=== PATIENT | male | born 1970 | race African-American/Black ===

== ENCOUNTER 2019-11-16 14:28 | Inpatient (IN) | payer OTHER ==
--- NOTE | 2019-11-16 14:45 | PDOC ---
Rapid Medical Evaluation Time Seen by Provider: 11/16/19 14:42 Medical Evaluation: 11/16/19 14:42 I have performed a brief in-person examination on this patient. CC: swelling to both legs PE: b/l brawny edema. +weeping ulcers to b/l legs Orders: labs, urine, sono Patient will proceed to ED for further evaluation. Discharge Disposition - Diagnosis Edema - Referrals - Patient Instructions - Post Discharge Activity
--- NOTE | 2019-11-16 15:46 | PDOC ---
History of Present Illness - General Chief Complaint: Edema Stated Complaint: LEG SWOLLEN Time Seen by Provider: 11/16/19 14:42 History Source: Patient Exam Limitations: No Limitations - History of Present Illness Initial Comments: 11/16/19 16:06 49 y.o. M PMHx HTN, DM Presenting with 1 week of SOB, weakness, and leg swelling with ulcerations from ankle to knee. Patient states He has not been taking his home dose of lasix due to the side effects. Patient reports he has been having increased SOB, headaches, blurry vision, leg swelling N/V/D one episode of emesis today productive of green mucus. He normally receives his treatment at the [facility]. PCP: Dr. Dimas Nephro: Dr. Gaines PMHx: HTN, DM Meds: In Chart Allergies: NKA Past History - Medical History Allergies/Adverse Reactions: Allergies Allergy/AdvReac Type Severity Reaction Status Date / Time No Known Allergies Allergy Verified 11/16/19 14:43 Home Medications: Ambulatory Orders Furosemide [Lasix] 40 mg PO DAILY 11/16/19 Glipizide 10 mg PO DAILY 11/16/19 Lisinopril [Prinivil] 10 mg PO DAILY 11/16/19 COPD: No CHF: Yes Diabetes: Yes HTN: Yes - Psycho-Social/Smoking History Smoking History: Never smoked Have you smoked in the past 12 months: No - Substance Abuse Hx (Audit-C & DAST Scrn) How often the patient has a drink containing alcohol: Never Score: In Men: 4 or > Positive; In Women: 3 or > Positive: 0 Screen Result (Pos requires Nsg. Audit-10AR): Negative In the last yr the pt used illegal drug/Rx for NonMed reason: No Score: Yes response is considered Positive: 0 Screen Result (Positive result requires Nsg. DAST-10): Negative Review of Systems - Review of Systems Constitutional: Yes: Fever, Malaise, Weakness. No: Chills, Diaphoresis HEENTM: Yes: Blurred Vision. No: Double Vision Respiratory: Yes: Shortness of Breath. No: Cough Cardiac (ROS): No: Chest Pain, Palpitations, Syncope ABD/GI: Yes: Constipated, Diarrhea, Nausea, Vomiting : Yes: Burning, Dysuria Musculoskeletal: Yes: Muscle Weakness. No: Back Pain Integumentary: No: Bruising Neurological: Yes: Headache. No: Numbness, Seizure, Tingling Hematologic/Lymphatic: No: Easy Bleeding, Bleeding Diathesis *Physical Exam - Vital Signs Last Vital Signs Temp Pulse Resp BP Pulse Ox 98.7 F 102 H 18 175/111 H 97 11/16/19 14:44 11/16/19 14:44 11/16/19 14:44 11/16/19 14:44 11/16/19 14:44 - Physical Exam General Appearance: Yes: Nourished, Appropriately Dressed. No: Apparent Distress Respiratory/Chest: positive: Lungs Clear, Normal Breath Sounds. negative: Chest Tender, Crackles, Rales, Stridor Cardiovascular: positive: Regular Rhythm, Regular Rate, Edema. negative: JVD, Murmur Gastrointestinal/Abdominal: positive: Normal Bowel Sounds, Flat, Soft. negative: Tender, Protuberent, Distended, Tenderness Musculoskeletal: positive: Normal Inspection. negative: CVA Tenderness Integumentary: positive: Normal Color, Dry, Warm, Erythema, Rash, Swelling, Other (ulcers b/l) Neurologic: positive: Fully Oriented, Alert, Normal Mood/Affect, Normal Response ED Treatment Course - LABORATORY CBC & Chemistry Diagram: 11/16/19 17:03 11/16/19 17:03 Medical Decision Making - Medical Decision Making 11/16/19 16:17 49 y.o. M PMHx HTN, DM Presenting with 1 week of SOB, weakness, and leg swelling with ulcerations from ankle to knee. DDx: CHF, CKD, PE, Labs: WBC 11.3, Hgb 11.2, Hct 33.2, K 3.2, CO2 33, Cr 4.6, BNP 20961 CXR: Enlarged heart, no pulmonary edema, no acute pathology EKG: NSR, L atrial enlargement, QTc 487ms, rate 97 UA: 4+ Protein, Glucose 1+, Blood 1+ Dr. Rivero reccomended 40 PO K and 20meq IVPB, ABG Dispo: Admission to med-surg signed out to Dr. Lewis 11/16/19 18:02 Discharge - Discharge Information Problems reviewed: Yes Clinical Impression/Diagnosis: Chronic kidney insufficiency Qualifiers: Chronic kidney disease stage: unspecified stage Qualified Code(s): N18.9 - Chronic kidney disease, unspecified Clinical Impression/Diagnosis: (Ruled Out): CHF (congestive heart failure) Condition: Stable - Admission Yes - Follow up/Referral - Patient Discharge Instructions - Post Discharge Activity
[2019-11-16 17:10] LABS: BASO % 0.6 % (0-2.0); EPI CELLS 7 /uL (0-25.1); HEMATOCRIT 33.2 % (35.4-49); HEMOGLOBIN 11.2 GM/dL (11.7-16.9); HYALINE CASTS 3 /uL (0-3.1); LYMPH % 22.3 % (8-40); MCHC 33.7 g/dl (32.0-35.9); MEAN PLT VOLUME 8.7 fl (7.5-11.1); MONO % 11.8 % (3.8-10.2); NEUT % 61.3 % (42.8-82.8); PH,URINE 7.5 (5.0-8.0); PLATELET COUNT 282 K/MM3 (134-434); RBC 3.49 M/mm3 (4.00-5.60); RDW 13.2 % (11.9-15.9); URINE APPEARANCE CLEAR; URINE BACTERIA 12 /uL (0-1359); URINE BILIRUBIN NEGATIVE (NEGATIVE); URINE COLOR YELLOW; URINE GLUCOSE (UA) 1+ (NEGATIVE); URINE KETONE NEGATIVE (NEGATIVE); URINE LEUK ESTERASE NEGATIVE (NEGATIVE); URINE NITRITE NEGATIVE (NEGATIVE); URINE PROTEIN 4+ (NEGATIVE); URINE RBC 4 /uL (0-23.9); URINE UROBILINOGEN 0.2 mg/dL (0.2-1.0); URINE WBC 5 /uL (0-25.8); WHITE BLOOD COUNT 11.3 K/mm3 (4.0-10.0)
[2019-11-16 17:16] LABS: INR 1.03 (0.83-1.09); PROTHROMBIN TIME (PATIENT) 12.2 SEC (9.7-13.0)
[2019-11-16 17:51] LABS: ALBUMIN 2.2 g/dl (3.4-5.0); BILIRUBIN,TOTAL 0.2 mg/dL (0.2-1); BLOOD UREA NITROGEN 23.4 mg/dL (7-18); CALCIUM 8.5 mg/dL (8.5-10.1); CREATININE 4.6 mg/dL (0.55-1.3); POTASSIUM 3.2 mmol/L (3.5-5.1); TOT PROT 6.9 g/dl (6.4-8.2)
[2019-11-16] MEDS ORDERED: FUROSEMIDE 40 MG/4 ML INJECTABLE VIAL IVPUSH ONE (17:57)
--- NOTE | 2019-11-16 18:13 | PDOC ---
Documentation entered by Shahab Ogden SCRIBE, acting as scribe for Erica Holcomb MD. Erica Holcomb MD: This documentation has been prepared by the braxtonibe, Shahab Ogden SCRIBE, under my direction and personally reviewed by me in its entirety. I confirm that the documentation accurately reflects all work, treatment, procedures, and medical decision making performed by me. Attending Attestation - Resident Resident Name: Farzad Thacker - ED Attending Attestation I have performed the following: I have examined & evaluated the patient, The case was reviewed & discussed with the resident, I agree w/resident's findings & plan, Exceptions are as noted - HPI HPI: 11/16/19 16:27 The patient is a 49 year old male with a significant past medical history of DM, CHF, and HTN who presents to the emergency department for evaluation of shortness of breath that began one week ago. The patient reports worsened symptoms today which include weakness, headaches, blurry vision, nausea, one episode of vomiting which produced green mucus, diarrhea,and leg swelling with ulcerations from ankle to knee. He reports he stopped taking Lasix due to its side effects. He reports being treated at the [facility]. The patient denies chest/abdominal/back pain, cough, and shortness of breath. Denies fever, chills, nausea, vomiting, and/or any GI symptoms. Denies any symptoms. Denies any other symptoms. Allergies: NKA PCP: Dr. Dimas Nephro: Dr. Gaines - Physicial Exam PE: GENERAL: Awake, alert, and fully oriented, in no acute distress HEAD: No signs of trauma EYES: PERRLA, EOMI, sclera anicteric, conjunctiva clear ENT: Auricles normal inspection, hearing grossly normal, nares patent, oropharynx clear without exudates. Moist mucosa NECK: Normal ROM, supple, no lymphadenopathy, JVD, or masses LUNGS: Breath sounds equal, clear to auscultation bilaterally. No wheezes, and no crackles HEART: Regular rate and rhythm, normal S1 and S2, no murmurs, rubs or gallops ABDOMEN: Soft, nontender, normoactive bowel sounds. No guarding, no rebound. No masses EXTREMITIES: Normal range of motion. 4+ pitting edema with chronic stasis changes to BLE, extending to the level of the lower abdomen. No clubbing or cyanosis. +Open lesions to the lower legs. NEUROLOGICAL: Cranial nerves II through XII grossly intact. Normal speech. Motor and sensation intact. SKIN: Warm, Dry, normal turgor. - Medical Decision Making 11/16/19 18:12 Case d/w Dr. Rivero via phone. He will evaluate patient. Recommended ABG to evaluate the patient's acid/base status based on the high CO2 on the CMP. Also recommended potassium before giving lasix. Will plan for admission. Discharge - Discharge Information Problems reviewed: Yes Clinical Impression/Diagnosis: Chronic kidney insufficiency Qualifiers: Chronic kidney disease stage: unspecified stage Qualified Code(s): N18.9 - Chronic kidney disease, unspecified Condition: Stable - Follow up/Referral - Patient Discharge Instructions - Post Discharge Activity
[2019-11-16] MEDS ORDERED: KCL 10 MEQ IVPB 10 MEQ/100 ML INFUS.BAG IVPB ONE ×2 (18:17→19:57)
[2019-11-16] MEDS ORDERED: FUROSEMIDE 40 MG/4 ML INJECTABLE VIAL ONE (18:17)
[2019-11-16] MEDS: KCL 10 MEQ IVPB 10 MEQ/100 ML INFUS.BAG IVPB SCH ×2 (18:21→20:18)
[2019-11-16 18:51] LABS: ARTERIAL BLD GAS O2 SATURATION 96.7 mmHg (95-98); ARTERIAL BLOOD GAS BASE EXCESS 4.4 mmol/L (-2-2); ARTERIAL BLOOD GAS PO2 85.2 mmHg (80-100); ARTERIAL BLOOD GAS pH 7.435 (7.350-7.450)
[2019-11-16 18:59] LABS: ALLENS TEST POSITIVE
--- NOTE | 2019-11-16 19:03 | PDOC ---
*Physical Exam - Vital Signs Last Vital Signs Temp Pulse Resp BP Pulse Ox 98.3 F 97 H 19 165/102 H 99 11/16/19 17:45 11/16/19 17:45 11/16/19 17:45 11/16/19 17:45 11/16/19 17:45 - Physical Exam 11/16/19 19:02 Signout ADMITTED - just need attending's name - [email or web address] Grayson ED Treatment Course - LABORATORY CBC & Chemistry Diagram: 11/16/19 17:03 11/16/19 17:03 - ADDITIONAL ORDERS Additional order review: Laboratory Results 11/16/19 11/16/19 11/16/19 17:03 17:03 17:03 PT with INR INR Sodium 142 Potassium 3.2 L Chloride 103 Carbon Dioxide 33 H Anion Gap 6 L BUN 23.4 H Creatinine 4.6 H Est GFR (CKD-EPI)AfAm 16.00 Est GFR (CKD-EPI)NonAf 13.81 Random Glucose 246 H Calcium 8.5 Total Bilirubin 0.2 AST 11 L ALT 19 Alkaline Phosphatase 99 B-Natriuretic Peptide 6560.0 H Total Protein 6.9 Albumin 2.2 L Urine Color Yellow Urine Appearance Clear Urine pH 7.5 Ur Specific [place] 1.010 Urine Protein 4+ H Urine Glucose (UA) 1+ H Urine Ketones Negative Urine Blood 1+ H Urine Nitrite Negative Urine Bilirubin Negative Urine Urobilinogen 0.2 Ur Leukocyte Esterase Negative Urine WBC (Auto) 5 Urine RBC (Auto) 4 Urine Casts (Auto) 3 U Epithel Cells (Auto) 7 Urine Bacteria (Auto) 12 11/16/19 17:03 PT with INR 12.20 INR 1.03 Sodium Potassium Chloride Carbon Dioxide Anion Gap BUN Creatinine Est GFR (CKD-EPI)AfAm Est GFR (CKD-EPI)NonAf Random Glucose Calcium Total Bilirubin AST ALT Alkaline Phosphatase B-Natriuretic Peptide Total Protein Albumin Urine Color Urine Appearance Urine pH Ur Specific [place] Urine Protein Urine Glucose (UA) Urine Ketones Urine Blood Urine Nitrite Urine Bilirubin Urine Urobilinogen Ur Leukocyte Esterase Urine WBC (Auto) Urine RBC (Auto) Urine Casts (Auto) U Epithel Cells (Auto) Urine Bacteria (Auto) 11/16/19 17:03 RBC 3.49 L MCV 95.0 MCHC 33.7 RDW 13.2 MPV 8.7 Neutrophils % 61.3 Lymphocytes % 22.3 Monocytes % 11.8 H Eosinophils % 4.0 Basophils % 0.6 - Medications Given in the ED: ED Medications Discontinued Medications Generic Name Dose Route Start Last Admin Trade Name Freq PRN Reason Stop Dose Admin Furosemide 40 mg 11/16/19 17:57 11/16/19 18:27 Lasix Injection - IVPUSH 11/16/19 17:58 40 mg ONCE ONE Administration Discharge - Discharge Information Clinical Impression/Diagnosis: CHF (congestive heart failure) Chronic kidney insufficiency Qualifiers: Chronic kidney disease stage: unspecified stage Qualified Code(s): N18.9 - Chronic kidney disease, unspecified Condition: Stable - Follow up/Referral - Patient Discharge Instructions - Post Discharge Activity
[2019-11-16] MEDS ORDERED: ACETAMINOPHEN 325 MG TABLET (FP) PO ONE (19:28)
--- NOTE | 2019-11-16 19:30 | PN ---
Teaching Attending Note Name of Resident: Jeramie Camarena ATTENDING PHYSICIAN STATEMENT I saw and evaluated the patient. I reviewed the resident's note and discussed the case with the resident. I agree with the resident's findings and plan as documented. SUBJECTIVE: 49yoM with history of HTN, T2DM, CKD, COVID 04/2019, fibromyalgia, PTSD, and obesity presenting with acute on chronic bilateral leg swelling and pain. Notes since the beginning of the year he has had progressive leg swelling but in the past 3 months has been much worse. Developed multiple blisters on both lower legs that drained clear fluid and was following with wound care. 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 States his baseline creatinine is around 3.6-4.2, has been told it is secondary to diabetes and hypertension but has not had renal biopsy. He was prescribed Lasix but states the medication actually makes him urinate less so he stopped taking it. He has been told that the edema is secondary to venous insufficiency but is not satisfied with current treatment from his providers and the pain is intolerable so he presented here. Endorses shortness of breath for one day last week which he attributes to the heaviness of his legs. Believes he has gained about 30lb over the past year. No chest pain, palpitations, lightheadedness, dysuria, dark urine, or orthopnea. He did not take his blood pressure medication prior to presenting today. Hypertensive on arrival to the ED 175/111. Labs notable for potassium 3.2, creatinine 4.6, BNP 6560. Doppler US of the legs were negative for DVT. CXR showed cardiomegaly but no other acute findings. ED discussed case with cardiology, recommended repleting potassium and starting diuresis with 40mg IV Lasix. ROS (+) BLE edema/pain; cold intolerance; weight gain (-) Chest pain, palpitations, decreased UOP, polyuria/polydipsia OBJECTIVE: Vital Signs - 24 hr 11/16/19 11/16/19 14:44 17:45 Temperature 98.7 F 98.3 F Pulse Rate 102 H Pulse Rate [ 97 H Apical] Respiratory 18 19 Rate Blood Pressure 175/111 H Blood Pressure 165/102 H [Right Arm] O2 Sat by Pulse 97 99 Oximetry (%) EXAM Gen: awake, alert, NAD HEENT: NC/AT. No JVD CV: RRR, no MRG Resp: CTAB, unlabored Abd: Soft, NT, ND Ext: 2+ tense edema BLE to knees, skin indurated and hyperpigmented to lower calf. Multiple bilateral shallow ulcerations, no vesicles, no areas of fluctuance. Laboratory Results - last 24 hr 11/16/19 11/16/19 11/16/19 17:03 17:03 17:03 WBC 11.3 H RBC 3.49 L Hgb 11.2 L Hct 33.2 L MCV 95.0 MCH 32.0 MCHC 33.7 RDW 13.2 Plt Count 282 MPV 8.7 Absolute Neuts (auto) 6.9 Neutrophils % 61.3 Lymphocytes % 22.3 Monocytes % 11.8 H Eosinophils % 4.0 Basophils % 0.6 Nucleated RBC % 0 PT with INR 12.20 INR 1.03 Anticoagulation Therapy Puncture Site Patient Temperature ABG pH ABG pCO2 ABG pO2 ABG HCO3 ABG O2 Sat (Measured) ABG O2 Content ABG Base Excess João Test Patient On Oxygen O2 Delivery Device Oxygen Flow Rate Vent Mode Vent Rate Mechanical Rate PEEP Pressure Support Vent Sodium 142 Potassium 3.2 L Chloride 103 Carbon Dioxide 33 H Anion Gap 6 L BUN 23.4 H Creatinine 4.6 H Est GFR (CKD-EPI)AfAm 16.00 Est GFR (CKD-EPI)NonAf 13.81 Random Glucose 246 H Calcium 8.5 Total Bilirubin 0.2 AST 11 L ALT 19 Alkaline Phosphatase 99 B-Natriuretic Peptide Total Protein 6.9 Albumin 2.2 L Urine Color Urine Appearance Urine pH Ur Specific [place] Urine Protein Urine Glucose (UA) Urine Ketones Urine Blood Urine Nitrite Urine Bilirubin Urine Urobilinogen Ur Leukocyte Esterase Urine WBC (Auto) Urine RBC (Auto) Urine Casts (Auto) U Epithel Cells (Auto) Urine Bacteria (Auto) 11/16/19 11/16/19 11/16/19 17:03 17:03 18:13 WBC RBC Hgb Hct MCV MCH MCHC RDW Plt Count MPV Absolute Neuts (auto) Neutrophils % Lymphocytes % Monocytes % Eosinophils % Basophils % Nucleated RBC % PT with INR INR Anticoagulation Therapy No Result Required. Puncture Site Left radial Patient Temperature No Result Required. ABG pH 7.435 ABG pCO2 44.50 ABG pO2 85.2 ABG HCO3 29.2 H ABG O2 Sat (Measured) 96.7 ABG O2 Content No Result Required. ABG Base Excess 4.4 H João Test Positive Patient On Oxygen No O2 Delivery Device Room air Oxygen Flow Rate Room air Vent Mode No Result Required. Vent Rate No Result Required. Mechanical Rate No Result Required. PEEP No Result Required. Pressure Support Vent No Result Required. Sodium Potassium Chloride Carbon Dioxide Anion Gap BUN Creatinine Est GFR (CKD-EPI)AfAm Est GFR (CKD-EPI)NonAf Random Glucose Calcium Total Bilirubin AST ALT Alkaline Phosphatase B-Natriuretic Peptide 6560.0 H Total Protein Albumin Urine Color Yellow Urine Appearance Clear Urine pH 7.5 Ur Specific [place] 1.010 Urine Protein 4+ H Urine Glucose (UA) 1+ H Urine Ketones Negative Urine Blood 1+ H Urine Nitrite Negative Urine Bilirubin Negative Urine Urobilinogen 0.2 Ur Leukocyte Esterase Negative Urine WBC (Auto) 5 Urine RBC (Auto) 4 Urine Casts (Auto) 3 U Epithel Cells (Auto) 7 Urine Bacteria (Auto) 12 Imaging, EKG reviewed in chart ASSESSMENT AND PLAN: 49yoM with history of HTN, T2DM, CKD, COVID 04/2019, fibromyalgia, PTSD, and obesity presenting with acute on chronic bilateral leg swelling and pain. Lower extremity edema/pain Otherwise appears euvolemic on exam No known history of CHF and creatinine is near baseline per patient Low suspicion of acute CHF; likely venous insufficiency. Wounds do not appear acutely infected s/p Lasix 40mg IV in ED - I/O, daily weights - echo given cardiomegaly on CXR and uncontrolled HTN - cardiology consult - elevate legs, compression stockings as tolerated - Tylenol, Tramadol PRN for pain Hypertensive urgency Did not take BP medication today, on nifedipine but not sure what dose Asymptomatic but BP 198/130, received amlodipine - goal MAP overnight around 110 - monitor BP, resume nifedipine and consider adding additional medications as needed CKD Creatinine 4.6, baseline reportedly 3.6-4.2 - obtain outpatient records from [facility] if possible - requesting renal consult for 2nd opinion Hypokalemia - monitor, replete as needed Cold intolerance - check TSH T2DM: Reports he has been diet controlled for several months. Check A1c. ISS DVT ppx: heparin subq
--- NOTE | 2019-11-16 19:55 | HP ---
CHIEF COMPLAINT: Shortness of breath and leg swelling PCP:Dr. Dimas HISTORY OF PRESENT ILLNESS: Mr. Trevino is a 49M w a h/o CHF, DM, and HTN presenting with lower extremity swelling, pain, and weakness that has persisted for 1 week in duration. The patient notes he is normally seen at the [facility]. He noticed that his symptoms have worsened today and had experienced generalized weakness, headaches, and one episode of NBNB vomitus. He endorses bilateral leg swelling from the ankles to knees and also endorses stopping his lasix due to "being able to urinate on his own". He notes that the swelling has developed since July. He says that he lives on the 4th floor of his appartment and it has become increas ingly more difficult for him to climb up the stairs. He also noted a recent 30lb weight gain from 260lbs to 290lbs recently that he attributes to water weight since July. When asked about his breathing he notes that he does not have any dyspnea, shortness of breath or a cough. The patient denies chest pain, fever, chills, d/constipation. Recent Travel: denies PAST MEDICAL HISTORY: as above PAST SURGICAL HISTORY: as above Social History: Smoking: denies Alcohol: denies Drugs: denies Allergies No Known Allergies Allergy (Verified 11/16/19 14:43) HOME MEDICATIONS: Home Medications Medication Instructions Recorded Furosemide [Lasix] 40 mg PO DAILY 11/16/19 Glipizide 10 mg PO DAILY 11/16/19 Lisinopril [Prinivil] 10 mg PO DAILY 11/16/19 REVIEW OF SYSTEMS see above PHYSICAL EXAMINATION Vital Signs - 24 hr 11/16/19 11/16/19 14:44 17:45 Temperature 98.7 F 98.3 F Pulse Rate 102 H Pulse Rate [ 97 H Apical] Respiratory 18 19 Rate Blood Pressure 175/111 H Blood Pressure 165/102 H [Right Arm] O2 Sat by Pulse 97 99 Oximetry (%) GENERAL: Awake, alert, and fully oriented, in no acute distress. HEAD: Normal with no signs of trauma. LUNGS: Breath sounds equal, clear to auscultation bilaterally. No wheezes, and no crackles. No accessory muscle use. HEART: Regular rate and rhythm, normal S1 and S2 without murmur, rub or gallop. ABDOMEN: Soft, nontender, not distended, normoactive bowel sounds, no guarding, no rebound, no masses. No hepatomegaly or splenomegaly. LOWER EXTREMITIES: 3+ edema to knees, venous stasis ulcers medial leg bilaterally Laboratory Results - last 24 hr 11/16/19 11/16/19 11/16/19 17:03 17:03 17:03 WBC 11.3 H RBC 3.49 L Hgb 11.2 L Hct 33.2 L MCV 95.0 MCH 32.0 MCHC 33.7 RDW 13.2 Plt Count 282 MPV 8.7 Absolute Neuts (auto) 6.9 Neutrophils % 61.3 Lymphocytes % 22.3 Monocytes % 11.8 H Eosinophils % 4.0 Basophils % 0.6 Nucleated RBC % 0 PT with INR 12.20 INR 1.03 Anticoagulation Therapy Puncture Site Patient Temperature ABG pH ABG pCO2 ABG pO2 ABG HCO3 ABG O2 Sat (Measured) ABG O2 Content ABG Base Excess João Test Patient On Oxygen O2 Delivery Device Oxygen Flow Rate Vent Mode Vent Rate Mechanical Rate PEEP Pressure Support Vent Sodium 142 Potassium 3.2 L Chloride 103 Carbon Dioxide 33 H Anion Gap 6 L BUN 23.4 H Creatinine 4.6 H Est GFR (CKD-EPI)AfAm 16.00 Est GFR (CKD-EPI)NonAf 13.81 Random Glucose 246 H Calcium 8.5 Total Bilirubin 0.2 AST 11 L ALT 19 Alkaline Phosphatase 99 B-Natriuretic Peptide Total Protein 6.9 Albumin 2.2 L Urine Color Urine Appearance Urine pH Ur Specific [place] Urine Protein Urine Glucose (UA) Urine Ketones Urine Blood Urine Nitrite Urine Bilirubin Urine Urobilinogen Ur Leukocyte Esterase Urine WBC (Auto) Urine RBC (Auto) Urine Casts (Auto) U Epithel Cells (Auto) Urine Bacteria (Auto) 11/16/19 11/16/19 11/16/19 17:03 17:03 18:13 WBC RBC Hgb Hct MCV MCH MCHC RDW Plt Count MPV Absolute Neuts (auto) Neutrophils % Lymphocytes % Monocytes % Eosinophils % Basophils % Nucleated RBC % PT with INR INR Anticoagulation Therapy No Result Required. Puncture Site Left radial Patient Temperature No Result Required. ABG pH 7.435 ABG pCO2 44.50 ABG pO2 85.2 ABG HCO3 29.2 H ABG O2 Sat (Measured) 96.7 ABG O2 Content No Result Required. ABG Base Excess 4.4 H João Test Positive Patient On Oxygen No O2 Delivery Device Room air Oxygen Flow Rate Room air Vent Mode No Result Required. Vent Rate No Result Required. Mechanical Rate No Result Required. PEEP No Result Required. Pressure Support Vent No Result Required. Sodium Potassium Chloride Carbon Dioxide Anion Gap BUN Creatinine Est GFR (CKD-EPI)AfAm Est GFR (CKD-EPI)NonAf Random Glucose Calcium Total Bilirubin AST ALT Alkaline Phosphatase B-Natriuretic Peptide 6560.0 H Total Protein Albumin Urine Color Yellow Urine Appearance Clear Urine pH 7.5 Ur Specific [place] 1.010 Urine Protein 4+ H Urine Glucose (UA) 1+ H Urine Ketones Negative Urine Blood 1+ H Urine Nitrite Negative Urine Bilirubin Negative Urine Urobilinogen 0.2 Ur Leukocyte Esterase Negative Urine WBC (Auto) 5 Urine RBC (Auto) 4 Urine Casts (Auto) 3 U Epithel Cells (Auto) 7 Urine Bacteria (Auto) 12 ASSESSMENT/PLAN: Mr. Trevino is a 49M w a h/o CHF, DM, and HTN presenting with shortness of breath that has persisted for 1 week in duration and is being admitted with lower extremity swelling, elevated BNP, SOLANGE. #Bilateral lower extremity swelling - quesitonable chf vs solange on ckd vs chronic venous stasis - BNP - 6.5K - Admit to telemetry - Consult Dr. Renuka Martinez - cardiology - appreciate the recommendations - Lasix 40mg IV BID - I/O, daily weights - echo - CXR shows a large heart without pulmonary congestion - Leg swelling - vascular study - does NOT show any signs of DVT on radiology r eport - Creatinine 4.6, baseline unknown - monitor electrolytes - Order placed for urine cr and sodium for FeNa calculation - Consult for wound care # Hypokalemia - 3.4 - replete with 40 mg po potassium - Patient was previously on lasix and has stopped since july - will monitor electrolytes as needed #NIDM - Holding oral medications. ISS - A1C - BGM #Leg Pain - Diabetic neuropathy vs BL leg swelling secondary to leg swelling - ofirmev 1000 - gabapentin 100mg until med rec #htn - 5mg amlodipine - monitor - Pressures noted to be 190/100s - initially given amlodipine 5 without improvement - 100mg labetalol given with improvement to 130/110 - Holding lisinopril in the setting of SOLANGE - Consider continuing amlodipine and labetalol PRN #FEN - gentle fluid hydration - monitor K+ in the setting of renal insufficiency - will replete electrolytes as needed - diabetic sodium diet #DVT ppx - Heparin 5000 # Advanced directive - Full code #DISPO - telemetry Family Medical History Family History: As Documented Visit type - Emergency Visit Emergency Visit: Yes ED Registration Date: 11/16/19 Care time: The patient presented to the Emergency Department on the above date and was hospitalized for further evaluation of their emergent condition. - New Patient This patient is new to me today: Yes Date on this admission: 11/17/19 - Critical Care Critical Care patient: No ATTENDING PHYSICIAN STATEMENT I saw and evaluated the patient. I reviewed the resident's note and discussed the case with the resident. I agree with the resident's findings and plan as documented. SUBJECTIVE: OBJECTIVE: ASSESSMENT AND PLAN:
[2019-11-16] MEDS ORDERED: ACETAMINOPHEN 325 MG TABLET (FP) ONE (19:57)
[2019-11-16] MEDS ORDERED: GABAPENTIN 100 MG CAPSULE PO ONE (22:26)
[2019-11-16] MEDS ORDERED: ACETAMINOPHEN 1000 MG/100 ML VIAL (NON FORMULARY) IVPB ONE (22:26)
[2019-11-16] MEDS ORDERED: POTASSIUM CHLORIDE TABS 20 MEQ TABLET.ER (FP) PO ONE (22:29)
[2019-11-16] MEDS ORDERED: amLODIPine BESYLATE 5 MG TABLET (FP) PO ONE (22:29)
[2019-11-16 23:52] VITALS: BMI 37.6
[2019-11-17] MEDS ORDERED: LABETALOL HCL 100 MG TABLET (FP) PO ONE (01:13)
[2019-11-17] MEDS: traMADol HCL 50 MG TABLET PO PRN (04:17)
[2019-11-17] MEDS: FUROSEMIDE 40 MG/4 ML INJECTABLE VIAL IVPUSH SCH ×2 (05:41→14:00)
[2019-11-17] MEDS: HEPARIN NA (PORCINE) 5,000 UNITS/ML 1ML VIAL SQ SCH ×3 (05:43→21:52)
[2019-11-17 08:43] LABS: HEMATOCRIT 32.5 % (35.4-49); HEMOGLOBIN 10.8 GM/dL (11.7-16.9); MCHC 33.2 g/dl (32.0-35.9); MEAN CELL VOLUME 93.4 fl (80-96); MEAN PLT VOLUME 8.5 fl (7.5-11.1); PLATELET COUNT 273 K/MM3 (134-434); RBC 3.48 M/mm3 (4.00-5.60); RDW 13.3 % (11.9-15.9); WHITE BLOOD COUNT 11.4 K/mm3 (4.0-10.0)
[2019-11-17 08:49] LABS: ALBUMIN 2.1 g/dl (3.4-5.0); BILIRUBIN,TOTAL 0.3 mg/dL (0.2-1); BLOOD UREA NITROGEN 23.8 mg/dL (7-18); CALCIUM 8.4 mg/dL (8.5-10.1); CREATININE 4.7 mg/dL (0.55-1.3); MAGNESIUM 1.9 mg/dL (1.8-2.4); PHOSPHOROUS 3.6 mg/dL (2.5-4.9); TOT PROT 6.5 g/dl (6.4-8.2)
--- NOTE | 2019-11-17 09:54 | EKG ---
Test Reason : Blood Pressure : / mmHG Vent. Rate : 097 BPM Atrial Rate : 097 BPM P-R Int : 160 ms QRS Dur : 086 ms QT Int : 384 ms P-R-T Axes : 058 -55 069 degrees QTc Int : 487 ms NORMAL SINUS RHYTHM POSSIBLE LEFT ATRIAL ENLARGEMENT PULMONARY DISEASE PATTERN LEFT ANTERIOR FASCICULAR BLOCK NONSPECIFIC T WAVE ABNORMALITY ABNORMAL ECG NO PREVIOUS ECGS AVAILABLE Confirmed by Andrade Tobar MD ([id number]) on 11/17/2019 9:53:52 AM Referred By: Confirmed By:Andrade Tobar MD
--- NOTE | 2019-11-17 10:00 | PN ---
Teaching Attending Note Name of Resident: Farzad Mi ATTENDING PHYSICIAN STATEMENT I saw and evaluated the patient. I reviewed the resident's note and discussed the case with the resident. I agree with the resident's findings and plan as documented. SUBJECTIVE: Patient is c/o having a lower extremity swelling and oozing. OBJECTIVE: Vital Signs Temperature 98.2 F 11/17/19 14:10 Pulse Rate 77 11/17/19 15:45 Respiratory Rate 20 11/17/19 14:10 Blood Pressure 140/90 11/17/19 15:45 O2 Sat by Pulse Oximetry (%) 97 11/17/19 05:52 PE:per resident's note CBCD WBC 11.4 K/mm3 (4.0-10.0) H 11/17/19 07:20 RBC 3.48 M/mm3 (4.00-5.60) L 11/17/19 07:20 Hgb 10.8 GM/dL (11.7-16.9) L 11/17/19 07:20 Hct 32.5 % (35.4-49) L 11/17/19 07:20 MCV 93.4 fl (80-96) 11/17/19 07:20 MCHC 33.2 g/dl (32.0-35.9) 11/17/19 07:20 RDW 13.3 % (11.9-15.9) 11/17/19 07:20 Plt Count 273 K/MM3 (134-434) 11/17/19 07:20 MPV 8.5 fl (7.5-11.1) 11/17/19 07:20 CMP Sodium 142 mmol/L (136-145) 11/17/19 06:00 Potassium 3.0 mmol/L (3.5-5.1) L 11/17/19 06:00 Chloride 105 mmol/L (98-107) 11/17/19 06:00 Carbon Dioxide 29 mmol/L (21-32) 11/17/19 06:00 Anion Gap 8 MMOL/L (8-16) 11/17/19 06:00 BUN 23.8 mg/dL (7-18) H 11/17/19 06:00 Creatinine 4.7 mg/dL (0.55-1.3) H 11/17/19 06:00 Random Glucose 192 mg/dL (74-106) H 11/17/19 06:00 Calcium 8.4 mg/dL (8.5-10.1) L 11/17/19 06:00 Total Bilirubin 0.3 mg/dL (0.2-1) 11/17/19 06:00 AST 12 U/L (15-37) L 11/17/19 06:00 ALT 17 U/L (13-61) 11/17/19 06:00 Alkaline Phosphatase 91 U/L (45-117) 11/17/19 06:00 Total Protein 6.5 g/dl (6.4-8.2) 11/17/19 06:00 Albumin 2.1 g/dl (3.4-5.0) L 11/17/19 06:00 Current Medications Generic Name Dose Route Start Last Admin Trade Name Freq PRN Reason Stop Dose Admin Acetaminophen 1,000 mg 11/17/19 16:14 Ofirmev Injection - IVPB 11/18/19 16:14 Q6H PRN PAIN LEVEL 1-5 Emollient Ointment 1 applic 11/18/19 10:00 11/17/19 12:20 Aquaphor - TP 1 applic DAILY SKY Administration Furosemide 40 mg 11/17/19 06:00 11/17/19 14:00 Lasix Injection - IVPUSH 40 mg BIDLASIX SKY Administration Heparin Sodium (Porcine) 5,000 unit 11/17/19 06:00 11/17/19 14:01 Heparin - SQ Not Given TID SKY Hydralazine HCl 25 mg 11/17/19 13:15 11/17/19 13:59 Apresoline - PO 25 mg BID SKY Administration Nifedipine 60 mg 11/17/19 12:30 11/17/19 14:00 Procardia Xl - PO 60 mg DAILY SKY Administration Potassium Chloride 40 meq 11/17/19 10:45 11/17/19 10:50 K-Dur - PO 11/19/19 10:44 40 meq BID SKY Administration Tramadol HCl 50 mg 11/17/19 03:22 11/17/19 04:17 Ultram - PO 50 mg BID PRN Administration PAIN LEVEL 6-10 Home Medications Medication Instructions Recorded Furosemide [Lasix] 20 mg PO DAILY 11/16/19 Glipizide 5 mg PO DAILY 11/16/19 Lisinopril [Prinivil] 10 mg PO DAILY 11/16/19 Atorvastatin Ca [Lipitor] 40 mg PO DAILY 11/17/19 Diclofenac Sodium [Voltaren] 100 gm TP PRN PRN 11/17/19 Etanercept [Enbrel] 50 mg SQ WEEKLY 11/17/19 Nifedipine [Nifedipine ER] 30 mg PO DAILY 11/17/19 Potassium Chloride 20 meq PO DAILY 11/17/19 Pregabalin 50 mg PO BID 11/17/19 Sevelamer Carbonate 800 mg PO TID 11/17/19 Tramadol HCl 50 mg PO Q12H PRN 11/17/19 ASSESSMENT AND PLAN: This patient is a 49yom with Pmhx of HTN, T2DM, CKD, COVID 04/2019, fibromyalgia, PTSD, and obesity presenting with acute on chronic bilateral leg swelling and pain. # Lower extremity edema/pain with sonme open wounds: will place the patient on lasix with nephro consult, matthew wrap with silvadene cream #Hypertensive urgency #Acute on chronic CKD: creatinine 4.6, baseline reportedly 3.6-4.2 #Hypokalemia: replete # T2DM: Reports he has been diet controlled for several months. Check A1c. ISS DVT ppx: heparin subq
--- NOTE | 2019-11-17 10:15 | CONSULT ---
- Consultation REQUESTING PROVIDER: CONSULT REQUEST: We have been asked to surgically evaluate this patient for bilateral venous stasis. Hospitalist:Randa Ray HISTORY OF PRESENT ILLNESS: The patient is a 49 yo male with a history of chronic renal disease. He states that his baseline cret last (may) was 2.6. He was hospitalized for 10 days during May for COVID. At this time his renal function worsened to a cret of 11 and currently has been around 4. The patient states that he has been receiving diuretics since early summer, overall he states that the swelling hasn't improved with diuretics. He denies SOB. He has been seen and cared for in a wound clinic. He has compression stocking but hasn't used them since early fall. Most recently he describes using telfa and kerlix on his lower extremtities. His ambulation is limited because of pain. His weight was 293 and now he is 275. PMHx: fibromyalgia, h/o diabetes, HTN, CRI(base cret 2.6), h/o COVID, peripheral neuropathy PSHx: Eye surgery(trauma)? umbilical hernia repair Home Medications Medication Instructions Recorded Furosemide [Lasix] 40 mg PO DAILY 11/16/19 Glipizide 10 mg PO DAILY 11/16/19 Lisinopril [Prinivil] 10 mg PO DAILY 11/16/19 Allergies Allergy/AdvReac Type Severity Reaction Status Date / Time No Known Allergies Allergy Verified 11/16/19 14:43 REVIEW OF SYSTEMS: CONSTITUTIONAL: Present: fever CARDIOVASCULAR: Absent: chest pain, palpitation RESPIRATORY: Absent: cough, shortness of breath GASTROINTESTINAL: Present: [id number] last week GENITOURINARY: ABsent: dysuria, hematuria SKIN: present: lower extremity wounds HEMATOLOGIC/IMMUNOLOGIC: Absent: easy bleeding, easy bruising NEUROLOGIC: Present: tingling b/l PHYSICAL EXAM: GENERAL: Awake, alert, and fully oriented, in no acute distress. LOWER EXTREMITIES: 2+ DP pulses, warm, well-perfused. calf tenderness and peripheral edema. Dry scaly skin with multiple LE healed ulcers(pink base) and thickened skin to lower extremtities(circumfrentially) 5/5 dorsi/plantar flexion b/l. NEUROLOGICAL: Normal speech, gait not observed. PSYCH: Cooperative. Good eye contact. Appropriate mood and affect. Vital Signs Temperature 98.4 F 11/17/19 05:52 Pulse Rate 94 H 11/17/19 05:52 Respiratory Rate 20 11/17/19 05:52 Blood Pressure 121/96 11/17/19 05:52 O2 Sat by Pulse Oximetry (%) 97 11/17/19 05:52 Lab Results WBC 11.4 K/mm3 (4.0-10.0) H 11/17/19 07:20 RBC 3.48 M/mm3 (4.00-5.60) L 11/17/19 07:20 Hgb 10.8 GM/dL (11.7-16.9) L 11/17/19 07:20 Hct 32.5 % (35.4-49) L 11/17/19 07:20 MCV 93.4 fl (80-96) 11/17/19 07:20 MCHC 33.2 g/dl (32.0-35.9) 11/17/19 07:20 RDW 13.3 % (11.9-15.9) 11/17/19 07:20 Plt Count 273 K/MM3 (134-434) 11/17/19 07:20 INR 1.03 (0.83-1.09) 11/16/19 17:03 Sodium 142 mmol/L (136-145) 11/17/19 06:00 Potassium 3.0 mmol/L (3.5-5.1) L 11/17/19 06:00 Chloride 105 mmol/L (98-107) 11/17/19 06:00 Carbon Dioxide 29 mmol/L (21-32) 11/17/19 06:00 Anion Gap 8 MMOL/L (8-16) 11/17/19 06:00 BUN 23.8 mg/dL (7-18) H 11/17/19 06:00 Creatinine 4.7 mg/dL (0.55-1.3) H 11/17/19 06:00 Random Glucose 192 mg/dL (74-106) H 11/17/19 06:00 Calcium 8.4 mg/dL (8.5-10.1) L 11/17/19 06:00 Problem List - Problems (1) Chronic kidney insufficiency Assessment/Plan: pt with chronic kidney disease, please consult as needed for any further vascular access needs as per renal. h/o renal biopsy in the past with work up-his care has been at the [facility] Problems reviewed: Yes Code(s): N18.9 - CHRONIC KIDNEY DISEASE, UNSPECIFIED Qualifiers: Chronic kidney disease stage: unspecified stage Qualified Code(s): N18.9 - Chronic kidney disease, unspecified (2) Chronic venous stasis dermatitis Assessment/Plan: pt with palpable pulses and evidence of chronic edema. Continue diuretics as per the medical team Local wound care with leg elevation. Aquaphor/telfa/kerlix and matthew wraps b/l. D/w Dr. Lopez Problems reviewed: Yes Code(s): I87.2 - VENOUS INSUFFICIENCY (CHRONIC) (PERIPHERAL)
[2019-11-17] MEDS ORDERED: amLODIPine BESYLATE 5 MG TABLET (FP) PO ONE (10:45)
[2019-11-17] MEDS: POTASSIUM CHLORIDE TABS 20 MEQ TABLET.ER (FP) PO SCH ×2 (10:50→21:52)
[2019-11-17] MEDS ORDERED: NIFEdipine 10 MG CAPSULE (FP) PO SCH ×2 (11:45→11:46)
[2019-11-17] MEDS ORDERED: LISINOPRIL 10 MG TABLET PO SCH (12:00)
[2019-11-17] MEDS ORDERED: traMADol HCL 50 MG TABLET PO ONE (12:00)
[2019-11-17] MEDS: MINERAL OIL/PET HY-PHL TOPICAL OINTMENT 454 GM JAR TP SCH (12:20)
--- NOTE | 2019-11-17 12:59 | CON.CARD ---
Consult Consult Specialty:: Cardiology Referred by:: Hospitalist Service Reason for Consultation:: Cardiac evaluation - History of Present Illness Chief Complaint: Pedal edema History of Present Illness: Patient is a 49 year old male with underlying history of HTN, DM and CKD who presented with lower extremity swelling and weakness. He states has been suffering from fibromyalgia. He is followed at [facility] in [place]. He comp lains of bilateral leg swelling with venous insufficiency and skin wounds. He denies chest pain, shortness of breath or palpitations at this time. He denies PND or orthopnea. He denies fever or chills. He denies nausea, vomiting, diarrhea or abdominal pain. He denies headache or lightheadedness. He notes 30 lbs weight gain recently. He has difficulty climbing up stairs. - History Source History Provided By: Patient, Medical Record Limitations to Obtaining History: No Limitations - Past Medical History Cardio/Vascular: Yes: CHF, HTN Renal/: Yes: Renal Inusuff Endocrine: Yes: Diabetes Mellitus - Alcohol/Substance Use Hx Alcohol Use: No History of Substance Use: reports: None - Smoking History Smoking history: Never smoked Have you smoked in the past 12 months: No Home Medications - Allergies Allergies/Adverse Reactions: Allergies Allergy/AdvReac Type Severity Reaction Status Date / Time No Known Allergies Allergy Verified 11/16/19 14:43 - Home Medications Home Medications: Ambulatory Orders Furosemide [Lasix] 40 mg PO DAILY 11/16/19 Glipizide 10 mg PO DAILY 11/16/19 Lisinopril [Prinivil] 10 mg PO DAILY 11/16/19 Family Medical History Other Family History: HTN, CAD, DM, malignancy Review of Systems - Review of Systems Constitutional: denies: Chills, Fever Cardiovascular: denies: Chest Pain, Palpitations, Shortness of Breath Respiratory: denies: Cough, Hemoptysis, Orthopnea, PND Gastrointestinal: denies: Abdominal Pain, Constipation, Diarrhea, Melena, Nausea, Rectal Bleeding, Vomiting Musculoskeletal: reports: Extremity Pain, Muscle Pain Neurological: denies: Dizziness, Headache, Seizure, Syncope Vital Signs: Vital Signs Temperature 98.4 F 11/17/19 05:52 Pulse Rate 60 11/17/19 09:00 Respiratory Rate 20 11/17/19 09:00 Blood Pressure 180/120 H 11/17/19 09:00 O2 Sat by Pulse Oximetry (%) 97 11/17/19 05:52 Neck: Yes: Supple Respiratory: Yes: Diminished Gastrointestinal: Yes: Normal Bowel Sounds, Soft, Abdomen, Obese. No: Tenderness Cardiovascular: Yes: Regular Rate and Rhythm JVD: No PMI: Non-Displaced Heart Sounds: Yes: S1, S2. No: Gallop Extremities: Yes: Other (Skin ulceration LE) Edema: Yes - Other Data Labs, Other Data: CBC, BMP 11/17/19 07:20 11/17/19 06:00 INR, PTT INR 1.03 (0.83-1.09) 11/16/19 17:03 Troponin, BNP 11/16/19 17:03 B-Natriuretic Peptide 6560.0 H Troponin, BNP 11/16/19 17:03 B-Natriuretic Peptide 6560.0 H Imaging - Results Chest X-ray: Report Reviewed (Large heart) Ultrasound: Report Reviewed (No LE DVT) EKG: Report Reviewed Problem List - Problems (1) HTN (hypertension) Code(s): I10 - ESSENTIAL (PRIMARY) HYPERTENSION (2) Type 2 diabetes mellitus Code(s): E11.9 - TYPE 2 DIABETES MELLITUS WITHOUT COMPLICATIONS (3) Pedal edema Code(s): R60.0 - LOCALIZED EDEMA (4) Fibromyalgia Code(s): M79.7 - FIBROMYALGIA (5) Chronic kidney insufficiency Code(s): N18.9 - CHRONIC KIDNEY DISEASE, UNSPECIFIED Qualifiers: Chronic kidney disease stage: unspecified stage Qualified Code(s): N18.9 - Chronic kidney disease, unspecified (6) Chronic venous stasis dermatitis Code(s): I87.2 - VENOUS INSUFFICIENCY (CHRONIC) (PERIPHERAL) Assessment/Plan 1. Pedal edema with venous insufficiency ? PAD 2. Clinical presentation suggests clinical class 0-1 NYHA classification diastolic heart failure 3. Fibromyalgia 4. HTN 5. NIDDM 6. CKD PLAN: 1. Hold Prinivil. Consider Hydralazine 25 mg BID and uptitrate instead. Continue Procardia XL 60 mg QD uptitrate. If need further BP control, Labetalol may be used 2. Monitor renal function and electrolytes. Renal input to follow 3. Diuretic with caution 4. Echocardiography to assess LV/RV and valvular function 5. Vascular surgery input to follow Further plans are to follow Juan Grayson MD
[2019-11-17] MEDS: hydrALAZINE HCL 25 MG TABLET (FP) PO SCH (13:59)
[2019-11-17] MEDS: NIFEdipine E.R 60 MG TABLET PO SCH (14:00)
--- NOTE | 2019-11-17 14:25 | CONSULT ---
Consult Consult Specialty:: Nephrology Reason for Consultation:: CKD - History of Present Illness Chief Complaint: lower ext edema and pain History of Present Illness: Pt is a 49 year old male with pmhx of chf, dm, ckd, and htn who presents to the ER with lower ext swelling and pain. He has history of CKD and follows at the [facility]. His last creatinine was about 4.2 in September. He denies shortness of breath. He denies dysuria or hematuria. He says that he does make urine every hour. He says that he had a superintendent menagerie in the 2 range but then caught COVID and developed worsening renal function. He complains of a 30 pound weight gain. He does not want to take any lasix as he feels it makes him retain fluids. He says that he is unable to get up and down the stairs in his home. - History Source History Provided By: Patient - Past Medical History Cardio/Vascular: Yes: CHF, HTN Renal/: Yes: Renal Inusuff Endocrine: Yes: Diabetes Mellitus - Alcohol/Substance Use Hx Alcohol Use: No History of Substance Use: reports: None - Smoking History Smoking history: Never smoked Have you smoked in the past 12 months: No Home Medications - Allergies Allergies/Adverse Reactions: Allergies Allergy/AdvReac Type Severity Reaction Status Date / Time No Known Allergies Allergy Verified 11/16/19 14:43 - Home Medications Home Medications: Ambulatory Orders Furosemide [Lasix] 40 mg PO DAILY 11/16/19 Glipizide 10 mg PO DAILY 11/16/19 Lisinopril [Prinivil] 10 mg PO DAILY 11/16/19 Family Medical History Family History: Denies Other Family History: HTN, CAD, DM, malignancy Review of Systems - Review of Systems Constitutional: reports: Malaise, Weakness Eyes: reports: No Symptoms HENT: reports: No Symptoms Neck: reports: No Symptoms Cardiovascular: reports: Edema Respiratory: reports: SOB, SOB on Exertion Genitourinary: reports: No Symptoms Musculoskeletal: reports: No Symptoms Integumentary: reports: No Symptoms Neurological: reports: No Symptoms Endocrine: reports: No Symptoms Psychiatric: reports: No Symptoms Physical Exam Vital Signs: Vital Signs Temperature 98.4 F 11/17/19 05:52 Pulse Rate 60 11/17/19 09:00 Respiratory Rate 20 11/17/19 09:00 Blood Pressure 180/120 H 11/17/19 09:00 O2 Sat by Pulse Oximetry (%) 97 11/17/19 05:52 Constitutional: Yes: Calm Eyes: Yes: Conjunctiva Clear HENT: Yes: Atraumatic Cardiovascular: Yes: S1, S2 Respiratory: Yes: CTA Bilaterally Gastrointestinal: Yes: Soft, Abdomen, Obese Musculoskeletal: Yes: WNL Edema: Yes Edema: LLE: 2+, RLE: 2+ Neurological: Yes: Oriented Psychiatric: Yes: Oriented Labs: CBC, BMP 11/17/19 07:20 11/17/19 06:00 Laboratory Tests 11/16/19 11/16/19 11/16/19 17:03 17:03 17:03 WBC 11.3 H Hgb Sodium Potassium Creatinine 4.6 H Random Glucose Calcium B-Natriuretic Peptide 6560.0 H Urine Protein Urine Blood COVID-19 (G[facility]ZAL) 11/16/19 11/16/19 11/17/19 17:03 18:57 06:00 WBC Hgb Sodium 142 Potassium 3.0 L Creatinine 4.7 H Random Glucose 192 H Calcium 8.4 L B-Natriuretic Peptide Urine Protein 4+ H Urine Blood 1+ H COVID-19 (G[facility]ZAL) Pending 11/17/19 07:20 WBC 11.4 H Hgb 10.8 L Sodium Potassium Creatinine Random Glucose Calcium B-Natriuretic Peptide Urine Protein Urine Blood COVID-19 ([facility]ZAL) Imaging - Results Chest X-ray: Report Reviewed Ultrasound: Report Reviewed Problem List - Problems (1) Chronic kidney insufficiency Code(s): N18.9 - CHRONIC KIDNEY DISEASE, UNSPECIFIED Qualifiers: Chronic kidney disease stage: unspecified stage Qualified Code(s): N18.9 - Chronic kidney disease, unspecified (2) HTN (hypertension) Code(s): I10 - ESSENTIAL (PRIMARY) HYPERTENSION (3) Type 2 diabetes mellitus Code(s): E11.9 - TYPE 2 DIABETES MELLITUS WITHOUT COMPLICATIONS Assessment/Plan Current Medications Generic Name Dose Route Start Last Admin Trade Name Freq PRN Reason Stop Dose Admin Emollient Ointment 1 applic 11/18/19 10:00 11/17/19 12:20 Aquaphor - TP 1 applic DAILY SKY Administration Furosemide 40 mg 11/17/19 06:00 11/17/19 14:00 Lasix Injection - IVPUSH 40 mg BIDLASIX SKY Administration Heparin Sodium (Porcine) 5,000 unit 10/06/20 06:00 11/17/19 14:01 Heparin - SQ Not Given TID SKY Hydralazine HCl 25 mg 11/17/19 13:15 11/17/19 13:59 Apresoline - PO 25 mg BID SKY Administration Nifedipine 60 mg 11/17/19 12:30 11/17/19 14:00 Procardia Xl - PO 60 mg DAILY SKY Administration Potassium Chloride 40 meq 11/17/19 10:45 11/17/19 10:50 K-Dur - PO 11/19/19 10:44 40 meq BID SKY Administration Tramadol HCl 50 mg 11/17/19 03:22 11/17/19 04:17 Ultram - PO 50 mg BID PRN Administration PAIN LEVEL 6-10 Laboratory Tests 11/16/19 11/17/19 17:03 06:00 Est GFR (CKD-EPI)AfAm 16.00 15.59 Impression 1. CHF 2. CKD 3. fluid overload 4. dm 5. htn 6. proteinuria 7. hypokalemia Plan - matthew held due to worsening renal function - check prt to superintendent menagerie ratio - check renal ultrasound - follow up echo - cardio input appreciated - repeat bp after meds - titrate hydralazine as tolerated - replace potassium
--- NOTE | 2019-11-17 15:14 | PN ---
Physical Exam: SUBJECTIVE: Patient seen and examined this morning. Endorses lower extremity pain and swelling as well as fibromyalgia related pain. Denies any NICHOLS, changes in vision, CP, SoB, N/V/D. OBJECTIVE: Vital Signs Period Temp Pulse Resp BP Sys/Baeza Pulse Ox Last 24 Hr 98.2 F-99.2 F 60-98 19-21 121-198/96-130 97-100 GENERAL: The patient is awake, alert, and fully oriented, in no acute distress. HEAD: Normal with no signs of trauma. EYES: PERRL, extraocular movements intact, sclera anicteric, conjunctiva clear. No ptosis. ENT: Ears normal, nares patent, oropharynx clear without exudates, moist mucous membranes. NECK: Trachea midline, full range of motion, supple. LUNGS: Breath sounds equal, clear to auscultation bilaterally, no wheezes, no crackles, no accessory muscle use. HEART: Regular rate and rhythm, S1, S2 without murmur, rub or gallop. ABDOMEN: Soft, nontender, distended possibly 2/2 fluid overload, normoactive bowel sounds UPPER EXTREMITIES: 2+ pulses, warm, well-perfused, no edema. LOWER EXTREMITIES: Non-pitting edema, and multiple lesions noted on the LE b/l. Evidence of vascular insufficiency. Pulses difficult to palpate NEUROLOGICAL:Normal speech, gait not observed. PSYCH: Normal mood, normal affect. SKIN: Warm, dry, normal turgor, except as noted on lower extremities Laboratory Results - last 24 hr CBC, BMP 11/17/19 07:20 11/17/19 06:00 Troponin, BNP 11/16/19 17:03 B-Natriuretic Peptide 6560.0 H Active Medications Generic Name Dose Route Start Last Admin Trade Name Rojasq PRN Reason Stop Dose Admin Emollient Ointment 1 applic 11/18/19 10:00 11/17/19 12:20 Aquaphor - TP 1 applic DAILY SKY Administration Furosemide 40 mg 11/17/19 06:00 11/17/19 14:00 Lasix Injection - IVPUSH 40 mg BIDLASIX SKY Administration Heparin Sodium (Porcine) 5,000 unit 11/17/19 06:00 11/17/19 14:01 Heparin - SQ Not Given TID SKY Hydralazine HCl 25 mg 11/17/19 13:15 11/17/19 13:59 Apresoline - PO 25 mg BID SKY Administration Nifedipine 60 mg 11/17/19 12:30 11/17/19 14:00 Procardia Xl - PO 60 mg DAILY SKY Administration Potassium Chloride 40 meq 11/17/19 10:45 11/17/19 10:50 K-Dur - PO 11/19/19 10:44 40 meq BID SKY Administration Tramadol HCl 50 mg 11/17/19 03:22 11/17/19 04:17 Ultram - PO 50 mg BID PRN Administration PAIN LEVEL 6-10 ASSESSMENT/PLAN: 49 yo M w PMHx of HFwREF, NIDDM, HTN, CKD, and Fibromyalgia, presents with shortness of breath for 1 week in duration and lower extremity swelling. BILATERAL LOWER EXTREMITY SWELLING LIKELY 2/2 CHRONIC VENOUS STASIS: r/o CHF vs SOLANGE on CKD - LE Duplex: Negative for DVT bilaterally - Creatinine 4.6, baseline unknown - Excoriations noted on LE b/l - Per Surgery: Aquafor wound dressings on LE b/l HEART FAILURE WITH REDUCED EJECTION FRACTION - BNP on Admission - 6560 - CXR: Large heart without pulmonary congestion - ECHO: EF 35%. Severe concentric LV hypertrophy. Severe global hypokinesis of LV. Mild MR, Trace TR, Mild pulmonic valve regurg. - Lasix 40mg IVPUSH BID - Monitor for fluid overload in setting of reduced ejection fraction - Cardiology Consulted c/w recs CHRONIC KIDNEY DISEASE -FU [facility] for Baseline Cr -UA: 4+ Protein -CrCl: 33 -FU Urine Protein/Cr Ratio -FU Renal Ultrasound -Nephro Consulted c/w recs: Holding ACEi FIBROMYALGIA vs DIABETIC NEUROPATHY - Generalized pain in LE as well as in Upper Extremities - Ofirmev 1000mg q6 PRN for pain 1-5 - Ultram 50mg BID PRN for pain 6-10 - Will consider restarting Lyrica tomorrow HYPERTENSION - Hydralazine 25mg BID w/ titration as needed - Nifedipine 60 Qdaily w/ titration as needed - Per Cards: Consider labetalol if necessary for 3rd agent HYPOKALEMIA - Potassium 3.4 on admission - c/w Potassium 40meq BID - Trend Potassium; Replete <3.5 RULE OUT SUBCLINICAL HYPOTHYROIDISM -Questionable Med-Rec w/ different pharmacists regarding use of Synthroid -TSH: 3.7 (upper limit of normal) -Consider Free T4 -FU w/ [facility] Records NON-INSULIN DEPENDENT DIABETES MELLITUS - A1c: 7.4 - ACHS - ISS HISTORY OF COVID INFECTION -s/p hospitalization in May. 10 day stay FEN - No standing fluids - Monitor K+ - Diabetic sodium diet PPx -DVT: Heparin 5000 TID DISPO: Continue to monitor on med surg floors Visit type - Emergency Visit Emergency Visit: No - New Patient This patient is new to me today: Yes Date on this admission: 11/17/19 - Critical Care Critical Care patient: No - Discharge Referral Referred to [facility] No ATTENDING PHYSICIAN STATEMENT I saw and evaluated the patient. I reviewed the resident's note and discussed the case with the resident. I agree with the resident's findings and plan as documented. SUBJECTIVE: OBJECTIVE: ASSESSMENT AND PLAN:
--- NOTE | 2019-11-17 15:14 | ECHO ---
Name: HOMERO SALOMON R Exam:Adult Echocardiogram Study Date: 11/17/2019 02:28 PM Age: 49 yrs Height: 72 in Weight: 290 lb BSA: 2.5 m2 MMode/2D Measurements & Calculations RVDd: 3.6 cm Ao root diam: 3.9 cm IVSd: 1.6 cm LA dimension: 3.6 cm LVIDd: 4.5 cm ACS: 2.3 cm LVIDs: 3.3 cm LVPWd: 1.5 cm IVSs: 1.6 cm LVPWs: 1.9 cm EDV(Beverley): 93.8 ml ESV(Beverley): 45.7 ml EPSS: 1.3 cm LVOT diam: 2.4 cm LAV (MOD-bp): 75.0 ml RV S Thai: 16.5 cm/sec Doppler Measurements & Calculations MV E max thai: 90.8 cm/sec Ao V2 max: 118.1 cm/sec MV A max thai: 84.4 cm/sec Ao max P.6 mmHg MV E/A: 1.1 Ao V2 mean: 80.4 cm/sec MV dec time: 0.13 sec Ao mean P.0 mmHg Ao V2 VTI: 19.8 cm ORQUIDEA(I,D): 4.1 cm2 ORQUIDEA(V,D): 3.9 cm2 LV V1 max P.8 mmHg SV(LVOT): 81.0 ml LV V1 mean P.9 mmHg LV V1 max: 97.7 cm/sec LV V1 mean: 63.7 cm/sec LV V1 VTI: 17.3 cm PA V2 max: 101.8 cm/sec Med Peak E' Thai: 7.2 cm/sec PA max P.1 mmHg Med E/e': 12.6 PA acc slope: 565.4 cm/sec2 Lat Peak E' Thai: 7.2 cm/sec PA acc time: 0.11 sec Lat E/e': 12.6 PA pr(Accel): 31.5 mmHg Tech Comments TDS due to body habitus. Right side not well-visualized. Procedure A complete two-dimensional transthoracic echocardiogram was performed (2D, M-mode, Doppler and color flow Doppler). Left Ventricle The left ventricle is normal in size. There is severe concentric left ventricular hypertrophy. Left ventricular systolic function is severely reduced. Ejection Fraction = 35%. The transmitral spectral Doppler flow pattern is suggestive of impaired LV relaxation. There is severe global hypokinesis of the left ventricle. Right Ventricle The right ventricle is normal in size and function. Atria Normal left and right atrial size and function. Mitral Valve The mitral valve is normal in structure and function. There is trace to mild mitral regurgitation. Tricuspid Valve The tricuspid valve is normal in structure and function. There is trace tricuspid regurgitation. Ther e was insufficient TR detected to calculate RV systolic pressure. Aortic Valve The aortic valve is normal in structure and function. Pulmonic Valve The pulmonic valve is normal in structure and function. Trace to mild pulmonic valvular regurgitation . Great Vessels The aortic root is normal size. Pericardium/Pleura There is no pericardial effusion. There is no pleural effusion. Interpretation Summary The left ventricle is normal in size. There is severe concentric left ventricular hypertrophy. There is severe global hypokinesis of the left ventricle. Left ventricular systolic function is severely reduced. Ejection Fraction = 35%. There is trace to mild mitral regurgitation. There is trace tricuspid regurgitation. Trace to mild pulmonic valvular regurgitation. MD Andrade Tobar 11/17/2019 03:14 PM
[2019-11-17] MEDS ORDERED: ACETAMINOPHEN 1000 MG/100 ML VIAL (NON FORMULARY) IVPB PRN (16:14)
[2019-11-17] MEDS ORDERED: INSULIN (NOVOLOG) ASPART 100 UNITS/ML 10ML VIAL ONE (21:27)
[2019-11-18] MEDS: hydrALAZINE HCL 25 MG TABLET (FP) PO SCH ×3 (01:29→22:35)
[2019-11-18] MEDS: traMADol HCL 50 MG TABLET PO PRN ×3 (01:42→23:02)
[2019-11-18] MEDS: HEPARIN NA (PORCINE) 5,000 UNITS/ML 1ML VIAL SQ SCH ×3 (05:29→22:38)
[2019-11-18] MEDS: FUROSEMIDE 40 MG/4 ML INJECTABLE VIAL IVPUSH SCH ×2 (05:29→13:43)
[2019-11-18 08:28] LABS: BASO % 0.7 % (0-2.0); EOS % 6.9 % (0-4.5); HEMATOCRIT 33.9 % (35.4-49); HEMOGLOBIN 11.5 GM/dL (11.7-16.9); LYMPH % 25.3 % (8-40); MCH 31.7 pg (25.7-33.7); MCHC 33.8 g/dl (32.0-35.9); MEAN PLT VOLUME 8.3 fl (7.5-11.1); MONO % 11.6 % (3.8-10.2); NEUT % 55.5 % (42.8-82.8); PLATELET COUNT 286 K/MM3 (134-434); RBC 3.61 M/mm3 (4.00-5.60); RDW 13.3 % (11.9-15.9); WHITE BLOOD COUNT 9.9 K/mm3 (4.0-10.0)
[2019-11-18 08:29] LABS: ALBUMIN 2.3 g/dl (3.4-5.0); BILIRUBIN,TOTAL 0.4 mg/dL (0.2-1); BLOOD UREA NITROGEN 23.4 mg/dL (7-18); CALCIUM 8.5 mg/dL (8.5-10.1); CREATININE 4.6 mg/dL (0.55-1.3); MAGNESIUM 2.2 mg/dL (1.8-2.4); PHOSPHOROUS 4.3 mg/dL (2.5-4.9); POTASSIUM 3.2 mmol/L (3.5-5.1); TOT PROT 6.9 g/dl (6.4-8.2)
[2019-11-18] MEDS: POTASSIUM CHLORIDE TABS 20 MEQ TABLET.ER (FP) PO SCH ×2 (10:08→22:34)
[2019-11-18] MEDS: NIFEdipine E.R 60 MG TABLET PO SCH ×2 (10:08→11:57)
[2019-11-18] MEDS: MINERAL OIL/PET HY-PHL TOPICAL OINTMENT 454 GM JAR TP SCH (10:10)
--- NOTE | 2019-11-18 10:17 | PN ---
Progress Note, Physician History of Present Illness: Pt is a 49 year old male with pmhx of chf, dm, ckd, and htn who presents to the ER with lower ext swelling and pain. He has history of CKD and follows at the [facility]. His baseline creatinine was about 3.8-4.2 in September. He denies shortness of breath. He denies dysuria or hematuria. He says that he does make urine every hour. 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 He complains of a 30 pound weight gain. He does not want to take any lasix as he feels it makes him retain fluids. He says that he is unable to get up and down the stairs in his home. Receiving IV diuresis with improvement of LE edema, echo shows severe HTN cardiomyopathy. - Current Medication List Current Medications: Active Medications Acetaminophen (Ofirmev Injection -) 1,000 mg IVPB Q6H PRN PRN Reason: PAIN LEVEL 1-5 Stop: 11/18/19 16:14 Emollient Ointment (Aquaphor -) 1 applic TP DAILY [facility] Last Admin: 11/18/19 10:10 Dose: 1 applic Documented by: Furosemide (Lasix Injection -) 40 mg IVPUSH BIDLASIX [facility] Last Admin: 11/18/19 05:29 Dose: 40 mg Documented by: Heparin Sodium (Porcine) (Heparin -) 5,000 unit SQ TID [facility] Last Admin: 11/18/19 05:29 Dose: Not Given Documented by: Hydralazine HCl (Apresoline -) 25 mg PO BID [facility] Last Admin: 11/18/19 10:08 Dose: 25 mg Documented by: Nifedipine (Procardia Xl -) 60 mg PO DAILY [facility] Last Admin: 11/18/19 10:08 Dose: 60 mg Documented by: Potassium Chloride (K-Dur -) 40 meq PO BID [facility] Stop: 11/19/19 10:44 Last Admin: 11/18/19 10:08 Dose: 40 meq Documented by: Tramadol HCl (Ultram -) 50 mg PO BID PRN PRN Reason: PAIN LEVEL 6-10 Last Admin: 11/18/19 01:42 Dose: 50 mg Documented by: - Objective Vital Signs: Vital Signs Temperature 98.6 F 11/18/19 07:01 Pulse Rate 95 H 11/18/19 07:01 Respiratory Rate 20 11/18/19 07:01 Blood Pressure 123/98 11/18/19 07:01 O2 Sat by Pulse Oximetry (%) 93 L 11/18/19 07:01 Constitutional: Yes: No Distress, Calm Neck: Yes: Supple Cardiovascular: Yes: Regular Rate and Rhythm Respiratory: Yes: Regular, CTA Bilaterally Gastrointestinal: Yes: Normal Bowel Sounds, Soft, Abdomen, Obese Edema: Yes Edema: LLE: 1+, RLE: 1+ Labs: CBC, BMP 11/18/19 07:10 11/18/19 07:10 INR, PTT INR 1.03 (0.83-1.09) 11/16/19 17:03 Problem List - Problems (1) Systolic and diastolic CHF, acute on chronic Code(s): I50.43 - ACUTE ON CHRONIC COMBINED SYSTOLIC AND DIASTOLIC HRT FAIL (2) Hypertensive cardiomyopathy Code(s): I11.9 - HYPERTENSIVE HEART DISEASE WITHOUT HEART FAILURE; I43 - CARDIOMYOPATHY IN DISEASES CLASSIFIED ELSEWHERE Qualifiers: Heart failure presence: with heart failure Qualified Code(s): I11.0 - Hypertensive heart disease with heart failure; I43 - Cardiomyopathy in diseases classified elsewhere (3) Chronic kidney insufficiency Code(s): N18.9 - CHRONIC KIDNEY DISEASE, UNSPECIFIED Qualifiers: Chronic kidney disease stage: stage 4 (severe) Qualified Code(s): N18.4 - Chronic kidney disease, stage 4 (severe) (4) Chronic venous stasis dermatitis Code(s): I87.2 - VENOUS INSUFFICIENCY (CHRONIC) (PERIPHERAL) (5) Pedal edema Code(s): R60.0 - LOCALIZED EDEMA (6) Type 2 diabetes mellitus Code(s): E11.9 - TYPE 2 DIABETES MELLITUS WITHOUT COMPLICATIONS Qualifiers: Diabetes mellitus intermediate designer insulin use: without intermediate designer use Diabetes mellitus complication detail: with nephropathy Assessment/Plan 11/17/2019 Echo Normal LV size with severe cLVH and severe decreased global HK LVEF 35%, tr-mild MR, mild OR, tr TR 1. Acute on chronic diastolic/systolic heart failure 2. Chronic venous insufficiency/lymphedema 3. Fibromyalgia 4. HTN cardiomyopathy with failure 5. NIDDM 6. Acute on CKD with nephrotic proteinuria PLAN: 1. Hold Prinivil pending stabilization of renal fxn. Continue Hydralazine 25 mg BID, add Imdur 30 qd (BiDil) and uptitrate as tolerated. Change Procardia XL 60 mg QD to carvedilol 6.25 bid with uptitration as hemodynamics as tolerated 2. IV diuresis with monitor diuretic response, renal function and electrolytes, replete K. Renal input appreciated, consider Demadex oral. 3. Echocardiography results reviewed with patient 4. Compression therapy and moisturizers for LE edema
--- NOTE | 2019-11-18 12:04 | PN ---
Progress Note, Physician History of Present Illness: Pt seen and examined at bedside. He is awake and alert. he feels that his edema is improving. He feels he did not tolerate po lasix as outpt. He is responding to IV however. - Current Medication List Current Medications: Active Medications Acetaminophen (Ofirmev Injection -) 1,000 mg IVPB Q6H PRN PRN Reason: PAIN LEVEL 1-5 Stop: 11/18/19 16:14 Carvedilol (Coreg -) 6.25 mg PO BID [facility] Emollient Ointment (Aquaphor -) 1 applic TP DAILY [facility] Last Admin: 11/18/19 10:10 Dose: 1 applic Documented by: Furosemide (Lasix Injection -) 40 mg IVPUSH BIDLASIX [facility] Last Admin: 11/18/19 05:29 Dose: 40 mg Documented by: Heparin Sodium (Porcine) (Heparin -) 5,000 unit SQ TID [facility] Last Admin: 11/18/19 05:29 Dose: Not Given Documented by: Hydralazine HCl (Apresoline -) 25 mg PO BID [facility] Last Admin: 11/18/19 10:08 Dose: 25 mg Documented by: Potassium Chloride (K-Dur -) 40 meq PO BID [facility] Stop: 11/19/19 10:44 Last Admin: 11/18/19 10:08 Dose: 40 meq Documented by: Pregabalin (Lyrica -) 50 mg PO BID [facility] Tramadol HCl (Ultram -) 50 mg PO BID PRN PRN Reason: PAIN LEVEL 6-10 Last Admin: 11/18/19 10:34 Dose: 50 mg Documented by: - Objective Vital Signs: Vital Signs Temperature 98.6 F 11/18/19 07:01 Pulse Rate 95 H 11/18/19 07:01 Respiratory Rate 20 11/18/19 07:01 Blood Pressure 123/98 11/18/19 07:01 O2 Sat by Pulse Oximetry (%) 93 L 11/18/19 07:01 Constitutional: Yes: Calm Eyes: Yes: Conjunctiva Clear Cardiovascular: Yes: S1, S2 Respiratory: Yes: CTA Bilaterally Gastrointestinal: Yes: Soft Genitourinary: Yes: WNL Musculoskeletal: Yes: WNL Edema: Yes Edema: LLE: 1+, RLE: 1+ Neurological: Yes: Oriented Psychiatric: Yes: Oriented Labs: CBC, BMP 11/18/19 07:10 11/18/19 07:10 INR, PTT INR 1.03 (0.83-1.09) 11/16/19 17:03 Problem List - Problems (1) Chronic kidney insufficiency Code(s): N18.9 - CHRONIC KIDNEY DISEASE, UNSPECIFIED Qualifiers: Chronic kidney disease stage: unspecified stage Qualified Code(s): N18.9 - Chronic kidney disease, unspecified (2) HTN (hypertension) Code(s): I10 - ESSENTIAL (PRIMARY) HYPERTENSION (3) Type 2 diabetes mellitus Code(s): E11.9 - TYPE 2 DIABETES MELLITUS WITHOUT COMPLICATIONS Assessment/Plan Current Medications Generic Name Dose Route Start Last Admin Trade Name Freq PRN Reason Stop Dose Admin Acetaminophen 1,000 mg 11/17/19 16:14 Ofirmev Injection - IVPB 11/18/19 16:14 Q6H PRN PAIN LEVEL 1-5 Carvedilol 6.25 mg 11/18/19 11:00 Coreg - PO BID [facility] Emollient Ointment 1 applic 11/18/19 10:00 11/18/19 10:10 Aquaphor - TP 1 applic DAILY [facility] Administration Furosemide 40 mg 11/17/19 06:00 11/18/19 05:29 Lasix Injection - IVPUSH 40 mg BIDLASIX [facility] Administration Heparin Sodium (Porcine) 5,000 unit 11/17/19 06:00 11/18/19 05:29 Heparin - SQ Not Given TID [facility] Hydralazine HCl 25 mg 11/17/19 13:15 11/18/19 10:08 Apresoline - PO 25 mg BID [facility] Administration Potassium Chloride 40 meq 11/17/19 10:45 11/18/19 10:08 K-Dur - PO 11/19/19 10:44 40 meq BID [facility] Administration Pregabalin 50 mg 11/18/19 11:45 Lyrica - PO BID [facility] Tramadol HCl 50 mg 11/17/19 03:22 11/18/19 10:34 Ultram - PO 50 mg BID PRN Administration PAIN LEVEL 6-10 Impression 1. CHF 2. CKD 3. fluid overload 4. dm 5. htn 6. proteinuria 7. hypokalemia 8. 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
[2019-11-18] MEDS: PREGABALIN 50 MG CAPSULE PO SCH ×2 (12:44→22:35)
[2019-11-18] MEDS: CARVEDILOL 6.25 MG TABLET (FP) PO SCH ×2 (13:43→22:35)
--- NOTE | 2019-11-18 14:35 | PN ---
Physical Exam: SUBJECTIVE: Patient seen and examined this morning, in no acute distress. Endorsed continual generalized pain in his LE, however endorsed no other complaints. Denied CP, SoB, N/V/D. OBJECTIVE: Vital Signs Period Temp Pulse Resp BP Sys/Baeza Pulse Ox Last 24 Hr 98.3 F-98.9 F 77-101 18-20 102-148/60-98 93-97 GENERAL:The patient is awake, alert, and fully oriented, in no acute distress. HEAD: Normal with no signs of trauma. EYES: PERRL, extraocular movements intact, sclera anicteric, conjunctiva clear. No ptosis. ENT: Ears normal, nares patent, oropharynx clear without exudates, moist mucous membranes. NECK: Trachea midline, full range of motion, supple. LUNGS: Breath sounds equal, clear to auscultation bilaterally, no wheezes, no crackles, no accessory muscle use. HEART: Regular rate and rhythm, S1, S2 without murmur, rub or gallop. ABDOMEN: Soft, nontender, distended possibly 2/2 fluid overload, normoactive bowel sounds UPPER EXTREMITIES: 2+ pulses, warm, well-perfused, no edema. LOWER EXTREMITIES: Non-pitting edema, LE wrapped in JEREMIE bandage and Aquafor, inspected, wounds are less erythematous. Non-purulent. NEUROLOGICAL:Normal speech, gait not observed. PSYCH: Normal mood, normal affect. SKIN: Warm, dry, normal turgor, except as noted on lower extremities Laboratory Results - last 24 hr CBC, BMP 11/18/19 07:10 11/18/19 07:10 Active Medications Generic Name Dose Route Start Last Admin Trade Name Yamilet PRN Reason Stop Dose Admin Acetaminophen 1,000 mg 11/17/19 16:14 Ofirmev Injection - IVPB 11/18/19 16:14 Q6H PRN PAIN LEVEL 1-5 Carvedilol 6.25 mg 11/18/19 11:00 11/18/19 13:43 Coreg - PO 6.25 mg BID [facility] Administration Emollient Ointment 1 applic 11/18/19 10:00 11/18/19 10:10 Aquaphor - TP 1 applic DAILY [facility] Administration Furosemide 40 mg 11/17/19 06:00 11/18/19 13:43 Lasix Injection - IVPUSH 40 mg BIDLASIX [facility] Administration Heparin Sodium (Porcine) 5,000 unit 11/17/19 06:00 11/18/19 13:52 Heparin - SQ Not Given TID [facility] Hydralazine HCl 25 mg 11/17/19 13:15 11/18/19 10:08 Apresoline - PO 25 mg BID [facility] Administration Potassium Chloride 40 meq 11/17/19 10:45 11/18/19 10:08 K-Dur - PO 11/19/19 10:44 40 meq BID [facility] Administration Pregabalin 50 mg 11/18/19 11:45 11/18/19 12:44 Lyrica - PO 50 mg BID [facility] Administration Tramadol HCl 50 mg 11/17/19 03:22 11/18/19 10:34 Ultram - PO 50 mg BID PRN Administration PAIN LEVEL 6-10 ASSESSMENT/PLAN: 49 yo M w PMHx of HFwREF, NIDDM, HTN, CKD, and Fibromyalgia, presents with shortness of breath for 1 week in duration and lower extremity swelling. BILATERAL LOWER EXTREMITY SWELLING LIKELY 2/2 CHRONIC VENOUS STASIS: r/o CHF vs SOLANGE on CKD - LE Duplex: Negative for DVT bilaterally - Creatinine 4.6, baseline unknown, HIPPA form sent to [facility] - Excoriations noted on LE b/l improving w/ aquafor ACUTE ON CHRONIC DIASTOLIC/SYSTOLIC HEART FAILURE - BNP on Admission - 6560 - ECHO: EF 35%. Severe concentric LV hypertrophy. Severe global hypokinesis of LV. Mild MR, Trace TR, Mild pulmonic valve regurg. - Lasix 40mg IVPUSH BID - Per Cards: -Continue Hydralazine 25 mg BID, add Imdur 30 qd (BiDil) (Confirm with Cardiology if they want started now) -Change Procardia XL 60 mg QD to carvedilol 6.25 BID CHRONIC KIDNEY DISEASE -CrCl: 33 -Urine Protein/Cr Ratio: 10.7; 537:50 -Renal US: Slightly echogenic kidneys that may be compatible with chronic medical renal disease. Simple cyst in the left kidney measuring 2.9 cm. -Per Nephro: -Switch to Torsemide after appropriate diuresis w/ Lasix. FIBROMYALGIA vs DIABETIC NEUROPATHY - Generalized pain in LE as well as in Upper Extremities - Ofirmev 1000mg q6 PRN for pain 1-5 - Ultram 50mg BID PRN for pain 6-10 - Start Lyrica 50mg BID, Titrate as needed and dose per CrCl HYPERTENSION - Hydralazine 25mg BID w/ titration as needed - Coreg 6.25 BID - Per Cards: Consider labetalol if necessary for 3rd agent HYPOKALEMIA - Potassium 3.2 Today - c/w Potassium 40meq PO BID - Trend Potassium; Replete <3.5 NON-INSULIN DEPENDENT DIABETES MELLITUS - A1c: 7.4 - ACHS - ISS - Outpatient Endocrine FU HISTORY OF COVID INFECTION -s/p hospitalization in May. 10 day stay FEN - No standing fluids - Monitor K+ - Diabetic sodium diet PPx -DVT: Heparin 5000 TID DISPO: Continue to monitor on med surg floors Visit type - Emergency Visit Emergency Visit: No - New Patient This patient is new to me today: No - Critical Care Critical Care patient: No - Discharge Referral Referred to [facility] Med P.C.: No ATTENDING PHYSICIAN STATEMENT I saw and evaluated the patient. I reviewed the resident's note and discussed the case with the resident. I agree with the resident's findings and plan as documented. SUBJECTIVE: OBJECTIVE: ASSESSMENT AND PLAN:
--- NOTE | 2019-11-18 18:52 | PN ---
Teaching Attending Note Name of Resident: Farzad Mi ATTENDING PHYSICIAN STATEMENT I saw and evaluated the patient. I reviewed the resident's note and discussed the case with the resident. I agree with the resident's findings and plan as documented. SUBJECTIVE: OBJECTIVE: Vital Signs Temperature 98.3 F 11/18/19 13:55 Pulse Rate 100 H 11/18/19 13:55 Respiratory Rate 18 11/18/19 13:55 Blood Pressure 147/96 11/18/19 13:55 O2 Sat by Pulse Oximetry (%) 96 11/18/19 14:00 PE:per resident's note CBCD WBC 9.9 K/mm3 (4.0-10.0) 11/18/19 07:10 RBC 3.61 M/mm3 (4.00-5.60) L 11/18/19 07:10 Hgb 11.5 GM/dL (11.7-16.9) L 11/18/19 07:10 Hct 33.9 % (35.4-49) L 11/18/19 07:10 MCV 94.0 fl (80-96) 11/18/19 07:10 MCHC 33.8 g/dl (32.0-35.9) 11/18/19 07:10 RDW 13.3 % (11.9-15.9) 11/18/19 07:10 Plt Count 286 K/MM3 (134-434) 11/18/19 07:10 MPV 8.3 fl (7.5-11.1) 11/18/19 07:10 CMP Sodium 141 mmol/L (136-145) 11/18/19 07:10 Potassium 3.2 mmol/L (3.5-5.1) L 11/18/19 07:10 Chloride 104 mmol/L (98-107) 11/18/19 07:10 Carbon Dioxide 32 mmol/L (21-32) 11/18/19 07:10 Anion Gap 5 MMOL/L (8-16) L 11/18/19 07:10 BUN 23.4 mg/dL (7-18) H 11/18/19 07:10 Creatinine 4.6 mg/dL (0.55-1.3) H 11/18/19 07:10 Random Glucose 161 mg/dL (74-106) H 11/18/19 07:10 Calcium 8.5 mg/dL (8.5-10.1) 11/18/19 07:10 Total Bilirubin 0.4 mg/dL (0.2-1) 11/18/19 07:10 AST 11 U/L (15-37) L 11/18/19 07:10 ALT 16 U/L (13-61) 11/18/19 07:10 Alkaline Phosphatase 92 U/L (45-117) 11/18/19 07:10 Total Protein 6.9 g/dl (6.4-8.2) 11/18/19 07:10 Albumin 2.3 g/dl (3.4-5.0) L 11/18/19 07:10 Current Medications Generic Name Dose Route Start Last Admin Trade Name Rojasq PRN Reason Stop Dose Admin Carvedilol 6.25 mg 11/18/19 11:00 11/18/19 13:43 Coreg - PO 6.25 mg BID [facility] Administration Emollient Ointment 1 applic 11/18/19 10:00 11/18/19 10:10 Aquaphor - TP 1 applic DAILY [facility] Administration Furosemide 40 mg 11/17/19 06:00 11/18/19 13:43 Lasix Injection - IVPUSH 40 mg BIDLASIX [facility] Administration Heparin Sodium (Porcine) 5,000 unit 11/17/19 06:00 11/18/19 13:52 Heparin - SQ Not Given TID [facility] Hydralazine HCl 25 mg 11/17/19 13:15 11/18/19 10:08 Apresoline - PO 25 mg BID [facility] Administration Insulin Aspart 1 vial 11/18/19 22:00 Novolog Vial Sliding Scale - SQ ACHS [facility] Protocol Potassium Chloride 40 meq 11/17/19 10:45 11/18/19 10:08 K-Dur - PO 11/19/19 10:44 40 meq BID [facility] Administration Pregabalin 50 mg 11/18/19 11:45 11/18/19 12:44 Lyrica - PO 50 mg BID [facility] Administration Tramadol HCl 50 mg 11/17/19 03:22 11/18/19 10:34 Ultram - PO 50 mg BID PRN Administration PAIN LEVEL 6-10 Home Medications Medication Instructions Recorded Furosemide [Lasix] 20 mg PO DAILY 11/16/19 Glipizide 5 mg PO DAILY 11/16/19 Lisinopril [Prinivil] 10 mg PO DAILY 11/16/19 Atorvastatin Ca [Lipitor] 40 mg PO DAILY 11/17/19 Diclofenac Sodium [Voltaren] 100 gm TP PRN PRN 11/17/19 Etanercept [Enbrel] 50 mg SQ WEEKLY 11/17/19 Nifedipine [Nifedipine ER] 30 mg PO DAILY 11/17/19 Potassium Chloride 20 meq PO DAILY 11/17/19 Pregabalin 50 mg PO BID 11/17/19 Sevelamer Carbonate 800 mg PO TID 11/17/19 Tramadol HCl 50 mg PO Q12H PRN 11/17/19 Microbiology 11/16/19 17:03 Urine - Urine Clean Catch Urine Culture - Final NO GROWTH OBTAINED ASSESSMENT AND PLAN: This patient is a 49yom with Pmhx of HTN, T2DM, CKD, COVID 04/2019, fibromyalgia, PTSD, and obesity presenting with acute on chronic bilateral leg swelling and pain. # Lower extremity edema/pain with sonme open wounds: will place the patient on lasix iv bid , with nephro consult, matthew wrap with silvadene cream #Hypertensive urgency: improved on hydralazine/coreg/lasix continue #Acute on chronic CKD: creatinine 4.6, baseline reportedly 3.6-4.2 #Hypokalemia: replete # T2DM: Reports he has been diet controlled for several months. Check A1c. ISS DVT ppx: heparin sq
[2019-11-18] MEDS ORDERED: CARVEDILOL 6.25 MG TABLET (FP) PO SCH (22:00)
[2019-11-18] MEDS: INSULIN SLIDING SCALE (NOVOLOG) 1 VIAL SQ SCH (22:37)
[2019-11-19] MEDS ORDERED: ACETAMINOPHEN 1000 MG/100 ML VIAL (NON FORMULARY) IVPB ONE (00:50)
[2019-11-19] MEDS: HEPARIN NA (PORCINE) 5,000 UNITS/ML 1ML VIAL SQ SCH ×4 (06:44→22:20)
[2019-11-19] MEDS: traMADol HCL 50 MG TABLET PO PRN ×2 (06:46→18:35)
[2019-11-19] MEDS: FUROSEMIDE 40 MG/4 ML INJECTABLE VIAL IVPUSH SCH ×2 (06:51→13:56)
[2019-11-19] MEDS: INSULIN SLIDING SCALE (NOVOLOG) 1 VIAL SQ SCH ×5 (07:17→22:17)
[2019-11-19 07:49] LABS: BASO % 0.8 % (0-2.0); EOS % 6.1 % (0-4.5); HEMATOCRIT 31.6 % (35.4-49); HEMOGLOBIN 10.7 GM/dL (11.7-16.9); LYMPH % 28.6 % (8-40); MCH 31.7 pg (25.7-33.7); MEAN CELL VOLUME 93.2 fl (80-96); MEAN PLT VOLUME 8.5 fl (7.5-11.1); MONO % 12.2 % (3.8-10.2); NEUT % 52.3 % (42.8-82.8); PLATELET COUNT 257 K/MM3 (134-434); RBC 3.39 M/mm3 (4.00-5.60); RDW 12.9 % (11.9-15.9); WHITE BLOOD COUNT 8.8 K/mm3 (4.0-10.0)
[2019-11-19 08:29] LABS: ALBUMIN 2.1 g/dl (3.4-5.0); BILIRUBIN,TOTAL 0.5 mg/dL (0.2-1); BLOOD UREA NITROGEN 27.6 mg/dL (7-18); CALCIUM 8.1 mg/dL (8.5-10.1); CREATININE 4.9 mg/dL (0.55-1.3); PHOSPHOROUS 4.2 mg/dL (2.5-4.9); POTASSIUM 3.2 mmol/L (3.5-5.1); TOT PROT 6.5 g/dl (6.4-8.2)
--- NOTE | 2019-11-19 10:25 | PN ---
Progress Note, Physician History of Present Illness: Pt is a 49 year old male with pmhx of chf, dm, ckd, and htn who presents to the ER with lower ext swelling and pain. He has history of CKD and follows at the [facility]. His baseline creatinine was about 3.8-4.2 in September. He denies shortness of breath. He denies dysuria or hematuria. He says that he does make urine every hour. 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 He complains of a 30 pound weight gain. He does not want to take any lasix as he feels it makes him retain fluids. He says that he is unable to get up and down the stairs in his home. Receiving IV diuresis with improvement of LE edema, echo shows severe HTN cardiomyopathy. - Current Medication List Current Medications: Active Medications Carvedilol (Coreg -) 6.25 mg PO BID [facility] Last Admin: 11/18/19 22:35 Dose: 6.25 mg Documented by: Emollient Ointment (Aquaphor -) 1 applic TP DAILY [facility] Last Admin: 11/18/19 10:10 Dose: 1 applic Documented by: Furosemide (Lasix Injection -) 40 mg IVPUSH BIDLASIX [facility] Last Admin: 11/19/19 06:51 Dose: 40 mg Documented by: Heparin Sodium (Porcine) (Heparin -) 5,000 unit SQ TID [facility] Last Admin: 11/19/19 06:44 Dose: Not Given Documented by: Hydralazine HCl (Apresoline -) 25 mg PO BID [facility] Last Admin: 11/18/19 22:35 Dose: 25 mg Documented by: Insulin Aspart (Novolog Vial Sliding Scale -) 1 vial SQ ACHS [facility]; Protocol Last Admin: 11/19/19 07:17 Dose: Not Given Documented by: Potassium Chloride (K-Dur -) 40 meq PO BID [facility] Stop: 11/19/19 10:44 Last Admin: 11/18/19 22:34 Dose: 40 meq Documented by: Pregabalin (Lyrica -) 50 mg PO BID [facility] Last Admin: 11/18/19 22:35 Dose: 50 mg Documented by: Tramadol HCl (Ultram -) 50 mg PO BID PRN PRN Reason: PAIN LEVEL 6-10 Last Admin: 11/19/19 06:46 Dose: 50 mg Documented by: - Objective Vital Signs: Vital Signs Temperature 98.2 F 11/19/19 06:00 Pulse Rate 91 H 11/18/19 23:40 Respiratory Rate 18 11/18/19 23:40 Blood Pressure 142/96 11/18/19 23:40 O2 Sat by Pulse Oximetry (%) 93 L 11/19/19 06:00 Constitutional: Yes: No Distress, Calm Neck: Yes: Supple Cardiovascular: Yes: Regular Rate and Rhythm Respiratory: Yes: Regular, CTA Bilaterally Gastrointestinal: Yes: Normal Bowel Sounds, Soft Edema: Yes Edema: LLE: 1+, RLE: 1+ Integumentary: Yes: Venous Stasis Changes Labs: CBC, BMP 11/19/19 06:59 11/19/19 06:59 INR, PTT INR 1.03 (0.83-1.09) 11/16/19 17:03 Problem List - Problems (1) Systolic and diastolic CHF, acute on chronic Code(s): I50.43 - ACUTE ON CHRONIC COMBINED SYSTOLIC AND DIASTOLIC HRT FAIL (2) Hypertensive cardiomyopathy Code(s): I11.9 - HYPERTENSIVE HEART DISEASE WITHOUT HEART FAILURE; I43 - CARDIOMYOPATHY IN DISEASES CLASSIFIED ELSEWHERE Qualifiers: Heart failure presence: with heart failure Qualified Code(s): I11.0 - Hypertensive heart disease with heart failure; I43 - Cardiomyopathy in diseases classified elsewhere (3) Chronic kidney insufficiency Code(s): N18.9 - CHRONIC KIDNEY DISEASE, UNSPECIFIED Qualifiers: Chronic kidney disease stage: stage 4 (severe) Qualified Code(s): N18.4 - Chronic kidney disease, stage 4 (severe) (4) Chronic venous stasis dermatitis Code(s): I87.2 - VENOUS INSUFFICIENCY (CHRONIC) (PERIPHERAL) (5) Pedal edema Code(s): R60.0 - LOCALIZED EDEMA (6) Type 2 diabetes mellitus Code(s): E11.9 - TYPE 2 DIABETES MELLITUS WITHOUT COMPLICATIONS Qualifiers: Diabetes mellitus halfway insulin use: without termite exterminator helper use Diabetes mellitus complication detail: with nephropathy Assessment/Plan 11/17/2019 Echo Normal LV size with severe cLVH and severe decreased global HK LVEF 35%, tr-mild MR, mild MA, tr TR 1. Acute on chronic diastolic/systolic heart failure 2. Chronic venous insufficiency/lymphedema 3. Fibromyalgia 4. HTN cardiomyopathy with failure 5. NIDDM 6. Acute on CKD with nephrotic proteinuria PLAN: 1. Hold Prinivil pending stabilization of renal fxn. Continue Hydralazine 25 mg BID, add Imdur 30 qd (BiDil) and uptitrate as tolerated. Increased carvedilol 12.5 bid with uptitration as hemodynamics as tolerated 2. IV diuresis with monitor diuretic response, renal function and electrolytes, replete K. Renal input appreciated, consider Demadex oral. 3. Echocardiography results reviewed with patient 4. Compression therapy and moisturizers for LE edema
[2019-11-19] MEDS ORDERED: PT OWN MED DRAWER 7, Y5N ONE ×2 (10:27→15:12)
[2019-11-19] MEDS: hydrALAZINE HCL 25 MG TABLET (FP) PO SCH ×2 (10:30→22:16)
[2019-11-19] MEDS: CARVEDILOL 6.25 MG TABLET (FP) PO SCH (10:30)
[2019-11-19] MEDS: PREGABALIN 50 MG CAPSULE PO SCH ×2 (10:30→22:16)
[2019-11-19] MEDS: POTASSIUM CHLORIDE TABS 20 MEQ TABLET.ER (FP) PO SCH (10:30)
[2019-11-19] MEDS: ISOSORBIDE MONONITRATE 30 MG TAB.SR.24H (FP) PO SCH (11:36)
--- NOTE | 2019-11-19 13:33 | PN ---
Physical Exam: SUBJECTIVE: Patient seen and examined this morning, endorses pain in his legs b/l, no effect from lyrica yet as per ptn. States he feels his legs have gone down in size. States he does not want insulin injections or metformin, and would like to be on his home medication of glipizide. Denies F/C, NICHOLS, changes in vision, SoB, CP, N/V/D. OBJECTIVE: Vital Signs Period Temp Pulse Resp BP Sys/Baeza Pulse Ox Last 24 Hr 98.2 F-99.2 F 90-100 18-18 142-153/96-104 93-96 GENERAL:The patient is awake, alert, and fully oriented, in no acute distress. HEAD: Normal with no signs of trauma. EYES: PERRL, extraocular movements intact, sclera anicteric, conjunctiva clear. No ptosis. ENT: Ears normal, nares patent, oropharynx clear without exudates, moist mucous membranes. NECK: Trachea midline, full range of motion, supple. LUNGS: Breath sounds equal, clear to auscultation bilaterally, no wheezes, no crackles, no accessory muscle use. HEART: Regular rate and rhythm, S1, S2 without murmur, rub or gallop. ABDOMEN: Soft, nontender, normoactive bowel sounds UPPER EXTREMITIES: 2+ pulses, warm, well-perfused, no edema. LOWER EXTREMITIES: Edema improved, LE wrapped in Kerlex w/ tape and Aquafor, inspected, wounds are not weeping. Non-purulent. NEUROLOGICAL:Normal speech, gait not observed. PSYCH: Normal mood, normal affect. SKIN: Warm, dry, normal turgor, except as noted on lower extremities Laboratory Results - last 24 hr CBC, BMP 11/19/19 06:59 11/19/19 06:59 Active Medications Generic Name Dose Route Start Last Admin Trade Name Freq PRN Reason Stop Dose Admin Carvedilol 6.25 mg 11/18/19 11:00 11/19/19 10:30 Coreg - PO 6.25 mg BID [facility] Administration Emollient Ointment 1 applic 11/18/19 10:00 11/18/19 10:10 Aquaphor - TP 1 applic DAILY [facility] Administration Furosemide 40 mg 11/17/19 06:00 11/19/19 06:51 Lasix Injection - IVPUSH 40 mg BIDLASIX [facility] Administration Glipizide 5 mg 11/20/19 10:00 Glucotrol - PO DAILY [facility] Heparin Sodium (Porcine) 5,000 unit 11/17/19 06:00 11/19/19 06:44 Heparin - SQ Not Given TID [facility] Hydralazine HCl 25 mg 11/17/19 13:15 11/19/19 10:30 Apresoline - PO 25 mg BID [facility] Administration Insulin Aspart 1 vial 11/18/19 22:00 11/19/19 11:45 Novolog Vial Sliding Scale - SQ Not Given ACHS [facility] Protocol Isosorbide Mononitrate 30 mg 11/19/19 11:00 11/19/19 11:36 Imdur - PO 30 mg DAILY [facility] Administration Pregabalin 50 mg 11/18/19 11:45 11/19/19 10:30 Lyrica - PO 50 mg BID [facility] Administration Silver Sulfadiazine 1 applic 11/19/19 12:30 Silvadene - TP DAILY [facility] Tramadol HCl 50 mg 11/17/19 03:22 11/19/19 06:46 Ultram - PO 50 mg BID PRN Administration PAIN LEVEL 6-10 ASSESSMENT/PLAN: 49 yo M w PMHx of HFwREF, NIDDM, HTN, CKD, and Fibromyalgia, presents with shortness of breath for 1 week in duration and lower extremity swelling. BILATERAL LOWER EXTREMITY SWELLING LIKELY 2/2 CHRONIC VENOUS STASIS: r/o CHF vs SOLANGE on CKD - LE Duplex: Negative for DVT bilaterally - c/w Aquaphor - c/w compression dressings - Start Silvadene to ppx against infx - Start Curad dressings ACUTE ON CHRONIC DIASTOLIC/SYSTOLIC HEART FAILURE - BNP on Admission - 6560 - ECHO: EF 35%. Severe concentric LV hypertrophy. Severe global hypokinesis of LV. Mild MR, Trace TR, Mild pulmonic valve regurg. - c/w Lasix 40mg IVPUSH BID - Per Cards: -c/w Hydralazine 25mg BID -c/w Carvedilol 6.25mg BID -Start Imdur 30mg Qd CHRONIC KIDNEY DISEASE -Creatinine 4.6 --> 4.9 baseline unknown, awaiting records from [facility] -CrCl: 33 -Urine Protein/Cr Ratio: 10.7; 537:50 -Renal US: Slightly echogenic kidneys that may be compatible with chronic medical renal disease. Simple cyst in the left kidney measuring 2.9 cm. -Per Nephro: -Switch to Torsemide after appropriate diuresis w/ Lasix. -Outpatient PD on DC FIBROMYALGIA vs DIABETIC NEUROPATHY - Generalized pain in LE as well as in Upper Extremities - Ofirmev 1000mg q6 PRN for pain 1-5 - Ultram 50mg BID PRN for pain 6-10 - c/w Lyrica 50mg BID HYPERTENSION - Hydralazine 25mg BID - Coreg 6.25 BID - Imdur 30mg QD HYPOKALEMIA - Potassium stable at 3.2 - c/w Potassium 40meq PO BID - Trend Potassium; Replete <3.5 - Careful monitoring in light of rising Cr NON-INSULIN DEPENDENT DIABETES MELLITUS - A1c: 7.4 - ACHS - Start Glipizide 5mg QD. - ISS: Ptn refuses insulin, ISS order kept in case of emergency, ptn aware and accepted. - Outpatient Endocrine FU HISTORY OF COVID INFECTION -s/p hospitalization in May. 10 day stay FEN - No standing fluids - Monitor K+ and Cr closely - Diabetic sodium diet PPx -DVT: Heparin 5000 TID DISPO: Continue to monitor on med surg floors Visit type - Emergency Visit Emergency Visit: No - New Patient This patient is new to me today: No - Critical Care Critical Care patient: No - Discharge Referral Referred to [facility] Med P.C[facility] No ATTENDING PHYSICIAN STATEMENT I saw and evaluated the patient. I reviewed the resident's note and discussed the case with the resident. I agree with the resident's findings and plan as documented. SUBJECTIVE: OBJECTIVE: ASSESSMENT AND PLAN:
[2019-11-19] MEDS ORDERED: POTASSIUM CHLORIDE ORAL LIQUID 20 MEQ/15 ML PO ONE (15:10)
--- NOTE | 2019-11-19 15:13 | PN ---
Progress Note, Physician History of Present Illness: Pt seen and examined at bedside. He feels that his lower ext edema is improving. - Current Medication List Current Medications: Active Medications Carvedilol (Coreg -) 12.5 mg PO BID [facility] Emollient Ointment (Aquaphor -) 1 applic TP DAILY [facility] Last Admin: 11/18/19 10:10 Dose: 1 applic Documented by: Furosemide (Lasix Injection -) 40 mg IVPUSH BIDLASIX [facility] Last Admin: 11/19/19 13:56 Dose: 40 mg Documented by: Glipizide (Glucotrol -) 5 mg PO DAILY [facility] Heparin Sodium (Porcine) (Heparin -) 5,000 unit SQ TID [facility] Last Admin: 11/19/19 13:56 Dose: Not Given Documented by: Hydralazine HCl (Apresoline -) 25 mg PO BID [facility] Last Admin: 11/19/19 10:30 Dose: 25 mg Documented by: Insulin Aspart (Novolog Vial Sliding Scale -) 1 vial SQ ACHS [facility]; Protocol Last Admin: 11/19/19 11:45 Dose: Not Given Documented by: Isosorbide Mononitrate (Imdur -) 30 mg PO DAILY [facility] Last Admin: 11/19/19 11:36 Dose: 30 mg Documented by: Potassium Chloride (Potassium Chloride Oral Liquid) 40 meq PO ONCE ONE Stop: 11/19/19 15:11 Pregabalin (Lyrica -) 50 mg PO BID [facility] Last Admin: 11/19/19 10:30 Dose: 50 mg Documented by: Silver Sulfadiazine (Silvadene -) 1 applic TP DAILY [facility] Tramadol HCl (Ultram -) 50 mg PO BID PRN PRN Reason: PAIN LEVEL 6-10 Last Admin: 11/19/19 06:46 Dose: 50 mg Documented by: - Objective Vital Signs: Vital Signs Temperature 98.3 F 11/19/19 14:46 Pulse Rate 79 11/19/19 14:46 Respiratory Rate 20 11/19/19 14:46 Blood Pressure 128/53 L 11/19/19 14:46 O2 Sat by Pulse Oximetry (%) 97 11/19/19 14:46 Constitutional: Yes: Calm Eyes: Yes: Conjunctiva Clear HENT: Yes: Atraumatic Neck: Yes: Supple Cardiovascular: Yes: S1, S2 Respiratory: Yes: CTA Bilaterally Gastrointestinal: Yes: Normal Bowel Sounds, Soft Genitourinary: Yes: WNL Musculoskeletal: Yes: WNL Edema: Yes Edema: LLE: 2+, RLE: 2+ Integumentary: Yes: Venous Stasis Changes Neurological: Yes: Oriented Psychiatric: Yes: Oriented Labs: CBC, BMP 11/19/19 06:59 11/19/19 06:59 INR, PTT INR 1.03 (0.83-1.09) 11/16/19 17:03 Problem List - Problems (1) Chronic kidney insufficiency Code(s): N18.9 - CHRONIC KIDNEY DISEASE, UNSPECIFIED Qualifiers: Chronic kidney disease stage: stage 4 (severe) Qualified Code(s): N18.4 - Chronic kidney disease, stage 4 (severe) (2) HTN (hypertension) Code(s): I10 - ESSENTIAL (PRIMARY) HYPERTENSION (3) Type 2 diabetes mellitus Code(s): E11.9 - TYPE 2 DIABETES MELLITUS WITHOUT COMPLICATIONS Qualifiers: 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 mellitus 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 exterminator insulin use: without care home use Diabetes mellitus complication detail: with nephropathy Assessment/Plan Current Medications Generic Name Dose Route Start Last Admin Trade Name Freq PRN Reason Stop Dose Admin Carvedilol 12.5 mg 11/19/19 13:56 Coreg - PO BID [facility] Emollient Ointment 1 applic 11/18/19 10:00 11/18/19 10:10 Aquaphor - TP 1 applic DAILY [facility] Administration Furosemide 40 mg 11/17/19 06:00 11/19/19 13:56 Lasix Injection - IVPUSH 40 mg BIDLASIX [facility] Administration Glipizide 5 mg 11/20/19 10:00 Glucotrol - PO DAILY [facility] Heparin Sodium (Porcine) 5,000 unit 11/17/19 06:00 11/19/19 13:56 Heparin - SQ Not Given TID [facility] Hydralazine HCl 25 mg 11/17/19 13:15 11/19/19 10:30 Apresoline - PO 25 mg BID [facility] Administration Insulin Aspart 1 vial 11/18/19 22:00 11/19/19 11:45 Novolog Vial Sliding Scale - SQ Not Given ACHS [facility] Protocol Isosorbide Mononitrate 30 mg 11/19/19 11:00 11/19/19 11:36 Imdur - PO 30 mg DAILY [facility] Administration Pregabalin 50 mg 11/18/19 11:45 11/19/19 10:30 Lyrica - PO 50 mg BID [facility] Administration Silver Sulfadiazine 1 applic 11/19/19 12:30 Silvadene - TP DAILY [facility] Tramadol HCl 50 mg 11/17/19 03:22 11/19/19 06:46 Ultram - PO 50 mg BID PRN Administration PAIN LEVEL 6-10 Impression 1. CHF 2. CKD 3. fluid overload 4. dm 5. htn 6. proteinuria 7. hypokalemia 8. nephrotic proteinuria Plan - cont lasix - replace lytes - once volume status improves will switch to torsemide - pt is interested in PD, will set him up with pd clinic for training after discharge - echo reviewed - avoid nsaids - kidneys are echogenic on ultrasound
[2019-11-19] MEDS: SILVER SULFADIAZINE 1% TOP CREAM 50 GM JAR TP SCH (16:01)
[2019-11-19] MEDS: MINERAL OIL/PET HY-PHL TOPICAL OINTMENT 454 GM JAR TP SCH (16:01)
--- NOTE | 2019-11-19 19:03 | PN ---
Teaching Attending Note Name of Resident: Farzad Mi ATTENDING PHYSICIAN STATEMENT I saw and evaluated the patient. I reviewed the resident's note and discussed the case with the resident. I agree with the resident's findings and plan as documented. SUBJECTIVE: OBJECTIVE: Vital Signs Temperature 98.3 F 11/19/19 14:46 Pulse Rate 79 11/19/19 14:46 Respiratory Rate 20 11/19/19 14:46 Blood Pressure 128/53 L 11/19/19 14:46 O2 Sat by Pulse Oximetry (%) 97 11/19/19 14:46 PE; per resident's note CBCD WBC 8.8 K/mm3 (4.0-10.0) 11/19/19 06:59 RBC 3.39 M/mm3 (4.00-5.60) L 11/19/19 06:59 Hgb 10.7 GM/dL (11.7-16.9) L 11/19/19 06:59 Hct 31.6 % (35.4-49) L 11/19/19 06:59 MCV 93.2 fl (80-96) 11/19/19 06:59 MCHC 34.0 g/dl (32.0-35.9) 11/19/19 06:59 RDW 12.9 % (11.9-15.9) 11/19/19 06:59 Plt Count 257 K/MM3 (134-434) 11/19/19 06:59 MPV 8.5 fl (7.5-11.1) 11/19/19 06:59 CMP Sodium 144 mmol/L (136-145) 11/19/19 06:59 Potassium 3.2 mmol/L (3.5-5.1) L 11/19/19 06:59 Chloride 109 mmol/L (98-107) H 11/19/19 06:59 Carbon Dioxide 28 mmol/L (21-32) 11/19/19 06:59 Anion Gap 7 MMOL/L (8-16) L 11/19/19 06:59 BUN 27.6 mg/dL (7-18) H 11/19/19 06:59 Creatinine 4.9 mg/dL (0.55-1.3) H 11/19/19 06:59 Random Glucose 147 mg/dL (74-106) H 10/08/20 06:59 Calcium 8.1 mg/dL (8.5-10.1) L 11/19/19 06:59 Total Bilirubin 0.5 mg/dL (0.2-1) 11/19/19 06:59 AST 13 U/L (15-37) L 11/19/19 06:59 ALT 16 U/L (13-61) 11/19/19 06:59 Alkaline Phosphatase 86 U/L (45-117) 11/19/19 06:59 Total Protein 6.5 g/dl (6.4-8.2) 11/19/19 06:59 Albumin 2.1 g/dl (3.4-5.0) L 11/19/19 06:59 Current Medications Generic Name Dose Route Start Last Admin Trade Name Rojasq PRN Reason Stop Dose Admin Carvedilol 12.5 mg 11/19/19 13:56 Coreg - PO BID [facility] Emollient Ointment 1 applic 11/18/19 10:00 11/19/19 16:01 Aquaphor - TP 1 applic DAILY [facility] Administration Furosemide 40 mg 11/17/19 06:00 11/19/19 13:56 Lasix Injection - IVPUSH 40 mg BIDLASIX [facility] Administration Glipizide 5 mg 11/20/19 10:00 Glucotrol - PO DAILY [facility] Heparin Sodium (Porcine) 5,000 unit 11/17/19 06:00 11/19/19 13:56 Heparin - SQ Not Given TID [facility] Hydralazine HCl 25 mg 11/17/19 13:15 11/19/19 10:30 Apresoline - PO 25 mg BID [facility] Administration Insulin Aspart 1 vial 11/18/19 22:00 11/19/19 17:28 Novolog Vial Sliding Scale - SQ Not Given ACHS [facility] Protocol Isosorbide Mononitrate 30 mg 11/19/19 11:00 11/19/19 11:36 Imdur - PO 30 mg DAILY [facility] Administration Pregabalin 50 mg 11/18/19 11:45 11/19/19 10:30 Lyrica - PO 50 mg BID [facility] Administration Silver Sulfadiazine 1 applic 11/19/19 12:30 11/19/19 16:01 Silvadene - TP 1 applic DAILY [facility] Administration Tramadol HCl 50 mg 11/17/19 03:22 10/08/20 18:35 Ultram - PO 50 mg BID PRN Administration PAIN LEVEL 6-10 Home Medications Medication Instructions Recorded Furosemide [Lasix] 20 mg PO DAILY 11/16/19 Glipizide 5 mg PO DAILY 11/16/19 Lisinopril [Prinivil] 10 mg PO DAILY 11/16/19 Atorvastatin Ca [Lipitor] 40 mg PO DAILY 11/17/19 Diclofenac Sodium [Voltaren] 100 gm TP PRN PRN 11/17/19 Etanercept [Enbrel] 50 mg SQ WEEKLY 11/17/19 Nifedipine [Nifedipine ER] 30 mg PO DAILY 11/17/19 Potassium Chloride 20 meq PO DAILY 11/17/19 Pregabalin 50 mg PO BID 11/17/19 Sevelamer Carbonate 800 mg PO TID 11/17/19 Tramadol HCl 50 mg PO Q12H PRN 11/17/19 Microbiology 11/16/19 17:03 Urine - Urine Clean Catch Urine Culture - Final NO GROWTH OBTAINED ASSESSMENT AND PLAN: This patient is a 49yom with Pmhx of HTN, T2DM, CKD, COVID 04/2019, fibromyalgia, PTSD, and obesity presenting with acute on chronic bilateral leg swelling and pain. # Lower extremity edema/pain with sonme open wounds: continue lasix iv bid , with nephro consult, matthew wrap with silvadene cream #Hypertensive urgency: improved on hydralazine/coreg/lasix continue #Acute on chronic CKD: creatinine 4.6--.4.9 baseline 3.6-4.2 #Hypokalemia: replete # T2DM: Reports he has been diet controlled for several months. Check A1c. ISS, no metformin, diet and glyberide when dcing home DVT ppx: heparin sq
[2019-11-19] MEDS: CARVEDILOL 12.5 MG TABLET (FP) PO SCH (22:16)
[2019-11-20] MEDS: HEPARIN NA (PORCINE) 5,000 UNITS/ML 1ML VIAL SQ SCH ×3 (06:50→21:43)
[2019-11-20] MEDS: INSULIN SLIDING SCALE (NOVOLOG) 1 VIAL SQ SCH ×4 (06:50→21:45)
[2019-11-20] MEDS: FUROSEMIDE 40 MG/4 ML INJECTABLE VIAL IVPUSH SCH (06:50)
--- NOTE | 2019-11-20 08:51 | PN ---
Progress Note, Physician History of Present Illness: Pt is a 49 year old male with pmhx of chf, dm, ckd, and htn who presents to the ER with lower ext swelling and pain. He has history of CKD and follows at the [facility]. His baseline creatinine was about 3.8-4.2 in September. He denies shortness of breath. He denies dysuria or hematuria. He says that he does make urine every hour. 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 He complains of a 30 pound weight gain. He does not want to take any lasix as he feels it makes him retain fluids. He says that he is unable to get up and down the stairs in his home. Receiving IV diuresis with resolution of LE edema, echo shows severe HTN cardiomyopathy. - Current Medication List Current Medications: Active Medications Carvedilol (Coreg -) 12.5 mg PO BID [facility] Last Admin: 11/19/19 22:16 Dose: 12.5 mg Documented by: Emollient Ointment (Aquaphor -) 1 applic TP DAILY [facility] Last Admin: 11/19/19 16:01 Dose: 1 applic Documented by: Furosemide (Lasix Injection -) 40 mg IVPUSH BIDLASIX [facility] Last Admin: 11/20/19 06:50 Dose: 40 mg Documented by: Glipizide (Glucotrol -) 5 mg PO DAILY [facility] Heparin Sodium (Porcine) (Heparin -) 5,000 unit SQ TID [facility] Last Admin: 11/20/19 06:50 Dose: Not Given Documented by: Hydralazine HCl (Apresoline -) 25 mg PO BID [facility] Last Admin: 11/19/19 22:16 Dose: 25 mg Documented by: Insulin Aspart (Novolog Vial Sliding Scale -) 1 vial SQ ACHS [facility]; Protocol Last Admin: 11/20/19 06:50 Dose: Not Given Documented by: Isosorbide Mononitrate (Imdur -) 30 mg PO DAILY [facility] Last Admin: 11/19/19 11:36 Dose: 30 mg Documented by: Pregabalin (Lyrica -) 50 mg PO BID [facility] Last Admin: 11/19/19 22:16 Dose: 50 mg Documented by: Silver Sulfadiazine (Silvadene -) 1 applic TP DAILY [facility] Last Admin: 11/19/19 16:01 Dose: 1 applic Documented by: - Objective Vital Signs: Vital Signs Temperature 98.4 F 11/20/19 06:00 Pulse Rate 81 11/20/19 06:00 Respiratory Rate 20 11/20/19 06:00 Blood Pressure 144/93 11/20/19 06:00 O2 Sat by Pulse Oximetry (%) 95 11/20/19 06:00 Constitutional: Yes: No Distress, Calm Neck: Yes: Supple Cardiovascular: Yes: Regular Rate and Rhythm Respiratory: Yes: Regular, CTA Bilaterally Gastrointestinal: Yes: Normal Bowel Sounds, Soft Edema: No Labs: INR, PTT INR 1.03 (0.83-1.09) 11/16/19 17:03 Problem List - Problems (1) Systolic and diastolic CHF, acute on chronic Code(s): I50.43 - ACUTE ON CHRONIC COMBINED SYSTOLIC AND DIASTOLIC HRT FAIL (2) Hypertensive cardiomyopathy Code(s): I11.9 - HYPERTENSIVE HEART DISEASE WITHOUT HEART FAILURE; I43 - CARDIOMYOPATHY IN DISEASES CLASSIFIED ELSEWHERE Qualifiers: Heart failure presence: with heart failure Qualified Code(s): I11.0 - Hypertensive heart disease with heart failure; I43 - Cardiomyopathy in diseases classified elsewhere (3) Chronic kidney insufficiency Code(s): N18.9 - CHRONIC KIDNEY DISEASE, UNSPECIFIED Qualifiers: Chronic kidney disease stage: stage 4 (severe) Qualified Code(s): N18.4 - Chronic kidney disease, stage 4 (severe) (4) Chronic venous stasis dermatitis Code(s): I87.2 - VENOUS INSUFFICIENCY (CHRONIC) (PERIPHERAL) (5) Pedal edema Code(s): R60.0 - LOCALIZED EDEMA (6) Type 2 diabetes mellitus Code(s): E11.9 - TYPE 2 DIABETES MELLITUS WITHOUT COMPLICATIONS Qualifiers: Diabetes mellitus intermodal customer service insulin use: without fci use Diabetes mellitus complication detail: with nephropathy Assessment/Plan 11/17/2019 Echo Normal LV size with severe cLVH and severe decreased global HK LVEF 35%, tr-mild MR, mild WA, tr TR 1. Acute on chronic diastolic/systolic heart failure 2. Chronic venous insufficiency/lymphedema 3. Fibromyalgia 4. HTN cardiomyopathy with failure 5. NIDDM 6. Acute on CKD with nephrotic proteinuria PLAN: 1. Hold Prinivil pending stabilization of renal fxn. Continue Hydralazine 25 mg BID and Imdur 30 qd (BiDil) and uptitrate as tolerated. Increased carvedilol 12.5 bid with uptitration as hemodynamics as tolerated 2. Decrease to oral diuresis with monitor diuretic response, renal function and electrolytes, replete K. Renal input appreciated, consider Demadex oral. 3. Echocardiography results reviewed with patient 4. Compression therapy and moisturizers for LE edema 5. Plan for PD clinic as outpatient, cannot use Farxiga for cardiomyopathy once on dialysis
[2019-11-20 09:12] LABS: BASO % 0.8 % (0-2.0); EOS % 5.6 % (0-4.5); HEMATOCRIT 30.5 % (35.4-49); HEMOGLOBIN 10.3 GM/dL (11.7-16.9); LYMPH % 27.8 % (8-40); MCH 31.7 pg (25.7-33.7); MCHC 33.7 g/dl (32.0-35.9); MEAN CELL VOLUME 94.2 fl (80-96); MEAN PLT VOLUME 8.5 fl (7.5-11.1); MONO % 12.8 % (3.8-10.2); PLATELET COUNT 273 K/MM3 (134-434); RBC 3.23 M/mm3 (4.00-5.60); RDW 13.1 % (11.9-15.9); WHITE BLOOD COUNT 9.5 K/mm3 (4.0-10.0)
[2019-11-20 09:18] LABS: ALBUMIN 2.1 g/dl (3.4-5.0); BILIRUBIN,TOTAL 0.4 mg/dL (0.2-1); BLOOD UREA NITROGEN 29.2 mg/dL (7-18); CALCIUM 8.3 mg/dL (8.5-10.1); CREATININE 5.1 mg/dL (0.55-1.3); MAGNESIUM 1.8 mg/dL (1.8-2.4); PHOSPHOROUS 4.8 mg/dL (2.5-4.9); POTASSIUM 3.6 mmol/L (3.5-5.1); TOT PROT 6.4 g/dl (6.4-8.2)
[2019-11-20] MEDS: glipiZIDE 10 MG TABLET (FP) PO SCH (10:37)
[2019-11-20] MEDS: PREGABALIN 50 MG CAPSULE PO SCH ×2 (10:38→21:44)
[2019-11-20] MEDS: hydrALAZINE HCL 25 MG TABLET (FP) PO SCH ×2 (10:38→21:43)
[2019-11-20] MEDS: ISOSORBIDE MONONITRATE 30 MG TAB.SR.24H (FP) PO SCH (10:38)
[2019-11-20] MEDS: CARVEDILOL 12.5 MG TABLET (FP) PO SCH ×2 (10:38→21:43)
--- NOTE | 2019-11-20 15:15 | PN ---
Physical Exam: SUBJECTIVE: Patient seen and examined in no acute distress. States he is feeling better, has decreased feeling of swelling. Denies F/C, NICHOLS, changes in vision, CP, SoB, N/V/D or changes in bowel/bladder habits. OBJECTIVE: Vital Signs Period Temp Pulse Resp BP Sys/Baeza Pulse Ox Last 24 Hr 98.4 F-98.6 F 81-85 20-20 120-144/70-103 95-96 GENERAL:The patient is awake, alert, and fully oriented, in no acute distress. HEAD: Normal with no signs of trauma. EYES: PERRL, extraocular movements intact, sclera anicteric, conjunctiva clear. No ptosis. ENT: Ears normal, nares patent, oropharynx clear without exudates, moist mucous membranes. NECK: Trachea midline, full range of motion, supple. LUNGS: Breath sounds equal, clear to auscultation bilaterally, no wheezes, no crackles, no accessory muscle use. HEART: Regular rate and rhythm, S1, S2 without murmur, rub or gallop. ABDOMEN: Soft, nontender, normoactive bowel sounds UPPER EXTREMITIES: 2+ pulses, warm, well-perfused, no edema. LOWER EXTREMITIES: Edema improved, LE wrapped in John bandage w/ Silvadene, Curad and Aquafor, inspected, wounds are not weeping. Non-purulent. NEUROLOGICAL:Normal speech, gait not observed. PSYCH: Normal mood, normal affect. SKIN: Warm, dry, normal turgor, except as noted on lower extremities Laboratory Results - last 24 hr CBC, BMP 11/20/19 08:00 11/20/19 08:00 Active Medications Generic Name Dose Route Start Last Admin Trade Name Yamilet PRN Reason Stop Dose Admin Carvedilol 12.5 mg 11/19/19 13:56 11/20/19 10:38 Coreg - PO 12.5 mg BID SKY Administration Emollient Ointment 1 applic 11/18/19 10:00 11/19/19 16:01 Aquaphor - TP 1 applic DAILY SKY Administration Glipizide 5 mg 11/20/19 10:00 11/20/19 10:37 Glucotrol - PO 5 mg DAILY SKY Administration Heparin Sodium (Porcine) 5,000 unit 11/17/19 06:00 11/20/19 14:30 Heparin - SQ Not Given TID SKY Hydralazine HCl 25 mg 11/17/19 13:15 11/20/19 10:38 Apresoline - PO 25 mg BID SKY Administration Insulin Aspart 1 vial 11/18/19 22:00 11/20/19 11:40 Novolog Vial Sliding Scale - SQ Not Given ACHS [facility] Protocol Isosorbide Mononitrate 30 mg 11/19/19 11:00 11/20/19 10:38 Imdur - PO 30 mg DAILY SKY Administration Pregabalin 50 mg 11/18/19 11:45 11/20/19 10:38 Lyrica - PO 50 mg BID SKY Administration Silver Sulfadiazine 1 applic 11/19/19 12:30 11/19/19 16:01 Silvadene - TP 1 applic DAILY SKY Administration ASSESSMENT/PLAN: 49 yo M w PMHx of HFwREF, NIDDM, HTN, CKD, and Fibromyalgia, presents with shortness of breath for 1 week in duration and lower extremity swelling. BILATERAL LOWER EXTREMITY SWELLING LIKELY 2/2 CHRONIC VENOUS STASIS: r/o CHF vs SOLANGE on CKD - Swelling and wounds improving. - c/w Aquaphor - c/w compression dressings - c/w Silvadene to ppx against infx - c/w Curad dressings ACUTE ON CHRONIC DIASTOLIC/SYSTOLIC HEART FAILURE - ECHO: EF 35%. Severe concentric LV hypertrophy. Severe global hypokinesis of LV. Mild MR, Trace TR, Mild pulmonic valve regurg. - DC Lasix, start Torsemide tomorrow per nephro - Per Cards: -c/w Hydralazine 25mg BID -c/w Carvedilol 12.50mg BID -Start Imdur 30mg Qd CHRONIC KIDNEY DISEASE -Creatinine 4.6 --> 4.9 -->5.1 baseline unknown, awaiting records from [facility] -Per Nephro: -Switch to Torsemide tomorrow -Outpatient PD on DC -Avoid NSAIDs FIBROMYALGIA vs DIABETIC NEUROPATHY - Generalized pain in LE as well as in Upper Extremities - Ofirmev 1000mg q6 PRN for pain 1-5 - Ultram 25mg BID PRN for pain 6-10 - c/w Lyrica 50mg BID HYPERTENSION - c/w Hydralazine 25mg BID - c/w Coreg 12.5 BID - c/w Imdur 30mg QD HYPOKALEMIA - Potassium increased to 5.2 Monitor closely - Careful monitoring in light of rising Cr - Plan for outpatient PD NON-INSULIN DEPENDENT DIABETES MELLITUS - A1c: 7.4 - ACHS - c/w Glipizide 5mg QD. - ISS: Ptn refuses insulin, ISS order kept in case of emergency, ptn aware and accepted. - Outpatient Endocrine FU HISTORY OF COVID INFECTION -s/p hospitalization in May. 10 day stay FEN - No standing fluids - Monitor K+ and Cr closely - Diabetic sodium diet PPx -DVT: Heparin 5000 TID DISPO: Continue to monitor on med surg floors Visit type - Emergency Visit Emergency Visit: No - New Patient This patient is new to me today: No - Critical Care Critical Care patient: No - Discharge Referral Referred to [facility] Med [facility] No ATTENDING PHYSICIAN STATEMENT I saw and evaluated the patient. I reviewed the resident's note and discussed the case with the resident. I agree with the resident's findings and plan as documented. SUBJECTIVE: OBJECTIVE: ASSESSMENT AND PLAN:
--- NOTE | 2019-11-20 15:27 | PN ---
Teaching Attending Note Name of Resident: Farzad Mi ATTENDING PHYSICIAN STATEMENT I saw and evaluated the patient. I reviewed the resident's note and discussed the case with the resident. I agree with the resident's findings and plan as documented. SUBJECTIVE: OBJECTIVE: Vital Signs Temperature 98.4 F 11/20/19 13:39 Pulse Rate 83 11/20/19 13:39 Respiratory Rate 20 11/20/19 13:39 Blood Pressure 120/70 11/20/19 13:39 O2 Sat by Pulse Oximetry (%) 96 11/20/19 13:39 CBCD WBC 9.5 K/mm3 (4.0-10.0) 11/20/19 08:00 RBC 3.23 M/mm3 (4.00-5.60) L 11/20/19 08:00 Hgb 10.3 GM/dL (11.7-16.9) L 11/20/19 08:00 Hct 30.5 % (35.4-49) L 11/20/19 08:00 MCV 94.2 fl (80-96) 11/20/19 08:00 MCHC 33.7 g/dl (32.0-35.9) 11/20/19 08:00 RDW 13.1 % (11.9-15.9) 11/20/19 08:00 Plt Count 273 K/MM3 (134-434) 11/20/19 08:00 MPV 8.5 fl (7.5-11.1) 11/20/19 08:00 CMP Sodium 142 mmol/L (136-145) 11/20/19 08:00 Potassium 3.6 mmol/L (3.5-5.1) 11/20/19 08:00 Chloride 106 mmol/L (98-107) 11/20/19 08:00 Carbon Dioxide 30 mmol/L (21-32) 11/20/19 08:00 Anion Gap 6 MMOL/L (8-16) L 11/20/19 08:00 BUN 29.2 mg/dL (7-18) H 11/20/19 08:00 Creatinine 5.1 mg/dL (0.55-1.3) H 11/20/19 08:00 Random Glucose 123 mg/dL (74-106) H 11/20/19 08:00 Calcium 8.3 mg/dL (8.5-10.1) L 11/20/19 08:00 Total Bilirubin 0.4 mg/dL (0.2-1) 11/20/19 08:00 AST 14 U/L (15-37) L 11/20/19 08:00 ALT 15 U/L (13-61) 11/20/19 08:00 Alkaline Phosphatase 84 U/L (45-117) 11/20/19 08:00 Total Protein 6.4 g/dl (6.4-8.2) 11/20/19 08:00 Albumin 2.1 g/dl (3.4-5.0) L 11/20/19 08:00 Current Medications Generic Name Dose Route Start Last Admin Trade Name Freq PRN Reason Stop Dose Admin Carvedilol 12.5 mg 11/19/19 13:56 11/20/19 10:38 Coreg - PO 12.5 mg BID SKY Administration Emollient Ointment 1 applic 11/18/19 10:00 11/19/19 16:01 Aquaphor - TP 1 applic DAILY SKY Administration Glipizide 5 mg 11/20/19 10:00 11/20/19 10:37 Glucotrol - PO 5 mg DAILY SKY Administration Heparin Sodium (Porcine) 5,000 unit 11/17/19 06:00 11/20/19 14:30 Heparin - SQ Not Given TID [facility] Hydralazine HCl 25 mg 11/17/19 13:15 11/20/19 10:38 Apresoline - PO 25 mg BID SKY Administration Insulin Aspart 1 vial 11/18/19 22:00 11/20/19 11:40 Novolog Vial Sliding Scale - SQ Not Given ACHS [facility] Protocol Isosorbide Mononitrate 30 mg 11/19/19 11:00 11/20/19 10:38 Imdur - PO 30 mg DAILY SKY Administration Pregabalin 50 mg 11/18/19 11:45 11/20/19 10:38 Lyrica - PO 50 mg BID SKY Administration Silver Sulfadiazine 1 applic 11/19/19 12:30 11/19/19 16:01 Silvadene - TP 1 applic DAILY SKY Administration Home Medications Medication Instructions Recorded Glipizide 5 mg PO DAILY 11/16/19 Atorvastatin Ca [Lipitor] 40 mg PO DAILY 11/17/19 Pregabalin 50 mg PO BID 11/17/19 Carvedilol [Coreg -] 12.5 mg PO BID 30 Days #60 tablet 11/20/19 Isosorbide Mononitrate [Imdur -] 30 mg PO DAILY 30 Days #30 11/20/19 tab.sr.24h Mineral Oil/Pet Hy-Phl [Aquaphor -] 1 applic TP DAILY #1 jar 11/20/19 Silver Sulfadiazine 1% Top Cr 1 applic TP BID 30 Days #1 jar 11/20/19 [Silvadene -] hydrALAZINE HCL [Apresoline -] 25 mg PO BID 30 Days #60 tablet 11/20/19 Microbiology 11/16/19 17:03 Urine - Urine Clean Catch Urine Culture - Final NO GROWTH OBTAINED ASSESSMENT AND PLAN: This patient is a 49yom with Pmhx of HTN, T2DM, CKD, COVID 04/2019, fibromyalgia, PTSD, and obesity presenting with acute on chronic bilateral leg swelling and pain. # Lower extremity edema/pain with sonme open wounds: s/p IV lasix iv bid , swelling improving, since elevated creatinine switched to torsemide per nephro , matthew wrap with silvadene cream #Hypertensive urgency: improved on hydralazine/coreg/lasix continue #Acute on chronic CKD: creatinine 4.6--.4.9--5.1 today, baseline 3.6-4.2, dc'd iv lasix and placed on torsemide as per nephro #Hypokalemia: replete # T2DM: Reports he has been diet controlled for several months. Check A1c. ISS, no metformin, diet and glyberide when dcing home DVT ppx: heparin sq
--- NOTE | 2019-11-20 16:10 | PN ---
Progress Note, Physician History of Present Illness: Pt seen and examined at bedside. He is awake and alert. he feels that his edema is improving. - Current Medication List Current Medications: Active Medications Carvedilol (Coreg -) 12.5 mg PO BID [facility] Last Admin: 11/20/19 10:38 Dose: 12.5 mg Documented by: Emollient Ointment (Aquaphor -) 1 applic TP DAILY [facility] Last Admin: 11/19/19 16:01 Dose: 1 applic Documented by: Glipizide (Glucotrol -) 5 mg PO DAILY [facility] Last Admin: 11/20/19 10:37 Dose: 5 mg Documented by: Heparin Sodium (Porcine) (Heparin -) 5,000 unit SQ TID [facility] Last Admin: 11/20/19 14:30 Dose: Not Given Documented by: Hydralazine HCl (Apresoline -) 25 mg PO BID [facility] Last Admin: 11/20/19 10:38 Dose: 25 mg Documented by: Insulin Aspart (Novolog Vial Sliding Scale -) 1 vial SQ [facility]; Protocol Last Admin: 11/20/19 11:40 Dose: Not Given Documented by: Isosorbide Mononitrate (Imdur -) 30 mg PO DAILY [facility] Last Admin: 11/20/19 10:38 Dose: 30 mg Documented by: Pregabalin (Lyrica -) 50 mg PO BID [facility] Last Admin: 11/20/19 10:38 Dose: 50 mg Documented by: Silver Sulfadiazine (Silvadene -) 1 applic TP DAILY [facility] Last Admin: 11/19/19 16:01 Dose: 1 applic Documented by: Tramadol HCl (Ultram -) 25 mg PO BID [facility] - Objective Vital Signs: Vital Signs Temperature 98.4 F 11/20/19 13:39 Pulse Rate 83 11/20/19 13:39 Respiratory Rate 20 11/20/19 13:39 Blood Pressure 120/70 11/20/19 13:39 O2 Sat by Pulse Oximetry (%) 96 11/20/19 14:00 Constitutional: Yes: Calm Eyes: Yes: Conjunctiva Clear HENT: Yes: Atraumatic Neck: Yes: Supple Cardiovascular: Yes: S1, S2 Respiratory: Yes: CTA Bilaterally Gastrointestinal: Yes: Normal Bowel Sounds, Soft Genitourinary: Yes: WNL Musculoskeletal: Yes: WNL Edema: Yes Edema: LLE: 1+, RLE: 1+ Neurological: Yes: Oriented Psychiatric: Yes: Oriented Labs: CBC, BMP 11/20/19 08:00 11/20/19 08:00 INR, PTT INR 1.03 (0.83-1.09) 11/16/19 17:03 Problem List - Problems (1) Chronic kidney insufficiency Code(s): N18.9 - CHRONIC KIDNEY DISEASE, UNSPECIFIED Qualifiers: Chronic kidney disease stage: stage 4 (severe) Qualified Code(s): N18.4 - Chronic kidney disease, stage 4 (severe) (2) HTN (hypertension) Code(s): I10 - ESSENTIAL (PRIMARY) HYPERTENSION (3) Type 2 diabetes mellitus Code(s): E11.9 - TYPE 2 DIABETES MELLITUS WITHOUT COMPLICATIONS Qualifiers: Diabetes mellitus alf insulin use: without alf use Diabetes mellitus complication detail: with nephropathy Assessment/Plan Current Medications Generic Name Dose Route Start Last Admin Trade Name Freq PRN Reason Stop Dose Admin Carvedilol 12.5 mg 11/19/19 13:56 11/20/19 10:38 Coreg - PO 12.5 mg BID SKY Administration Emollient Ointment 1 applic 11/18/19 10:00 11/19/19 16:01 Aquaphor - TP 1 applic DAILY SKY Administration Glipizide 5 mg 11/20/19 10:00 11/20/19 10:37 Glucotrol - PO 5 mg DAILY [facility] Administration Heparin Sodium (Porcine) 5,000 unit 11/17/19 06:00 11/20/19 14:30 Heparin - SQ Not Given TID SKY Hydralazine HCl 25 mg 11/17/19 13:15 11/20/19 10:38 Apresoline - PO 25 mg BID [facility] Administration Insulin Aspart 1 vial 11/18/19 22:00 11/20/19 11:40 Novolog Vial Sliding Scale - SQ Not Given ACHS [facility] Protocol Isosorbide Mononitrate 30 mg 11/19/19 11:00 11/20/19 10:38 Imdur - PO 30 mg DAILY SKY Administration Pregabalin 50 mg 11/18/19 11:45 11/20/19 10:38 Lyrica - PO 50 mg BID SKY Administration Silver Sulfadiazine 1 applic 11/19/19 12:30 11/19/19 16:01 Silvadene - TP 1 applic DAILY SKY Administration Tramadol HCl 25 mg 11/20/19 15:40 Ultram - PO BID SKY Impression 1. CHF 2. CKD 3. fluid overload 4. dm 5. htn 6. proteinuria 7. hypokalemia 8. 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
[2019-11-20] MEDS: traMADol HCL 50 MG TABLET PO SCH ×2 (16:21→21:44)
[2019-11-20] MEDS: SILVER SULFADIAZINE 1% TOP CREAM 50 GM JAR TP SCH (18:43)
[2019-11-20] MEDS: MINERAL OIL/PET HY-PHL TOPICAL OINTMENT 454 GM JAR TP SCH (18:44)
[2019-11-21] MEDS: HEPARIN NA (PORCINE) 5,000 UNITS/ML 1ML VIAL SQ SCH ×2 (05:45→13:47)
[2019-11-21] MEDS: INSULIN SLIDING SCALE (NOVOLOG) 1 VIAL SQ SCH ×2 (07:34→11:36)
--- NOTE | 2019-11-21 07:39 | PN ---
Progress Note (short form) - Note Progress Note: Chief Complaint: Events noted, notes reviewed, resting in bed comfortably, denies any chest discomfort, denies any dyspnea History of Present Illness: Seen and examined. Events noted, notes reviewed, resting in bed comfortably, denies any chest discomfort, denies any dyspnea Echocardiography dated 11/17/2019 revealed severe concentric LVH, severe diffuse global hypokinesia with LVEF of 35%, trace-mild MR, trace TR - Current Medication List Current Medications Generic Name Dose Route Start Last Admin Trade Name Yamilet PRN Reason Stop Dose Admin Carvedilol 12.5 mg 11/19/19 13:56 11/20/19 21:43 Coreg - PO 12.5 mg BID SKY Administration Emollient Ointment 1 applic 11/18/19 10:00 11/20/19 18:44 Aquaphor - TP 1 applic DAILY SKY Administration Glipizide 5 mg 11/20/19 10:00 11/20/19 10:37 Glucotrol - PO 5 mg DAILY SKY Administration Heparin Sodium (Porcine) 5,000 unit 11/17/19 06:00 11/21/19 05:45 Heparin - SQ Not Given TID SKY Hydralazine HCl 25 mg 11/17/19 13:15 11/20/19 21:43 Apresoline - PO 25 mg BID SKY Administration Insulin Aspart 1 vial 11/18/19 22:00 11/21/19 07:34 Novolog Vial Sliding Scale - SQ Not Given ACHS [facility] Protocol Isosorbide Mononitrate 30 mg 11/19/19 11:00 11/20/19 10:38 Imdur - PO 30 mg DAILY SKY Administration Pregabalin 50 mg 11/18/19 11:45 11/20/19 21:44 Lyrica - PO 50 mg BID SKY Administration Silver Sulfadiazine 1 applic 11/19/19 12:30 11/20/19 18:43 Silvadene - TP 1 applic DAILY SKY Administration Torsemide 80 mg 11/21/19 10:00 Demadex - PO DAILY SKY Tramadol HCl 25 mg 11/20/19 15:40 11/20/19 21:44 Ultram - PO 25 mg BID SKY Administration - Objective Vital Signs: Last Vital Signs Temp Pulse Resp BP Pulse Ox 98.3 F 87 20 147/87 94 L 11/21/19 06:00 11/21/19 06:00 11/21/19 06:00 11/21/19 06:00 11/21/19 06:00 Intake & Output 11/18/19 11/19/19 11/20/19 11/21/19 23:59 23:59 23:59 23:59 Intake Total 1060 260 870 Output Total 400 1050 1350 Balance 660 -790 -480 Weight 271 lb 1.6 oz 270 lb 4.8 oz 273 lb Neck: Supple Negative JVD Cardiovascular: S1 S2 Regular Rate and Rhythm No Murmurs Respiratory: Diminished breath sounds at the bases Bilaterally Gastrointestinal: Soft Benign Normal Bowel Sounds Ext: Edema Labs: CBC, BMP 11/21/19 07:15 11/21/19 07:15 CBC, BMP 11/20/19 08:00 11/20/19 08:00 Hepatic Panel Total Bilirubin 0.4 mg/dL (0.2-1) 11/20/19 08:00 AST 14 U/L (15-37) L 11/20/19 08:00 ALT 15 U/L (13-61) 11/20/19 08:00 Alkaline Phosphatase 84 U/L (45-117) 11/20/19 08:00 Albumin 2.1 g/dl (3.4-5.0) L 11/20/19 08:00 INR, PTT INR 1.03 (0.83-1.09) 11/16/19 17:03 Assessment/Plan ASSESSMENT: 1. Clinical presentation is consistent with acute on chronic class II NYHA classification LV systolic/diastolic failure, resolving 2. Hypertensive cardiomyopathy 3. NIDDM 4. Chronic venous insufficiency/lymphedema 5. Acute on CKD with nephrotic proteinuria 6. Anemia 7. History of fibromyalgia PLAN: 1. Continue Coreg therapy and dose titration as needed and as tolerated, hemodynamics permitting 2. Continue Hydralazine and Imdur therapies (BiDil as outpatient) and dose titration as needed and as tolerated, hemodynamics permitting 2. Ideally patient should be on ACEI or ARB's therapy but to be deferred pending renal function improvement at least to baseline or initiation of dialysis 3. Continue Demadex therapy 4. Patient will require additional outpatient cardiovascular evaluation/testing if not performed already to determine etiology of the above noted cardiomyopathy- exclude ischemic coronary artery disease Moises Hopper MD
[2019-11-21 08:20] LABS: BASO % 0.8 % (0-2.0); EOS % 5.1 % (0-4.5); HEMATOCRIT 30.2 % (35.4-49); HEMOGLOBIN 10.5 GM/dL (11.7-16.9); LYMPH % 26.2 % (8-40); MCH 32.7 pg (25.7-33.7); MCHC 34.7 g/dl (32.0-35.9); MEAN CELL VOLUME 94.3 fl (80-96); MEAN PLT VOLUME 8.8 fl (7.5-11.1); MONO % 11.9 % (3.8-10.2); PLATELET COUNT 260 K/MM3 (134-434); WHITE BLOOD COUNT 10.5 K/mm3 (4.0-10.0)
[2019-11-21 08:35] LABS: CALCIUM 8.1 mg/dL (8.5-10.1); CREATININE 4.9 mg/dL (0.55-1.3); PHOSPHOROUS 4.6 mg/dL (2.5-4.9); POTASSIUM 3.3 mmol/L (3.5-5.1)
[2019-11-21] MEDS ORDERED: PT OWN MED DRAWER 7, Y5N ONE (09:46)
[2019-11-21] MEDS: hydrALAZINE HCL 25 MG TABLET (FP) PO SCH (10:00)
[2019-11-21] MEDS ORDERED: TORSEMIDE 20 MG TABLET (FP) PO SCH (10:00)
[2019-11-21] MEDS: CARVEDILOL 12.5 MG TABLET (FP) PO SCH (10:01)
[2019-11-21] MEDS: glipiZIDE 10 MG TABLET (FP) PO SCH (10:02)
[2019-11-21] MEDS: ISOSORBIDE MONONITRATE 30 MG TAB.SR.24H (FP) PO SCH (10:02)
[2019-11-21] MEDS: PREGABALIN 50 MG CAPSULE PO SCH (10:03)
[2019-11-21] MEDS: traMADol HCL 50 MG TABLET PO SCH (10:03)
[2019-11-21] MEDS: MINERAL OIL/PET HY-PHL TOPICAL OINTMENT 454 GM JAR TP SCH (11:49)
[2019-11-21] MEDS: SILVER SULFADIAZINE 1% TOP CREAM 50 GM JAR TP SCH (11:49)
--- NOTE | 2019-11-21 14:37 | DS ---
Physical Exam: SUBJECTIVE: Patient seen and examined OBJECTIVE: Vital Signs Temperature 97.9 F 11/21/19 08:45 Pulse Rate 85 11/21/19 08:45 Respiratory Rate 20 11/21/19 08:45 Blood Pressure 137/86 11/21/19 08:45 O2 Sat by Pulse Oximetry (%) 96 11/21/19 08:45 PHYSICAL EXAM GENERAL: The patient is awake, alert, and fully oriented, in no acute distress. HEAD: Normal with no signs of trauma. EYES: PERRL, extraocular movements intact, sclera anicteric, conjunctiva clear. ENT: Ears normal, nares patent, oropharynx clear without exudates, moist mucous membranes. NECK: Trachea midline, full range of motion, supple. LUNGS: Breath sounds equal, clear to auscultation bilaterally, no wheezes, no crackles, no accessory muscle use. HEART: Regular rate and rhythm, S1, S2 without murmur, rub or gallop. ABDOMEN: Soft, nontender, nondistended, normoactive bowel sounds, no guarding, no rebound, no hepatosplenomegaly, no masses. EXTREMITIES: 2+ pulses, warm, well-perfused, trace edema. NEUROLOGICAL: Cranial nerves II through XII grossly intact. Normal speech, gait not observed. PSYCH: Normal mood, normal affect. SKIN: Warm, dry, normal turgor, no rashes or lesions noted. LABS CBCD WBC 10.5 K/mm3 (4.0-10.0) H 11/21/19 07:15 RBC 3.20 M/mm3 (4.00-5.60) L 11/21/19 07:15 Hgb 10.5 GM/dL (11.7-16.9) L 11/21/19 07:15 Hct 30.2 % (35.4-49) L 11/21/19 07:15 MCV 94.3 fl (80-96) 11/21/19 07:15 MCHC 34.7 g/dl (32.0-35.9) 11/21/19 07:15 RDW 13.0 % (11.9-15.9) 11/21/19 07:15 Plt Count 260 K/MM3 (134-434) 11/21/19 07:15 MPV 8.8 fl (7.5-11.1) 11/21/19 07:15 CMP Sodium 138 mmol/L (136-145) 11/21/19 07:15 Potassium 3.3 mmol/L (3.5-5.1) L 11/21/19 07:15 Chloride 103 mmol/L (98-107) 11/21/19 07:15 Carbon Dioxide 28 mmol/L (21-32) 11/21/19 07:15 Anion Gap 7 MMOL/L (8-16) L 11/21/19 07:15 BUN 32.0 mg/dL (7-18) H 11/21/19 07:15 Creatinine 4.9 mg/dL (0.55-1.3) H 11/21/19 07:15 Random Glucose 111 mg/dL (74-106) H 11/21/19 07:15 Calcium 8.1 mg/dL (8.5-10.1) L 11/21/19 07:15 Total Bilirubin 0.4 mg/dL (0.2-1) 11/20/19 08:00 AST 14 U/L (15-37) L 11/20/19 08:00 ALT 15 U/L (13-61) 11/20/19 08:00 Alkaline Phosphatase 84 U/L (45-117) 11/20/19 08:00 Total Protein 6.4 g/dl (6.4-8.2) 11/20/19 08:00 Albumin 2.1 g/dl (3.4-5.0) L 11/20/19 08:00 Current Medications Generic Name Dose Route Start Last Admin Trade Name Freq PRN Reason Stop Dose Admin Carvedilol 12.5 mg 11/19/19 13:56 11/21/19 10:01 Coreg - PO 12.5 mg BID SKY Administration Emollient Ointment 1 applic 11/18/19 10:00 11/21/19 11:49 Aquaphor - TP 1 applic DAILY SKY Administration Glipizide 5 mg 11/20/19 10:00 11/21/19 10:02 Glucotrol - PO 5 mg DAILY SKY Administration Heparin Sodium (Porcine) 5,000 unit 11/17/19 06:00 11/21/19 13:47 Heparin - SQ Not Given TID SKY Hydralazine HCl 25 mg 11/17/19 13:15 10/10/20 10:00 Apresoline - PO 25 mg BID SKY Administration Insulin Aspart 1 vial 11/18/19 22:00 11/21/19 11:36 Novolog Vial Sliding Scale - SQ Not Given ACHS [facility] Protocol Isosorbide Mononitrate 30 mg 11/19/19 11:00 11/21/19 10:02 Imdur - PO 30 mg DAILY SKY Administration Pregabalin 50 mg 11/18/19 11:45 11/21/19 10:03 Lyrica - PO 50 mg BID SKY Administration Silver Sulfadiazine 1 applic 11/19/19 12:30 11/21/19 11:49 Silvadene - TP 1 applic DAILY SKY Administration Torsemide 80 mg 11/21/19 10:00 11/21/19 10:01 Demadex - PO 80 mg DAILY SKY Administration Tramadol HCl 25 mg 11/20/19 15:40 11/21/19 10:03 Ultram - PO 25 mg BID SKY Administration Home Medications Medication Instructions Recorded Glipizide 5 mg PO DAILY 11/16/19 Atorvastatin Ca [Lipitor] 40 mg PO DAILY 11/17/19 Pregabalin 50 mg PO BID 11/17/19 Carvedilol [Coreg -] 12.5 mg PO BID 30 Days #60 tablet 11/20/19 Diclofenac Sodium [Voltaren] 100 gm TP PRN PRN 11/20/19 Isosorbide Mononitrate [Imdur -] 30 mg PO DAILY 30 Days #30 11/20/19 tab.sr.24h Mineral Oil/Pet Hy-Phl [Aquaphor -] 1 applic TP DAILY #1 jar 11/20/19 Sevelamer Carbonate 800 mg PO TID 11/20/19 Silver Sulfadiazine 1% Top Cr 1 applic TP BID 30 Days #1 jar 11/20/19 [Silvadene -] hydrALAZINE HCL [Apresoline -] 25 mg PO BID 30 Days #60 tablet 11/20/19 Torsemide [Demadex -] 80 mg PO DAILY #30 tablet 11/21/19 Microbiology 11/16/19 17:03 Urine - Urine Clean Catch Urine Culture - Final NO GROWTH OBTAINED HOSPITAL COURSE: Date of Admission:11/16/19 Date of Discharge: 11/21/19 This patient is a 49yom with Pmhx of HTN, T2DM, CKD, COVID 04/2019, fibromyalgia, PTSD, and obesity presenting with acute on chronic bilateral leg swelling and pain. # Lower extremity edema improving /pain with some open wounds: s/p IV lasix iv bid , swelling improving, since elevated creatinine switched to torsemide per nephro , john wrap with silvadene cream #Hypertensive urgency: improved on hydralazine/coreg/lasix continue #Acute on chronic CKD: creatinine 4.6--.4.9--5.1-->4.9 today, baseline 3.6- 4.2, dc'd iv lasix and placed on torsemide as per nephro #Hypokalemia: replete # T2DM: Reports he has been diet controlled for several months. no metformin, diet and glyberide to go home with DVT ppx: heparin sq Patient will require additional outpatient cardiovascular evaluation/testing as an outpatient ,discussed with the patient will follow with dr rider and cardio and the clinic with dr mi for further cardiomyopathy-to exclude ischemic coronary artery disease follow up with cardio and nephro Minutes to complete discharge: 35 Discharge Summary Problems reviewed: Yes Reason For Visit: CHRONIC RENAL IMPAIRMENT Current Active Problems Chronic kidney insufficiency (Chronic) Chronic venous stasis dermatitis (Chronic) Fibromyalgia (Chronic) HTN (hypertension) (Chronic) Hypertensive cardiomyopathy (Chronic) Systolic and diastolic CHF, acute on chronic (Chronic) Type 2 diabetes mellitus (Chronic) Condition: Stable - Instructions Diet, Activity, Other Instructions: YOUR VISIT You came to the hospital because you were experiencing swelling of your legs with open wounds. You were admitted to the hospital for a condition called "venous stasis," and additionally were found to have "chronic kidney disease," and "Heart Failure" You were given medication for these conditions and improved. You are now stable and may return home. Of note, during your stay here we also found: 1.)Kidney Ultrasound: 2.9cm "simple cyst" in your left kidney MEDICATIONS Please START taking Hydralazine 25mg twice a day (morning and night) for your blood pressure Please START taking Isosorbide Mononitrate 30mg a day for your blood pressure Please START taking Carvedilol 12.5mg twice a day (morning and night) for your blood pressure and heart failure Please START taking Pregabalin 50mg twice a day (morning and night) for your fibromyalgia pain Please START taking Glipizide 5mg once a day to control your blood sugar Please START applying Silver Sulfadiazine to the wounds on your legs twice a day with ojhn-bandages to control infection Please START applying Aquaphor ointment to the wounds on your legs twice a day with john-bandages Please continue taking your Lipitor 40mg daily. Please continue taking your Sevelamer 800mg three times a day Please continue taking your Tramadol 25mg twice a day (morning and night) for pain Please continue using your Voltaren gel no more than 4 times daily for pain Please STOP all other home medications except as noted above. WOUND CARE: -Please make sure to keep both of your legs clean. Make sure to wash the area lightly with soap and water, and then make sure to keep the area dry. When you are not cleaning the area, make sure to keep it covered with a bandage to prevent any further infection. If you notice any further redness, swelling, or drainage, please come back to the emergency department -Apply silvadene cream to your lower extremity wounds and use John bandage to wrap, to prevent swelling and wheeping any excess fluid. ADDITIONAL CARE -Please make an appointment to see a primary care provider 1 week from today. Since you do not have one, you can call to schedule an appointment at the [facility] residents' clinic, located at [address] [place] [address]. If you would like to continue seeing Dr. Farzad Mi, please ask for a Saturday morning appointment. -Please make an appointment with Dr. Nathan Heredia (Cardiology) for evaluation of your heart failure; need further work up for your heart. Please follow up closely with the railway engineer. -Please make an appointment with Dr. Avni Rivero (Nephrology) for evaluation of your chronic kidney disease, follow up closely with the kidney doctor. -Please make an appointment with Dr. Mandeep Lopez (Vascular Surgery/Wound Care) for evaluation of your leg wounds -Please make an appointment with Dr. Brittni Terrell (Endocrinology) for evaluation of your Type II Diabetes. ADDITIONAL INFORMATION Please call [phone] or come directly to the emergency department if you experience recurrence of the symptoms that brought you to the hospital, unusual headache, vision change, shortness of breath, chest pain, numbness, tingling, loss of alertness/awareness, loss of function, unusual bleeding or any alarming symptoms. Referrals: Buster Bolton MD [Staff Physician] - 2 Weeks Mandeep Lopez DO [Staff Physician] - 1 Week Kuldeep Rivero MD [Staff Physician] - 1 Week Nathan Heredia MD [Staff Physician] - 1 Week Brittni Terrell MD [Staff Physician] - 1 Week Disposition: HOME - Home Medications Comprehensive Discharge Medication List: Ambulatory Orders Glipizide 5 mg PO DAILY 11/16/19 Atorvastatin Ca [Lipitor] 40 mg PO DAILY 11/17/19 Pregabalin 50 mg PO BID 11/17/19 Carvedilol [Coreg -] 12.5 mg PO BID 30 Days #60 tablet 11/20/19 Diclofenac Sodium [Voltaren] 100 gm TP PRN PRN 11/20/19 Isosorbide Mononitrate [Imdur -] 30 mg PO DAILY 30 Days #30 tab.sr.24h 11/20/19 Mineral Oil/Pet Hy-Phl [Aquaphor -] 1 applic TP DAILY #1 jar 11/20/19 Sevelamer Carbonate 800 mg PO TID 11/20/19 Silver Sulfadiazine 1% Top Cr [Silvadene -] 1 applic TP BID 30 Days #1 jar 11/20/19 hydrALAZINE HCL [Apresoline -] 25 mg PO BID 30 Days #60 tablet 11/20/19 Torsemide [Demadex -] 80 mg PO DAILY #30 tablet 11/21/19 This patient is new to me today: No Emergency Visit: Yes ED Registration Date: 11/16/19 Care time: The patient presented to the Emergency Department on the above date and was hospitalized for further evaluation of their emergent condition. Critical Care patient: No - Discharge Referral Referred to [facility] Med P.C.: No
[2019-11-21 15:15] VITALS: BP 120/72; PULSE 80; TEMP 98.4
== END 2019-11-21 15:59 | disposition home or self-care (01) | DRG 194 ==
LOC: JER 14:28 → JERBED 18:10 → J8W 21:46
PROVIDERS: ATTEND Internal Medicine
DX: I13.0 Hypertensive heart and chronic kidney disease with heart failure and stage 1 through stage 4 chronic kidney disease, or unspecified chronic kidney disease (principal); E11.51 Type 2 diabetes mellitus with diabetic peripheral angiopathy without gangrene; F43.10 Post-traumatic stress disorder, unspecified; E66.9 Obesity, unspecified; Z68.36 Body mass index [BMI] 36.0-36.9, adult; M79.7 Fibromyalgia; N18.4 Chronic kidney disease, stage 4 (severe); I16.0 Hypertensive urgency; E87.6 Hypokalemia; I87.2 Venous insufficiency (chronic) (peripheral); R60.0 Localized edema; I50.43 Acute on chronic combined systolic (congestive) and diastolic (congestive) heart failure; E11.40 Type 2 diabetes mellitus with diabetic neuropathy, unspecified; N17.9 Acute kidney failure, unspecified; I43 Cardiomyopathy in diseases classified elsewhere; E11.22 Type 2 diabetes mellitus with diabetic chronic kidney disease; E87.70 Fluid overload, unspecified
CPT/HCPCS: 36415; 36600; 71046-TC-FY; 76775-TC; 80048; 80053; 81003; 82565; 82803; 82962; 83036; 83735; 83880; 84100; 84156; 84443; 85025; 85027; 85610; 87086; 93005; 93010; 93306-TC; 93970-TC; 97116-GP; 97161-GP; 99285-25; C9803; J0131; J1644; U0003

== ENCOUNTER 2019-11-24 22:02 | Emergency (ER) | payer OTHER ==
[2019-11-24 22:09] VITALS: BP 175/110; PULSE 93; TEMP 99.1; BMI 36.7
--- OUTSIDE RECORDS SUMMARY | 2019-11-24 22:20 | XMS ---
:1970 Author Organization [facility] Support Name Relationship Address Phone [facility] Unavailable UNK ( [phone] [place] [address] AV MORENOANCEE [address] [place] [address] HOMERO DONGER Kar [facility] [place] [address] HOMERO Cade [address] [facility] [place] [place] [address] Re-disclosure Warning The records that you are about to access may contain information from federally- assisted alcohol or drug abuse programs. If such information is present, then the following federally mandated warning applies: This information has been disclosed to you from records protected by federal confidentiality rules (42 CFR part 2). The federal rules prohibit you from making any further disclosure of this information unless further disclosure is expressly permitted by the written consent of the person to whom it pertains or as otherwise permitted by 42 CFR part 2. A general authorization for the release of medical or other information is NOT sufficient for this purpose. The Federal rules restrict any use of the information to criminally investigate or prosecute any alcohol or drug abuse patient.The records that you are about to access may contain highly sensitive health information, the redisclosure of which is protected by Article 27-F of the [facility] Public Health law. If you continue you may haveaccess to information: Regarding HIV / AIDS; Provided by facilities licensed or operated by the [facility] Office of Mental Health; or Provided by the [facility] Office for People With Developmental Disabilities. If such information is present, then the following [facility] mandated warning applies: This information has been disclosed to you from confidential records which are protected by state law. State law prohibits you from making any further disclosure of this information without the specific written consent of the person to whom it pertains, or as otherwise permitted by law. Any unauthorized further disclosure in violation of state law may result in a fine or detention sentence or both. A general authorization for the release of medical or other information is NOT sufficient authorization for further disclosure. Insurance Providers Payer name Policy type Policy ID Covered Covered constitution party's Policy P roberto carlos / Coverage constitution party ID relationship to Tam Inf ormation type tam MEDICAID [id number] SP [id number] SELF PAY SP INSURANCE Results ID Date Data Source [id number] 11/16/2019 06:57:00 PM EDT [facility] Name Value Range Interpretation Description Data Sup porting Code Source(s) Document(s ) SARS [facility] coronavirus 2 RNA This lab was ordered by [facility] and reported by [facility]. Procedure
--- NOTE | 2019-11-24 23:40 | PDOC ---
History of Present Illness - General Chief Complaint: Chest Pain Stated Complaint: PAIN Time Seen by Provider: 11/24/19 23:26 - History of Present Illness Initial Comments: Edgar Trevino is a 49yo man with a PMH of HTN, NIDDM, CKD, fibromyalgia, PTSD, obesity, recovered from COVID (04/2019), recently admitted to [facility] with BLE edema with open wounds, hypertensive urgency, and hypokalemia. He was discharged from the hospital on Saturday and was told to come back for any new symptoms. For the past day, he has had diffuse body pain and muscle cramping. He additionally has had a migraine with photophobia, similar to frequent migraines that he has had in the past, though he attributes this migraine to his new home medications. He tried taking 2 acetaminophen tablets yesterday without improvement, but he says that he was not prescribed his normal home dose of gabapentin (states it is 600mg) and [facility] so was unable to take them. He denies any exertional chest pain, difficulty breathing, sweating, nausea, lightheadedness or any recent fever/chills. He is concerned that his potassium is low because of the diffuse muscle cramping or that the worsening body pain and migraine are due to the cardiac medications that were started during his recent admission. He states that since his adm ission, his leg swelling and wounds have improved significantly. Past History - Medical History Allergies/Adverse Reactions: Allergies Allergy/AdvReac Type Severity Reaction Status Date / Time No Known Allergies Allergy Verified 11/20/19 16:09 Home Medications: Ambulatory Orders Glipizide 5 mg PO DAILY 11/16/19 Atorvastatin Ca [Lipitor] 40 mg PO DAILY 11/17/19 Pregabalin 50 mg PO BID 11/17/19 Carvedilol [Coreg -] 12.5 mg PO BID 30 Days #60 tablet 11/20/19 Diclofenac Sodium [Voltaren] 100 gm TP PRN PRN 11/20/19 Isosorbide Mononitrate [Imdur -] 30 mg PO DAILY 30 Days #30 tab.sr.24h 11/20/19 Mineral Oil/Pet Hy-Phl [Aquaphor -] 1 applic TP DAILY #1 jar 11/20/19 Sevelamer Carbonate 800 mg PO TID 11/20/19 Silver Sulfadiazine 1% Top Cr [Silvadene -] 1 applic TP BID 30 Days #1 jar 1 hydrALAZINE HCL [Apresoline -] 25 mg PO BID 30 Days #60 tablet 11/20/19 Torsemide [Demadex -] 80 mg PO DAILY #30 tablet 11/21/19 COPD: No CHF: Yes Diabetes: Yes Disorders: Yes (renal failure) HTN: Yes - Psycho-Social/Smoking History Smoking History: Never smoked Have you smoked in the past 12 months: No - Substance Abuse Hx (Audit-C & DAST Scrn) How often the patient has a drink containing alcohol: Never Score: In Men: 4 or > Positive; In Women: 3 or > Positive: 0 Screen Result (Pos requires Nsg. Audit-10AR): Negative Review of Systems - Review of Systems Comments:: General: No fevers, no chills, no weight or appetite change, no malaise HEENT: No changes in vision, no changes in hearing, no congestion, no sore throat, +NICHOLS CV: +right chest pain, no palpitations, no LE edema Pulm: No SOB, no cough, no wheezing GI: No nausea or vomiting, no change in bowel habits, no melena : No frequency, no urgency, no dysuria Musc: +Diffuse pain, no joint swelling, no recent injury Skin: No rash, no lesions, no erythema Endo: No excessive thirst, no heat/cold intolerance Heme: No unusual bruising or bleeding, no swollen glands Neuro: No syncope, no numbness/tingling, no focal weakness Vasc: No claudication Psych: No recent change in mood, no SI or HI *Physical Exam - Vital Signs Last Vital Signs Temp Pulse Resp BP Pulse Ox 99.1 F 93 H 20 175/110 H 96 11/24/19 22:06 11/24/19 22:06 11/24/19 22:06 11/24/19 22:06 11/24/19 22:06 - Physical Exam General: Uncomfortable, face covered with jama, in no acute distress HEENT: Atraumatic, PERRL, EOMI, MMM, voice normal, normal neck ROM Cards: RRR, no murmur appreciated. Diffuse chest wall TTP. Pulm: Comfortable on room air, clear to auscultation bilaterally Abd: Soft, nontender, nondistended Ext: Atraumatic. BLE wrapped w/ clean kerlix. Minimal pitting edema. WWP. Diffusely TTP Skin: Normal color, no rashes or lesions Neuro: A&Ox3, CN grossly intact, normal speech, motor/sensory grossly intact and symmetric Psych: Mood appropriate to situation ED Treatment Course - LABORATORY CBC & Chemistry Diagram: 11/25/19 00:10 11/25/19 00:10 Medical Decision Making - Medical Decision Making 11/24/19 23:40 Edgar Trevino is a 49yo man with a PMH of HTN, NIDDM, CKD, fibromyalgia, PTSD, obesity, recovered from COVID (04/2019), recently admitted to [facility] with BLE edema with open wounds, hypertensive urgency, and hypokalemia (d/c on Saturday) who presents with worsening diffuse body pain and migraine with photophobia since yesterday. - Pt reporting diffuse body pain and migraine. No localized or exertional chest pain, SOB, or associated symptoms concerning for ACS. May be due to fibromyalgia but will evaluate for electrolyte abnormalities or other cause of increased pain. - No fever - CBC, CMP, mag, trop, EKG, CXR, BNP - Acetaminophen, reglan, home pregabalin 11/25/19 00:15 - EKG w/ NSR, HR 84, left axis, normal intervals. Incomplete RBBB, left anterior fascicular block. No ST elevation or t-wave changes. No significant change from prior - Labs sent, pending 11/25/19 00:47 - Labs reviewed. Notable for hypokalemia to 3.0, 20meq ordered for repletion. Otherwise no concerning changes compared to recent admission. Cr 5.4 from baseline around 5. - Pt states his headache and body aches are improved but not resolved. Recommend ing that he take his home medications for continued fibromyalgia pain. Pt was given referral to follow up with Dr Bolton on an outpatient basis, encouraging him to call to schedule his follow up appointment. - Plan to d/c home 11/25/19 01:06 - Pt refusing CXR, requesting to be discharged home. - Will d/c Discussed with Dr Srivastava. Brandy Leonardo PGY3 Discharge - Discharge Information Problems reviewed: Yes Clinical Impression/Diagnosis: Body aches Headache Qualifiers: Headache type: unspecified Headache chronicity pattern: acute headache Intractability: not intractable Qualified Code(s): R51.9 - Headache, unspecified Condition: Stable Disposition: HOME - Admission No - Follow up/Referral Referrals: Buster Bolton MD [Staff Physician] - - Patient Discharge Instructions Patient Printed Discharge Instructions: DI for Chronic Pain -- Adult Additional Instructions: Discharge Instructions: You were seen in the emergency department for body pain and headache. Your blood tests did not show any concerning findings. You felt improved after receiving pain medication in the ED. Home Care and Follow Up: - Continue to take all of your regular home medications as prescribed. - You may take 650-1000mg acetaminophen (Tylenol) every 6-8 hours as needed for continued pain - Consider using heating pads or ice packs for additional pain control - Call tomorrow to schedule an appointment with a primary care doctor to establish care. You were previously referred to Dr Bolton. - Seek immediate care for any worsening symptoms, chest pain with exercise or with associated lightheadedness, difficulty breathing, sweating, or nausea, or for any other medical emergency. - Post Discharge Activity
[2019-11-24] MEDS ORDERED: traMADol HCL 50 MG TABLET PO ONE (23:41)
[2019-11-24] MEDS ORDERED: PREGABALIN 50 MG CAPSULE PO ONE (23:41)
[2019-11-24] MEDS ORDERED: METOCLOPRAMIDE HCL INJECTION 10 MG/2 ML VIAL IVPUSH ONE (23:44)
[2019-11-24] MEDS ORDERED: ACETAMINOPHEN 1000 MG/100 ML VIAL (NON FORMULARY) IVPB ONE (23:44)
[2019-11-24] MEDS ORDERED: ACETAMINOPHEN INJECTION 100 ML IVPB ONE (23:51)
[2019-11-24] MEDS ORDERED: PREGABALIN 50 MG CAPSULE ONE (23:51)
[2019-11-24] MEDS ORDERED: METOCLOPRAMIDE HCL INJECTION 10 MG/2 ML VIAL ONE (23:51)
[2019-11-25 00:18] LABS: BASO % 0.9 % (0-2.0); EOS % 5.8 % (0-4.5); HEMATOCRIT 31.9 % (35.4-49); HEMOGLOBIN 11.1 GM/dL (11.7-16.9); LYMPH % 31.4 % (8-40); MCH 32.7 pg (25.7-33.7); MCHC 34.7 g/dl (32.0-35.9); MEAN CELL VOLUME 94.4 fl (80-96); MEAN PLT VOLUME 8.6 fl (7.5-11.1); MONO % 16.8 % (3.8-10.2); NEUT % 45.1 % (42.8-82.8); PLATELET COUNT 303 K/MM3 (134-434); RBC 3.38 M/mm3 (4.00-5.60); RDW 13.1 % (11.9-15.9); WHITE BLOOD COUNT 9.4 K/mm3 (4.0-10.0)
[2019-11-25 00:43] LABS: ALBUMIN 2.2 g/dl (3.4-5.0); ALK PHOS 92 U/L (45-117); ANION GAP 7 MMOL/L (8-16); BILIRUBIN,TOTAL 0.4 mg/dL (0.2-1); BLOOD UREA NITROGEN 41.6 mg/dL (7-18); CALCIUM 8.4 mg/dL (8.5-10.1); CHLORIDE 104 mmol/L (98-107); CO2 28 mmol/L (21-32); CREATININE 5.4 mg/dL (0.55-1.3); GLUCOSE,RANDOM 137 mg/dL (74-106); N-TERMINAL BNP 1463.7 pg/ml (5-125); SGOT/AST 12 U/L (15-37); SGPT/ALT 15 U/L (13-61); SODIUM 139 mmol/L (136-145); TOT PROT 6.8 g/dl (6.4-8.2)
[2019-11-25] MEDS ORDERED: POTASSIUM CHLORIDE TABS 20 MEQ TABLET.ER (FP) PO ONE ×2 (00:47→01:19)
--- NOTE | 2019-11-25 01:03 | PDOC ---
Documentation entered by Rich Alexandra SCRIBE, acting as scribe for Maria Guadalupe Srivastava MD. Maria Guadalupe Srivastava MD: This documentation has been prepared by the Nasrin engel Xhesika, SCRIBE, under my direction and personally reviewed by me in its entirety. I confirm that the documentation accurately reflects all work, treatment, procedures, and medical decision making performed by me. Attending Attestation - Resident Resident Name: Brandy Leonardo - ED Attending Attestation I have performed the following: I have examined & evaluated the patient, The case was reviewed & discussed with the resident, I agree w/resident's findings & plan, Exceptions are as noted - HPI HPI: 11/24/19 23:41 The patient is a 49 year old male with a significant past medical history of DM, CHF, and HTN who presents to the emergency department for evaluation of chronic body pain and migraine. The migraine is similar to headaches he has had in the past, was gradual in onset and a/w photophobia. Also reports diffuse body pain from his fibromyalgia and states he did not have any gabapentin at home. The patient denies cough,chest pain and shortness of breath. Denies fever, chills, nausea, vomiting, and/or any GI symptoms. Denies any symptoms. Denies any other symptoms. Allergies: NKA PCP: Dr. Dimas Nephro: Dr. Gaines - Physicial Exam PE: 11/25/19 01:00 General: well appearing Chest: CTAB, good air entry, no wheezes rales or rhonchi CVS: + s1 s2, RRR Neuro: Aox3, speech fluent, face symmetric, ambulatory with steady gait, strength and sensation preserved, no focal deficits - Medical Decision Making 11/25/19 01:01 49 yo M with body pain and migraine, no signs/symptoms concerning for ICH, likely his usual migraine and body pain likely 2/2 fibromyalgia as patient reports this is his typical pain and did not have pain medication at home. Plan: -labs -cxr -EKG -reglan -gabapentin -reassess This clinical encounter is taking place during a federal and state health care emergency attributable to the novel Griffiths Virus pandemic. The [place] of the Department of Health and Human Services has declared, pursuant to the Public Health Service Act 319F-3 (42 U.S[place]C. 247d-6d), that a covered persons activities related to medical countermeasures against COVID-19 will be immune from liability under Federal and State law. 11/25/19 01:03 Labs reviewed and roughly at baseline compared to most recent admission. Cr 5.4, slightly elevated from day of discharge however no change in urination and patient reports compliance with his diuretic and Cr has been trending upwards over the course of his previous hospitalization so possible increased Cr 2/2 diuretic use vs. progression of his kidney disease. Patient ordered for cxr however he does not wish to have one because he states he is not having any respiratory or cardiac complaints and he does not believe it will look any different from a few days ago when he was inpatient. R/b/a explained to patient however patient still declines at this time. Also reports reduction in pain from 09/20 to 05/21. Will d/c with return precautions, recommend PMD f/u. Heart Score/ECG Review - ECG Impressions Comment:: 11/25/19 01:07 sinus, rate 84, normal intervals, no ST elevations Discharge - Discharge Information Problems reviewed: Yes Clinical Impression/Diagnosis: Body aches Headache Qualifiers: Headache type: unspecified Headache chronicity pattern: acute headache Intractability: not intractable Qualified Code(s): R51.9 - Headache, unspecified Condition: Stable Disposition: HOME - Follow up/Referral Referrals: Buster oBlton MD [Staff Physician] - - Patient Discharge Instructions Patient Printed Discharge Instructions: DI for Chronic Pain -- Adult Additional Instructions: Discharge Instructions: You were seen in the emergency department for body pain and headache. Your blood tests did not show any concerning findings. You felt improved after receiving pain medication in the ED. Home Care and Follow Up: - Continue to take all of your regular home medications as prescribed. - You may take 650-1000mg acetaminophen (Tylenol) every 6-8 hours as needed for continued pain - Consider using heating pads or ice packs for additional pain control - Call tomorrow to schedule an appointment with a primary care doctor to establish care. You were previously referred to Dr Bolton. - Seek immediate care for any worsening symptoms, chest pain with exercise or with associated lightheadedness, difficulty breathing, sweating, or nausea, or for any other medical emergency. - Post Discharge Activity
--- NOTE | 2019-11-26 13:35 | EKG ---
Test Reason : Blood Pressure : / mmHG Vent. Rate : 084 BPM Atrial Rate : 084 BPM P-R Int : 166 ms QRS Dur : 092 ms QT Int : 374 ms P-R-T Axes : 059 -59 093 degrees QTc Int : 441 ms NORMAL SINUS RHYTHM POSSIBLE LEFT ATRIAL ENLARGEMENT INCOMPLETE RIGHT BUNDLE BRANCH BLOCK LEFT ANTERIOR FASCICULAR BLOCK NONSPECIFIC T WAVE ABNORMALITY ABNORMAL ECG WHEN COMPARED WITH ECG OF 16-NOV-2019 16:33, QT HAS SHORTENED Confirmed by NAVNEET CHAPMAN MD ([id number]) on 11/26/2019 1:35:43 PM Referred By: Confirmed By:NAVNEET CHAPMAN MD
== END 2019-11-25 01:25 | disposition home or self-care (01) ==
LOC: JER 22:02
PROC: 3E0333Z Introduction of Anti-inflammatory into Peripheral Vein, Percutaneous Approach (ICD-10-PCS; principal; 2019-11-24)
PROC: 3E033GC Introduction of Other Therapeutic Substance into Peripheral Vein, Percutaneous Approach (ICD-10-PCS; 2019-11-24)
DX: R51.9 Headache, unspecified (principal); M79.10 Myalgia, unspecified site
CPT/HCPCS: 36415; 80053; 82550; 82553; 83735; 83880; 84484; 85025; 93005; 93010; 99283-25; J0131

== ENCOUNTER 2020-11-03 20:06 | Emergency (ER) | payer OTHER ==
[2020-11-03 20:54] VITALS: BMI 38.0
[2020-11-03] MEDS ORDERED: morphine CARPU-JECT 4 MG/1 ML DISP.SYRIN IVPUSH ONE (21:29)
[2020-11-03] MEDS ORDERED: ONDANSETRON 4 MG/2 ML VIAL IVPUSH ONE (21:47)
[2020-11-03] MEDS ORDERED: ONDANSETRON 4 MG/2 ML VIAL ONE (21:52)
[2020-11-03] MEDS ORDERED: morphine SULFATE 4 MG/ML VIAL ONE (21:52)
[2020-11-03 22:32] LABS: BASO % 0.5 % (0-2.0); EOS % 2.2 % (0-4.5); HEMATOCRIT 32.1 % (35.4-49); LYMPH % 14.5 % (8-40); MCH 32.5 pg (25.7-33.7); MCHC 34.2 g/dl (32.0-35.9); MEAN CELL VOLUME 94.9 fl (80-96); MEAN PLT VOLUME 7.9 fl (7.5-11.1); MONO % 9.2 % (3.8-10.2); NEUT % 73.6 % (42.8-82.8); PLATELET COUNT 316 10^3/uL (134-434); RBC 3.38 M/mm3 (4.00-5.60)
[2020-11-03 22:47] LABS: CHLORIDE 98 mmol/L (98-107); SODIUM 137 mmol/L (136-145)
[2020-11-03 22:50] LABS: ANION GAP 13 MMOL/L (8-16); CO2 26 mmol/L (21-32); GLUCOSE,RANDOM 148 mg/dL (74-106)
[2020-11-03 22:53] LABS: SGOT/AST 3 U/L (15-37); SGPT/ALT 15 U/L (13-61)
[2020-11-03 22:56] LABS: ALK PHOS 115 U/L (45-117)
[2020-11-03 23:00] LABS: BILIRUBIN,TOTAL 0.6 mg/dL (0.2-1)
[2020-11-03 23:03] LABS: CREATININE 13.6 mg/dL (0.55-1.3)
[2020-11-04 01:07] VITALS: TEMP 98.1
[2020-11-04] MEDS ORDERED: ACETAMINOPHEN 1000 MG/100 ML VIAL (NON FORMULARY) IVPB ONE (01:17)
[2020-11-04] MEDS ORDERED: ACETAMINOPHEN INJECTION 100 ML IVPB ONE (01:17)
[2020-11-04] MEDS ORDERED: CIPROFLOXACIN 500 MG TABLET (RESTRICTED TO ID) PO ONE (02:05)
[2020-11-04 02:27] VITALS: BP 138/66; PULSE 80
== END 2020-11-04 02:27 | disposition home or self-care (01) ==
LOC: JER 20:06
PROC: 3E033NZ Introduction of Analgesics, Hypnotics, Sedatives into Peripheral Vein, Percutaneous Approach (ICD-10-PCS; principal; 2020-11-03)
PROC: 3E033GC Introduction of Other Therapeutic Substance into Peripheral Vein, Percutaneous Approach (ICD-10-PCS; 2020-11-03)
PROC: 3E033GC Introduction of Other Therapeutic Substance into Peripheral Vein, Percutaneous Approach (ICD-10-PCS; 2020-11-03)
DX: N12 Tubulo-interstitial nephritis, not specified as acute or chronic (principal)
CPT/HCPCS: 36415; 74176-TC; 80053; 83690; 84484; 85025; 93005; 93010; 99284-25; J0131

== ENCOUNTER 2020-12-22 09:39 | Inpatient (IN) | payer OTHER ==
[2020-12-22] MEDS ORDERED: ASPIRIN 81 MG CHEWABLE TABLETS PO ONE (10:31)
[2020-12-22] MEDS ORDERED: MAG HYDROX/AL HYDROX/SIMETH 30 ML UNIT-DOSE CUP PO ONE (10:54)
[2020-12-22] MEDS ORDERED: LIDOCAINE VISCOUS 2% ORAL/TOP 15 ML UNIT-DOSE CUP MM ONE (10:54)
[2020-12-22] MEDS ORDERED: ACETAMINOPHEN 1000 MG/100 ML VIAL IVPB ONE (10:54)
[2020-12-22] MEDS ORDERED: FAMOTIDINE 20 MG/50 ML IVPB 20 MG/50 ML MG IVPB ONE ×2 (10:54→11:04)
[2020-12-22] MEDS ORDERED: LIDOCAINE VISCOUS 2% ORAL/TOP 15 ML UNIT-DOSE CUP ONE (11:04)
[2020-12-22] MEDS ORDERED: MAG HYDROX/AL HYDROX/SIMETH 30 ML UNIT-DOSE CUP ONE (11:04)
[2020-12-22] MEDS ORDERED: ACETAMINOPHEN INJECTION 100 ML IVPB ONE (11:04)
[2020-12-22] MEDS ORDERED: ASPIRIN 81 MG CHEWABLE TABLETS ONE (11:04)
[2020-12-22 12:10] LABS: BASO % 0.8 % (0-2.0); EOS % 9.1 % (0-4.5); HEMATOCRIT 31.6 % (35.4-49); LYMPH % 24.6 % (8-40); MCH 33.5 pg (25.7-33.7); MCHC 34.9 g/dl (32.0-35.9); MEAN CELL VOLUME 95.9 fl (80-96); MEAN PLT VOLUME 7.8 fl (7.5-11.1); MONO % 14.2 % (3.8-10.2); NEUT % 51.3 % (42.8-82.8); PLATELET COUNT 264 10^3/uL (134-434); RDW 13.6 % (11.9-15.9); WHITE BLOOD COUNT 8.6 K/mm3 (4.0-10.0)
[2020-12-22 12:29] LABS: CHLORIDE 98 mmol/L (98-107); SODIUM 134 mmol/L (136-145)
[2020-12-22 12:31] LABS: CALCIUM 8.6 mg/dL (8.5-10.1)
[2020-12-22 12:32] LABS: ALBUMIN 2.9 g/dl (3.4-5.0); ANION GAP 11 MMOL/L (8-16); BLOOD UREA NITROGEN 35.2 mg/dL (7-18); CO2 25 mmol/L (21-32); GLUCOSE,RANDOM 183 mg/dL (74-106); LIPASE 326 U/L (73-393); MAGNESIUM 1.7 mg/dL (1.8-2.4)
[2020-12-22 12:35] LABS: INR 1.05 (0.83-1.09); PROTHROMBIN TIME (PATIENT) 11.8 SEC (9.7-13.0); SGOT/AST 11 U/L (15-37); SGPT/ALT 26 U/L (13-61)
[2020-12-22 12:36] LABS: BILIRUBIN,TOTAL 0.3 mg/dL (0.2-1); TOT PROT 7.4 g/dl (6.4-8.2)
[2020-12-22 12:37] LABS: ACTIVATED PTT 29.7 SECONDS (25.2-36.5)
[2020-12-22 12:38] LABS: ALK PHOS 131 U/L (45-117)
[2020-12-22 12:40] LABS: N-TERMINAL BNP 1150.6 pg/ml (5-125)
[2020-12-22 12:41] LABS: CREATININE 12.7 mg/dL (0.55-1.3)
[2020-12-22] MEDS ORDERED: morphine CARPU-JECT 2 MG/1 ML DISP.SYRIN IVPUSH ONE (14:39)
[2020-12-22] MEDS ORDERED: morphine SULFATE 4 MG/ML VIAL ONE (14:54)
[2020-12-22] MEDS: INSULIN SLIDING SCALE (NOVOLOG) 1 VIAL SQ SCH (19:10)
[2020-12-23] MEDS: INSULIN SLIDING SCALE (NOVOLOG) 1 VIAL SQ SCH ×5 (01:22→21:54)
[2020-12-23] MEDS ORDERED: ACETAMINOPHEN 1000 MG/100 ML VIAL IVPB ONE (01:27)
[2020-12-23] MEDS: HEPARIN NA (PORCINE) 5,000 UNITS/ML 1ML VIAL SQ SCH ×4 (02:21→21:57)
[2020-12-23] MEDS: PERITONEAL DIALYSIS 2.5% SOLN 2,500 ML IP SCH ×6 (02:26→21:15)
[2020-12-23 04:26] VITALS: BMI 36.5
[2020-12-23 08:17] LABS: CHLORIDE 94 mmol/L (98-107); SODIUM 134 mmol/L (136-145)
[2020-12-23 08:22] LABS: CALCIUM 8.6 mg/dL (8.5-10.1)
[2020-12-23 08:24] LABS: ALBUMIN 2.7 g/dl (3.4-5.0)
[2020-12-23 08:25] LABS: ANION GAP 11 MMOL/L (8-16); BLOOD UREA NITROGEN 35.6 mg/dL (7-18); CO2 28 mmol/L (21-32); EOS % 9.5 % (0-4.5); GLUCOSE,RANDOM 149 mg/dL (74-106); HEMATOCRIT 29.5 % (35.4-49); HEMOGLOBIN 10.4 GM/dL (11.7-16.9); MAGNESIUM 1.8 mg/dL (1.8-2.4); MCH 33.3 pg (25.7-33.7); MCHC 35.2 g/dl (32.0-35.9); MEAN CELL VOLUME 94.7 fl (80-96); MEAN PLT VOLUME 7.9 fl (7.5-11.1); MONO % 9.8 % (3.8-10.2); NEUT % 54.7 % (42.8-82.8); PLATELET COUNT 257 10^3/uL (134-434); RBC 3.11 M/mm3 (4.00-5.60); RDW 13.7 % (11.9-15.9); WHITE BLOOD COUNT 7.3 K/mm3 (4.0-10.0)
[2020-12-23 08:27] LABS: SGPT/ALT 24 U/L (13-61)
[2020-12-23 08:28] LABS: PHOSPHOROUS 4.3 mg/dL (2.5-4.9); SGOT/AST 10 U/L (15-37)
[2020-12-23 08:29] LABS: BILIRUBIN,TOTAL 0.4 mg/dL (0.2-1); TOT PROT 6.9 g/dl (6.4-8.2)
[2020-12-23 08:30] LABS: ALK PHOS 116 U/L (45-117)
[2020-12-23 08:33] LABS: CREATININE 12.8 mg/dL (0.55-1.3)
[2020-12-23] MEDS: ASPIRIN COATED 81 MG TABLET.EC PO SCH (09:22)
[2020-12-23 11:01] LABS: BF WBC & OTHER NUCLEATED CELLS 54 /mm3; BODY FLUID MONOCYTE 16 %; BODYL FLD EOSINOPHIL 0 %
[2020-12-23 11:02] LABS: BODY FLUID BASOPHIL 0 %; BODY FLUID MACROPHAGES 4 %; BODY FLUID MESOTHELIAL 3 %
[2020-12-23] MEDS ORDERED: PT OWN MED DRAWER 7, Y5N ONE ×4 (14:37→22:00)
[2020-12-23] MEDS: CYCLOBENZAPRINE HCL 5 MG TABLET PO PRN ×2 (14:39→21:57)
[2020-12-23] MEDS: CARVEDILOL 3.125 MG TABLET (FP) PO SCH (21:57)
[2020-12-24] MEDS: PERITONEAL DIALYSIS 2.5% SOLN 2,500 ML IP SCH ×4 (03:15→21:50)
[2020-12-24] MEDS: HEPARIN NA (PORCINE) 5,000 UNITS/ML 1ML VIAL SQ SCH ×3 (05:57→22:03)
[2020-12-24] MEDS: INSULIN SLIDING SCALE (NOVOLOG) 1 VIAL SQ SCH ×4 (07:03→22:03)
[2020-12-24] MEDS ORDERED: PATIENT'S OWN MEDICATION (NON-FORMULARY) (Diclofenac Sodium [Voltaren] 100 GM Gel..Gram.) TP PRN (07:30)
[2020-12-24 07:33] LABS: CHLORIDE 98 mmol/L (98-107); SODIUM 136 mmol/L (136-145)
[2020-12-24 07:38] LABS: ALBUMIN 2.6 g/dl (3.4-5.0); ANION GAP 6 MMOL/L (8-16); BLOOD UREA NITROGEN 33.6 mg/dL (7-18); CALCIUM 8.4 mg/dL (8.5-10.1); CO2 32 mmol/L (21-32)
[2020-12-24 07:39] LABS: GLUCOSE,RANDOM 148 mg/dL (74-106)
[2020-12-24 07:42] LABS: SGOT/AST 9 U/L (15-37); SGPT/ALT 20 U/L (13-61)
[2020-12-24 07:43] LABS: BILIRUBIN,TOTAL 0.4 mg/dL (0.2-1); TOT PROT 6.6 g/dl (6.4-8.2)
[2020-12-24 07:44] LABS: ALK PHOS 114 U/L (45-117); BASO % 0.5 % (0-2.0); EOS % 9.7 % (0-4.5); HEMATOCRIT 29.8 % (35.4-49); HEMOGLOBIN 10.3 GM/dL (11.7-16.9); LYMPH % 27.4 % (8-40); MCH 33.7 pg (25.7-33.7); MCHC 34.6 g/dl (32.0-35.9); MEAN CELL VOLUME 97.3 fl (80-96); MONO % 13.7 % (3.8-10.2); NEUT % 48.7 % (42.8-82.8); PLATELET COUNT 264 10^3/uL (134-434); RBC 3.06 M/mm3 (4.00-5.60); RDW 13.5 % (11.9-15.9); WHITE BLOOD COUNT 7.1 K/mm3 (4.0-10.0)
[2020-12-24 08:16] LABS: CREATININE 12.4 mg/dL (0.55-1.3)
[2020-12-24] MEDS: CARVEDILOL 3.125 MG TABLET (FP) PO SCH ×2 (09:21→22:02)
[2020-12-24] MEDS: ATORVASTATIN CA 40 MG TABLET (FP) PO SCH (09:22)
[2020-12-24] MEDS: ASPIRIN COATED 81 MG TABLET.EC PO SCH (09:22)
[2020-12-24] MEDS ORDERED: PT OWN MED DRAWER 7, Y5N ONE (09:23)
[2020-12-24] MEDS: CYCLOBENZAPRINE HCL 5 MG TABLET PO PRN (09:25)
[2020-12-24] MEDS ORDERED: ISOSORBIDE MONONITRATE 30 MG TAB.SR.24H (FP) PO SCH (10:00)
[2020-12-24] MEDS ORDERED: hydrALAZINE HCL 25 MG TABLET (FP) PO SCH (10:00)
[2020-12-24] MEDS: MINERAL OIL/PET HY-PHL TOPICAL OINTMENT 454 GM JAR TP SCH (13:47)
[2020-12-24] MEDS: SILVER SULFADIAZINE 1% TOP CREAM 50 GM JAR TP SCH ×2 (13:47→22:05)
[2020-12-24] MEDS ORDERED: SEVELAMER CARBONATE 800 MG TAB (FP) PO SCH ×2 (14:00→20:57)
[2020-12-25] MEDS: PERITONEAL DIALYSIS 2.5% SOLN 2,500 ML IP SCH ×2 (03:40→09:59)
[2020-12-25] MEDS: HEPARIN NA (PORCINE) 5,000 UNITS/ML 1ML VIAL SQ SCH (06:17)
[2020-12-25] MEDS: INSULIN SLIDING SCALE (NOVOLOG) 1 VIAL SQ SCH ×2 (06:17→11:05)
[2020-12-25] MEDS ORDERED: CARVEDILOL 6.25 MG TABLET (FP) PO SCH (08:29)
[2020-12-25 09:03] VITALS: BP 143/95; PULSE 87; TEMP 97.9
[2020-12-25] MEDS: ATORVASTATIN CA 40 MG TABLET (FP) PO SCH (09:41)
[2020-12-25] MEDS: ASPIRIN COATED 81 MG TABLET.EC PO SCH (09:42)
[2020-12-25] MEDS: SILVER SULFADIAZINE 1% TOP CREAM 50 GM JAR TP SCH (09:45)
[2020-12-25] MEDS: MINERAL OIL/PET HY-PHL TOPICAL OINTMENT 454 GM JAR TP SCH (09:45)
== END 2020-12-25 12:00 | disposition home or self-care (01) | DRG 201 ==
LOC: JER 09:39 → JERBED 14:57 → J4S 12-23 00:43
PROVIDERS: ADMIT Internal Medicine; ATTEND Internal Medicine
DX: I47.2 Ventricular tachycardia (principal); I13.2 Hypertensive heart and chronic kidney disease with heart failure and with stage 5 chronic kidney disease, or end stage renal disease; I50.32 Chronic diastolic (congestive) heart failure; N18.6 End stage renal disease; F43.10 Post-traumatic stress disorder, unspecified; Z99.2 Dependence on renal dialysis; N62 Hypertrophy of breast; D63.1 Anemia in chronic kidney disease; Z79.84 Long term (current) use of oral hypoglycemic drugs; E11.22 Type 2 diabetes mellitus with diabetic chronic kidney disease; E87.6 Hypokalemia; Z86.16 Personal history of COVID-19; R07.89 Other chest pain; E66.9 Obesity, unspecified; E78.5 Hyperlipidemia, unspecified; E78.00 Pure hypercholesterolemia, unspecified; Z68.37 Body mass index [BMI] 37.0-37.9, adult; I42.0 Dilated cardiomyopathy; E11.40 Type 2 diabetes mellitus with diabetic neuropathy, unspecified; M79.7 Fibromyalgia
CPT/HCPCS: 36415; 71045-TC-FY; 71275-TC; 80053; 82550; 82728; 82962; 83540; 83550; 83690; 83735; 83880; 84100; 84484; 85025; 85610; 85730; 87070; 87075; 87205; 93005; 93010; 93306-TC; 99285-25; C9803; J0131; U0003; U0005

== ENCOUNTER 2021-01-28 02:46 | Emergency (ER) | payer OTHER ==
[2021-01-28 03:00] VITALS: BP 111/58; PULSE 98; TEMP 98.1; BMI 32.9
[2021-01-28] MEDS ORDERED: ACETAMINOPHEN 1000 MG/100 ML VIAL IVPB ONE (03:27)
[2021-01-28] MEDS ORDERED: LACTATED RINGERS SOLUTION 1000 ML INFUS.BAG IV ONE (03:27)
[2021-01-28] MEDS ORDERED: ACETAMINOPHEN INJECTION 100 ML IVPB ONE (04:01)
[2021-01-28 04:43] LABS: BASO % 0.7 % (0-2.0); HEMATOCRIT 34.2 % (35.4-49); HEMOGLOBIN 11.8 GM/dL (11.7-16.9); LYMPH % 21.3 % (8-40); MCH 32.9 pg (25.7-33.7); MCHC 34.5 g/dl (32.0-35.9); MEAN CELL VOLUME 95.4 fl (80-96); MEAN PLT VOLUME 7.5 fl (7.5-11.1); PLATELET COUNT 209 10^3/uL (134-434); RBC 3.59 M/mm3 (4.00-5.60); RDW 13.1 % (11.9-15.9); WHITE BLOOD COUNT 9.1 K/mm3 (4.0-10.0)
[2021-01-28 04:51] LABS: INR 1.09 (0.83-1.09); PROTHROMBIN TIME (PATIENT) 12.2 SEC (9.7-13.0)
[2021-01-28 05:02] LABS: CHLORIDE 104 mmol/L (98-107); SODIUM 139 mmol/L (136-145)
[2021-01-28 05:04] LABS: CALCIUM 9.3 mg/dL (8.5-10.1)
[2021-01-28 05:05] LABS: ANION GAP 12 MMOL/L (8-16); BLOOD UREA NITROGEN 38.2 mg/dL (7-18); CO2 24 mmol/L (21-32)
[2021-01-28 05:08] LABS: SGOT/AST 23 U/L (15-37); SGPT/ALT 58 U/L (13-61)
[2021-01-28 05:09] LABS: BILIRUBIN,TOTAL 0.4 mg/dL (0.2-1); TOT PROT 7.7 g/dl (6.4-8.2)
[2021-01-28 05:11] LABS: ALK PHOS 89 U/L (45-117)
[2021-01-28 05:23] LABS: CREATININE 14.9 mg/dL (0.55-1.3); GLUCOSE,RANDOM 126 mg/dL (74-106)
== END 2021-01-28 06:12 | disposition home or self-care (01) ==
LOC: JER 02:46
PROC: 3E033GC Introduction of Other Therapeutic Substance into Peripheral Vein, Percutaneous Approach (ICD-10-PCS; principal; 2021-01-28)
DX: R07.9 Chest pain, unspecified (principal); R53.81 Other malaise
CPT/HCPCS: 36415; 80053; 82550; 84484; 85025; 85610; 85730; 93005; 93010; 99284-25; J0131

== ENCOUNTER 2021-02-24 00:36 | Inpatient (IN) | payer OTHER ==
[2021-02-24 01:08] VITALS: BMI 29.5
[2021-02-24] MEDS ORDERED: LACTATED RINGERS SOLUTION 1,000 ML/1,000 ML INFUS.BAG IV STA (01:21)
[2021-02-24 01:46] LABS: VENOUS BASE EXCESS -1.8 mmol/L (-2-2); VENOUS O2 SATURATION 39.6 % (70-80); VENOUS PCO2 49.4 mmHg (38-52); VENOUS PH 7.319 (7.310-7.410)
[2021-02-24 02:05] LABS: BASO % 0.1 % (0-2.0); HEMATOCRIT 40.3 % (35.4-49); HEMOGLOBIN 13.2 GM/dL (11.7-16.9); LYMPH % 4.4 % (8-40); MCHC 32.8 g/dl (32.0-35.9); MEAN CELL VOLUME 97.5 fl (80-96); MEAN PLT VOLUME 8.6 fl (7.5-11.1); MONO % 10.3 % (3.8-10.2); NEUT % 85.2 % (42.8-82.8); PLATELET COUNT 229 10^3/uL (134-434); RBC 4.13 M/mm3 (4.00-5.60); RDW 14.3 % (11.9-15.9); WHITE BLOOD COUNT 14.9 K/mm3 (4.0-10.0)
[2021-02-24 02:13] LABS: CHLORIDE 101 mmol/L (98-107); SODIUM 140 mmol/L (136-145)
[2021-02-24 02:15] LABS: ALBUMIN 3.4 g/dl (3.4-5.0); ANION GAP 15 MMOL/L (8-16); BLOOD UREA NITROGEN 29.4 mg/dL (7-18); CALCIUM 9.5 mg/dL (8.5-10.1); CO2 24 mmol/L (21-32); GLUCOSE,RANDOM 192 mg/dL (74-106); INR 1.08 (0.83-1.09); PROTHROMBIN TIME (PATIENT) 12.4 SEC (9.7-13.0)
[2021-02-24 02:18] LABS: ACTIVATED PTT 28.6 SECONDS (25.2-36.5); SGPT/ALT 97 U/L (13-61)
[2021-02-24 02:19] LABS: SGOT/AST 46 U/L (15-37)
[2021-02-24 02:20] LABS: BILIRUBIN,TOTAL 0.4 mg/dL (0.2-1); TOT PROT 7.4 g/dl (6.4-8.2)
[2021-02-24 02:21] LABS: ALK PHOS 109 U/L (45-117)
[2021-02-24 02:30] LABS: LACTIC ACID 3.6 mmol/L (0.4-2.0)
[2021-02-24 02:31] LABS: CREATININE 9.2 mg/dL (0.55-1.3)
[2021-02-24] MEDS ORDERED: morphine CARPU-JECT 4 MG/1 ML DISP.SYRIN IVPUSH ONE ×2 (03:26→06:57)
[2021-02-24] MEDS ORDERED: morphine SULFATE 4 MG/ML VIAL ONE (03:28)
[2021-02-24] MEDS ORDERED: ACETAMINOPHEN 1000 MG/100 ML BAG IVPB ONE ×3 (03:33→23:03)
[2021-02-24] MEDS ORDERED: LIDOCAINE 5% TOPICAL PATCH TP ONE (03:33)
[2021-02-24] MEDS ORDERED: ACETAMINOPHEN INJECTION 100 ML IVPB ONE ×2 (03:35→08:18)
[2021-02-24] MEDS ORDERED: LIDOCAINE 5% TOPICAL PATCH ONE (03:35)
[2021-02-24 05:05] LABS: LACTIC ACID 4.1 mmol/L (0.4-2.0)
[2021-02-24] MEDS ORDERED: LIDOCAINE HCL 2% JELLY (30 ML/TUBE) TP ONE (05:50)
[2021-02-24] MEDS ORDERED: LACTATED RINGERS SOLUTION 1000 ML INFUS.BAG IV ONE (05:52)
[2021-02-24] MEDS ORDERED: LIDOCAINE HCL 2% JELLY (5 ML/TUBE) ONE (05:53)
[2021-02-24] MEDS ORDERED: ONDANSETRON 4 MG/2 ML VIAL ONE ×2 (06:45→07:55)
[2021-02-24] MEDS ORDERED: ONDANSETRON 4 MG/2 ML VIAL IVPUSH ONE (06:57)
[2021-02-24] MEDS ORDERED: LIDOCAINE HCL 2% JELLY (5 ML/TUBE) TP ONE (07:45)
[2021-02-24] MEDS ORDERED: LIDOCAINE HCL 2% JELLY 10 ML CARTRIDGE ONE (07:46)
[2021-02-24] MEDS ORDERED: SODIUM CHLORIDE 1,000 ML IV SCH (08:15)
[2021-02-24] MEDS ORDERED: SODIUM CHLORIDE 500 ML IV STA ×2 (08:22→10:12)
[2021-02-24] MEDS ORDERED: LORazepam 2 MG/ML SDV VIAL IVPUSH ONE (09:53)
[2021-02-24] MEDS ORDERED: CEFEPIME HCL/D5W 1 GM/50 ML BAG IVPB SCH ×2 (10:00)
[2021-02-24] MEDS ORDERED: ASPIRIN COATED 81 MG TABLET.EC PO SCH (10:00)
[2021-02-24] MEDS ORDERED: LORazepam 2 MG/ML SDV VIAL IVPUSH PRN (10:00)
[2021-02-24] MEDS ORDERED: CEFEPIME HCL/D5W 2 GM/50 ML BAG IVPB SCH (10:00)
[2021-02-24] MEDS ORDERED: PREGABALIN 50 MG CAPSULE PO SCH (10:00)
[2021-02-24 10:19] LABS: MAGNESIUM 0.7 mg/dL (1.8-2.4)
[2021-02-24] MEDS ORDERED: MAGNESIUM SULF 50% (8.12 MEQ/2 ML-1 GM VIAL) IVPB ONE (10:20)
[2021-02-24 10:23] LABS: PHOSPHOROUS 1.3 mg/dL (2.5-4.9)
[2021-02-24] MEDS ORDERED: CEFEPIME 1 GM in DEXTROSE 5%-WATER 1 GM/50 ML BAG IVPB ONE (11:00)
[2021-02-24] MEDS ORDERED: MAGNESIUM SULFATE IN WATER 2 GM/50 ML IVPB IVPB ONE (11:04)
[2021-02-24] MEDS ORDERED: CEFEPIME 1 GM/100 ML BAG IVPB ONE (11:16)
[2021-02-24 11:22] LABS: VENOUS BASE EXCESS -4.7 mmol/L (-2-2); VENOUS O2 SATURATION 52.8 % (70-80); VENOUS PH 7.355 (7.310-7.410)
[2021-02-24 12:24] LABS: LACTIC ACID 3.5 mmol/L (0.4-2.0)
[2021-02-24] MEDS ORDERED: SODIUM PHOSPHATE - 30 MM in SODIUM CHLORIDE 250 ML IVPB ONE (12:36)
[2021-02-24] MEDS ORDERED: SODIUM PHOSPHATE - 10 MM in SODIUM CHLORIDE 250 ML IVPB ONE (14:00)
[2021-02-24] MEDS: HYDROmorphone HCl 2 MG/ML VIAL IVPB PRN ×2 (14:26→19:51)
[2021-02-24] MEDS: HEPARIN NA (PORCINE) 5,000 UNITS/ML 1ML VIAL SQ SCH ×2 (14:34→23:31)
[2021-02-24] MEDS ORDERED: DEXTROSE 5%-WATER - 50 ML IVPB ONE (20:36)
[2021-02-24] MEDS ORDERED: PIPERACILLIN/TAZOBACTAM 2.25 GM VIAL IVPB ONE (20:36)
[2021-02-24] MEDS: ATORVASTATIN CA 40 MG TABLET (FP) PO SCH (21:35)
[2021-02-24] MEDS: PIPERACILLIN/TAZOB 2.25 GM 2.25 GM in DEXTROSE 5%-WATER - 50 ML IVPB SCH (22:24)
[2021-02-24] MEDS: LIDOCAINE PATCH REMOVAL MC SCH (22:41)
[2021-02-25] MEDS: HYDROmorphone HCl 2 MG/ML VIAL IVPB PRN ×4 (00:54→20:43)
[2021-02-25] MEDS ORDERED: PIPERACILLIN/TAZOBACTAM 2.25 GM VIAL IVPB ONE ×3 (01:02→16:23)
[2021-02-25] MEDS ORDERED: DEXTROSE 5%-WATER - 50 ML IVPB ONE ×3 (01:03→16:23)
[2021-02-25] MEDS: PIPERACILLIN/TAZOB 2.25 GM 2.25 GM in DEXTROSE 5%-WATER - 50 ML IVPB SCH ×3 (01:31→17:37)
[2021-02-25] MEDS: HEPARIN NA (PORCINE) 5,000 UNITS/ML 1ML VIAL SQ SCH ×3 (06:57→22:36)
[2021-02-25] MEDS ORDERED: morphine CARPU-JECT 2 MG/1 ML DISP.SYRIN IVPUSH PRN (07:49)
[2021-02-25] MEDS ORDERED: morphine SULFATE 4 MG/ML VIAL IVPUSH PRN (08:15)
[2021-02-25 09:43] LABS: CHLORIDE 103 mmol/L (98-107); SODIUM 143 mmol/L (136-145)
[2021-02-25 09:49] LABS: GLUCOSE,RANDOM 147 mg/dL (74-106)
[2021-02-25 09:51] LABS: ANION GAP 18 MMOL/L (8-16); CALCIUM 9.1 mg/dL (8.5-10.1); CO2 22 mmol/L (21-32)
[2021-02-25 09:52] LABS: BLOOD UREA NITROGEN 42.9 mg/dL (7-18); MAGNESIUM 2.6 mg/dL (1.8-2.4)
[2021-02-25 09:54] LABS: BILIRUBIN,TOTAL 0.6 mg/dL (0.2-1); PHOSPHOROUS 7.2 mg/dL (2.5-4.9)
[2021-02-25 09:55] LABS: SGOT/AST 14 U/L (15-37); SGPT/ALT 24 U/L (13-61); TOT PROT 6.3 g/dl (6.4-8.2)
[2021-02-25 09:56] LABS: ALK PHOS 99 U/L (45-117)
[2021-02-25 10:09] LABS: ALBUMIN 2.6 g/dl (3.4-5.0); CREATININE 10.6 mg/dL (0.55-1.3)
[2021-02-25] MEDS: ONDANSETRON 4 MG/2 ML VIAL IVPUSH PRN (16:30)
[2021-02-25] MEDS: ATORVASTATIN CA 40 MG TABLET (FP) PO SCH (21:29)
[2021-02-25] MEDS: LIDOCAINE PATCH REMOVAL MC SCH (22:00)
[2021-02-26] MEDS ORDERED: PIPERACILLIN/TAZOBACTAM 2.25 GM VIAL IVPB ONE ×3 (00:25→16:35)
[2021-02-26] MEDS ORDERED: DEXTROSE 5%-WATER - 50 ML IVPB ONE ×3 (00:25→16:36)
[2021-02-26] MEDS: PIPERACILLIN/TAZOB 2.25 GM 2.25 GM in DEXTROSE 5%-WATER - 50 ML IVPB SCH ×3 (01:44→17:01)
[2021-02-26] MEDS: HEPARIN NA (PORCINE) 5,000 UNITS/ML 1ML VIAL SQ SCH ×3 (06:46→21:30)
[2021-02-26] MEDS: HYDROmorphone HCl 2 MG/ML VIAL IVPB PRN ×3 (09:28→20:36)
[2021-02-26 11:59] LABS: HEMATOCRIT 35.2 % (35.4-49); HEMOGLOBIN 11.2 GM/dL (11.7-16.9); MCH 31.5 pg (25.7-33.7); MCHC 31.9 g/dl (32.0-35.9); MEAN CELL VOLUME 98.6 fl (80-96); PLATELET COUNT 217 10^3/uL (134-434); RBC 3.57 M/mm3 (4.00-5.60); RDW 14.8 % (11.9-15.9); WHITE BLOOD COUNT 17.2 K/mm3 (4.0-10.0)
[2021-02-26 12:16] LABS: CHLORIDE 102 mmol/L (98-107); SODIUM 145 mmol/L (136-145)
[2021-02-26 12:17] LABS: CALCIUM 9.2 mg/dL (8.5-10.1)
[2021-02-26 12:18] LABS: ALBUMIN 2.2 g/dl (3.4-5.0); ANION GAP 13 MMOL/L (8-16); BLOOD UREA NITROGEN 35.3 mg/dL (7-18); CO2 30 mmol/L (21-32); GLUCOSE,RANDOM 83 mg/dL (74-106)
[2021-02-26 12:21] LABS: SGOT/AST 17 U/L (15-37); SGPT/ALT 19 U/L (13-61)
[2021-02-26 12:23] LABS: BILIRUBIN,TOTAL 0.4 mg/dL (0.2-1); TOT PROT 5.9 g/dl (6.4-8.2)
[2021-02-26] MEDS: DEXTROSE 5%-0.45% SALINE 1,000 ML IV SCH (12:23)
[2021-02-26 12:24] LABS: ALK PHOS 100 U/L (45-117)
[2021-02-26 12:55] LABS: ANISOCYTOSIS 1+; MACROCYTOSIS 0; PLATELET ESTIMATE NORMAL
[2021-02-26] MEDS: ONDANSETRON 4 MG/2 ML VIAL IVPUSH PRN (14:55)
[2021-02-26] MEDS: ATORVASTATIN CA 40 MG TABLET (FP) PO SCH (21:30)
[2021-02-26] MEDS: LIDOCAINE PATCH REMOVAL MC SCH (22:00)
[2021-02-27] MEDS: ONDANSETRON 4 MG/2 ML VIAL IVPUSH PRN ×2 (00:59→06:31)
[2021-02-27] MEDS ORDERED: DEXTROSE 5%-WATER - 50 ML IVPB ONE ×3 (01:11→18:31)
[2021-02-27] MEDS ORDERED: PIPERACILLIN/TAZOBACTAM 2.25 GM VIAL IVPB ONE ×3 (01:11→18:31)
[2021-02-27] MEDS: PIPERACILLIN/TAZOB 2.25 GM 2.25 GM in DEXTROSE 5%-WATER - 50 ML IVPB SCH ×3 (01:39→18:57)
[2021-02-27] MEDS: HYDROmorphone HCl 2 MG/ML VIAL IVPB PRN (02:14)
[2021-02-27 03:07] LABS: EPI CELLS 8 /uL (0-25.1); HYALINE CASTS 1 /uL (0-3.1); URINE APPEARANCE CLOUDY; URINE BACTERIA 45 /uL (0-1359); URINE BILIRUBIN 1+ (NEGATIVE); URINE COLOR DK YELLOW; URINE GLUCOSE (UA) NEGATIVE (NEGATIVE); URINE KETONE 1+ (NEGATIVE); URINE LEUK ESTERASE 1+ (NEGATIVE); URINE NITRITE NEGATIVE (NEGATIVE); URINE PROTEIN 3+ (NEGATIVE); URINE RBC 3 /uL (0-23.9); URINE UROBILINOGEN 0.2 mg/dL (0.2-1.0); URINE WBC 82 /uL (0-25.8)
[2021-02-27] MEDS: HEPARIN NA (PORCINE) 5,000 UNITS/ML 1ML VIAL SQ SCH ×3 (05:13→21:25)
[2021-02-27 08:52] LABS: HEMATOCRIT 36.1 % (35.4-49); HEMOGLOBIN 11.4 GM/dL (11.7-16.9); MCH 31.3 pg (25.7-33.7); MCHC 31.6 g/dl (32.0-35.9); MEAN CELL VOLUME 99.1 fl (80-96); MEAN PLT VOLUME 8.9 fl (7.5-11.1); PLATELET COUNT 251 10^3/uL (134-434); RBC 3.65 M/mm3 (4.00-5.60); RDW 14.8 % (11.9-15.9); WHITE BLOOD COUNT 19.3 K/mm3 (4.0-10.0)
[2021-02-27 10:52] LABS: ANISOCYTOSIS 1+; MACROCYTOSIS 1+; PLATELET ESTIMATE NORMAL
[2021-02-27] MEDS ORDERED: ACETAMINOPHEN 1000 MG/100 ML BAG IVPB PRN ×2 (11:35→15:36)
[2021-02-27] MEDS ORDERED: PROPOFOL 20 ML ONE (12:47)
[2021-02-27] MEDS ORDERED: ROCURONIUM BROMIDE 50 MG/5 ML SYRINGE ONE (12:47)
[2021-02-27] MEDS ORDERED: SUCCINYLCHOLINE CHLORIDE 200 MG/10 ML SYRINGE ONE (12:47)
[2021-02-27] MEDS ORDERED: PHENYLEPHRINE HCL 10 MG/1 ML SINGLE DOSE VIAL ONE (13:25)
[2021-02-27] MEDS: DEXTROSE 5%-0.45% SALINE 1,000 ML IV SCH (13:47)
[2021-02-27] MEDS ORDERED: DESFLURANE GAS 240 ML BOTTLE IH ONE (14:14)
[2021-02-27] MEDS ORDERED: SEVOFLURANE 250 ML BTL ONE (14:14)
[2021-02-27] MEDS ORDERED: HYDROmorphone *PCA* 10MG/50ML DISP.SYRIN PCA SCH ×2 (14:15→15:36)
[2021-02-27] MEDS ORDERED: HYDROmorphone *PCA* 10MG/50ML DISP.SYRIN ONE (15:31)
[2021-02-27] MEDS ORDERED: DEXTROSE 5%-0.45% SALINE 1,000 ML IV SCH (15:36)
[2021-02-27] MEDS ORDERED: HYDROmorphone HCl 2 MG/ML VIAL IVPB PRN (15:36)
[2021-02-27] MEDS ORDERED: ONDANSETRON 4 MG/2 ML VIAL IVPUSH PRN (15:36)
[2021-02-27] MEDS ORDERED: SODIUM CHLORIDE 250 ML IV PRN ×3 (15:55→18:05)
[2021-02-27] MEDS ORDERED: NALOXONE HCL 0.4 MG/ML VIAL ONE (15:57)
[2021-02-27 16:17] LABS: ARTERIAL BLD GAS O2 SATURATION 98.1 % (95-98); ARTERIAL BLOOD GAS BASE EXCESS -1.3 mmol/L (-2-2); ARTERIAL BLOOD GAS PO2 176.2 mmHg (80-100)
[2021-02-27 16:20] LABS: ARTERIAL BLOOD GAS pH 6.995 (7.350-7.450)
[2021-02-27 18:15] LABS: ARTERIAL BLD GAS O2 SATURATION 98.5 % (95-98); ARTERIAL BLOOD GAS BASE EXCESS -6.8 mmol/L (-2-2); ARTERIAL BLOOD GAS PO2 133.3 mmHg (80-100); ARTERIAL BLOOD GAS pH 7.325 (7.350-7.450)
[2021-02-27] MEDS ORDERED: fentaNYL 1000 MCG/50 ML *PCA* DISP.SYRIN PCA SCH (18:15)
[2021-02-27 18:26] LABS: ALLENS TEST POSITIVE
[2021-02-27 18:27] LABS: VENT MODE S/T; VENT RATE 16
[2021-02-27] MEDS ORDERED: ACETAMINOPHEN INJECTION 100 ML IVPB ONE (18:41)
[2021-02-27] MEDS ORDERED: ACETAMINOPHEN 1000 MG/100 ML BAG IVPB ONE (18:46)
[2021-02-27] MEDS ORDERED: ATORVASTATIN CA 40 MG TABLET (FP) PO SCH (22:00)
[2021-02-27] MEDS ORDERED: LIDOCAINE PATCH REMOVAL MC SCH (22:00)
[2021-02-28] MEDS ORDERED: DEXTROSE 5%-WATER - 50 ML IVPB ONE ×3 (01:24→15:13)
[2021-02-28] MEDS ORDERED: PIPERACILLIN/TAZOBACTAM 2.25 GM VIAL IVPB ONE ×3 (01:24→15:13)
[2021-02-28] MEDS: PIPERACILLIN/TAZOB 2.25 GM 2.25 GM in DEXTROSE 5%-WATER - 50 ML IVPB SCH ×3 (02:33→17:44)
[2021-02-28] MEDS: HEPARIN NA (PORCINE) 5,000 UNITS/ML 1ML VIAL SQ SCH ×3 (05:55→21:25)
[2021-02-28 07:16] LABS: BASO % 0.1 % (0-2.0); HEMATOCRIT 37.1 % (35.4-49); HEMOGLOBIN 11.6 GM/dL (11.7-16.9); LYMPH % 5.8 % (8-40); MCHC 31.4 g/dl (32.0-35.9); MEAN CELL VOLUME 98.8 fl (80-96); MEAN PLT VOLUME 8.5 fl (7.5-11.1); NEUT % 81.1 % (42.8-82.8); PLATELET COUNT 235 10^3/uL (134-434); RBC 3.75 M/mm3 (4.00-5.60); RDW 14.8 % (11.9-15.9)
[2021-02-28 07:28] LABS: WHITE BLOOD COUNT 20.5 K/mm3 (4.0-10.0)
[2021-02-28 07:40] LABS: CHLORIDE 98 mmol/L (98-107); SODIUM 144 mmol/L (136-145)
[2021-02-28 07:44] LABS: CALCIUM 9.4 mg/dL (8.5-10.1)
[2021-02-28 07:45] LABS: ALBUMIN 2.1 g/dl (3.4-5.0); ANION GAP 18 MMOL/L (8-16); CO2 29 mmol/L (21-32); GLUCOSE,RANDOM 115 mg/dL (74-106)
[2021-02-28 07:47] LABS: PHOSPHOROUS 7.8 mg/dL (2.5-4.9); SGOT/AST 25 U/L (15-37); SGPT/ALT 13 U/L (13-61)
[2021-02-28 07:50] LABS: BILIRUBIN,TOTAL 0.6 mg/dL (0.2-1); TOT PROT 6.1 g/dl (6.4-8.2)
[2021-02-28 07:51] LABS: ALK PHOS 114 U/L (45-117)
[2021-02-28 07:52] LABS: BLOOD UREA NITROGEN 64.8 mg/dL (7-18); CREATININE 10.6 mg/dL (0.55-1.3)
[2021-02-28 09:51] LABS: ANISOCYTOSIS 1+; MACROCYTOSIS 0; PLATELET ESTIMATE NORMAL
[2021-02-28] MEDS ORDERED: ASPIRIN COATED 81 MG TABLET.EC PO SCH (10:00)
[2021-02-28] MEDS ORDERED: PANTOPRAZOLE SODIUM 40 MG VIAL IVPUSH SCH (10:00)
[2021-02-28 11:30] LABS: ARTERIAL BLD GAS O2 SATURATION 97.6 % (95-98); ARTERIAL BLOOD GAS BASE EXCESS 1.9 mmol/L (-2-2); ARTERIAL BLOOD GAS PO2 95.8 mmHg (80-100); ARTERIAL BLOOD GAS pH 7.451 (7.350-7.450)
[2021-02-28 11:31] LABS: ALLENS TEST POSITIVE
[2021-02-28] MEDS ORDERED: METOPROLOL TARTRATE 5 MG/5 ML VIAL IVPB PRN ×2 (12:17→20:20)
[2021-02-28] MEDS ORDERED: METOPROLOL TARTRATE 5 MG/5 ML VIAL IVPUSH ONE (13:15)
[2021-02-28] MEDS ORDERED: chlorproMAZINE HCL 25 MG/1 ML AMP IM ONE (13:15)
[2021-02-28] MEDS ORDERED: INSULIN SLIDING SCALE (NOVOLOG) 1 VIAL SQ SCH (16:30)
[2021-02-28] MEDS ORDERED: ONDANSETRON 4 MG/2 ML VIAL IVPUSH PRN (20:20)
[2021-02-28] MEDS ORDERED: ACETAMINOPHEN 1000 MG/100 ML BAG IVPB PRN (21:28)
[2021-02-28] MEDS: INSULIN SLIDING SCALE (NOVOLOG) 1 VIAL SQ SCH (21:35)
[2021-02-28] MEDS ORDERED: ATORVASTATIN CA 40 MG TABLET (FP) PO SCH (22:00)
[2021-02-28] MEDS ORDERED: LIDOCAINE PATCH REMOVAL MC SCH (22:00)
[2021-03-01] MEDS ORDERED: PROCHLORPERAZINE INJECTION 10 MG/2 ML VIAL IVPB ONE (00:12)
[2021-03-01] MEDS ORDERED: PIPERACILLIN/TAZOBACTAM 2.25 GM VIAL IVPB ONE ×3 (01:01→16:44)
[2021-03-01] MEDS ORDERED: DEXTROSE 5%-WATER - 50 ML IVPB ONE ×3 (01:02→16:44)
[2021-03-01] MEDS: PIPERACILLIN/TAZOB 2.25 GM 2.25 GM in DEXTROSE 5%-WATER - 50 ML IVPB SCH ×3 (02:17→17:02)
[2021-03-01] MEDS: HEPARIN NA (PORCINE) 5,000 UNITS/ML 1ML VIAL SQ SCH ×3 (05:58→21:34)
[2021-03-01] MEDS: INSULIN SLIDING SCALE (NOVOLOG) 1 VIAL SQ SCH ×4 (06:09→21:34)
[2021-03-01] MEDS: ASPIRIN COATED 81 MG TABLET.EC PO SCH (09:06)
[2021-03-01] MEDS: PANTOPRAZOLE SODIUM 40 MG VIAL IVPUSH SCH (09:25)
[2021-03-01 10:04] LABS: HEMOGLOBIN 11.3 GM/dL (11.7-16.9); MCH 31.3 pg (25.7-33.7); MCHC 31.4 g/dl (32.0-35.9); MEAN CELL VOLUME 99.4 fl (80-96); MEAN PLT VOLUME 8.8 fl (7.5-11.1); PLATELET COUNT 197 10^3/uL (134-434); RBC 3.62 M/mm3 (4.00-5.60); RDW 15.4 % (11.9-15.9); WHITE BLOOD COUNT 20.3 K/mm3 (4.0-10.0)
[2021-03-01 10:09] LABS: CHLORIDE 103 mmol/L (98-107); SODIUM 147 mmol/L (136-145)
[2021-03-01 10:12] LABS: CALCIUM 9.2 mg/dL (8.5-10.1)
[2021-03-01 10:13] LABS: ALBUMIN 2.1 g/dl (3.4-5.0); ANION GAP 20 MMOL/L (8-16); BLOOD UREA NITROGEN 45.9 mg/dL (7-18); CO2 24 mmol/L (21-32); GLUCOSE,RANDOM 78 mg/dL (74-106); MAGNESIUM 2.7 mg/dL (1.8-2.4)
[2021-03-01 10:15] LABS: PHOSPHOROUS 5.8 mg/dL (2.5-4.9); SGOT/AST 37 U/L (15-37); SGPT/ALT 13 U/L (13-61)
[2021-03-01 10:16] LABS: BILIRUBIN,TOTAL 0.5 mg/dL (0.2-1)
[2021-03-01 10:18] LABS: TOT PROT 6.1 g/dl (6.4-8.2)
[2021-03-01 10:19] LABS: ALK PHOS 132 U/L (45-117)
[2021-03-01 10:38] LABS: CREATININE 7.9 mg/dL (0.55-1.3)
[2021-03-01 11:09] LABS: ANISOCYTOSIS 0; HELMET CELLS 0; HOWELL-JOLLY BODIES 0; MACROCYTOSIS 0; OVALOCYTE 0; PLATELET ESTIMATE NORMAL; ROULEAU 0; SICKELED CELLS 0; TARGET CELLS 0; TEAR DROP CELLS 0; TOXIC GRANULATION 0
[2021-03-01] MEDS: chlorproMAZINE HCL 25 MG/1 ML AMP IM PRN ×2 (12:13→18:17)
[2021-03-01] MEDS: ACETAMINOPHEN 1000 MG/100 ML BAG IVPB SCH ×2 (14:13→21:27)
[2021-03-01] MEDS: DAPTOMYCIN 600 MG in SODIUM CHLORIDE 50 ML IVPB SCH (15:42)
[2021-03-01] MEDS: AMINO ACIDS 4.25%/D5W 1,000 ML IV SCH (15:50)
[2021-03-02] MEDS ORDERED: PIPERACILLIN/TAZOBACTAM 2.25 GM VIAL IVPB ONE ×3 (01:23→18:24)
[2021-03-02] MEDS ORDERED: DEXTROSE 5%-WATER - 50 ML IVPB ONE ×3 (01:23→18:24)
[2021-03-02] MEDS: chlorproMAZINE HCL 25 MG/1 ML AMP IM PRN ×2 (01:24→13:17)
[2021-03-02] MEDS: PIPERACILLIN/TAZOB 2.25 GM 2.25 GM in DEXTROSE 5%-WATER - 50 ML IVPB SCH ×3 (01:27→18:56)
[2021-03-02] MEDS: ACETAMINOPHEN 1000 MG/100 ML BAG IVPB SCH ×2 (01:32→06:38)
[2021-03-02] MEDS: HEPARIN NA (PORCINE) 5,000 UNITS/ML 1ML VIAL SQ SCH ×3 (06:38→21:54)
[2021-03-02] MEDS: INSULIN SLIDING SCALE (NOVOLOG) 1 VIAL SQ SCH ×4 (06:39→21:54)
[2021-03-02] MEDS: ASPIRIN COATED 81 MG TABLET.EC PO SCH (09:21)
[2021-03-02] MEDS: PANTOPRAZOLE SODIUM 40 MG VIAL IVPUSH SCH (10:57)
[2021-03-02] MEDS: ACETAMINOPHEN 1000 MG/100 ML BAG IVPB PRN ×2 (13:16→18:28)
[2021-03-02] MEDS ORDERED: SODIUM CHLORIDE 250 ML IV PRN (13:26)
[2021-03-02 13:56] LABS: HEMATOCRIT 32.7 % (35.4-49); HEMOGLOBIN 10.3 GM/dL (11.7-16.9); MCH 31.4 pg (25.7-33.7); MCHC 31.6 g/dl (32.0-35.9); MEAN CELL VOLUME 99.3 fl (80-96); MEAN PLT VOLUME 8.7 fl (7.5-11.1); PLATELET COUNT 167 10^3/uL (134-434); RBC 3.29 M/mm3 (4.00-5.60); RDW 15.6 % (11.9-15.9); WHITE BLOOD COUNT 17.8 K/mm3 (4.0-10.0)
[2021-03-02 13:59] LABS: CHLORIDE 100 mmol/L (98-107); SODIUM 143 mmol/L (136-145)
[2021-03-02 14:05] LABS: CALCIUM 9.5 mg/dL (8.5-10.1)
[2021-03-02 14:06] LABS: ALBUMIN 1.9 g/dl (3.4-5.0); ANION GAP 21 MMOL/L (8-16); CO2 21 mmol/L (21-32); GLUCOSE,RANDOM 139 mg/dL (74-106)
[2021-03-02 14:09] LABS: SGOT/AST 48 U/L (15-37); SGPT/ALT 19 U/L (13-61)
[2021-03-02 14:11] LABS: BILIRUBIN,TOTAL 0.6 mg/dL (0.2-1); TOT PROT 5.6 g/dl (6.4-8.2)
[2021-03-02 14:12] LABS: ALK PHOS 126 U/L (45-117); BLOOD UREA NITROGEN 82.7 mg/dL (7-18); CREATININE 9.6 mg/dL (0.55-1.3)
[2021-03-02 14:50] LABS: ANISOCYTOSIS 0; HELMET CELLS 0; HOWELL-JOLLY BODIES 0; MACROCYTOSIS 0; OVALOCYTE 0; PLATELET ESTIMATE NORMAL; ROULEAU 0; SICKELED CELLS 0; TARGET CELLS 0; TEAR DROP CELLS 0; TOXIC GRANULATION 0
[2021-03-02] MEDS: AMINO ACIDS 4.25%/D5W 1,000 ML IV SCH (18:56)
[2021-03-03] MEDS ORDERED: DEXTROSE 5%-WATER - 50 ML IVPB ONE ×3 (00:57→18:10)
[2021-03-03] MEDS ORDERED: PIPERACILLIN/TAZOBACTAM 2.25 GM VIAL IVPB ONE ×3 (00:57→18:10)
[2021-03-03] MEDS: PIPERACILLIN/TAZOB 2.25 GM 2.25 GM in DEXTROSE 5%-WATER - 50 ML IVPB SCH ×3 (01:03→18:12)
[2021-03-03] MEDS: ACETAMINOPHEN 1000 MG/100 ML BAG IVPB PRN ×2 (02:25→15:10)
[2021-03-03] MEDS: HEPARIN NA (PORCINE) 5,000 UNITS/ML 1ML VIAL SQ SCH ×3 (06:18→21:31)
[2021-03-03] MEDS: INSULIN SLIDING SCALE (NOVOLOG) 1 VIAL SQ SCH ×4 (06:18→21:35)
[2021-03-03] MEDS: chlorproMAZINE HCL 25 MG/1 ML AMP IM PRN (09:02)
[2021-03-03] MEDS: ASPIRIN COATED 81 MG TABLET.EC PO SCH (09:02)
[2021-03-03] MEDS: PANTOPRAZOLE SODIUM 40 MG VIAL IVPUSH SCH (10:02)
[2021-03-03] MEDS ORDERED: chlorproMAZINE HCL 25 MG TABLET PO SCH (14:00)
[2021-03-03] MEDS: DAPTOMYCIN 600 MG in SODIUM CHLORIDE 50 ML IVPB SCH (14:24)
[2021-03-03] MEDS ORDERED: SODIUM CHLORIDE 250 ML IV PRN (14:59)
[2021-03-03] MEDS: AMINO ACIDS 4.25%/D5W 1,000 ML IV SCH (20:39)
[2021-03-04] MEDS ORDERED: PIPERACILLIN/TAZOBACTAM 2.25 GM VIAL IVPB ONE ×2 (01:17→17:22)
[2021-03-04] MEDS ORDERED: DEXTROSE 5%-WATER - 50 ML IVPB ONE ×2 (01:17→17:22)
[2021-03-04] MEDS: PIPERACILLIN/TAZOB 2.25 GM 2.25 GM in DEXTROSE 5%-WATER - 50 ML IVPB SCH ×3 (01:20→17:51)
[2021-03-04] MEDS: ACETAMINOPHEN 1000 MG/100 ML BAG IVPB PRN ×2 (03:45→12:53)
[2021-03-04] MEDS: chlorproMAZINE HCL 25 MG/1 ML AMP IM PRN ×3 (03:57→20:02)
[2021-03-04] MEDS: INSULIN SLIDING SCALE (NOVOLOG) 1 VIAL SQ SCH ×4 (06:18→21:37)
[2021-03-04] MEDS: HEPARIN NA (PORCINE) 5,000 UNITS/ML 1ML VIAL SQ SCH ×3 (06:18→21:37)
[2021-03-04] MEDS: ASPIRIN COATED 81 MG TABLET.EC PO SCH (09:44)
[2021-03-04] MEDS: PANTOPRAZOLE SODIUM 40 MG VIAL IVPUSH SCH (09:44)
[2021-03-04 10:28] LABS: CHLORIDE 99 mmol/L (98-107); SODIUM 137 mmol/L (136-145)
[2021-03-04 10:30] LABS: ANION GAP 20 MMOL/L (8-16); BLOOD UREA NITROGEN 73.8 mg/dL (7-18); CALCIUM 8.9 mg/dL (8.5-10.1); CO2 19 mmol/L (21-32); GLUCOSE,RANDOM 92 mg/dL (74-106)
[2021-03-04 10:31] LABS: ALBUMIN 1.8 g/dl (3.4-5.0)
[2021-03-04 10:33] LABS: SGPT/ALT 29 U/L (13-61)
[2021-03-04 10:34] LABS: SGOT/AST 58 U/L (15-37)
[2021-03-04 10:35] LABS: BILIRUBIN,TOTAL 0.6 mg/dL (0.2-1); TOT PROT 5.2 g/dl (6.4-8.2)
[2021-03-04 10:37] LABS: HEMATOCRIT 28.7 % (35.4-49); MCH 31.1 pg (25.7-33.7); MCHC 31.5 g/dl (32.0-35.9); MEAN PLT VOLUME 9.4 fl (7.5-11.1); PLATELET COUNT 105 10^3/uL (134-434); RDW 15.7 % (11.9-15.9); WHITE BLOOD COUNT 23.8 K/mm3 (4.0-10.0)
[2021-03-04 11:11] LABS: MAGNESIUM 2.2 mg/dL (1.8-2.4)
[2021-03-04 11:13] LABS: ALK PHOS 174 U/L (45-117); CREATININE 8.7 mg/dL (0.55-1.3)
[2021-03-04 11:42] LABS: ANISOCYTOSIS 0; HELMET CELLS 0; HOWELL-JOLLY BODIES 0; MACROCYTOSIS 0; OVALOCYTE 0; PLATELET ESTIMATE DECREASED; ROULEAU 0; SICKELED CELLS 0; TARGET CELLS 0; TEAR DROP CELLS 0; TOXIC GRANULATION 0
[2021-03-04] MEDS: AMINO ACIDS 4.25%/D5W 1,000 ML IV SCH ×2 (14:30→21:38)
[2021-03-05] MEDS ORDERED: DEXTROSE 5%-WATER - 50 ML IVPB ONE ×3 (00:42→17:20)
[2021-03-05] MEDS ORDERED: PIPERACILLIN/TAZOBACTAM 2.25 GM VIAL IVPB ONE ×3 (00:42→17:20)
[2021-03-05] MEDS: PIPERACILLIN/TAZOB 2.25 GM 2.25 GM in DEXTROSE 5%-WATER - 50 ML IVPB SCH ×3 (01:05→17:44)
[2021-03-05] MEDS ORDERED: ACETAMINOPHEN 1000 MG/100 ML BAG IVPB ONE (02:23)
[2021-03-05] MEDS: HEPARIN NA (PORCINE) 5,000 UNITS/ML 1ML VIAL SQ SCH ×3 (05:56→22:09)
[2021-03-05] MEDS: INSULIN SLIDING SCALE (NOVOLOG) 1 VIAL SQ SCH ×4 (06:54→22:09)
[2021-03-05] MEDS: ASPIRIN COATED 81 MG TABLET.EC PO SCH (09:15)
[2021-03-05] MEDS: PANTOPRAZOLE SODIUM 40 MG VIAL IVPUSH SCH (09:15)
[2021-03-05 09:32] LABS: HEMATOCRIT 29.7 % (35.4-49); HEMOGLOBIN 9.3 GM/dL (11.7-16.9); MCH 30.9 pg (25.7-33.7); MCHC 31.2 g/dl (32.0-35.9); MEAN PLT VOLUME 9.1 fl (7.5-11.1); PLATELET COUNT 81 10^3/uL (134-434); RDW 15.9 % (11.9-15.9); WHITE BLOOD COUNT 23.1 K/mm3 (4.0-10.0)
[2021-03-05 10:09] LABS: ALBUMIN 1.9 g/dl (3.4-5.0); CALCIUM 8.6 mg/dL (8.5-10.1)
[2021-03-05 10:10] LABS: BLOOD UREA NITROGEN 49.7 mg/dL (7-18)
[2021-03-05 10:11] LABS: CREATININE 6.5 mg/dL (0.55-1.3)
[2021-03-05 10:13] LABS: BILIRUBIN,TOTAL 0.6 mg/dL (0.2-1); TOT PROT 5.4 g/dl (6.4-8.2)
[2021-03-05 11:27] LABS: ANISOCYTOSIS 0; HELMET CELLS 0; HOWELL-JOLLY BODIES 0; MACROCYTOSIS 0; OVALOCYTE 0; PLATELET ESTIMATE DECREASED; ROULEAU 0; SICKELED CELLS 0; TARGET CELLS 0; TEAR DROP CELLS 0; TOXIC GRANULATION 0
[2021-03-05] MEDS: DAPTOMYCIN 600 MG in SODIUM CHLORIDE 50 ML IVPB SCH (14:33)
[2021-03-05] MEDS: AMINO ACIDS 4.25%/D5W 1,000 ML IV SCH (14:33)
[2021-03-06] MEDS ORDERED: DEXTROSE 5%-WATER - 50 ML IVPB ONE ×3 (00:22→17:56)
[2021-03-06] MEDS ORDERED: PIPERACILLIN/TAZOBACTAM 2.25 GM VIAL IVPB ONE ×3 (00:22→17:56)
[2021-03-06] MEDS: AMINO ACIDS 4.25%/D5W 1,000 ML IV SCH ×2 (01:11→18:19)
[2021-03-06] MEDS: PIPERACILLIN/TAZOB 2.25 GM 2.25 GM in DEXTROSE 5%-WATER - 50 ML IVPB SCH ×3 (01:12→17:58)
[2021-03-06] MEDS: chlorproMAZINE HCL 25 MG/1 ML AMP IM PRN (03:02)
[2021-03-06] MEDS: HEPARIN NA (PORCINE) 5,000 UNITS/ML 1ML VIAL SQ SCH ×3 (05:30→21:16)
[2021-03-06] MEDS: INSULIN SLIDING SCALE (NOVOLOG) 1 VIAL SQ SCH ×4 (06:05→21:16)
[2021-03-06 09:09] LABS: HEMATOCRIT 25.4 % (35.4-49); HEMOGLOBIN 8.1 GM/dL (11.7-16.9); MCH 31.2 pg (25.7-33.7); MCHC 31.8 g/dl (32.0-35.9); MEAN CELL VOLUME 98.4 fl (80-96); MEAN PLT VOLUME 9.5 fl (7.5-11.1); PLATELET COUNT 54 10^3/uL (134-434); RBC 2.58 M/mm3 (4.00-5.60); RDW 15.6 % (11.9-15.9); WHITE BLOOD COUNT 24.9 K/mm3 (4.0-10.0)
[2021-03-06 09:35] LABS: CHLORIDE 96 mmol/L (98-107); SODIUM 135 mmol/L (136-145)
[2021-03-06 09:41] LABS: ALBUMIN 1.7 g/dl (3.4-5.0); ANION GAP 21 MMOL/L (8-16); BLOOD UREA NITROGEN 72.3 mg/dL (7-18); CO2 18 mmol/L (21-32); GLUCOSE,RANDOM 116 mg/dL (74-106)
[2021-03-06 09:44] LABS: SGOT/AST 37 U/L (15-37); SGPT/ALT 20 U/L (13-61)
[2021-03-06] MEDS: ASPIRIN COATED 81 MG TABLET.EC PO SCH (09:45)
[2021-03-06] MEDS: PANTOPRAZOLE SODIUM 40 MG VIAL IVPUSH SCH (09:45)
[2021-03-06 09:46] LABS: BILIRUBIN,TOTAL 0.6 mg/dL (0.2-1); TOT PROT 5.3 g/dl (6.4-8.2)
[2021-03-06 10:04] LABS: ANISOCYTOSIS 1+; MACROCYTOSIS 1+; PLATELET ESTIMATE DECREASED
[2021-03-06 10:16] LABS: ALK PHOS 380 U/L (45-117); CREATININE 8.1 mg/dL (0.55-1.3)
[2021-03-06] MEDS: ACETAMINOPHEN 1000 MG/100 ML BAG IVPB PRN ×2 (13:46→21:09)
[2021-03-06] MEDS ORDERED: INSULIN (NOVOLOG) ASPART 100 UNITS/ML 10ML VIAL ONE (21:06)
[2021-03-07] MEDS ORDERED: PIPERACILLIN/TAZOBACTAM 2.25 GM VIAL IVPB ONE (01:23)
[2021-03-07] MEDS ORDERED: DEXTROSE 5%-WATER - 50 ML IVPB ONE (01:23)
[2021-03-07] MEDS: PIPERACILLIN/TAZOB 2.25 GM 2.25 GM in DEXTROSE 5%-WATER - 50 ML IVPB SCH (01:38)
[2021-03-07] MEDS: HEPARIN NA (PORCINE) 5,000 UNITS/ML 1ML VIAL SQ SCH ×2 (06:08→13:32)
[2021-03-07] MEDS: AMINO ACIDS 4.25%/D5W 1,000 ML IV SCH ×2 (06:08→17:25)
[2021-03-07] MEDS: INSULIN SLIDING SCALE (NOVOLOG) 1 VIAL SQ SCH ×4 (06:19→21:23)
[2021-03-07 08:55] LABS: HEMATOCRIT 21.6 % (35.4-49); MCH 31.7 pg (25.7-33.7); MCHC 31.9 g/dl (32.0-35.9); MEAN CELL VOLUME 99.4 fl (80-96); PLATELET COUNT 44 10^3/uL (134-434); RBC 2.17 M/mm3 (4.00-5.60); RDW 15.6 % (11.9-15.9); WHITE BLOOD COUNT 26.9 K/mm3 (4.0-10.0)
[2021-03-07] MEDS ORDERED: SODIUM CHLORIDE 250 ML IV PRN (09:00)
[2021-03-07] MEDS ORDERED: EPOETIN ALFA-EPBX 2,000 UNIT, EPOETIN ALFA-EPBX 3,000 UNIT IVPUSH ONE (09:00)
[2021-03-07 09:08] LABS: HEMOGLOBIN 6.9 GM/dL (11.7-16.9)
[2021-03-07 09:39] LABS: CHLORIDE 94 mmol/L (98-107); SODIUM 132 mmol/L (136-145)
[2021-03-07 09:40] LABS: CALCIUM 8.8 mg/dL (8.5-10.1)
[2021-03-07 09:41] LABS: ANION GAP 22 MMOL/L (8-16); CO2 16 mmol/L (21-32); GLUCOSE,RANDOM 128 mg/dL (74-106)
[2021-03-07 09:53] LABS: CREATININE 9.2 mg/dL (0.55-1.3)
[2021-03-07] MEDS: ASPIRIN COATED 81 MG TABLET.EC PO SCH ×2 (12:07→12:10)
[2021-03-07] MEDS: PANTOPRAZOLE SODIUM 40 MG VIAL IVPUSH SCH ×2 (12:07→12:10)
[2021-03-07] MEDS ORDERED: AMINO ACIDS 4.25%/D5W 1,000 ML IV SCH (12:37)
[2021-03-07] MEDS ORDERED: EPOETIN ALFA-EPBX 4,000 UNIT/ML VIAL SQ ONE (14:01)
[2021-03-07 19:59] LABS: BASO % 0.4 % (0-2.0); EOS % 0.6 % (0-4.5); HEMATOCRIT 26.3 % (35.4-49); HEMOGLOBIN 8.9 GM/dL (11.7-16.9); LYMPH % 7.6 % (8-40); MCHC 33.7 g/dl (32.0-35.9); MEAN CELL VOLUME 92.2 fl (80-96); MONO % 4.7 % (3.8-10.2); NEUT % 86.7 % (42.8-82.8); RBC 2.86 M/mm3 (4.00-5.60); RDW 16.6 % (11.9-15.9)
[2021-03-07 21:01] LABS: PLATELET COUNT 28 10^3/uL (134-434)
[2021-03-07 22:53] LABS: PLATELET ESTIMATE DECREASED
[2021-03-08] MEDS: INSULIN SLIDING SCALE (NOVOLOG) 1 VIAL SQ SCH ×4 (06:27→21:43)
[2021-03-08] MEDS: ASPIRIN COATED 81 MG TABLET.EC PO SCH (10:31)
[2021-03-08] MEDS: PANTOPRAZOLE SODIUM 40 MG VIAL IVPUSH SCH (10:31)
[2021-03-08] MEDS: AMINO ACIDS 4.25%/D5W 1,000 ML IV SCH (10:59)
[2021-03-08 12:16] LABS: HEMATOCRIT 24.1 % (35.4-49); HEMOGLOBIN 7.9 GM/dL (11.7-16.9); MCH 30.7 pg (25.7-33.7); MCHC 32.9 g/dl (32.0-35.9); MEAN CELL VOLUME 93.5 fl (80-96); MEAN PLT VOLUME 9.8 fl (7.5-11.1); RBC 2.58 M/mm3 (4.00-5.60); RDW 17.6 % (11.9-15.9)
[2021-03-08 12:22] LABS: PLATELET COUNT 49 10^3/uL (134-434)
[2021-03-08 12:26] LABS: WHITE BLOOD COUNT 36.2 K/mm3 (4.0-10.0)
[2021-03-08 12:42] LABS: CALCIUM 8.7 mg/dL (8.5-10.1)
[2021-03-08 12:43] LABS: ALBUMIN 1.7 g/dl (3.4-5.0); INR 1.14 (0.83-1.09); PROTHROMBIN TIME (PATIENT) 13.1 SEC (9.7-13.0)
[2021-03-08 12:46] LABS: CREATININE 6.9 mg/dL (0.55-1.3)
[2021-03-08 12:47] LABS: BILIRUBIN,TOTAL 0.6 mg/dL (0.2-1); TOT PROT 5.6 g/dl (6.4-8.2)
[2021-03-08] MEDS ORDERED: SODIUM CHLORIDE 250 ML IV PRN (12:51)
[2021-03-08 12:55] LABS: BLOOD UREA NITROGEN 62.4 mg/dL (7-18)
[2021-03-08 13:14] LABS: ANISOCYTOSIS 0; HELMET CELLS 0; HOWELL-JOLLY BODIES 0; MACROCYTOSIS 0; OVALOCYTE 0; PLATELET ESTIMATE DECREASED; ROULEAU 0; SICKELED CELLS 0; TARGET CELLS 0; TEAR DROP CELLS 0; TOXIC GRANULATION 0
[2021-03-08] MEDS ORDERED: DAPTOMYCIN 600 MG in SODIUM CHLORIDE 50 ML IVPB SCH (15:00)
[2021-03-09 06:00] LABS: CHLORIDE 100 mmol/L (98-107); SODIUM 139 mmol/L (136-145)
[2021-03-09 06:02] LABS: CALCIUM 8.8 mg/dL (8.5-10.1)
[2021-03-09 06:03] LABS: ALBUMIN 1.8 g/dl (3.4-5.0); ANION GAP 22 MMOL/L (8-16); BLOOD UREA NITROGEN 80.5 mg/dL (7-18); CO2 17 mmol/L (21-32); GLUCOSE,RANDOM 103 mg/dL (74-106); MAGNESIUM 2.2 mg/dL (1.8-2.4)
[2021-03-09 06:06] LABS: SGOT/AST 49 U/L (15-37); SGPT/ALT 20 U/L (13-61)
[2021-03-09 06:07] LABS: BILIRUBIN,TOTAL 0.7 mg/dL (0.2-1); TOT PROT 5.7 g/dl (6.4-8.2)
[2021-03-09] MEDS: AMINO ACIDS 4.25%/D5W 1,000 ML IV SCH (06:24)
[2021-03-09] MEDS: INSULIN SLIDING SCALE (NOVOLOG) 1 VIAL SQ SCH ×4 (06:24→22:41)
[2021-03-09 06:32] LABS: ALK PHOS 624 U/L (45-117); CREATININE 8.6 mg/dL (0.55-1.3)
[2021-03-09] MEDS ORDERED: SODIUM CHLORIDE 1,000 ML IV STA (09:04)
[2021-03-09] MEDS ORDERED: DEXTROSE 50%-WATER 25 GM/50 ML DISP.SYRIN IVPUSH ONE (09:04)
[2021-03-09] MEDS ORDERED: ETOMIDATE 40 MG/20 ML VIAL IVPUSH ONE (09:30)
[2021-03-09] MEDS ORDERED: ROCURONIUM BROMIDE 50 MG/5 ML SYRINGE IVPUSH ONE (09:30)
[2021-03-09 09:31] LABS: HEMOGLOBIN 7.2 GM/dL (11.7-16.9); MCH 30.6 pg (25.7-33.7); MCHC 31.5 g/dl (32.0-35.9); MEAN CELL VOLUME 97.2 fl (80-96); MEAN PLT VOLUME 9.1 fl (7.5-11.1); RBC 2.37 M/mm3 (4.00-5.60); RDW 18.3 % (11.9-15.9)
[2021-03-09 09:41] LABS: WHITE BLOOD COUNT 16.4 K/mm3 (4.0-10.0)
[2021-03-09] MEDS: MIDAZOLAM 100 MG in SODIUM CHLORIDE 100 ML IVPB SCH ×2 (10:00→18:16)
[2021-03-09 10:03] LABS: PLATELET COUNT 35 10^3/uL (134-434)
[2021-03-09] MEDS ORDERED: DESMOPRESSIN ACETATE 4 MCG/ML AMP IVPB ONE (10:55)
[2021-03-09] MEDS ORDERED: FENTANYL D5W IVPB 1,000 MCG/200 ML BAG IVPB SCH (11:00)
[2021-03-09 11:08] LABS: ANISOCYTOSIS 1+; MACROCYTOSIS 2+; PLATELET ESTIMATE DECREASED
[2021-03-09] MEDS ORDERED: FENTANYL NS IVPB 500 MCG/100 ML BAG IVPB ONE (11:47)
[2021-03-09] MEDS: PANTOPRAZOLE SODIUM 40 MG VIAL IVPUSH SCH (11:48)
[2021-03-09] MEDS ORDERED: NOREPINEPHRINE BITARTRATE 4 MG/4 ML ML IV ONE ×2 (12:19→12:34)
[2021-03-09] MEDS: NOREPINEPHRINE D5W PREMIX 16,000 MCG/500 ML BAG IVPB SCH (12:37)
[2021-03-09] MEDS ORDERED: EPOETIN ALFA-EPBX 10,000 UNIT/ML VIAL IVPUSH ONE (12:51)
[2021-03-09 12:58] LABS: HEMATOCRIT 22.1 % (35.4-49); MCH 30.7 pg (25.7-33.7); MCHC 31.7 g/dl (32.0-35.9); MEAN CELL VOLUME 96.8 fl (80-96); MEAN PLT VOLUME 9.2 fl (7.5-11.1); RBC 2.28 M/mm3 (4.00-5.60); RDW 18.7 % (11.9-15.9); WHITE BLOOD COUNT 14.3 K/mm3 (4.0-10.0)
[2021-03-09 13:15] LABS: CHLORIDE 101 mmol/L (98-107); LACTIC ACID 4.6 mmol/L (0.4-2.0); SODIUM 139 mmol/L (136-145)
[2021-03-09 13:17] LABS: ALBUMIN 1.6 g/dl (3.4-5.0); ANION GAP 22 MMOL/L (8-16); CALCIUM 8.6 mg/dL (8.5-10.1); CO2 16 mmol/L (21-32); GLUCOSE,RANDOM 112 mg/dL (74-106)
[2021-03-09 13:18] LABS: BLOOD UREA NITROGEN 87.4 mg/dL (7-18)
[2021-03-09 13:20] LABS: SGOT/AST 98 U/L (15-37); SGPT/ALT 30 U/L (13-61)
[2021-03-09 13:22] LABS: BILIRUBIN,TOTAL 0.6 mg/dL (0.2-1); TOT PROT 5.2 g/dl (6.4-8.2)
[2021-03-09 13:23] LABS: ALK PHOS 623 U/L (45-117)
[2021-03-09 13:45] LABS: CREATININE 8.9 mg/dL (0.55-1.3)
[2021-03-09 14:02] LABS: ANISOCYTOSIS 0; MACROCYTOSIS 0; PLATELET ESTIMATE DECREASED
[2021-03-09 14:11] LABS: PLATELET COUNT 32 10^3/uL (134-434)
[2021-03-09] MEDS ORDERED: PIPERACILLIN/TAZOB 2.25 GM 2.25 GM in DEXTROSE 5%-WATER - 50 ML IVPB SCH (14:15)
[2021-03-09] MEDS ORDERED: CEFEPIME 1 GM in DEXTROSE 5%-WATER 1 GM/100 ML BAG IVPB ONE (14:17)
[2021-03-09] MEDS ORDERED: VASOPRESSIN 40 UNITS/100 ML BAG IV SCH (14:30)
[2021-03-09 14:43] LABS: ALLENS TEST POSITIVE; ARTERIAL BLD GAS O2 SATURATION 99.7 % (95-98); ARTERIAL BLOOD GAS BASE EXCESS -14.6 mmol/L (-2-2); ARTERIAL BLOOD GAS PO2 370.8 mmHg (80-100); ARTERIAL BLOOD GAS pH 7.214 (7.350-7.450)
[2021-03-09 14:44] LABS: VENT MODE MEC/VENT; VENT RATE 16
[2021-03-09] MEDS: ACETAMINOPHEN 1000 MG/100 ML BAG IVPB PRN ×2 (15:07→22:04)
[2021-03-09] MEDS: VASOPRESSIN 40 UNITS/100 ML BAG IV SCH ×2 (15:36→22:43)
[2021-03-09] MEDS: FENTANYL NS IVPB 500 MCG/100 ML BAG IVPB SCH ×3 (16:04→22:42)
[2021-03-09] MEDS ORDERED: MIDAZOLAM IN 0.9 % SOD.CHLORID 1 MG/1 ML PLAST..BAG ONE (18:06)
[2021-03-09] MEDS ORDERED: CEFEPIME HCL 1 GM VIAL (RESTRICTED TO ID) ONE (18:06)
[2021-03-09] MEDS ORDERED: DEXTROSE 5%-WATER 100 ML IVPB ONE (18:07)
[2021-03-09 20:42] LABS: HEMATOCRIT 22.8 % (35.4-49); HEMOGLOBIN 7.1 GM/dL (11.7-16.9); MCH 30.2 pg (25.7-33.7); MEAN CELL VOLUME 97.5 fl (80-96); MEAN PLT VOLUME 9.3 fl (7.5-11.1); RBC 2.34 M/mm3 (4.00-5.60); RDW 18.6 % (11.9-15.9); WHITE BLOOD COUNT 16.6 K/mm3 (4.0-10.0)
[2021-03-09 20:50] LABS: INR 1.35 (0.83-1.09); PROTHROMBIN TIME (PATIENT) 15.6 SEC (9.7-13.0)
[2021-03-09 20:53] LABS: ACTIVATED PTT 33.6 SECONDS (25.2-36.5)
[2021-03-09 20:58] LABS: PLATELET COUNT 33 10^3/uL (134-434)
[2021-03-09 21:25] LABS: LACTIC ACID 4.7 mmol/L (0.4-2.0)
[2021-03-09] MEDS ORDERED: CHLORHEXIDINE GLUCONATE 4% CLEANSER FOR DECOLONIZATION TP SCH (22:00)
[2021-03-09] MEDS ORDERED: MUPIROCIN 2% TOPICAL OINTMENT FOR DECOLONIZATION NS SCH (22:00)
[2021-03-09] MEDS ORDERED: SODIUM CHLORIDE 0.9% 500 ML INFUS.BAG IV ONE (23:06)
[2021-03-10] MEDS ORDERED: SODIUM CHLORIDE 250 ML IV PRN ×2 (02:06→16:12)
[2021-03-10] MEDS ORDERED: METOPROLOL TARTRATE 5 MG/5 ML VIAL IVPB PRN (02:06)
[2021-03-10 02:43] LABS: LACTIC ACID 4.2 mmol/L (0.4-2.0)
[2021-03-10] MEDS ORDERED: MIDAZOLAM IN 0.9 % SOD.CHLORID 1 MG/1 ML PLAST..BAG ONE (03:50)
[2021-03-10] MEDS: AMINO ACIDS 4.25%/D5W 1,000 ML IV SCH ×3 (03:58→21:03)
[2021-03-10] MEDS: MIDAZOLAM IN 0.9 % SOD.CHLORID 100 MG/100 ML PLAST..BAG IVPB SCH (04:00)
[2021-03-10] MEDS: FENTANYL NS IVPB 500 MCG/100 ML BAG IVPB SCH ×2 (04:02→14:30)
[2021-03-10] MEDS: VASOPRESSIN 40 UNITS/100 ML BAG IV SCH ×2 (05:47→14:30)
[2021-03-10] MEDS: INSULIN SLIDING SCALE (NOVOLOG) 1 VIAL SQ SCH ×3 (06:34→18:20)
[2021-03-10] MEDS ORDERED: EPOETIN ALFA-EPBX 10,000 UNIT/ML VIAL IVPUSH ONE (07:00)
[2021-03-10 07:57] LABS: HEMATOCRIT 21.6 % (35.4-49); MCHC 31.3 g/dl (32.0-35.9); PLATELET COUNT 68 10^3/uL (134-434); RBC 2.18 M/mm3 (4.00-5.60); RDW 18.7 % (11.9-15.9); WHITE BLOOD COUNT 19.2 K/mm3 (4.0-10.0)
[2021-03-10 08:02] LABS: INR 1.36 (0.83-1.09); PROTHROMBIN TIME (PATIENT) 15.7 SEC (9.7-13.0)
[2021-03-10 08:04] LABS: ACTIVATED PTT 34.5 SECONDS (25.2-36.5)
[2021-03-10 08:07] LABS: CHLORIDE 100 mmol/L (98-107); SODIUM 136 mmol/L (136-145)
[2021-03-10 08:09] LABS: ALBUMIN 1.8 g/dl (3.4-5.0); ANION GAP 24 MMOL/L (8-16); BLOOD UREA NITROGEN 100.3 mg/dL (7-18); CALCIUM 8.1 mg/dL (8.5-10.1); CO2 12 mmol/L (21-32); GLUCOSE,RANDOM 212 mg/dL (74-106); MAGNESIUM 2.5 mg/dL (1.8-2.4)
[2021-03-10 08:12] LABS: PHOSPHOROUS 7.5 mg/dL (2.5-4.9)
[2021-03-10 08:13] LABS: SGOT/AST 130 U/L (15-37)
[2021-03-10 08:14] LABS: BILIRUBIN,TOTAL 0.7 mg/dL (0.2-1); TOT PROT 5.5 g/dl (6.4-8.2)
[2021-03-10 08:25] LABS: ALK PHOS 527 U/L (45-117); CREATININE 9.2 mg/dL (0.55-1.3); SGPT/ALT 43 U/L (13-61)
[2021-03-10 08:40] LABS: HEMOGLOBIN 6.8 GM/dL (11.7-16.9)
[2021-03-10 09:14] LABS: ANISOCYTOSIS 1+; MACROCYTOSIS 1+; PLATELET ESTIMATE DECREASED
[2021-03-10] MEDS: MUPIROCIN 2% TOPICAL OINTMENT FOR DECOLONIZATION NS SCH ×2 (10:52→21:03)
[2021-03-10] MEDS: PANTOPRAZOLE SODIUM 40 MG VIAL IVPUSH SCH (10:53)
[2021-03-10] MEDS ORDERED: VASOPRESSIN 20 UNITS/ML VIAL IV ONE (14:26)
[2021-03-10] MEDS ORDERED: NOREPINEPHRINE BITARTRATE 4 MG/4 ML ML IV ONE (14:28)
[2021-03-10] MEDS: NOREPINEPHRINE D5W PREMIX 16,000 MCG/500 ML BAG IVPB SCH (16:40)
[2021-03-10] MEDS: DAPTOMYCIN 600 MG in SODIUM CHLORIDE 50 ML IVPB SCH (18:21)
[2021-03-10] MEDS ORDERED: CEFEPIME HCL 1 GM VIAL (RESTRICTED TO ID) ONE ×2 (20:34→23:25)
[2021-03-10] MEDS: SODIUM CHLORIDE IVPB SCH (20:48)
[2021-03-10] MEDS: CEFEPIME IVPB SCH (20:48)
[2021-03-10] MEDS ORDERED: ACETAMINOPHEN 1000 MG/100 ML BAG IVPB PRN (21:27)
[2021-03-10] MEDS ORDERED: SODIUM CHLORIDE 50 ML IVPB ONE (23:25)
[2021-03-11] MEDS: INSULIN SLIDING SCALE (NOVOLOG) 1 VIAL SQ SCH ×5 (01:12→21:03)
[2021-03-11] MEDS: MIDAZOLAM IN 0.9 % SOD.CHLORID 100 MG/100 ML PLAST..BAG IVPB SCH ×4 (01:15→22:25)
[2021-03-11] MEDS: FENTANYL NS IVPB 500 MCG/100 ML BAG IVPB SCH ×5 (01:17→23:29)
[2021-03-11] MEDS: AMINO ACIDS 4.25%/D5W 1,000 ML IV SCH (03:07)
[2021-03-11 03:50] LABS: HEMATOCRIT 22.3 % (35.4-49); HEMOGLOBIN 7.2 GM/dL (11.7-16.9); MCH 29.9 pg (25.7-33.7); MCHC 32.2 g/dl (32.0-35.9); MEAN CELL VOLUME 92.8 fl (80-96); MEAN PLT VOLUME 8.4 fl (7.5-11.1); PLATELET COUNT 47 10^3/uL (134-434); RDW 19.1 % (11.9-15.9)
[2021-03-11] MEDS ORDERED: EPOETIN ALFA-EPBX 10,000 UNIT/ML VIAL SQ ONE (07:00)
[2021-03-11 08:04] LABS: HEMATOCRIT 22.3 % (35.4-49); HEMOGLOBIN 7.2 GM/dL (11.7-16.9); MCH 29.9 pg (25.7-33.7); MCHC 32.3 g/dl (32.0-35.9); MEAN CELL VOLUME 92.6 fl (80-96); MEAN PLT VOLUME 8.6 fl (7.5-11.1); PLATELET COUNT 43 10^3/uL (134-434); RBC 2.41 M/mm3 (4.00-5.60); RDW 18.7 % (11.9-15.9)
[2021-03-11 08:14] LABS: WHITE BLOOD COUNT 14.6 K/mm3 (4.0-10.0)
[2021-03-11 09:38] LABS: ANISOCYTOSIS 1+; MACROCYTOSIS 0; PLATELET ESTIMATE DECREASED
[2021-03-11] MEDS: PANTOPRAZOLE SODIUM 40 MG VIAL IVPUSH SCH (09:47)
[2021-03-11] MEDS: MUPIROCIN 2% TOPICAL OINTMENT FOR DECOLONIZATION NS SCH ×2 (09:47→21:03)
[2021-03-11 09:57] LABS: ALBUMIN 1.8 g/dl (3.4-5.0); BLOOD UREA NITROGEN 66.5 mg/dL (7-18); CALCIUM 7.2 mg/dL (8.5-10.1); CREATININE 6.4 mg/dL (0.55-1.3); MAGNESIUM 2.1 mg/dL (1.8-2.4); TOT PROT 5.3 g/dl (6.4-8.2)
[2021-03-11] MEDS: ALBUMIN HUMAN 25% 12.5 GM/50 ML VIAL IV SCH ×3 (12:18→14:02)
[2021-03-11] MEDS: VASOPRESSIN 40 UNITS/100 ML BAG IV SCH (13:30)
[2021-03-11] MEDS: NOREPINEPHRINE BITARTRATE 16,000 MCG in DEXTROSE 5%-WATER - 16,000 MCG/500 ML INFUS.BAG IVPB SCH (19:00)
[2021-03-11] MEDS: CEFEPIME IVPB SCH (19:47)
[2021-03-11] MEDS: SODIUM CHLORIDE IVPB SCH (19:47)
[2021-03-11] MEDS ORDERED: MIDAZOLAM 100 MG/100 ML MG IVPB ONE ×2 (21:25→22:21)
[2021-03-11 23:42] LABS: HEMATOCRIT 20.9 % (35.4-49); MCHC 32.9 g/dl (32.0-35.9); MEAN CELL VOLUME 91.2 fl (80-96); MEAN PLT VOLUME 8.1 fl (7.5-11.1); PLATELET COUNT 52 10^3/uL (134-434); RBC 2.29 M/mm3 (4.00-5.60); RDW 18.7 % (11.9-15.9); WHITE BLOOD COUNT 12.3 K/mm3 (4.0-10.0)
[2021-03-11 23:51] LABS: HEMOGLOBIN 6.9 GM/dL (11.7-16.9)
[2021-03-12] MEDS: AMINO ACIDS 4.25%/D5W 1,000 ML IV SCH ×3 (02:06→22:25)
[2021-03-12] MEDS: NOREPINEPHRINE BITARTRATE 16,000 MCG in DEXTROSE 5%-WATER - 16,000 MCG/500 ML INFUS.BAG IVPB SCH ×2 (02:08→14:31)
[2021-03-12 02:41] LABS: HEMATOCRIT 24.6 % (35.4-49); HEMOGLOBIN 8.1 GM/dL (11.7-16.9); MCH 30.3 pg (25.7-33.7); MCHC 33.1 g/dl (32.0-35.9); MEAN CELL VOLUME 91.7 fl (80-96); MEAN PLT VOLUME 7.5 fl (7.5-11.1); PLATELET COUNT 46 10^3/uL (134-434); RBC 2.69 M/mm3 (4.00-5.60); RDW 17.2 % (11.9-15.9); WHITE BLOOD COUNT 11.9 K/mm3 (4.0-10.0)
[2021-03-12 06:40] LABS: HEMATOCRIT 23.8 % (35.4-49); HEMOGLOBIN 7.9 GM/dL (11.7-16.9); MCH 30.5 pg (25.7-33.7); MCHC 33.2 g/dl (32.0-35.9); MEAN PLT VOLUME 8.2 fl (7.5-11.1); PLATELET COUNT 44 10^3/uL (134-434); RBC 2.58 M/mm3 (4.00-5.60); RDW 17.3 % (11.9-15.9); WHITE BLOOD COUNT 11.9 K/mm3 (4.0-10.0)
[2021-03-12 06:47] LABS: INR 1.4 (0.83-1.09); PROTHROMBIN TIME (PATIENT) 16.1 SEC (9.7-13.0)
[2021-03-12 06:56] LABS: CALCIUM 7.7 mg/dL (8.5-10.1)
[2021-03-12 06:57] LABS: ALBUMIN 1.9 g/dl (3.4-5.0); BLOOD UREA NITROGEN 51.9 mg/dL (7-18); MAGNESIUM 1.9 mg/dL (1.8-2.4)
[2021-03-12 07:00] LABS: CREATININE 5.6 mg/dL (0.55-1.3); PHOSPHOROUS 2.7 mg/dL (2.5-4.9)
[2021-03-12 07:01] LABS: TOT PROT 5.2 g/dl (6.4-8.2)
[2021-03-12] MEDS: INSULIN SLIDING SCALE (NOVOLOG) 1 VIAL SQ SCH ×4 (07:16→21:21)
[2021-03-12 07:26] LABS: LACTIC ACID 4.8 mmol/L (0.4-2.0)
[2021-03-12 09:02] LABS: ANISOCYTOSIS 1+; MACROCYTOSIS 0; PLATELET ESTIMATE DECREASED
[2021-03-12] MEDS: PANTOPRAZOLE SODIUM 40 MG VIAL IVPUSH SCH (09:10)
[2021-03-12] MEDS: FENTANYL NS IVPB 500 MCG/100 ML BAG IVPB SCH ×4 (09:10→19:46)
[2021-03-12] MEDS: MIDAZOLAM IN 0.9 % SOD.CHLORID 100 MG/100 ML PLAST..BAG IVPB SCH ×3 (09:11→21:19)
[2021-03-12] MEDS ORDERED: MIDAZOLAM 100 MG/100 ML MG IVPB ONE ×2 (09:30→14:16)
[2021-03-12] MEDS: VASOPRESSIN 40 UNITS/100 ML BAG IV SCH (10:00)
[2021-03-12] MEDS ORDERED: ROCURONIUM BROMIDE 50 MG/5 ML VIAL IV STA (10:21)
[2021-03-12] MEDS: MUPIROCIN 2% TOPICAL OINTMENT FOR DECOLONIZATION NS SCH ×2 (10:30→21:12)
[2021-03-12] MEDS: DAPTOMYCIN 600 MG in SODIUM CHLORIDE 50 ML IVPB SCH (15:12)
[2021-03-12] MEDS ORDERED: SODIUM CHLORIDE 50 ML IVPB ONE (19:31)
[2021-03-12] MEDS ORDERED: CEFEPIME HCL 1 GM VIAL (RESTRICTED TO ID) ONE (19:31)
[2021-03-12] MEDS: SODIUM CHLORIDE IVPB SCH (19:45)
[2021-03-12] MEDS: CEFEPIME IVPB SCH (19:45)
[2021-03-12] MEDS ORDERED: POTASSIUM CHLORIDE ORAL LIQUID 20 MEQ/15 ML PO ONE (22:35)
[2021-03-13] MEDS: FENTANYL NS IVPB 500 MCG/100 ML BAG IVPB SCH ×5 (00:39→17:41)
[2021-03-13] MEDS ORDERED: KCL 10 MEQ IVPB 10 MEQ/100 ML INFUS.BAG IVPB SCH (01:00)
[2021-03-13] MEDS: VASOPRESSIN 40 UNITS/100 ML BAG IV SCH ×2 (03:30→10:45)
[2021-03-13] MEDS ORDERED: MIDAZOLAM 100 MG/100 ML MG IVPB ONE ×2 (06:51→16:29)
[2021-03-13] MEDS: MIDAZOLAM IN 0.9 % SOD.CHLORID 100 MG/100 ML PLAST..BAG IVPB SCH ×3 (06:53→16:00)
[2021-03-13 07:15] LABS: VENOUS BASE EXCESS -12.8 mmol/L (-2-2); VENOUS O2 SATURATION 66.8 % (70-80); VENOUS PCO2 45.3 mmHg (38-52)
[2021-03-13 07:24] LABS: HEMATOCRIT 24.2 % (35.4-49); HEMOGLOBIN 7.8 GM/dL (11.7-16.9); MCH 30.2 pg (25.7-33.7); MCHC 32.4 g/dl (32.0-35.9); MEAN CELL VOLUME 93.3 fl (80-96); MEAN PLT VOLUME 9.1 fl (7.5-11.1); PLATELET COUNT 55 10^3/uL (134-434); RDW 17.8 % (11.9-15.9); WHITE BLOOD COUNT 11.4 K/mm3 (4.0-10.0)
[2021-03-13] MEDS: INSULIN SLIDING SCALE (NOVOLOG) 1 VIAL SQ SCH ×4 (07:27→22:00)
[2021-03-13 07:28] LABS: VENOUS PH 7.152 (7.310-7.410)
[2021-03-13 07:50] LABS: BLOOD UREA NITROGEN 63.5 mg/dL (7-18)
[2021-03-13 07:51] LABS: CALCIUM 8.5 mg/dL (8.5-10.1)
[2021-03-13 07:52] LABS: ALBUMIN 1.8 g/dl (3.4-5.0); MAGNESIUM 2.1 mg/dL (1.8-2.4)
[2021-03-13 07:53] LABS: PHOSPHOROUS 3.8 mg/dL (2.5-4.9)
[2021-03-13 07:54] LABS: CREATININE 6.5 mg/dL (0.55-1.3)
[2021-03-13 07:54] LABS: LACTIC ACID 5.2 mmol/L (0.4-2.0)
[2021-03-13 07:56] LABS: BILIRUBIN,TOTAL 1.4 mg/dL (0.2-1); TOT PROT 5.4 g/dl (6.4-8.2)
[2021-03-13] MEDS: MUPIROCIN 2% TOPICAL OINTMENT FOR DECOLONIZATION NS SCH ×2 (10:46→22:57)
[2021-03-13] MEDS: PANTOPRAZOLE SODIUM 40 MG VIAL IVPUSH SCH (10:46)
[2021-03-13] MEDS: AMINO ACIDS 4.25%/D5W 1,000 ML IV SCH ×2 (10:46→17:40)
[2021-03-13 17:02] LABS: HEMATOCRIT 24.4 % (35.4-49); MCH 30.4 pg (25.7-33.7); MCHC 32.7 g/dl (32.0-35.9); MEAN CELL VOLUME 93.2 fl (80-96); PLATELET COUNT 51 10^3/uL (134-434); RBC 2.62 M/mm3 (4.00-5.60); RDW 17.9 % (11.9-15.9); WHITE BLOOD COUNT 10.5 K/mm3 (4.0-10.0)
[2021-03-13 17:34] LABS: INR 1.33 (0.83-1.09); PROTHROMBIN TIME (PATIENT) 15.3 SEC (9.7-13.0)
[2021-03-13] MEDS: NOREPINEPHRINE BITARTRATE 16,000 MCG in DEXTROSE 5%-WATER - 16,000 MCG/500 ML INFUS.BAG IVPB SCH ×2 (17:42→22:50)
[2021-03-13] MEDS: SODIUM CHLORIDE IVPB SCH (20:12)
[2021-03-13] MEDS: CEFEPIME IVPB SCH (20:12)
[2021-03-14] MEDS ORDERED: MIDAZOLAM 100 MG/100 ML MG IVPB ONE ×3 (00:01→23:33)
[2021-03-14] MEDS ORDERED: ACETAMINOPHEN INJECTION 100 ML IVPB ONE (03:57)
[2021-03-14] MEDS: ACETAMINOPHEN 1000 MG/100 ML BAG IVPB PRN ×3 (04:07→18:24)
[2021-03-14] MEDS: MIDAZOLAM IN 0.9 % SOD.CHLORID 100 MG/100 ML PLAST..BAG IVPB SCH ×2 (04:40→10:48)
[2021-03-14] MEDS: INSULIN SLIDING SCALE (NOVOLOG) 1 VIAL SQ SCH ×4 (06:25→22:16)
[2021-03-14 07:03] LABS: HEMATOCRIT 25.3 % (35.4-49); HEMOGLOBIN 8.2 GM/dL (11.7-16.9); MCH 30.6 pg (25.7-33.7); MCHC 32.4 g/dl (32.0-35.9); MEAN CELL VOLUME 94.5 fl (80-96); MEAN PLT VOLUME 8.7 fl (7.5-11.1); PLATELET COUNT 38 10^3/uL (134-434); RBC 2.67 M/mm3 (4.00-5.60); RDW 17.7 % (11.9-15.9)
[2021-03-14] MEDS ORDERED: SODIUM CHLORIDE 250 ML IV PRN (07:18)
[2021-03-14 07:24] LABS: ALBUMIN 1.8 g/dl (3.4-5.0); BLOOD UREA NITROGEN 79.5 mg/dL (7-18); CALCIUM 8.7 mg/dL (8.5-10.1)
[2021-03-14 07:27] LABS: PHOSPHOROUS 3.9 mg/dL (2.5-4.9)
[2021-03-14 07:28] LABS: TOT PROT 5.6 g/dl (6.4-8.2)
[2021-03-14 07:29] LABS: BILIRUBIN,TOTAL 1.8 mg/dL (0.2-1)
[2021-03-14] MEDS ORDERED: EPOETIN ALFA-EPBX 10,000 UNIT/ML VIAL SQ ONE (08:00)
[2021-03-14 08:12] LABS: INR 1.4 (0.83-1.09); PROTHROMBIN TIME (PATIENT) 16.1 SEC (9.7-13.0)
[2021-03-14] MEDS: NOREPINEPHRINE BITARTRATE 16,000 MCG in SODIUM CHLORIDE 16,000 MCG/500 ML INFUS.BAG IV SCH (09:00)
[2021-03-14 09:43] LABS: ANISOCYTOSIS 0; MACROCYTOSIS 0; PLATELET ESTIMATE DECREASED
[2021-03-14] MEDS: VASOPRESSIN 40 UNITS/100 ML BAG IV SCH (10:46)
[2021-03-14] MEDS: PANTOPRAZOLE SODIUM 40 MG VIAL IVPUSH SCH (10:47)
[2021-03-14] MEDS: FENTANYL NS IVPB 500 MCG/100 ML BAG IVPB SCH ×4 (10:48→22:08)
[2021-03-14] MEDS: MINERAL OIL/PETROLATUM,WHITE 3.5 GM TUBE OU PRN (10:49)
[2021-03-14] MEDS: MUPIROCIN 2% TOPICAL OINTMENT FOR DECOLONIZATION NS SCH (10:50)
[2021-03-14] MEDS: FLUDROCORTISONE ACETATE 0.1 MG TABLET (FP) PO SCH (11:09)
[2021-03-14] MEDS: HYDROCORTISONE SOD SUCCINATE 100 MG/2 ML VIAL IVPB SCH ×3 (11:09→21:00)
[2021-03-14] MEDS: ALBUMIN HUMAN 25% 12.5 GM/50 ML VIAL IV SCH ×4 (12:50→14:15)
[2021-03-14 13:43] LABS: HEMATOCRIT 24.4 % (35.4-49); HEMOGLOBIN 7.8 GM/dL (11.7-16.9); MCH 30.3 pg (25.7-33.7); MCHC 32.1 g/dl (32.0-35.9); MEAN CELL VOLUME 94.5 fl (80-96); MEAN PLT VOLUME 9.4 fl (7.5-11.1); PLATELET COUNT 66 10^3/uL (134-434); RBC 2.58 M/mm3 (4.00-5.60); RDW 17.6 % (11.9-15.9); WHITE BLOOD COUNT 8.5 K/mm3 (4.0-10.0)
[2021-03-14] MEDS: DAPTOMYCIN 600 MG in SODIUM CHLORIDE 50 ML IVPB SCH (15:02)
[2021-03-14] MEDS ORDERED: CEFEPIME HCL 1 GM VIAL (RESTRICTED TO ID) ONE (20:48)
[2021-03-14] MEDS ORDERED: SODIUM CHLORIDE 50 ML IVPB ONE (20:48)
[2021-03-14] MEDS: CEFEPIME IVPB SCH (21:00)
[2021-03-14] MEDS: SODIUM CHLORIDE IVPB SCH (21:00)
[2021-03-14] MEDS: AMINO ACIDS 4.25%/D5W 1,000 ML IV SCH (22:18)
[2021-03-15] MEDS: HYDROCORTISONE SOD SUCCINATE 100 MG/2 ML VIAL IVPB SCH ×3 (02:00→18:42)
[2021-03-15] MEDS: FENTANYL NS IVPB 500 MCG/100 ML BAG IVPB SCH ×3 (02:00→21:04)
[2021-03-15] MEDS: MIDAZOLAM IN 0.9 % SOD.CHLORID 100 MG/100 ML PLAST..BAG IVPB SCH ×3 (02:00→09:37)
[2021-03-15] MEDS: VASOPRESSIN 40 UNITS/100 ML BAG IV SCH ×2 (06:00)
[2021-03-15] MEDS: INSULIN SLIDING SCALE (NOVOLOG) 1 VIAL SQ SCH ×4 (06:36→21:17)
[2021-03-15 07:33] LABS: INR 1.55 (0.83-1.09); PROTHROMBIN TIME (PATIENT) 17.9 SEC (9.7-13.0)
[2021-03-15 07:35] LABS: ACTIVATED PTT 35.1 SECONDS (25.2-36.5)
[2021-03-15 07:43] LABS: BLOOD UREA NITROGEN 66.8 mg/dL (7-18); CALCIUM 7.9 mg/dL (8.5-10.1)
[2021-03-15 07:44] LABS: ALBUMIN 1.6 g/dl (3.4-5.0)
[2021-03-15 07:47] LABS: CREATININE 5.4 mg/dL (0.55-1.3); PHOSPHOROUS 3.8 mg/dL (2.5-4.9)
[2021-03-15 07:48] LABS: BILIRUBIN,TOTAL 2.4 mg/dL (0.2-1); HEMOGLOBIN 7.5 GM/dL (11.7-16.9); MCH 30.6 pg (25.7-33.7); MCHC 32.8 g/dl (32.0-35.9); MEAN CELL VOLUME 93.4 fl (80-96); MEAN PLT VOLUME 9.6 fl (7.5-11.1); PLATELET COUNT 48 10^3/uL (134-434); RBC 2.46 M/mm3 (4.00-5.60); RDW 17.3 % (11.9-15.9); TOT PROT 5.1 g/dl (6.4-8.2)
[2021-03-15 08:48] LABS: ANISOCYTOSIS 1+; MACROCYTOSIS 1+; PLATELET ESTIMATE DECREASED; ROULEAU 1+
[2021-03-15] MEDS: FLUDROCORTISONE ACETATE 0.1 MG TABLET (FP) PO SCH (09:26)
[2021-03-15] MEDS: PANTOPRAZOLE SODIUM 40 MG VIAL IVPUSH SCH (09:26)
[2021-03-15] MEDS ORDERED: MIDAZOLAM 100 MG/100 ML MG IVPB ONE (09:36)
[2021-03-15] MEDS: PHYTONADIONE 10 MG/1 ML AMP SQ SCH (16:42)
[2021-03-15 19:49] LABS: HEMATOCRIT 22.4 % (35.4-49); HEMOGLOBIN 7.5 GM/dL (11.7-16.9); MCH 30.5 pg (25.7-33.7); MCHC 33.6 g/dl (32.0-35.9); MEAN PLT VOLUME 9.7 fl (7.5-11.1); PLATELET COUNT 41 10^3/uL (134-434); RBC 2.46 M/mm3 (4.00-5.60); RDW 16.9 % (11.9-15.9); WHITE BLOOD COUNT 4.2 K/mm3 (4.0-10.0)
[2021-03-15] MEDS: NOREPINEPHRINE BITARTRATE 16,000 MCG in SODIUM CHLORIDE 16,000 MCG/500 ML INFUS.BAG IV SCH (21:04)
[2021-03-15] MEDS ORDERED: CEFEPIME HCL 1 GM VIAL (RESTRICTED TO ID) ONE (21:11)
[2021-03-15] MEDS ORDERED: SODIUM CHLORIDE 50 ML IVPB ONE (21:12)
[2021-03-15] MEDS: SODIUM CHLORIDE IVPB SCH (21:17)
[2021-03-15] MEDS: CEFEPIME IVPB SCH (21:17)
[2021-03-15] MEDS: FAMOTIDINE 20 MG/50 ML IVPB 20 MG/50 ML MG IVPB SCH (21:18)
[2021-03-16] MEDS: HYDROCORTISONE SOD SUCCINATE 100 MG/2 ML VIAL IVPB SCH ×3 (01:23→17:56)
[2021-03-16] MEDS: INSULIN SLIDING SCALE (NOVOLOG) 1 VIAL SQ SCH ×4 (06:09→21:51)
[2021-03-16 08:12] LABS: HEMATOCRIT 21.6 % (35.4-49); HEMOGLOBIN 7.5 GM/dL (11.7-16.9); MCH 31.3 pg (25.7-33.7); MCHC 34.7 g/dl (32.0-35.9); MEAN CELL VOLUME 90.3 fl (80-96); MEAN PLT VOLUME 9.1 fl (7.5-11.1); PLATELET COUNT 81 10^3/uL (134-434); RBC 2.39 M/mm3 (4.00-5.60); RDW 16.6 % (11.9-15.9)
[2021-03-16 08:42] LABS: ALBUMIN 1.8 g/dl (3.4-5.0); CALCIUM 8.3 mg/dL (8.5-10.1); MAGNESIUM 2.2 mg/dL (1.8-2.4)
[2021-03-16 08:43] LABS: BLOOD UREA NITROGEN 91.5 mg/dL (7-18)
[2021-03-16 08:45] LABS: CREATININE 5.5 mg/dL (0.55-1.3)
[2021-03-16 08:47] LABS: BILIRUBIN,TOTAL 2.2 mg/dL (0.2-1); TOT PROT 5.2 g/dl (6.4-8.2)
[2021-03-16] MEDS ORDERED: SODIUM CHLORIDE 250 ML IV PRN (08:59)
[2021-03-16] MEDS ORDERED: EPOETIN ALFA-EPBX 10,000 UNIT/ML VIAL SQ ONE (09:00)
[2021-03-16] MEDS: ALBUMIN HUMAN 25% 12.5 GM/50 ML VIAL IV SCH ×4 (09:45→11:36)
[2021-03-16] MEDS: NOREPINEPHRINE BITARTRATE 16,000 MCG in SODIUM CHLORIDE 16,000 MCG/500 ML INFUS.BAG IV SCH (11:30)
[2021-03-16 11:49] LABS: WHITE BLOOD COUNT 6.3 K/mm3 (4.0-10.0)
[2021-03-16 11:52] LABS: ANISOCYTOSIS 2+; CORRECTED WBC 4.53 K/mm3; MACROCYTOSIS 0; PLATELET ESTIMATE DECREASED; TEAR DROP CELLS 2+
[2021-03-16] MEDS: FAMOTIDINE 20 MG/50 ML IVPB 20 MG/50 ML MG IVPB SCH ×2 (13:23→21:51)
[2021-03-16] MEDS: SCOPOLAMINE HYDROBROMIDE 1 PATCH PATCH.TD72 TD SCH (13:25)
[2021-03-16] MEDS: PHYTONADIONE 10 MG/1 ML AMP SQ SCH (13:36)
[2021-03-16] MEDS: DAPTOMYCIN 600 MG in SODIUM CHLORIDE 50 ML IVPB SCH (14:19)
[2021-03-16] MEDS: FLUDROCORTISONE ACETATE 0.1 MG TABLET (FP) PO SCH (15:05)
[2021-03-16] MEDS: FENTANYL NS IVPB 500 MCG/100 ML BAG IVPB SCH (18:19)
[2021-03-16] MEDS: CEFEPIME IVPB SCH (21:50)
[2021-03-16] MEDS: SODIUM CHLORIDE IVPB SCH (21:50)
[2021-03-17] MEDS: HYDROCORTISONE SOD SUCCINATE 100 MG/2 ML VIAL IVPB SCH ×2 (02:00→09:27)
[2021-03-17] MEDS: INSULIN SLIDING SCALE (NOVOLOG) 1 VIAL SQ SCH ×4 (06:41→21:38)
[2021-03-17 07:01] LABS: HEMATOCRIT 23.1 % (35.4-49); HEMOGLOBIN 7.9 GM/dL (11.7-16.9); MEAN CELL VOLUME 91.4 fl (80-96); MEAN PLT VOLUME 9.2 fl (7.5-11.1); PLATELET COUNT 64 10^3/uL (134-434); RBC 2.53 M/mm3 (4.00-5.60); RDW 16.3 % (11.9-15.9)
[2021-03-17 07:22] LABS: CALCIUM 8.2 mg/dL (8.5-10.1)
[2021-03-17 07:25] LABS: CREATININE 3.8 mg/dL (0.55-1.3)
[2021-03-17 07:26] LABS: PHOSPHOROUS 1.4 mg/dL (2.5-4.9)
[2021-03-17 07:27] LABS: BILIRUBIN,TOTAL 2.3 mg/dL (0.2-1); TOT PROT 5.2 g/dl (6.4-8.2)
[2021-03-17 07:36] LABS: BLOOD UREA NITROGEN 59.1 mg/dL (7-18)
[2021-03-17 08:01] LABS: INR 1.16 (0.83-1.09); PROTHROMBIN TIME (PATIENT) 13.4 SEC (9.7-13.0)
[2021-03-17] MEDS ORDERED: POTASSIUM PHOSPHATE 30 MM in SODIUM CHLORIDE 250 ML IVPB ONE (08:46)
[2021-03-17] MEDS ORDERED: NAPH,MB-DB/K PH,MBDB POWDER PACKET PO ONE (08:46)
[2021-03-17 08:56] LABS: ANISOCYTOSIS 2+; MACROCYTOSIS 0; PLATELET ESTIMATE DECREASED; TARGET CELLS 1+; TEAR DROP CELLS 2+; TOXIC GRANULATION 2+
[2021-03-17 09:06] LABS: WHITE BLOOD COUNT 11.3 K/mm3 (4.0-10.0)
[2021-03-17 09:07] LABS: CORRECTED WBC 9.04 K/mm3
[2021-03-17] MEDS: FLUDROCORTISONE ACETATE 0.1 MG TABLET (FP) PO SCH (09:26)
[2021-03-17] MEDS: FAMOTIDINE 20 MG/50 ML IVPB 20 MG/50 ML MG IVPB SCH ×2 (09:26→21:28)
[2021-03-17] MEDS: PHYTONADIONE 10 MG/1 ML AMP SQ SCH (09:27)
[2021-03-17] MEDS: HYDROCORTISONE SOD SUCCINATE 100 MG/2 ML VIAL IVPUSH SCH (17:30)
[2021-03-17] MEDS ORDERED: SODIUM CHLORIDE 250 ML IV PRN (17:43)
[2021-03-17] MEDS: BANATROL PLUS POWDER PACKET PO SCH (21:28)
[2021-03-17] MEDS: FENTANYL NS IVPB 500 MCG/100 ML BAG IVPB SCH (21:28)
[2021-03-17] MEDS: NOREPINEPHRINE BITARTRATE 16,000 MCG in SODIUM CHLORIDE 16,000 MCG/500 ML INFUS.BAG IV SCH (21:29)
[2021-03-18] MEDS: NOREPINEPHRINE BITARTRATE IV SCH (02:22)
[2021-03-18] MEDS: HYDROCORTISONE SOD SUCCINATE 100 MG/2 ML VIAL IVPUSH SCH ×3 (02:22→21:44)
[2021-03-18] MEDS: SODIUM CHLORIDE IV SCH (02:22)
[2021-03-18] MEDS: INSULIN SLIDING SCALE (NOVOLOG) 1 VIAL SQ SCH ×5 (06:42→21:45)
[2021-03-18 07:33] LABS: HEMATOCRIT 25.2 % (35.4-49); HEMOGLOBIN 8.6 GM/dL (11.7-16.9); MCH 31.8 pg (25.7-33.7); MCHC 34.1 g/dl (32.0-35.9); MEAN CELL VOLUME 93.2 fl (80-96); MEAN PLT VOLUME 9.4 fl (7.5-11.1); PLATELET COUNT 63 10^3/uL (134-434); RDW 16.3 % (11.9-15.9); WHITE BLOOD COUNT 15.1 K/mm3 (4.0-10.0)
[2021-03-18 07:35] LABS: CHLORIDE 98 mmol/L (98-107); SODIUM 135 mmol/L (136-145)
[2021-03-18 07:37] LABS: CALCIUM 8.7 mg/dL (8.5-10.1)
[2021-03-18 07:38] LABS: ALBUMIN 1.8 g/dl (3.4-5.0); BLOOD UREA NITROGEN 72.8 mg/dL (7-18); CO2 27 mmol/L (21-32); MAGNESIUM 2.2 mg/dL (1.8-2.4)
[2021-03-18 07:41] LABS: CREATININE 4.6 mg/dL (0.55-1.3); PHOSPHOROUS 1.3 mg/dL (2.5-4.9); SGOT/AST 39 U/L (15-37)
[2021-03-18 07:42] LABS: INR 1.09 (0.83-1.09); PROTHROMBIN TIME (PATIENT) 12.5 SEC (9.7-13.0); TOT PROT 4.9 g/dl (6.4-8.2)
[2021-03-18 07:48] LABS: LDH 309 U/L (87-246)
[2021-03-18 07:49] LABS: ALK PHOS 852 U/L (45-117); ANION GAP 9 MMOL/L (8-16); GLUCOSE,RANDOM 491 mg/dL (74-106); SGPT/ALT 30 U/L (13-61)
[2021-03-18] MEDS ORDERED: EPOETIN ALFA-EPBX 10,000 UNIT/ML VIAL IVPUSH ONE (08:30)
[2021-03-18] MEDS: AMINO ACIDS/PROTEIN HYDROLYS 30 ML LIQUID.PKT PO SCH (09:00)
[2021-03-18] MEDS: FAMOTIDINE 20 MG/50 ML IVPB 20 MG/50 ML MG IVPB SCH ×2 (09:43→21:44)
[2021-03-18] MEDS: BANATROL PLUS POWDER PACKET PO SCH ×2 (09:47→21:44)
[2021-03-18] MEDS: FLUDROCORTISONE ACETATE 0.1 MG TABLET (FP) PO SCH (09:52)
[2021-03-18 10:49] LABS: ANISOCYTOSIS 0; CORRECTED WBC 12.48 K/mm3; HELMET CELLS 0; HOWELL-JOLLY BODIES 0; MACROCYTOSIS 0; OVALOCYTE 0; PLATELET ESTIMATE DECREASED; ROULEAU 0; SICKELED CELLS 0; TARGET CELLS 0; TEAR DROP CELLS 0; TOXIC GRANULATION 0
[2021-03-18] MEDS: KCL 10 MEQ IVPB 10 MEQ/100 ML INFUS.BAG IVPB SCH ×3 (11:00→14:29)
[2021-03-18] MEDS ORDERED: INSULIN (NOVOLOG) ASPART 100 UNITS/ML 10ML VIAL SQ ONE (12:47)
[2021-03-18] MEDS: MIDODRINE HCL 5 MG TABLET PO SCH ×2 (14:28→18:25)
[2021-03-18] MEDS: OCULAR LUBRICANT OPHTHALMIC OINTMENT 7 GM TUBE OU SCH ×2 (15:11→21:45)
[2021-03-18] MEDS ORDERED: INSULIN (LEVEMIR) 100 UNITS/ML UNITS SQ SCH (22:00)
[2021-03-19] MEDS: NOREPINEPHRINE BITARTRATE IV SCH ×2 (03:00→18:22)
[2021-03-19] MEDS: SODIUM CHLORIDE IV SCH ×2 (03:00→18:22)
[2021-03-19] MEDS: INSULIN SLIDING SCALE (NOVOLOG) 1 VIAL SQ SCH ×4 (06:09→21:17)
[2021-03-19 07:16] LABS: HEMATOCRIT 25.5 % (35.4-49); HEMOGLOBIN 8.3 GM/dL (11.7-16.9); MCH 30.9 pg (25.7-33.7); MCHC 32.6 g/dl (32.0-35.9); MEAN CELL VOLUME 94.7 fl (80-96); RDW 16.5 % (11.9-15.9)
[2021-03-19 07:19] LABS: INR 0.99 (0.83-1.09); PROTHROMBIN TIME (PATIENT) 11.4 SEC (9.7-13.0)
[2021-03-19 07:26] LABS: WHITE BLOOD COUNT 32.4 K/mm3 (4.0-10.0)
[2021-03-19 07:43] LABS: ALBUMIN 1.8 g/dl (3.4-5.0); CALCIUM 8.6 mg/dL (8.5-10.1)
[2021-03-19 07:45] LABS: BLOOD UREA NITROGEN 56.2 mg/dL (7-18); MAGNESIUM 2.2 mg/dL (1.8-2.4)
[2021-03-19 07:47] LABS: CREATININE 3.5 mg/dL (0.55-1.3); PHOSPHOROUS 2.4 mg/dL (2.5-4.9)
[2021-03-19 07:48] LABS: BILIRUBIN,TOTAL 1.5 mg/dL (0.2-1); TOT PROT 4.9 g/dl (6.4-8.2)
[2021-03-19] MEDS: AMINO ACIDS/PROTEIN HYDROLYS 30 ML LIQUID.PKT PO SCH (08:11)
[2021-03-19] MEDS: BANATROL PLUS POWDER PACKET PO SCH ×2 (09:51→21:17)
[2021-03-19] MEDS: FLUDROCORTISONE ACETATE 0.1 MG TABLET (FP) PO SCH (09:51)
[2021-03-19] MEDS: HYDROCORTISONE SOD SUCCINATE 100 MG/2 ML VIAL IVPUSH SCH ×2 (09:56→21:18)
[2021-03-19] MEDS: MIDODRINE HCL 5 MG TABLET PO SCH ×3 (09:56→18:27)
[2021-03-19] MEDS: FAMOTIDINE 20 MG/50 ML IVPB 20 MG/50 ML MG IVPB SCH ×2 (10:01→21:17)
[2021-03-19] MEDS: OCULAR LUBRICANT OPHTHALMIC OINTMENT 7 GM TUBE OU SCH ×2 (10:04→21:18)
[2021-03-19] MEDS: SCOPOLAMINE HYDROBROMIDE 1 PATCH PATCH.TD72 TD SCH (10:18)
[2021-03-19 11:45] LABS: PLATELET COUNT 49 10^3/uL (134-434)
[2021-03-19] MEDS ORDERED: AMIODARONE IN DEXTROSE,ISO-OSM 150 MG/100 ML BAG IVPB ONE (12:28)
[2021-03-19] MEDS ORDERED: AMIODARONE IN DEXTROSE,ISO-OSM 360 MG/200 ML BAG IVPB ONE (12:29)
[2021-03-19] MEDS ORDERED: AMIODARONE IN DEXTROSE,ISO-OSM 360 MG/200 ML BAG ONE (12:30)
[2021-03-19] MEDS ORDERED: AMIODARONE IN DEXTROSE,ISO-OSM 150 MG/100 ML BAG ONE (12:30)
[2021-03-19] MEDS ORDERED: MEROPENEM 500 MG VIAL (RESTRICTED TO ID) IVPB ONE ×2 (14:54→20:13)
[2021-03-19] MEDS ORDERED: DEXTROSE 5%-WATER 100 ML IVPB ONE ×2 (14:54→20:13)
[2021-03-19] MEDS ORDERED: POTASSIUM CHLORIDE ORAL LIQUID 20 MEQ/15 ML PO ONE (15:00)
[2021-03-19] MEDS ORDERED: MEROPENEM 500 MG in DEXTROSE 5%-WATER 100 ML IVPB SCH (15:00)
[2021-03-19] MEDS: MEROPENEM 500 MG in DEXTROSE 5%-WATER 100 ML IVPB SCH (15:07)
[2021-03-19] MEDS: AMIODARONE IN DEXTROSE,ISO-OSM 360 MG/200 ML BAG IVPB SCH (18:49)
[2021-03-19] MEDS: INSULIN (LEVEMIR) 100 UNITS/ML UNITS SQ SCH (21:17)
[2021-03-20] MEDS: MEROPENEM 500 MG in DEXTROSE 5%-WATER 100 ML IVPB SCH (02:00)
[2021-03-20] MEDS: INSULIN SLIDING SCALE (NOVOLOG) 1 VIAL SQ SCH ×4 (06:34→21:29)
[2021-03-20 06:52] LABS: ARTERIAL BLD GAS O2 SATURATION 93.5 % (95-98); ARTERIAL BLOOD GAS BASE EXCESS -1.5 mmol/L (-2-2); ARTERIAL BLOOD GAS PO2 68.9 mmHg (80-100); ARTERIAL BLOOD GAS pH 7.376 (7.350-7.450)
[2021-03-20 06:54] LABS: ALLENS TEST POSITIVE
[2021-03-20 06:55] LABS: VENT MODE A/C; VENT RATE 16
[2021-03-20 07:49] LABS: INR 1.01 (0.83-1.09); PROTHROMBIN TIME (PATIENT) 11.6 SEC (9.7-13.0)
[2021-03-20 07:51] LABS: HEMATOCRIT 24.6 % (35.4-49); MCHC 32.5 g/dl (32.0-35.9); MEAN CELL VOLUME 95.2 fl (80-96); MEAN PLT VOLUME 8.5 fl (7.5-11.1); PLATELET COUNT 38 10^3/uL (134-434); RBC 2.58 M/mm3 (4.00-5.60); RDW 16.6 % (11.9-15.9); WHITE BLOOD COUNT 18.4 K/mm3 (4.0-10.0)
[2021-03-20 08:00] LABS: CHLORIDE 103 mmol/L (98-107); SODIUM 139 mmol/L (136-145)
[2021-03-20 08:02] LABS: CALCIUM 8.2 mg/dL (8.5-10.1); MAGNESIUM 1.9 mg/dL (1.8-2.4)
[2021-03-20 08:04] LABS: ALBUMIN 1.6 g/dl (3.4-5.0); BLOOD UREA NITROGEN 72.2 mg/dL (7-18); CO2 26 mmol/L (21-32)
[2021-03-20 08:05] LABS: CREATININE 4.2 mg/dL (0.55-1.3); PHOSPHOROUS 2.2 mg/dL (2.5-4.9)
[2021-03-20 08:06] LABS: SGOT/AST 31 U/L (15-37); SGPT/ALT 30 U/L (13-61); TOT PROT 4.5 g/dl (6.4-8.2)
[2021-03-20 08:07] LABS: BILIRUBIN,TOTAL 1.4 mg/dL (0.2-1)
[2021-03-20 08:26] LABS: ALK PHOS 670 U/L (45-117); ANION GAP 10 MMOL/L (8-16); GLUCOSE,RANDOM 401 mg/dL (74-106)
[2021-03-20] MEDS: MIDODRINE HCL 5 MG TABLET PO SCH ×3 (09:21→17:40)
[2021-03-20] MEDS: FLUDROCORTISONE ACETATE 0.1 MG TABLET (FP) PO SCH (09:21)
[2021-03-20] MEDS: HYDROCORTISONE SOD SUCCINATE 100 MG/2 ML VIAL IVPUSH SCH ×2 (09:22→21:22)
[2021-03-20] MEDS: AMINO ACIDS/PROTEIN HYDROLYS 30 ML LIQUID.PKT PO SCH (09:22)
[2021-03-20] MEDS: FAMOTIDINE 20 MG/50 ML IVPB 20 MG/50 ML MG IVPB SCH ×2 (09:22→21:22)
[2021-03-20] MEDS: BANATROL PLUS POWDER PACKET PO SCH ×2 (09:22→21:16)
[2021-03-20] MEDS: MINERAL OIL/PETROLATUM,WHITE 3.5 GM TUBE OU PRN ×2 (09:23→11:22)
[2021-03-20] MEDS: POTASSIUM CHLORIDE 20 MEQ PREMIX IVPB 100 ML IVPB SCH ×2 (09:53→11:23)
[2021-03-20] MEDS: OCULAR LUBRICANT OPHTHALMIC OINTMENT 7 GM TUBE OU SCH ×2 (11:22→21:17)
[2021-03-20] MEDS ORDERED: POTASSIUM CHLORIDE 20 MEQ PREMIX IVPB 100 ML IVPB ONE (13:00)
[2021-03-20 14:47] LABS: LDH 434 U/L (87-246)
[2021-03-20] MEDS ORDERED: MEROPENEM 1 GM VIAL (RESTRICTED TO ID) IVPB ONE ×2 (14:50→21:06)
[2021-03-20] MEDS ORDERED: DEXTROSE 5%-WATER 100 ML IVPB ONE ×2 (14:50→21:06)
[2021-03-20] MEDS: MEROPENEM 1 GM in DEXTROSE 5%-WATER 100 ML IVPB SCH ×2 (14:56→21:22)
[2021-03-20 17:40] LABS: HEMATOCRIT 23.9 % (35.4-49); HEMOGLOBIN 7.6 GM/dL (11.7-16.9); MCH 30.6 pg (25.7-33.7); MCHC 31.9 g/dl (32.0-35.9); MEAN PLT VOLUME 9.8 fl (7.5-11.1); PLATELET COUNT 59 10^3/uL (134-434); RBC 2.49 M/mm3 (4.00-5.60); WHITE BLOOD COUNT 22.7 K/mm3 (4.0-10.0)
[2021-03-20] MEDS: AMIODARONE IN DEXTROSE,ISO-OSM 360 MG/200 ML BAG IVPB SCH (17:41)
[2021-03-20 18:03] LABS: CALCIUM 8.4 mg/dL (8.5-10.1); CHLORIDE 104 mmol/L (98-107); SODIUM 139 mmol/L (136-145)
[2021-03-20 18:04] LABS: CO2 25 mmol/L (21-32); GLUCOSE,RANDOM 341 mg/dL (74-106)
[2021-03-20 18:07] LABS: CREATININE 4.3 mg/dL (0.55-1.3)
[2021-03-20 18:10] LABS: ANION GAP 10 MMOL/L (8-16)
[2021-03-20] MEDS: INSULIN (LEVEMIR) 100 UNITS/ML UNITS SQ SCH (21:22)
[2021-03-20 23:06] LABS: HEMATOCRIT 23.5 % (35.4-49); HEMOGLOBIN 7.6 GM/dL (11.7-16.9); MCH 30.6 pg (25.7-33.7); MCHC 32.6 g/dl (32.0-35.9); MEAN CELL VOLUME 93.9 fl (80-96); RDW 16.9 % (11.9-15.9)
[2021-03-21 04:37] LABS: ANISOCYTOSIS 2+; MACROCYTOSIS 1+; PLATELET ESTIMATE DECREASED; ROULEAU 1+
[2021-03-21 04:46] LABS: WHITE BLOOD COUNT 26.9 K/mm3 (4.0-10.0)
[2021-03-21 04:47] LABS: PLATELET COUNT 57 10^3/uL (134-434)
[2021-03-21] MEDS: INSULIN SLIDING SCALE (NOVOLOG) 1 VIAL SQ SCH ×4 (06:37→21:54)
[2021-03-21] MEDS ORDERED: SODIUM CHLORIDE 250 ML IV PRN (07:00)
[2021-03-21] MEDS ORDERED: EPOETIN ALFA-EPBX 10,000 UNIT/ML VIAL IVPUSH ONE (07:00)
[2021-03-21] MEDS: ALBUMIN HUMAN 25% 12.5 GM/50 ML VIAL IV SCH ×4 (07:45→09:15)
[2021-03-21 08:00] LABS: INR 0.97 (0.83-1.09); PROTHROMBIN TIME (PATIENT) 11.1 SEC (9.7-13.0)
[2021-03-21] MEDS ORDERED: DEXTROSE 5%-WATER 100 ML IVPB ONE ×2 (08:51→21:42)
[2021-03-21] MEDS ORDERED: MEROPENEM 1 GM VIAL (RESTRICTED TO ID) IVPB ONE ×2 (08:51→21:42)
[2021-03-21] MEDS: AMINO ACIDS/PROTEIN HYDROLYS 30 ML LIQUID.PKT PO SCH (08:55)
[2021-03-21] MEDS: MIDODRINE HCL 5 MG TABLET PO SCH ×3 (09:43→18:29)
[2021-03-21] MEDS: OCULAR LUBRICANT OPHTHALMIC OINTMENT 7 GM TUBE OU SCH ×2 (09:43→22:02)
[2021-03-21] MEDS: MEROPENEM 1 GM in DEXTROSE 5%-WATER 100 ML IVPB SCH ×2 (09:43→21:52)
[2021-03-21] MEDS: FLUDROCORTISONE ACETATE 0.1 MG TABLET (FP) PO SCH (09:43)
[2021-03-21] MEDS: BANATROL PLUS POWDER PACKET PO SCH ×2 (09:43→21:52)
[2021-03-21] MEDS: FAMOTIDINE 20 MG/50 ML IVPB 20 MG/50 ML MG IVPB SCH ×2 (09:43→21:53)
[2021-03-21] MEDS: HYDROCORTISONE SOD SUCCINATE 100 MG/2 ML VIAL IVPUSH SCH ×2 (09:44→21:54)
[2021-03-21 11:26] LABS: HEMATOCRIT 23.1 % (35.4-49); HEMOGLOBIN 7.5 GM/dL (11.7-16.9); MCH 30.9 pg (25.7-33.7); MCHC 32.6 g/dl (32.0-35.9); MEAN CELL VOLUME 94.7 fl (80-96); MEAN PLT VOLUME 9.5 fl (7.5-11.1); RBC 2.44 M/mm3 (4.00-5.60); RDW 16.9 % (11.9-15.9); WHITE BLOOD COUNT 22.5 K/mm3 (4.0-10.0)
[2021-03-21 11:27] LABS: PLATELET COUNT 31 10^3/uL (134-434)
[2021-03-21 12:09] LABS: CORRECTED WBC 14.86 K/mm3
[2021-03-21 12:22] LABS: MCH 30.7 pg (25.7-33.7); MCHC 32.8 g/dl (32.0-35.9); MEAN CELL VOLUME 93.4 fl (80-96); MEAN PLT VOLUME 11.2 fl (7.5-11.1); RBC 2.14 M/mm3 (4.00-5.60); RDW 16.4 % (11.9-15.9)
[2021-03-21 12:48] LABS: ANISOCYTOSIS 2+; CORRECTED WBC 11.14 K/mm3; MACROCYTOSIS 2+; PLATELET ESTIMATE DECREASED
[2021-03-21 12:58] LABS: CHLORIDE 103 mmol/L (98-107); SODIUM 139 mmol/L (136-145)
[2021-03-21 13:00] LABS: WHITE BLOOD COUNT 11.1 K/mm3 (4.0-10.0)
[2021-03-21 13:04] LABS: HEMOGLOBIN 6.6 GM/dL (11.7-16.9); PLATELET COUNT 16 10^3/uL (134-434)
[2021-03-21 13:19] LABS: CO2 28 mmol/L (21-32); CREATININE 2.8 mg/dL (0.55-1.3); GLUCOSE,RANDOM 216 mg/dL (74-106); SGOT/AST 23 U/L (15-37)
[2021-03-21 13:20] LABS: BILIRUBIN,TOTAL 1.2 mg/dL (0.2-1); CALCIUM 8.7 mg/dL (8.5-10.1); SGPT/ALT 26 U/L (13-61); TOT PROT 5.1 g/dl (6.4-8.2)
[2021-03-21 13:36] LABS: ALBUMIN 2.3 g/dl (3.4-5.0); ALK PHOS 469 U/L (45-117); ANION GAP 8 MMOL/L (8-16); BLOOD UREA NITROGEN 49.3 mg/dL (7-18)
[2021-03-21] MEDS ORDERED: POTASSIUM CHLORIDE 20 MEQ PREMIX IVPB 100 ML IVPB SCH (16:15)
[2021-03-21] MEDS: AMIODARONE IN DEXTROSE,ISO-OSM 360 MG/200 ML BAG IVPB SCH (17:30)
[2021-03-21] MEDS ORDERED: POTASSIUM CHLORIDE ORAL LIQUID 20 MEQ/15 ML PO ONE ×2 (17:33→23:03)
[2021-03-21 21:53] LABS: HEMATOCRIT 23.2 % (35.4-49); HEMOGLOBIN 7.7 GM/dL (11.7-16.9); MCH 31.2 pg (25.7-33.7); MEAN CELL VOLUME 94.4 fl (80-96); MEAN PLT VOLUME 8.7 fl (7.5-11.1); RBC 2.46 M/mm3 (4.00-5.60); RDW 15.5 % (11.9-15.9)
[2021-03-21] MEDS: MINERAL OIL/PETROLATUM,WHITE 3.5 GM TUBE OU PRN (21:57)
[2021-03-21] MEDS: INSULIN (LEVEMIR) 100 UNITS/ML UNITS SQ SCH (21:59)
[2021-03-21 22:11] LABS: CHLORIDE 106 mmol/L (98-107); SODIUM 141 mmol/L (136-145)
[2021-03-21 22:12] LABS: CALCIUM 8.4 mg/dL (8.5-10.1)
[2021-03-21 22:13] LABS: ANION GAP 10 MMOL/L (8-16); BLOOD UREA NITROGEN 59.7 mg/dL (7-18); CO2 25 mmol/L (21-32); GLUCOSE,RANDOM 263 mg/dL (74-106); MAGNESIUM 1.9 mg/dL (1.8-2.4)
[2021-03-21 22:16] LABS: CREATININE 3.3 mg/dL (0.55-1.3); PHOSPHOROUS 2.7 mg/dL (2.5-4.9)
[2021-03-21 22:49] LABS: WHITE BLOOD COUNT 18.5 K/mm3 (4.0-10.0)
[2021-03-21 22:51] LABS: PLATELET COUNT 27 10^3/uL (134-434)
[2021-03-21 22:53] LABS: ANISOCYTOSIS 2+; CORRECTED WBC 12.67 K/mm3; MACROCYTOSIS 2+; PLATELET ESTIMATE DECREASED
[2021-03-21] MEDS: POTASSIUM CHLORIDE 20 MEQ PREMIX IVPB 100 ML IVPB SCH (23:15)
[2021-03-22] MEDS: POTASSIUM CHLORIDE 20 MEQ PREMIX IVPB 100 ML IVPB SCH ×5 (00:48→14:45)
[2021-03-22] MEDS: NOREPINEPHRINE BITARTRATE IV SCH (05:00)
[2021-03-22] MEDS: SODIUM CHLORIDE IV SCH (05:00)
[2021-03-22] MEDS: BANATROL PLUS POWDER PACKET PO SCH ×3 (06:30→21:43)
[2021-03-22] MEDS: INSULIN SLIDING SCALE (NOVOLOG) 1 VIAL SQ SCH ×4 (06:33→21:40)
[2021-03-22 07:27] LABS: HEMATOCRIT 22.6 % (35.4-49); HEMOGLOBIN 7.5 GM/dL (11.7-16.9); MCH 31.2 pg (25.7-33.7); MEAN CELL VOLUME 94.5 fl (80-96); MEAN PLT VOLUME 7.9 fl (7.5-11.1); RBC 2.39 M/mm3 (4.00-5.60); RDW 15.7 % (11.9-15.9)
[2021-03-22 07:39] LABS: PLATELET COUNT 24 10^3/uL (134-434)
[2021-03-22 07:48] LABS: CHLORIDE 107 mmol/L (98-107); SODIUM 142 mmol/L (136-145)
[2021-03-22 07:50] LABS: CALCIUM 8.2 mg/dL (8.5-10.1)
[2021-03-22 07:51] LABS: ALBUMIN 1.9 g/dl (3.4-5.0); BLOOD UREA NITROGEN 63.9 mg/dL (7-18); CO2 26 mmol/L (21-32); GLUCOSE,RANDOM 195 mg/dL (74-106)
[2021-03-22 07:53] LABS: CREATININE 3.5 mg/dL (0.55-1.3)
[2021-03-22 07:54] LABS: PHOSPHOROUS 2.7 mg/dL (2.5-4.9); SGOT/AST 23 U/L (15-37); SGPT/ALT 25 U/L (13-61)
[2021-03-22 07:55] LABS: BILIRUBIN,TOTAL 1.1 mg/dL (0.2-1); LDH 284 U/L (87-246); TOT PROT 4.6 g/dl (6.4-8.2)
[2021-03-22 08:06] LABS: ALK PHOS 374 U/L (45-117); ANION GAP 10 MMOL/L (8-16)
[2021-03-22] MEDS ORDERED: DEXTROSE 5%-WATER 100 ML IVPB ONE ×2 (08:10→21:26)
[2021-03-22] MEDS ORDERED: MEROPENEM 1 GM VIAL (RESTRICTED TO ID) IVPB ONE ×2 (08:10→21:26)
[2021-03-22] MEDS: AMINO ACIDS/PROTEIN HYDROLYS 30 ML LIQUID.PKT PO SCH (08:45)
[2021-03-22] MEDS: MIDODRINE HCL 5 MG TABLET PO SCH ×3 (09:00→18:16)
[2021-03-22] MEDS: FLUDROCORTISONE ACETATE 0.1 MG TABLET (FP) PO SCH (09:00)
[2021-03-22] MEDS: FAMOTIDINE 20 MG/50 ML IVPB 20 MG/50 ML MG IVPB SCH ×2 (09:00→21:42)
[2021-03-22 09:40] LABS: WHITE BLOOD COUNT 19.7 K/mm3 (4.0-10.0)
[2021-03-22 09:46] LABS: ANISOCYTOSIS 1+; CORRECTED WBC 15.15 K/mm3; MACROCYTOSIS 1+; PLATELET ESTIMATE DECREASED
[2021-03-22] MEDS: OCULAR LUBRICANT OPHTHALMIC OINTMENT 7 GM TUBE OU SCH ×2 (10:21→21:42)
[2021-03-22] MEDS: MEROPENEM 1 GM in DEXTROSE 5%-WATER 100 ML IVPB SCH ×2 (10:21→21:43)
[2021-03-22] MEDS: HYDROCORTISONE SOD SUCCINATE 100 MG/2 ML VIAL IVPUSH SCH ×2 (10:21→21:43)
[2021-03-22] MEDS: SCOPOLAMINE HYDROBROMIDE 1 PATCH PATCH.TD72 TD SCH (10:21)
[2021-03-22] MEDS ORDERED: POTASSIUM CHLORIDE ORAL LIQUID 20 MEQ/15 ML PO ONE (11:08)
[2021-03-22 20:03] LABS: CALCIUM 8.8 mg/dL (8.5-10.1)
[2021-03-22 20:07] LABS: CREATININE 3.8 mg/dL (0.55-1.3)
[2021-03-22 20:35] LABS: HEMOGLOBIN 7.3 GM/dL (11.7-16.9); MEAN CELL VOLUME 93.9 fl (80-96); MEAN PLT VOLUME 9.1 fl (7.5-11.1); PLATELET COUNT 95 10^3/uL (134-434); RBC 2.34 M/mm3 (4.00-5.60); RDW 16.1 % (11.9-15.9)
[2021-03-22 20:47] LABS: WHITE BLOOD COUNT 18.6 K/mm3 (4.0-10.0)
[2021-03-22] MEDS: INSULIN (LEVEMIR) 100 UNITS/ML UNITS SQ SCH (21:40)
[2021-03-22 22:38] LABS: ANISOCYTOSIS 1+; CORRECTED WBC 16.76 K/mm3; MACROCYTOSIS 1+; PLATELET ESTIMATE DECREASED; TARGET CELLS 1+; TEAR DROP CELLS 1+
[2021-03-23] MEDS: BANATROL PLUS POWDER PACKET PO SCH ×3 (06:12→22:07)
[2021-03-23] MEDS: INSULIN SLIDING SCALE (NOVOLOG) 1 VIAL SQ SCH ×4 (06:14→22:00)
[2021-03-23] MEDS: AMINO ACIDS/PROTEIN HYDROLYS 30 ML LIQUID.PKT PO SCH ×2 (07:45→16:30)
[2021-03-23] MEDS: ALBUMIN HUMAN 25% 12.5 GM/50 ML VIAL IV SCH ×2 (08:00→08:30)
[2021-03-23] MEDS ORDERED: MEROPENEM 1 GM VIAL (RESTRICTED TO ID) IVPB ONE ×2 (08:18→21:57)
[2021-03-23] MEDS ORDERED: DEXTROSE 5%-WATER 100 ML IVPB ONE ×2 (08:19→21:57)
[2021-03-23] MEDS ORDERED: SODIUM CHLORIDE 250 ML IV PRN (08:30)
[2021-03-23 08:45] LABS: HEMATOCRIT 22.6 % (35.4-49); HEMOGLOBIN 7.5 GM/dL (11.7-16.9); MCH 31.5 pg (25.7-33.7); MCHC 33.3 g/dl (32.0-35.9); MEAN CELL VOLUME 94.6 fl (80-96); MEAN PLT VOLUME 10.1 fl (7.5-11.1); PLATELET COUNT 88 10^3/uL (134-434); RBC 2.39 M/mm3 (4.00-5.60); RDW 16.1 % (11.9-15.9); WHITE BLOOD COUNT 18.4 K/mm3 (4.0-10.0)
[2021-03-23] MEDS ORDERED: EPOETIN ALFA-EPBX 20,000 UNIT/ML VIAL SQ ONE (09:00)
[2021-03-23 09:29] LABS: CHLORIDE 107 mmol/L (98-107); SODIUM 142 mmol/L (136-145)
[2021-03-23 09:30] LABS: CALCIUM 8.7 mg/dL (8.5-10.1)
[2021-03-23 09:31] LABS: BLOOD UREA NITROGEN 76.6 mg/dL (7-18); CO2 24 mmol/L (21-32); GLUCOSE,RANDOM 210 mg/dL (74-106)
[2021-03-23] MEDS: MEROPENEM 1 GM in DEXTROSE 5%-WATER 100 ML IVPB SCH ×2 (09:31→22:08)
[2021-03-23] MEDS: FLUDROCORTISONE ACETATE 0.1 MG TABLET (FP) PO SCH (09:31)
[2021-03-23] MEDS: MIDODRINE HCL 5 MG TABLET PO SCH ×3 (09:31→22:07)
[2021-03-23] MEDS: FAMOTIDINE 20 MG/50 ML IVPB 20 MG/50 ML MG IVPB SCH ×2 (09:31→22:09)
[2021-03-23] MEDS: HYDROCORTISONE SOD SUCCINATE 100 MG/2 ML VIAL IVPUSH SCH ×2 (09:32→22:09)
[2021-03-23] MEDS: OCULAR LUBRICANT OPHTHALMIC OINTMENT 7 GM TUBE OU SCH ×2 (09:33→22:07)
[2021-03-23 09:34] LABS: CREATININE 4.1 mg/dL (0.55-1.3)
[2021-03-23 09:38] LABS: ANION GAP 11 MMOL/L (8-16)
[2021-03-23] MEDS ORDERED: POTASSIUM CHLORIDE ORAL LIQUID 20 MEQ/15 ML PO ONE ×2 (09:56→15:30)
[2021-03-23] MEDS: KCL 10 MEQ IVPB 10 MEQ/100 ML INFUS.BAG IVPB SCH ×3 (11:27→13:27)
[2021-03-23 19:26] LABS: CHLORIDE 109 mmol/L (98-107); SODIUM 144 mmol/L (136-145)
[2021-03-23 19:27] LABS: CALCIUM 8.7 mg/dL (8.5-10.1)
[2021-03-23 19:28] LABS: BLOOD UREA NITROGEN 57.2 mg/dL (7-18); CO2 26 mmol/L (21-32); GLUCOSE,RANDOM 246 mg/dL (74-106)
[2021-03-23 19:31] LABS: CREATININE 3.3 mg/dL (0.55-1.3)
[2021-03-23 19:32] LABS: ANION GAP 8 MMOL/L (8-16)
[2021-03-23] MEDS ORDERED: MAGNESIUM SULF 50% (8.12 MEQ/2 ML-1 GM VIAL) IVPB ONE (19:37)
[2021-03-23] MEDS: POTASSIUM CHLORIDE 20 MEQ PREMIX IVPB 100 ML IVPB SCH ×2 (21:00)
[2021-03-23] MEDS: INSULIN (LEVEMIR) 100 UNITS/ML UNITS SQ SCH (22:00)
[2021-03-24] MEDS: POTASSIUM CHLORIDE 20 MEQ PREMIX IVPB 100 ML IVPB SCH ×2 (03:00→08:53)
[2021-03-24 03:03] LABS: CHLORIDE 109 mmol/L (98-107); SODIUM 144 mmol/L (136-145)
[2021-03-24 03:04] LABS: CALCIUM 8.3 mg/dL (8.5-10.1)
[2021-03-24 03:05] LABS: BLOOD UREA NITROGEN 61.9 mg/dL (7-18); CO2 28 mmol/L (21-32); GLUCOSE,RANDOM 163 mg/dL (74-106)
[2021-03-24 03:08] LABS: CREATININE 3.5 mg/dL (0.55-1.3)
[2021-03-24 04:29] LABS: ANION GAP 7 MMOL/L (8-16)
[2021-03-24] MEDS: INSULIN SLIDING SCALE (NOVOLOG) 1 VIAL SQ SCH ×4 (06:21→22:20)
[2021-03-24] MEDS: BANATROL PLUS POWDER PACKET PO SCH ×3 (06:22→22:19)
[2021-03-24 07:14] LABS: HEMATOCRIT 22.4 % (35.4-49); HEMOGLOBIN 7.3 GM/dL (11.7-16.9); MCH 30.7 pg (25.7-33.7); MCHC 32.3 g/dl (32.0-35.9); MEAN PLT VOLUME 9.3 fl (7.5-11.1); PLATELET COUNT 70 10^3/uL (134-434); RBC 2.36 M/mm3 (4.00-5.60); RDW 17.1 % (11.9-15.9)
[2021-03-24 07:32] LABS: WHITE BLOOD COUNT 15.5 K/mm3 (4.0-10.0)
[2021-03-24 07:35] LABS: ALBUMIN 2.1 g/dl (3.4-5.0); BLOOD UREA NITROGEN 65.8 mg/dL (7-18); CALCIUM 8.9 mg/dL (8.5-10.1)
[2021-03-24 07:36] LABS: MAGNESIUM 2.3 mg/dL (1.8-2.4)
[2021-03-24 07:38] LABS: CREATININE 3.6 mg/dL (0.55-1.3); PHOSPHOROUS 3.6 mg/dL (2.5-4.9)
[2021-03-24 07:40] LABS: BILIRUBIN,TOTAL 1.6 mg/dL (0.2-1); TOT PROT 5.5 g/dl (6.4-8.2)
[2021-03-24] MEDS ORDERED: MEROPENEM 1 GM VIAL (RESTRICTED TO ID) IVPB ONE ×2 (08:59→22:12)
[2021-03-24] MEDS ORDERED: DEXTROSE 5%-WATER 100 ML IVPB ONE ×2 (08:59→22:13)
[2021-03-24] MEDS: FAMOTIDINE 20 MG/50 ML IVPB 20 MG/50 ML MG IVPB SCH ×2 (09:05→22:20)
[2021-03-24] MEDS: MEROPENEM 1 GM in DEXTROSE 5%-WATER 100 ML IVPB SCH ×2 (09:05→22:20)
[2021-03-24] MEDS: FLUDROCORTISONE ACETATE 0.1 MG TABLET (FP) PO SCH (09:05)
[2021-03-24] MEDS: MIDODRINE HCL 5 MG TABLET PO SCH ×3 (09:05→18:54)
[2021-03-24] MEDS: AMINO ACIDS/PROTEIN HYDROLYS 30 ML LIQUID.PKT PO SCH ×3 (09:05→18:54)
[2021-03-24] MEDS: HYDROCORTISONE SOD SUCCINATE 100 MG/2 ML VIAL IVPUSH SCH ×2 (09:06→22:21)
[2021-03-24] MEDS: OCULAR LUBRICANT OPHTHALMIC OINTMENT 7 GM TUBE OU SCH ×2 (09:06→22:22)
[2021-03-24 10:50] LABS: ANISOCYTOSIS 2+; MACROCYTOSIS 2+; PLATELET ESTIMATE DECREASED; TARGET CELLS 2+; TOXIC GRANULATION 1+
[2021-03-24] MEDS: ALBUMIN HUMAN 25% 12.5 GM/50 ML VIAL IV SCH ×2 (12:49→12:50)
[2021-03-24] MEDS: INSULIN (LEVEMIR) 100 UNITS/ML UNITS SQ SCH (22:19)
[2021-03-25] MEDS: INSULIN SLIDING SCALE (NOVOLOG) 1 VIAL SQ SCH ×4 (06:39→21:59)
[2021-03-25] MEDS: BANATROL PLUS POWDER PACKET PO SCH ×3 (06:39→21:58)
[2021-03-25] MEDS ORDERED: EPOETIN ALFA-EPBX 20,000 UNIT/ML VIAL SQ ONE (07:00)
[2021-03-25] MEDS ORDERED: SODIUM CHLORIDE 250 ML IV PRN (07:00)
[2021-03-25 07:13] LABS: HEMATOCRIT 21.4 % (35.4-49); MCHC 31.8 g/dl (32.0-35.9); MEAN CELL VOLUME 94.3 fl (80-96); MEAN PLT VOLUME 9.2 fl (7.5-11.1); PLATELET COUNT 59 10^3/uL (134-434); RBC 2.27 M/mm3 (4.00-5.60); RDW 17.7 % (11.9-15.9); WHITE BLOOD COUNT 12.8 K/mm3 (4.0-10.0)
[2021-03-25 07:23] LABS: HEMOGLOBIN 6.8 GM/dL (11.7-16.9)
[2021-03-25 07:49] LABS: CHLORIDE 110 mmol/L (98-107); SODIUM 145 mmol/L (136-145)
[2021-03-25 07:50] LABS: CALCIUM 8.1 mg/dL (8.5-10.1)
[2021-03-25 07:51] LABS: BLOOD UREA NITROGEN 82.6 mg/dL (7-18); CO2 22 mmol/L (21-32); GLUCOSE,RANDOM 183 mg/dL (74-106); MAGNESIUM 2.2 mg/dL (1.8-2.4)
[2021-03-25 07:54] LABS: CREATININE 4.2 mg/dL (0.55-1.3); PHOSPHOROUS 5.3 mg/dL (2.5-4.9)
[2021-03-25 07:59] LABS: ANION GAP 13 MMOL/L (8-16)
[2021-03-25] MEDS: ALBUMIN HUMAN 25% 12.5 GM/50 ML VIAL IV SCH ×4 (08:00→17:47)
[2021-03-25 09:10] LABS: HEMATOCRIT 20.7 % (35.4-49); MCH 30.5 pg (25.7-33.7); MCHC 32.5 g/dl (32.0-35.9); MEAN CELL VOLUME 93.7 fl (80-96); MEAN PLT VOLUME 9.3 fl (7.5-11.1); PLATELET COUNT 56 10^3/uL (134-434); RBC 2.21 M/mm3 (4.00-5.60); RDW 17.7 % (11.9-15.9); WHITE BLOOD COUNT 9.1 K/mm3 (4.0-10.0)
[2021-03-25 09:38] LABS: HEMOGLOBIN 6.7 GM/dL (11.7-16.9)
[2021-03-25 10:16] LABS: ANISOCYTOSIS 2+; MACROCYTOSIS 2+; OVALOCYTE 1+; PLATELET ESTIMATE DECREASED; TEAR DROP CELLS 1+; TOXIC GRANULATION 1+
[2021-03-25] MEDS ORDERED: DEXTROSE 5%-WATER 100 ML IVPB ONE ×2 (10:25→21:53)
[2021-03-25] MEDS ORDERED: MEROPENEM 1 GM VIAL (RESTRICTED TO ID) IVPB ONE ×2 (10:25→21:53)
[2021-03-25] MEDS: MIDODRINE HCL 5 MG TABLET PO SCH ×3 (10:27→17:31)
[2021-03-25] MEDS: MEROPENEM 1 GM in DEXTROSE 5%-WATER 100 ML IVPB SCH ×2 (10:27→21:55)
[2021-03-25] MEDS: AMINO ACIDS/PROTEIN HYDROLYS 30 ML LIQUID.PKT PO SCH ×3 (10:27→17:31)
[2021-03-25] MEDS: FAMOTIDINE 20 MG/50 ML IVPB 20 MG/50 ML MG IVPB SCH ×2 (10:27→21:57)
[2021-03-25] MEDS: SCOPOLAMINE HYDROBROMIDE 1 PATCH PATCH.TD72 TD SCH (10:28)
[2021-03-25] MEDS: HYDROCORTISONE SOD SUCCINATE 100 MG/2 ML VIAL IVPUSH SCH ×2 (10:28→21:58)
[2021-03-25] MEDS: OCULAR LUBRICANT OPHTHALMIC OINTMENT 7 GM TUBE OU SCH ×2 (10:28→22:00)
[2021-03-25] MEDS: FLUDROCORTISONE ACETATE 0.1 MG TABLET (FP) PO SCH (10:30)
[2021-03-25 10:36] LABS: CHLORIDE 108 mmol/L (98-107); SODIUM 143 mmol/L (136-145)
[2021-03-25 10:47] LABS: CALCIUM 8.4 mg/dL (8.5-10.1)
[2021-03-25 10:48] LABS: ALBUMIN 1.8 g/dl (3.4-5.0); BLOOD UREA NITROGEN 62.7 mg/dL (7-18); CO2 25 mmol/L (21-32); GLUCOSE,RANDOM 181 mg/dL (74-106)
[2021-03-25 10:50] LABS: BILIRUBIN,TOTAL 1.4 mg/dL (0.2-1); CREATININE 3.4 mg/dL (0.55-1.3); SGPT/ALT 27 U/L (13-61)
[2021-03-25 10:51] LABS: SGOT/AST 23 U/L (15-37); TOT PROT 5.2 g/dl (6.4-8.2)
[2021-03-25 10:54] LABS: ALK PHOS 317 U/L (45-117); ANION GAP 10 MMOL/L (8-16)
[2021-03-25 14:47] LABS: CHLORIDE 105 mmol/L (98-107); SODIUM 141 mmol/L (136-145)
[2021-03-25 14:48] LABS: CALCIUM 8.5 mg/dL (8.5-10.1)
[2021-03-25 14:49] LABS: BLOOD UREA NITROGEN 46.4 mg/dL (7-18); CO2 25 mmol/L (21-32); GLUCOSE,RANDOM 169 mg/dL (74-106)
[2021-03-25 14:52] LABS: CREATININE 2.8 mg/dL (0.55-1.3)
[2021-03-25 14:57] LABS: ANION GAP 11 MMOL/L (8-16)
[2021-03-25] MEDS ORDERED: POTASSIUM CHLORIDE ORAL LIQUID 20 MEQ/15 ML PO ONE (15:06)
[2021-03-25] MEDS: POTASSIUM CHLORIDE 20 MEQ PREMIX IVPB 100 ML IVPB SCH ×2 (17:05→22:45)
[2021-03-25] MEDS: INSULIN (LEVEMIR) 100 UNITS/ML UNITS SQ SCH (22:00)
[2021-03-26] MEDS: NOREPINEPHRINE BITARTRATE IV SCH (00:31)
[2021-03-26] MEDS: SODIUM CHLORIDE IV SCH (00:31)
[2021-03-26] MEDS: BANATROL PLUS POWDER PACKET PO SCH ×3 (05:10→22:34)
[2021-03-26] MEDS: INSULIN SLIDING SCALE (NOVOLOG) 1 VIAL SQ SCH ×4 (06:23→22:32)
[2021-03-26 07:24] LABS: HEMATOCRIT 24.6 % (35.4-49); MCH 28.9 pg (25.7-33.7); MCHC 32.6 g/dl (32.0-35.9); MEAN CELL VOLUME 88.8 fl (80-96); MEAN PLT VOLUME 9.5 fl (7.5-11.1); PLATELET COUNT 57 10^3/uL (134-434); RBC 2.77 M/mm3 (4.00-5.60); RDW 22.7 % (11.9-15.9)
[2021-03-26 07:48] LABS: BLOOD UREA NITROGEN 58.8 mg/dL (7-18); CALCIUM 8.1 mg/dL (8.5-10.1); CHLORIDE 107 mmol/L (98-107); CO2 26 mmol/L (21-32); GLUCOSE,RANDOM 128 mg/dL (74-106); MAGNESIUM 2.1 mg/dL (1.8-2.4); SODIUM 143 mmol/L (136-145)
[2021-03-26 07:51] LABS: PHOSPHOROUS 3.9 mg/dL (2.5-4.9)
[2021-03-26 07:52] LABS: CREATININE 3.4 mg/dL (0.55-1.3)
[2021-03-26 08:13] LABS: ANION GAP 10 MMOL/L (8-16)
[2021-03-26] MEDS ORDERED: POTASSIUM CHLORIDE ORAL LIQUID 20 MEQ/15 ML PO ONE (08:23)
[2021-03-26] MEDS: AMINO ACIDS/PROTEIN HYDROLYS 30 ML LIQUID.PKT PO SCH ×3 (08:49→22:25)
[2021-03-26] MEDS: POTASSIUM CHLORIDE 20 MEQ PREMIX IVPB 100 ML IVPB SCH ×6 (08:58→22:25)
[2021-03-26] MEDS ORDERED: MEROPENEM 1 GM VIAL (RESTRICTED TO ID) IVPB ONE ×2 (09:08→22:33)
[2021-03-26] MEDS ORDERED: DEXTROSE 5%-WATER 100 ML IVPB ONE ×2 (09:08→22:33)
[2021-03-26] MEDS: MIDODRINE HCL 5 MG TABLET PO SCH ×3 (09:10→18:02)
[2021-03-26] MEDS: MEROPENEM 1 GM in DEXTROSE 5%-WATER 100 ML IVPB SCH ×2 (09:10→22:34)
[2021-03-26] MEDS: OCULAR LUBRICANT OPHTHALMIC OINTMENT 7 GM TUBE OU SCH ×2 (09:11→22:35)
[2021-03-26] MEDS: FLUDROCORTISONE ACETATE 0.1 MG TABLET (FP) PO SCH (09:11)
[2021-03-26] MEDS: FAMOTIDINE 20 MG/50 ML IVPB 20 MG/50 ML MG IVPB SCH ×2 (09:11→22:34)
[2021-03-26] MEDS: HYDROCORTISONE SOD SUCCINATE 100 MG/2 ML VIAL IVPUSH SCH (09:11)
[2021-03-26 09:47] LABS: ANISOCYTOSIS 1+; MACROCYTOSIS 0; PLATELET ESTIMATE DECREASED; TARGET CELLS 1+
[2021-03-26 10:34] LABS: CORRECTED WBC 9.65 K/mm3
[2021-03-26 15:37] LABS: CALCIUM 8.4 mg/dL (8.5-10.1)
[2021-03-26 15:38] LABS: BLOOD UREA NITROGEN 62.3 mg/dL (7-18)
[2021-03-26 15:41] LABS: CREATININE 3.6 mg/dL (0.55-1.3)
[2021-03-26] MEDS: INSULIN (LEVEMIR) 100 UNITS/ML UNITS SQ SCH (23:14)
[2021-03-27] MEDS: INSULIN SLIDING SCALE (NOVOLOG) 1 VIAL SQ SCH ×4 (06:41→22:24)
[2021-03-27] MEDS: BANATROL PLUS POWDER PACKET PO SCH ×3 (06:41→22:23)
[2021-03-27 07:41] LABS: BASO % 0.4 % (0-2.0); EOS % 0.7 % (0-4.5); HEMOGLOBIN 7.5 GM/dL (11.7-16.9); LYMPH % 9.9 % (8-40); MCH 29.5 pg (25.7-33.7); MCHC 32.8 g/dl (32.0-35.9); MEAN CELL VOLUME 89.9 fl (80-96); MEAN PLT VOLUME 9.6 fl (7.5-11.1); MONO % 3.3 % (3.8-10.2); NEUT % 85.7 % (42.8-82.8); PLATELET COUNT 69 10^3/uL (134-434); RBC 2.56 M/mm3 (4.00-5.60); RDW 22.6 % (11.9-15.9)
[2021-03-27 07:53] LABS: CHLORIDE 110 mmol/L (98-107); SODIUM 144 mmol/L (136-145)
[2021-03-27 08:00] LABS: BLOOD UREA NITROGEN 68.9 mg/dL (7-18); CALCIUM 8.2 mg/dL (8.5-10.1); CO2 23 mmol/L (21-32)
[2021-03-27 08:01] LABS: GLUCOSE,RANDOM 111 mg/dL (74-106); MAGNESIUM 2.4 mg/dL (1.8-2.4)
[2021-03-27 08:04] LABS: CREATININE 4.1 mg/dL (0.55-1.3); PHOSPHOROUS 4.4 mg/dL (2.5-4.9)
[2021-03-27] MEDS: AMINO ACIDS/PROTEIN HYDROLYS 30 ML LIQUID.PKT PO SCH ×3 (08:10→18:01)
[2021-03-27 08:16] LABS: ANION GAP 11 MMOL/L (8-16)
[2021-03-27] MEDS ORDERED: POTASSIUM CHLORIDE TABS 20 MEQ TABLET.ER (FP) PO ONE (08:45)
[2021-03-27] MEDS ORDERED: DEXTROSE 5%-WATER 100 ML IVPB ONE (08:59)
[2021-03-27] MEDS ORDERED: MEROPENEM 1 GM VIAL (RESTRICTED TO ID) IVPB ONE (08:59)
[2021-03-27] MEDS: MEROPENEM 1 GM in DEXTROSE 5%-WATER 100 ML IVPB SCH (09:03)
[2021-03-27] MEDS ORDERED: POTASSIUM CHLORIDE ORAL LIQUID 20 MEQ/15 ML PO ONE (09:30)
[2021-03-27] MEDS: HYDROCORTISONE SOD SUCCINATE 100 MG/2 ML VIAL IVPUSH SCH (09:34)
[2021-03-27] MEDS: MIDODRINE HCL 5 MG TABLET PO SCH ×3 (09:35→18:01)
[2021-03-27] MEDS: POTASSIUM CHLORIDE 20 MEQ PREMIX IVPB 100 ML IVPB SCH ×3 (09:35→11:58)
[2021-03-27] MEDS: MINERAL OIL/PETROLATUM,WHITE 3.5 GM TUBE OU PRN (09:56)
[2021-03-27] MEDS: FAMOTIDINE 20 MG/50 ML IVPB 20 MG/50 ML MG IVPB SCH ×2 (09:56→22:23)
[2021-03-27] MEDS: OCULAR LUBRICANT OPHTHALMIC OINTMENT 7 GM TUBE OU SCH ×2 (10:58→22:23)
[2021-03-27] MEDS: NOREPINEPHRINE BITARTRATE IV SCH (14:52)
[2021-03-27] MEDS: SODIUM CHLORIDE IV SCH (14:52)
[2021-03-27] MEDS: INSULIN (LEVEMIR) 100 UNITS/ML UNITS SQ SCH (22:23)
[2021-03-28] MEDS: BANATROL PLUS POWDER PACKET PO SCH ×3 (06:44→21:32)
[2021-03-28] MEDS: INSULIN SLIDING SCALE (NOVOLOG) 1 VIAL SQ SCH ×4 (06:44→21:33)
[2021-03-28] MEDS ORDERED: SODIUM CHLORIDE 250 ML IV PRN (06:47)
[2021-03-28] MEDS: ALBUMIN HUMAN 25% 12.5 GM/50 ML VIAL IV SCH ×4 (07:05→08:35)
[2021-03-28 07:44] LABS: BLOOD UREA NITROGEN 87.9 mg/dL (7-18)
[2021-03-28 07:46] LABS: CALCIUM 8.3 mg/dL (8.5-10.1); MAGNESIUM 2.2 mg/dL (1.8-2.4)
[2021-03-28 07:47] LABS: CREATININE 4.7 mg/dL (0.55-1.3)
[2021-03-28 07:49] LABS: PHOSPHOROUS 5.6 mg/dL (2.5-4.9)
[2021-03-28] MEDS ORDERED: EPOETIN ALFA-EPBX 20,000 UNIT/ML VIAL SQ ONE (08:00)
[2021-03-28] MEDS: AMINO ACIDS/PROTEIN HYDROLYS 30 ML LIQUID.PKT PO SCH ×3 (08:47→17:40)
[2021-03-28 08:48] LABS: BASO % 0.5 % (0-2.0); EOS % 0.9 % (0-4.5); HEMATOCRIT 20.7 % (35.4-49); LYMPH % 14.8 % (8-40); MCH 28.5 pg (25.7-33.7); MCHC 31.8 g/dl (32.0-35.9); MEAN CELL VOLUME 89.8 fl (80-96); MEAN PLT VOLUME 9.6 fl (7.5-11.1); MONO % 6.2 % (3.8-10.2); NEUT % 77.6 % (42.8-82.8); PLATELET COUNT 85 10^3/uL (134-434); RBC 2.31 M/mm3 (4.00-5.60); RDW 23.4 % (11.9-15.9); WHITE BLOOD COUNT 5.9 K/mm3 (4.0-10.0)
[2021-03-28 09:00] LABS: HEMOGLOBIN 6.6 GM/dL (11.7-16.9)
[2021-03-28] MEDS: FAMOTIDINE 20 MG/50 ML IVPB 20 MG/50 ML MG IVPB SCH ×2 (10:32→21:33)
[2021-03-28] MEDS: MIDODRINE HCL 5 MG TABLET PO SCH ×3 (10:32→17:40)
[2021-03-28] MEDS: MINERAL OIL/PETROLATUM,WHITE 3.5 GM TUBE OU PRN ×2 (10:32→16:47)
[2021-03-28] MEDS: HYDROCORTISONE SOD SUCCINATE 100 MG/2 ML VIAL IVPUSH SCH (10:33)
[2021-03-28] MEDS: SCOPOLAMINE HYDROBROMIDE 1 PATCH PATCH.TD72 TD SCH (10:33)
[2021-03-28] MEDS ORDERED: levETIRAcetam 500 MG/5 ML INJECTION VIAL IVPB ONE (11:00)
[2021-03-28] MEDS: OCULAR LUBRICANT OPHTHALMIC OINTMENT 7 GM TUBE OU SCH ×2 (17:16→21:33)
[2021-03-28 17:26] LABS: INR 1.06 (0.83-1.09); PROTHROMBIN TIME (PATIENT) 12.2 SEC (9.7-13.0)
[2021-03-28] MEDS: INSULIN (LEVEMIR) 100 UNITS/ML UNITS SQ SCH (21:41)
[2021-03-29] MEDS ORDERED: POTASSIUM CHLORIDE ORAL LIQUID 20 MEQ/15 ML PO ONE (00:22)
[2021-03-29 00:44] LABS: HEMATOCRIT 26.3 % (35.4-49); HEMOGLOBIN 8.6 GM/dL (11.7-16.9); MCH 28.2 pg (25.7-33.7); MCHC 32.6 g/dl (32.0-35.9); MEAN CELL VOLUME 86.4 fl (80-96); MEAN PLT VOLUME 9.7 fl (7.5-11.1); PLATELET COUNT 80 10^3/uL (134-434); RBC 3.05 M/mm3 (4.00-5.60); RDW 24.6 % (11.9-15.9); WHITE BLOOD COUNT 5.5 K/mm3 (4.0-10.0)
[2021-03-29] MEDS: BANATROL PLUS POWDER PACKET PO SCH ×3 (05:35→21:33)
[2021-03-29] MEDS: INSULIN SLIDING SCALE (NOVOLOG) 1 VIAL SQ SCH ×4 (06:46→21:33)
[2021-03-29 07:39] LABS: BASO % 0.5 % (0-2.0); EOS % 0.8 % (0-4.5); HEMATOCRIT 25.1 % (35.4-49); LYMPH % 23.7 % (8-40); MCH 28.1 pg (25.7-33.7); MEAN CELL VOLUME 87.8 fl (80-96); MEAN PLT VOLUME 10.4 fl (7.5-11.1); MONO % 6.2 % (3.8-10.2); NEUT % 68.8 % (42.8-82.8); PLATELET COUNT 96 10^3/uL (134-434); RBC 2.86 M/mm3 (4.00-5.60); RDW 24.9 % (11.9-15.9); WHITE BLOOD COUNT 5.1 K/mm3 (4.0-10.0)
[2021-03-29 08:08] LABS: CALCIUM 8.1 mg/dL (8.5-10.1); MAGNESIUM 2.2 mg/dL (1.8-2.4)
[2021-03-29 08:09] LABS: CREATININE 3.7 mg/dL (0.55-1.3); PHOSPHOROUS 4.5 mg/dL (2.5-4.9)
[2021-03-29 08:12] LABS: BLOOD UREA NITROGEN 60.7 mg/dL (7-18)
[2021-03-29 08:24] LABS: BASO % 0.3 % (0-2.0); EOS % 0.7 % (0-4.5); HEMATOCRIT 24.4 % (35.4-49); HEMOGLOBIN 7.9 GM/dL (11.7-16.9); LYMPH % 22.2 % (8-40); MCH 28.3 pg (25.7-33.7); MCHC 32.3 g/dl (32.0-35.9); MEAN CELL VOLUME 87.5 fl (80-96); MEAN PLT VOLUME 10.7 fl (7.5-11.1); MONO % 5.1 % (3.8-10.2); NEUT % 71.7 % (42.8-82.8); PLATELET COUNT 83 10^3/uL (134-434); RBC 2.79 M/mm3 (4.00-5.60); RDW 24.5 % (11.9-15.9)
[2021-03-29] MEDS: FAMOTIDINE 20 MG/50 ML IVPB 20 MG/50 ML MG IVPB SCH ×2 (10:17→21:33)
[2021-03-29] MEDS: levETIRAcetam 500 MG/5 ML INJECTION VIAL IVPB SCH (10:18)
[2021-03-29] MEDS: AMINO ACIDS/PROTEIN HYDROLYS 30 ML LIQUID.PKT PO SCH ×3 (10:18→17:34)
[2021-03-29] MEDS: MIDODRINE HCL 5 MG TABLET PO SCH ×3 (10:19→19:00)
[2021-03-29] MEDS: HYDROCORTISONE SOD SUCCINATE 100 MG/2 ML VIAL IVPUSH SCH (10:19)
[2021-03-29] MEDS: OCULAR LUBRICANT OPHTHALMIC OINTMENT 7 GM TUBE OU SCH ×2 (10:20→21:33)
[2021-03-29 13:54] LABS: PLATELET ESTIMATE DECREASED
[2021-03-29] MEDS: INSULIN (LEVEMIR) 100 UNITS/ML UNITS SQ SCH (21:33)
[2021-03-30] MEDS: INSULIN SLIDING SCALE (NOVOLOG) 1 VIAL SQ SCH ×4 (06:19→21:37)
[2021-03-30] MEDS: BANATROL PLUS POWDER PACKET PO SCH ×3 (06:20→21:40)
[2021-03-30] MEDS ORDERED: SODIUM CHLORIDE 250 ML IV PRN (07:05)
[2021-03-30] MEDS ORDERED: EPOETIN ALFA-EPBX 20,000 UNIT/ML VIAL SQ ONE (07:30)
[2021-03-30 07:36] LABS: HEMATOCRIT 25.5 % (35.4-49); HEMOGLOBIN 8.4 GM/dL (11.7-16.9); MCH 28.1 pg (25.7-33.7); MCHC 32.7 g/dl (32.0-35.9); MEAN CELL VOLUME 85.8 fl (80-96); PLATELET COUNT 125 10^3/uL (134-434); RBC 2.98 M/mm3 (4.00-5.60); RDW 24.2 % (11.9-15.9); WHITE BLOOD COUNT 8.8 K/mm3 (4.0-10.0)
[2021-03-30 07:47] LABS: BLOOD UREA NITROGEN 74.6 mg/dL (7-18); CALCIUM 8.6 mg/dL (8.5-10.1)
[2021-03-30 07:48] LABS: MAGNESIUM 2.2 mg/dL (1.8-2.4)
[2021-03-30 07:51] LABS: CREATININE 4.3 mg/dL (0.55-1.3); PHOSPHOROUS 5.6 mg/dL (2.5-4.9)
[2021-03-30] MEDS: SODIUM CHLORIDE IV SCH ×2 (08:20→12:25)
[2021-03-30] MEDS: NOREPINEPHRINE BITARTRATE IV SCH ×2 (08:20→12:25)
[2021-03-30] MEDS: ALBUMIN HUMAN 25% 12.5 GM/50 ML VIAL IV SCH ×4 (08:30→10:30)
[2021-03-30] MEDS: AMINO ACIDS/PROTEIN HYDROLYS 30 ML LIQUID.PKT PO SCH ×3 (08:47→17:27)
[2021-03-30] MEDS ORDERED: POTASSIUM CHLORIDE 20 MEQ PREMIX IVPB 100 ML IVPB SCH (10:15)
[2021-03-30] MEDS: OCULAR LUBRICANT OPHTHALMIC OINTMENT 7 GM TUBE OU SCH ×2 (10:16→21:37)
[2021-03-30] MEDS: MIDODRINE HCL 5 MG TABLET PO SCH ×3 (10:16→17:27)
[2021-03-30 10:48] LABS: PLATELET ESTIMATE DECREASED
[2021-03-30 10:49] LABS: ANISOCYTOSIS 1+; TARGET CELLS 1+
[2021-03-30] MEDS: levETIRAcetam 500 MG/5 ML INJECTION VIAL IVPB SCH (11:49)
[2021-03-30] MEDS: FAMOTIDINE 20 MG/50 ML IVPB 20 MG/50 ML MG IVPB SCH ×2 (11:50→21:40)
[2021-03-30] MEDS: HYDROCORTISONE SOD SUCCINATE 100 MG/2 ML VIAL IVPUSH SCH (11:50)
[2021-03-30 18:07] LABS: FREE KAPPA,SERUM 441.9 mg/L (3.3-19.4)
[2021-03-30] MEDS: INSULIN (LEVEMIR) 100 UNITS/ML UNITS SQ SCH (21:38)
[2021-03-31] MEDS: SODIUM CHLORIDE IV SCH
[2021-03-31] MEDS: NOREPINEPHRINE BITARTRATE IV SCH
[2021-03-31] MEDS: BANATROL PLUS POWDER PACKET PO SCH ×3 (05:36→23:01)
[2021-03-31] MEDS: INSULIN SLIDING SCALE (NOVOLOG) 1 VIAL SQ SCH ×4 (06:35→23:01)
[2021-03-31 07:53] LABS: BASO % 0.4 % (0-2.0); EOS % 0.7 % (0-4.5); HEMOGLOBIN 7.7 GM/dL (11.7-16.9); LYMPH % 24.9 % (8-40); MCH 27.6 pg (25.7-33.7); MEAN PLT VOLUME 8.6 fl (7.5-11.1); MONO % 9.7 % (3.8-10.2); NEUT % 64.3 % (42.8-82.8); PLATELET COUNT 146 10^3/uL (134-434); RBC 2.79 M/mm3 (4.00-5.60); RDW 24.9 % (11.9-15.9); WHITE BLOOD COUNT 7.2 K/mm3 (4.0-10.0)
[2021-03-31 07:55] LABS: CHLORIDE 109 mmol/L (98-107); SODIUM 143 mmol/L (136-145)
[2021-03-31 07:58] LABS: CALCIUM 8.4 mg/dL (8.5-10.1); CO2 24 mmol/L (21-32); GLUCOSE,RANDOM 128 mg/dL (74-106); MAGNESIUM 1.9 mg/dL (1.8-2.4)
[2021-03-31] MEDS: AMINO ACIDS/PROTEIN HYDROLYS 30 ML LIQUID.PKT PO SCH ×4 (08:00→18:27)
[2021-03-31 08:01] LABS: CREATININE 3.5 mg/dL (0.55-1.3); SGOT/AST 23 U/L (15-37); SGPT/ALT 16 U/L (13-61)
[2021-03-31 08:02] LABS: PHOSPHOROUS 4.2 mg/dL (2.5-4.9)
[2021-03-31 08:03] LABS: TOT PROT 5.9 g/dl (6.4-8.2)
[2021-03-31 08:07] LABS: LDH 251 U/L (87-246)
[2021-03-31 08:17] LABS: ALK PHOS 183 U/L (45-117); ANION GAP 10 MMOL/L (8-16)
[2021-03-31] MEDS: SCOPOLAMINE HYDROBROMIDE 1 PATCH PATCH.TD72 TD SCH (10:30)
[2021-03-31] MEDS: MIDODRINE HCL 5 MG TABLET PO SCH ×3 (10:30→18:26)
[2021-03-31] MEDS: FAMOTIDINE 20 MG/50 ML IVPB 20 MG/50 ML MG IVPB SCH ×2 (10:30→23:02)
[2021-03-31] MEDS: levETIRAcetam 500 MG/5 ML INJECTION VIAL IVPB SCH (10:30)
[2021-03-31] MEDS: OCULAR LUBRICANT OPHTHALMIC OINTMENT 7 GM TUBE OU SCH ×2 (10:30→23:01)
[2021-03-31] MEDS: HYDROCORTISONE SOD SUCCINATE 100 MG/2 ML VIAL IVPUSH SCH (11:08)
[2021-03-31] MEDS ORDERED: POTASSIUM CHLORIDE ORAL LIQUID 20 MEQ/15 ML PO ONE (12:43)
[2021-03-31] MEDS ORDERED: KCL 10 MEQ IVPB 10 MEQ/100 ML INFUS.BAG IVPB SCH (12:45)
[2021-03-31] MEDS: INSULIN (LEVEMIR) 100 UNITS/ML UNITS SQ SCH (23:02)
[2021-04-01] MEDS ORDERED: SODIUM CHLORIDE 250 ML IV PRN (07:32)
[2021-04-01] MEDS ORDERED: EPOETIN ALFA-EPBX 20,000 UNIT/ML VIAL IVPUSH ONE (07:45)
[2021-04-01] MEDS: BANATROL PLUS POWDER PACKET PO SCH ×3 (07:57→22:25)
[2021-04-01] MEDS: INSULIN SLIDING SCALE (NOVOLOG) 1 VIAL SQ SCH ×4 (07:57→22:00)
[2021-04-01 09:01] LABS: BASO % 0.5 % (0-2.0); EOS % 0.4 % (0-4.5); HEMATOCRIT 23.3 % (35.4-49); HEMOGLOBIN 7.7 GM/dL (11.7-16.9); LYMPH % 30.9 % (8-40); MCH 27.9 pg (25.7-33.7); MEAN CELL VOLUME 84.5 fl (80-96); MEAN PLT VOLUME 8.2 fl (7.5-11.1); MONO % 9.2 % (3.8-10.2); PLATELET COUNT 182 10^3/uL (134-434); RBC 2.76 M/mm3 (4.00-5.60); RDW 24.2 % (11.9-15.9); WHITE BLOOD COUNT 7.9 K/mm3 (4.0-10.0)
[2021-04-01 09:13] LABS: ALBUMIN 1.8 g/dl (3.4-5.0); CALCIUM 8.5 mg/dL (8.5-10.1); MAGNESIUM 2.1 mg/dL (1.8-2.4)
[2021-04-01 09:16] LABS: CREATININE 3.8 mg/dL (0.55-1.3); PHOSPHOROUS 4.2 mg/dL (2.5-4.9)
[2021-04-01 09:18] LABS: BILIRUBIN,TOTAL 2.1 mg/dL (0.2-1); TOT PROT 5.7 g/dl (6.4-8.2)
[2021-04-01] MEDS: AMINO ACIDS/PROTEIN HYDROLYS 30 ML LIQUID.PKT PO SCH ×3 (09:25→17:43)
[2021-04-01] MEDS: levETIRAcetam 500 MG/5 ML INJECTION VIAL IVPB SCH (09:25)
[2021-04-01] MEDS: HYDROCORTISONE SOD SUCCINATE 100 MG/2 ML VIAL IVPUSH SCH (09:26)
[2021-04-01] MEDS: OCULAR LUBRICANT OPHTHALMIC OINTMENT 7 GM TUBE OU SCH ×2 (09:26→22:00)
[2021-04-01] MEDS: FAMOTIDINE 20 MG/50 ML IVPB 20 MG/50 ML MG IVPB SCH ×2 (09:26→22:00)
[2021-04-01] MEDS: MIDODRINE HCL 5 MG TABLET PO SCH ×3 (09:26→17:43)
[2021-04-01 09:43] LABS: ANISOCYTOSIS 1+; MACROCYTOSIS 0
[2021-04-01] MEDS: ALBUMIN HUMAN 25% 12.5 GM/50 ML VIAL IV SCH ×4 (18:20→21:15)
[2021-04-01] MEDS: INSULIN (LEVEMIR) 100 UNITS/ML UNITS SQ SCH (22:00)
[2021-04-02] MEDS: FAMOTIDINE 20 MG/50 ML IVPB 20 MG/50 ML MG IVPB SCH ×3 (03:40→22:08)
[2021-04-02] MEDS: BANATROL PLUS POWDER PACKET PO SCH ×3 (05:22→22:08)
[2021-04-02] MEDS: INSULIN SLIDING SCALE (NOVOLOG) 1 VIAL SQ SCH ×4 (07:15→22:19)
[2021-04-02 09:02] LABS: CALCIUM 8.9 mg/dL (8.5-10.1)
[2021-04-02 09:03] LABS: BLOOD UREA NITROGEN 50.1 mg/dL (7-18)
[2021-04-02 09:05] LABS: PHOSPHOROUS 4.4 mg/dL (2.5-4.9)
[2021-04-02 09:06] LABS: CREATININE 3.5 mg/dL (0.55-1.3)
[2021-04-02 09:07] LABS: BILIRUBIN,TOTAL 2.4 mg/dL (0.2-1); TOT PROT 6.2 g/dl (6.4-8.2)
[2021-04-02 09:12] LABS: ALBUMIN 2.4 g/dl (3.4-5.0)
[2021-04-02 09:42] LABS: BASO % 0.3 % (0-2.0); HEMATOCRIT 22.2 % (35.4-49); HEMOGLOBIN 7.2 GM/dL (11.7-16.9); LYMPH % 28.7 % (8-40); MCH 27.2 pg (25.7-33.7); MCHC 32.5 g/dl (32.0-35.9); MEAN CELL VOLUME 83.7 fl (80-96); MEAN PLT VOLUME 8.1 fl (7.5-11.1); MONO % 10.5 % (3.8-10.2); NEUT % 60.5 % (42.8-82.8); PLATELET COUNT 192 10^3/uL (134-434); RBC 2.65 M/mm3 (4.00-5.60); RDW 23.9 % (11.9-15.9); WHITE BLOOD COUNT 8.8 K/mm3 (4.0-10.0)
[2021-04-02] MEDS: AMINO ACIDS/PROTEIN HYDROLYS 30 ML LIQUID.PKT PO SCH ×3 (09:46→17:21)
[2021-04-02] MEDS: OCULAR LUBRICANT OPHTHALMIC OINTMENT 7 GM TUBE OU SCH ×2 (09:47→22:09)
[2021-04-02] MEDS: levETIRAcetam 500 MG/5 ML INJECTION VIAL IVPB SCH (09:51)
[2021-04-02] MEDS: MIDODRINE HCL 5 MG TABLET PO SCH ×3 (09:51→17:21)
[2021-04-02] MEDS: HYDROCORTISONE SOD SUCCINATE 100 MG/2 ML VIAL IVPUSH SCH (09:52)
[2021-04-02] MEDS ORDERED: SODIUM CHLORIDE 250 ML IV PRN (19:39)
[2021-04-02] MEDS: INSULIN (LEVEMIR) 100 UNITS/ML UNITS SQ SCH (22:19)
[2021-04-03] MEDS: BANATROL PLUS POWDER PACKET PO SCH ×3 (06:25→21:56)
[2021-04-03 08:02] LABS: BASO % 0.5 % (0-2.0); EOS % 0.2 % (0-4.5); HEMATOCRIT 21.3 % (35.4-49); HEMOGLOBIN 7.1 GM/dL (11.7-16.9); LYMPH % 25.1 % (8-40); MCH 27.9 pg (25.7-33.7); MCHC 33.1 g/dl (32.0-35.9); MEAN CELL VOLUME 84.2 fl (80-96); MEAN PLT VOLUME 7.9 fl (7.5-11.1); MONO % 12.1 % (3.8-10.2); NEUT % 62.1 % (42.8-82.8); PLATELET COUNT 198 10^3/uL (134-434); RBC 2.53 M/mm3 (4.00-5.60); RDW 24.2 % (11.9-15.9); WHITE BLOOD COUNT 7.8 K/mm3 (4.0-10.0)
[2021-04-03 08:15] LABS: CHLORIDE 109 mmol/L (98-107); SODIUM 146 mmol/L (136-145)
[2021-04-03 08:17] LABS: CALCIUM 8.8 mg/dL (8.5-10.1)
[2021-04-03 08:18] LABS: BLOOD UREA NITROGEN 60.6 mg/dL (7-18); CO2 26 mmol/L (21-32)
[2021-04-03 08:20] LABS: CREATININE 4.2 mg/dL (0.55-1.3); SGPT/ALT 10 U/L (13-61)
[2021-04-03 08:21] LABS: SGOT/AST 20 U/L (15-37)
[2021-04-03 08:22] LABS: BILIRUBIN,TOTAL 1.7 mg/dL (0.2-1); TOT PROT 5.9 g/dl (6.4-8.2)
[2021-04-03 08:23] LABS: ALK PHOS 143 U/L (45-117)
[2021-04-03 08:25] LABS: ANION GAP 10 MMOL/L (8-16); GLUCOSE,RANDOM 104 mg/dL (74-106)
[2021-04-03] MEDS: OCULAR LUBRICANT OPHTHALMIC OINTMENT 7 GM TUBE OU SCH ×2 (09:44→22:01)
[2021-04-03] MEDS: AMINO ACIDS/PROTEIN HYDROLYS 30 ML LIQUID.PKT PO SCH ×3 (09:44→18:23)
[2021-04-03] MEDS: levETIRAcetam 500 MG/5 ML INJECTION VIAL IVPB SCH (09:44)
[2021-04-03] MEDS: MIDODRINE HCL 5 MG TABLET PO SCH ×3 (09:44→18:23)
[2021-04-03] MEDS: POTASSIUM CHLORIDE 20 MEQ PREMIX IVPB 100 ML IVPB SCH ×2 (09:44→10:55)
[2021-04-03] MEDS: FAMOTIDINE 20 MG/50 ML IVPB 20 MG/50 ML MG IVPB SCH ×2 (09:44→21:55)
[2021-04-03] MEDS: HYDROCORTISONE SOD SUCCINATE 100 MG/2 ML VIAL IVPUSH SCH (09:44)
[2021-04-03] MEDS ORDERED: POTASSIUM CHLORIDE TABS 10 MEQ TABLET.ER (FP) PO ONE (10:46)
[2021-04-03] MEDS: INSULIN SLIDING SCALE (NOVOLOG) 1 VIAL SQ SCH ×3 (12:45→21:59)
[2021-04-03] MEDS: KCL 10 MEQ IVPB 10 MEQ/100 ML INFUS.BAG IVPB SCH (12:46)
[2021-04-03] MEDS ORDERED: POTASSIUM CHLORIDE ORAL LIQUID 20 MEQ/15 ML PO ONE (13:30)
[2021-04-03] MEDS: INSULIN (LEVEMIR) 100 UNITS/ML UNITS SQ SCH (21:57)
[2021-04-04 05:07] LABS: BASO % 0.5 % (0-2.0); EOS % 0.2 % (0-4.5); HEMATOCRIT 22.5 % (35.4-49); HEMOGLOBIN 7.1 GM/dL (11.7-16.9); MCH 26.9 pg (25.7-33.7); MCHC 31.7 g/dl (32.0-35.9); MEAN PLT VOLUME 7.7 fl (7.5-11.1); MONO % 12.2 % (3.8-10.2); NEUT % 58.1 % (42.8-82.8); PLATELET COUNT 178 10^3/uL (134-434); RBC 2.65 M/mm3 (4.00-5.60); RDW 23.7 % (11.9-15.9); WHITE BLOOD COUNT 8.5 K/mm3 (4.0-10.0)
[2021-04-04 05:29] LABS: CALCIUM 8.1 mg/dL (8.5-10.1)
[2021-04-04 05:30] LABS: ALBUMIN 1.9 g/dl (3.4-5.0); BLOOD UREA NITROGEN 41.1 mg/dL (7-18); MAGNESIUM 1.8 mg/dL (1.8-2.4)
[2021-04-04 05:33] LABS: CREATININE 3.4 mg/dL (0.55-1.3); PHOSPHOROUS 2.9 mg/dL (2.5-4.9)
[2021-04-04 05:35] LABS: BILIRUBIN,TOTAL 1.6 mg/dL (0.2-1); TOT PROT 5.9 g/dl (6.4-8.2)
[2021-04-04] MEDS: KCL 10 MEQ IVPB 10 MEQ/100 ML INFUS.BAG IVPB SCH ×3 (05:55→08:22)
[2021-04-04] MEDS: NOREPINEPHRINE BITARTRATE IV SCH (05:56)
[2021-04-04] MEDS: SODIUM CHLORIDE IV SCH (05:56)
[2021-04-04] MEDS: BANATROL PLUS POWDER PACKET PO SCH ×3 (05:56→21:59)
[2021-04-04] MEDS: INSULIN SLIDING SCALE (NOVOLOG) 1 VIAL SQ SCH ×5 (07:58→22:07)
[2021-04-04] MEDS: AMINO ACIDS/PROTEIN HYDROLYS 30 ML LIQUID.PKT PO SCH ×3 (07:59→17:08)
[2021-04-04] MEDS: HYDROCORTISONE SOD SUCCINATE 100 MG/2 ML VIAL IVPUSH SCH (09:39)
[2021-04-04] MEDS: FAMOTIDINE 20 MG/50 ML IVPB 20 MG/50 ML MG IVPB SCH ×2 (09:40→21:58)
[2021-04-04] MEDS: MIDODRINE HCL 5 MG TABLET PO SCH ×3 (09:40→17:08)
[2021-04-04] MEDS: OCULAR LUBRICANT OPHTHALMIC OINTMENT 7 GM TUBE OU SCH ×2 (09:41→22:03)
[2021-04-04] MEDS ORDERED: ROCURONIUM BROMIDE 50 MG/5 ML VIAL IV ONE (09:52)
[2021-04-04] MEDS ORDERED: MIDAZOLAM HCL 2 MG/2 ML SINGLE DOSE VIAL IVPUSH ONE (09:52)
[2021-04-04] MEDS: levETIRAcetam 500 MG/5 ML INJECTION VIAL IVPB SCH (10:43)
[2021-04-04] MEDS ORDERED: DEXTROSE 10%-WATER 500 ML INFUS.BAG IV ONE (12:09)
[2021-04-04] MEDS: PROPOFOL 1,000,000 MCG/100 ML VIAL IVPB SCH (13:36)
[2021-04-04] MEDS: INSULIN (LEVEMIR) 100 UNITS/ML UNITS SQ SCH (22:07)
[2021-04-04] MEDS ORDERED: DEXTROSE 5%-0.45% SALINE 1,000 ML IV SCH (22:30)
[2021-04-05] MEDS: PROPOFOL 1,000,000 MCG/100 ML VIAL IVPB SCH (04:56)
[2021-04-05] MEDS: BANATROL PLUS POWDER PACKET PO SCH ×3 (06:53→22:00)
[2021-04-05] MEDS: INSULIN SLIDING SCALE (NOVOLOG) 1 VIAL SQ SCH ×3 (06:55→16:13)
[2021-04-05 07:05] LABS: BASO % 0.3 % (0-2.0); EOS % 0.2 % (0-4.5); HEMATOCRIT 21.4 % (35.4-49); LYMPH % 28.4 % (8-40); MCH 26.3 pg (25.7-33.7); MCHC 31.6 g/dl (32.0-35.9); MEAN CELL VOLUME 83.5 fl (80-96); MEAN PLT VOLUME 8.2 fl (7.5-11.1); MONO % 10.6 % (3.8-10.2); NEUT % 60.5 % (42.8-82.8); PLATELET COUNT 195 10^3/uL (134-434); RBC 2.56 M/mm3 (4.00-5.60); RDW 23.5 % (11.9-15.9); WHITE BLOOD COUNT 11.7 K/mm3 (4.0-10.0)
[2021-04-05 07:17] LABS: CHLORIDE 109 mmol/L (98-107); SODIUM 144 mmol/L (136-145)
[2021-04-05 07:18] LABS: HEMOGLOBIN 6.7 GM/dL (11.7-16.9)
[2021-04-05 07:25] LABS: CALCIUM 8.4 mg/dL (8.5-10.1)
[2021-04-05 07:26] LABS: BLOOD UREA NITROGEN 52.9 mg/dL (7-18); CO2 25 mmol/L (21-32); MAGNESIUM 1.9 mg/dL (1.8-2.4)
[2021-04-05 07:29] LABS: CREATININE 4.2 mg/dL (0.55-1.3); PHOSPHOROUS 2.3 mg/dL (2.5-4.9)
[2021-04-05] MEDS ORDERED: DEXTROSE 10%-WATER 500 ML INFUS.BAG IV ONE (07:30)
[2021-04-05 07:42] LABS: ANION GAP 11 MMOL/L (8-16); GLUCOSE,RANDOM 44 mg/dL (74-106)
[2021-04-05] MEDS ORDERED: POTASSIUM CHLORIDE 20 MEQ PREMIX IVPB 100 ML IVPB SCH (08:30)
[2021-04-05] MEDS: KCL 10 MEQ IVPB 10 MEQ/100 ML INFUS.BAG IVPB SCH ×3 (08:53→11:53)
[2021-04-05] MEDS: MIDODRINE HCL 5 MG TABLET PO SCH ×3 (09:20→18:33)
[2021-04-05] MEDS: AMINO ACIDS/PROTEIN HYDROLYS 30 ML LIQUID.PKT PO SCH ×3 (09:20→18:33)
[2021-04-05] MEDS: OCULAR LUBRICANT OPHTHALMIC OINTMENT 7 GM TUBE OU SCH ×2 (09:21→22:00)
[2021-04-05] MEDS: HYDROCORTISONE SOD SUCCINATE 100 MG/2 ML VIAL IVPUSH SCH (09:21)
[2021-04-05 09:27] LABS: ANISOCYTOSIS 1+; MACROCYTOSIS 1+; TARGET CELLS 1+
[2021-04-05] MEDS: levETIRAcetam 500 MG/5 ML INJECTION VIAL IVPB SCH (10:07)
[2021-04-05] MEDS: FAMOTIDINE 20 MG/50 ML IVPB 20 MG/50 ML MG IVPB SCH ×2 (10:49→22:00)
[2021-04-05] MEDS ORDERED: PROPOFOL 200 MG/20 ML VIAL IVPUSH ONE ×2 (12:58→13:16)
[2021-04-05] MEDS ORDERED: RAPID SEQUENCE INTUBATION KIT NR ONE (13:33)
[2021-04-06] MEDS: INSULIN SLIDING SCALE (NOVOLOG) 1 VIAL SQ SCH ×5 (00:45→23:25)
[2021-04-06] MEDS: INSULIN (LEVEMIR) 100 UNITS/ML UNITS SQ SCH ×2 (00:45→23:24)
[2021-04-06] MEDS: BANATROL PLUS POWDER PACKET PO SCH ×3 (06:06→23:24)
[2021-04-06 06:52] LABS: HEMOGLOBIN 8.5 GM/dL (11.7-16.9); MCH 27.8 pg (25.7-33.7); MCHC 32.6 g/dl (32.0-35.9); MEAN CELL VOLUME 85.2 fl (80-96); PLATELET COUNT 194 10^3/uL (134-434); RBC 3.05 M/mm3 (4.00-5.60); RDW 21.6 % (11.9-15.9); WHITE BLOOD COUNT 18.3 K/mm3 (4.0-10.0)
[2021-04-06 07:02] LABS: INR 1.29 (0.83-1.09); PROTHROMBIN TIME (PATIENT) 14.9 SEC (9.7-13.0)
[2021-04-06 07:05] LABS: ACTIVATED PTT 31.8 SECONDS (25.2-36.5)
[2021-04-06 07:17] LABS: BLOOD UREA NITROGEN 64.4 mg/dL (7-18); CALCIUM 8.1 mg/dL (8.5-10.1)
[2021-04-06] MEDS: AMINO ACIDS/PROTEIN HYDROLYS 30 ML LIQUID.PKT PO SCH ×3 (08:50→17:45)
[2021-04-06] MEDS ORDERED: CEFEPIME 1 GM in DEXTROSE 5%-WATER - 1 GM/50 ML IVPB IVPB ONE (09:15)
[2021-04-06] MEDS ORDERED: VANCOMYCIN/WATER BAGS 1,250 MG/250 ML BAG IVPB ONE (10:00)
[2021-04-06] MEDS ORDERED: VANCOMYCIN/WATER BAGS 1,250 MG/250 ML BAG IVPB SCH (10:00)
[2021-04-06] MEDS ORDERED: VANCOMYCIN/WATER 1,250 MG/250 ML BAG IVPB SCH (10:00)
[2021-04-06] MEDS: levETIRAcetam 500 MG/5 ML INJECTION VIAL IVPB SCH (10:15)
[2021-04-06] MEDS ORDERED: DEXTROSE 5%-WATER - 50 ML IVPB ONE (10:16)
[2021-04-06] MEDS ORDERED: CEFEPIME HCL 1 GM VIAL (RESTRICTED TO ID) ONE ×2 (10:16→23:01)
[2021-04-06] MEDS: OCULAR LUBRICANT OPHTHALMIC OINTMENT 7 GM TUBE OU SCH ×2 (10:18→23:24)
[2021-04-06] MEDS: MIDODRINE HCL 5 MG TABLET PO SCH ×3 (10:18→17:45)
[2021-04-06] MEDS: HYDROCORTISONE SOD SUCCINATE 100 MG/2 ML VIAL IVPUSH SCH (10:18)
[2021-04-06] MEDS: FAMOTIDINE 20 MG/50 ML IVPB 20 MG/50 ML MG IVPB SCH ×2 (10:18→23:25)
[2021-04-06] MEDS ORDERED: SODIUM CHLORIDE 250 ML IV PRN (13:00)
[2021-04-06] MEDS ORDERED: EPOETIN ALFA-EPBX 10,000 UNIT/ML VIAL SQ ONE (13:00)
[2021-04-06] MEDS: POTASSIUM CHLORIDE ORAL LIQUID 20 MEQ/15 ML PO SCH ×2 (15:23→23:25)
[2021-04-06] MEDS ORDERED: SODIUM CHLORIDE 100 ML IVPB ONE (23:01)
[2021-04-06] MEDS: CEFEPIME 1 GM in SODIUM CHLORIDE 100 ML IVPB SCH (23:25)
[2021-04-07] MEDS: BANATROL PLUS POWDER PACKET PO SCH ×3 (07:01→21:30)
[2021-04-07] MEDS: INSULIN SLIDING SCALE (NOVOLOG) 1 VIAL SQ SCH ×4 (07:01→21:31)
[2021-04-07] MEDS ORDERED: CEFEPIME HCL 1 GM VIAL (RESTRICTED TO ID) ONE (08:41)
[2021-04-07] MEDS ORDERED: SODIUM CHLORIDE 100 ML IVPB ONE (08:41)
[2021-04-07] MEDS: AMINO ACIDS/PROTEIN HYDROLYS 30 ML LIQUID.PKT PO SCH ×3 (09:00→17:52)
[2021-04-07 09:05] LABS: HEMATOCRIT 24.7 % (35.4-49); HEMOGLOBIN 7.8 GM/dL (11.7-16.9); MCH 27.4 pg (25.7-33.7); MCHC 31.7 g/dl (32.0-35.9); MEAN CELL VOLUME 86.6 fl (80-96); PLATELET COUNT 198 10^3/uL (134-434); RBC 2.85 M/mm3 (4.00-5.60); WHITE BLOOD COUNT 23.2 K/mm3 (4.0-10.0)
[2021-04-07 09:18] LABS: ALBUMIN 1.8 g/dl (3.4-5.0); BLOOD UREA NITROGEN 48.9 mg/dL (7-18); CALCIUM 8.5 mg/dL (8.5-10.1); MAGNESIUM 1.9 mg/dL (1.8-2.4)
[2021-04-07 09:21] LABS: CREATININE 3.8 mg/dL (0.55-1.3); PHOSPHOROUS 3.7 mg/dL (2.5-4.9)
[2021-04-07 09:22] LABS: BILIRUBIN,TOTAL 2.4 mg/dL (0.2-1); TOT PROT 6.4 g/dl (6.4-8.2)
[2021-04-07] MEDS: POTASSIUM CHLORIDE ORAL LIQUID 20 MEQ/15 ML PO SCH (09:48)
[2021-04-07] MEDS: MIDODRINE HCL 5 MG TABLET PO SCH ×3 (09:50→17:52)
[2021-04-07] MEDS: FAMOTIDINE 20 MG/50 ML IVPB 20 MG/50 ML MG IVPB SCH ×2 (09:50→21:31)
[2021-04-07] MEDS: CEFEPIME 1 GM in SODIUM CHLORIDE 100 ML IVPB SCH (09:50)
[2021-04-07] MEDS: levETIRAcetam 500 MG/5 ML INJECTION VIAL IVPB SCH (10:00)
[2021-04-07] MEDS: OCULAR LUBRICANT OPHTHALMIC OINTMENT 7 GM TUBE OU SCH ×2 (10:12→21:30)
[2021-04-07] MEDS: NOREPINEPHRINE BITARTRATE IV SCH (13:35)
[2021-04-07] MEDS: SODIUM CHLORIDE IV SCH (13:35)
[2021-04-07] MEDS ORDERED: VANCOMYCIN/WATER BAGS 1,250 MG/250 ML BAG IVPB ONE (18:05)
[2021-04-07] MEDS ORDERED: MEROPENEM 500 MG VIAL (RESTRICTED TO ID) IVPB ONE (18:10)
[2021-04-07] MEDS ORDERED: DEXTROSE 5%-WATER 100 ML IVPB ONE (18:11)
[2021-04-07] MEDS: MEROPENEM 500 MG in DEXTROSE 5%-WATER 100 ML IVPB SCH (18:14)
[2021-04-07] MEDS: INSULIN (LEVEMIR) 100 UNITS/ML UNITS SQ SCH (21:38)
[2021-04-08] MEDS ORDERED: MEROPENEM 500 MG VIAL (RESTRICTED TO ID) IVPB ONE ×3 (01:05→17:43)
[2021-04-08] MEDS ORDERED: DEXTROSE 5%-WATER 100 ML IVPB ONE ×3 (01:06→17:43)
[2021-04-08] MEDS: MEROPENEM 500 MG in DEXTROSE 5%-WATER 100 ML IVPB SCH ×3 (02:12→17:50)
[2021-04-08] MEDS: INSULIN SLIDING SCALE (NOVOLOG) 1 VIAL SQ SCH ×4 (06:18→21:39)
[2021-04-08] MEDS: BANATROL PLUS POWDER PACKET PO SCH ×3 (06:22→21:37)
[2021-04-08 07:43] LABS: HEMATOCRIT 24.8 % (35.4-49); HEMOGLOBIN 7.8 GM/dL (11.7-16.9); MCH 27.8 pg (25.7-33.7); MCHC 31.4 g/dl (32.0-35.9); MEAN CELL VOLUME 88.5 fl (80-96); MEAN PLT VOLUME 7.9 fl (7.5-11.1); PLATELET COUNT 181 10^3/uL (134-434); RDW 22.8 % (11.9-15.9); WHITE BLOOD COUNT 11.7 K/mm3 (4.0-10.0)
[2021-04-08] MEDS: AMINO ACIDS/PROTEIN HYDROLYS 30 ML LIQUID.PKT PO SCH ×3 (07:57→17:51)
[2021-04-08] MEDS: MIDODRINE HCL 5 MG TABLET PO SCH ×3 (09:28→17:51)
[2021-04-08] MEDS: FAMOTIDINE 20 MG/50 ML IVPB 20 MG/50 ML MG IVPB SCH ×2 (09:28→21:37)
[2021-04-08] MEDS: levETIRAcetam 500 MG/5 ML INJECTION VIAL IVPB SCH (09:30)
[2021-04-08] MEDS: MINERAL OIL/PETROLATUM,WHITE 3.5 GM TUBE OU PRN (09:30)
[2021-04-08] MEDS ORDERED: SODIUM CHLORIDE 250 ML IV PRN (10:26)
[2021-04-08] MEDS: OCULAR LUBRICANT OPHTHALMIC OINTMENT 7 GM TUBE OU SCH ×2 (10:56→21:37)
[2021-04-08] MEDS: HYDROCORTISONE SOD SUCCINATE 100 MG/2 ML VIAL IVPUSH SCH ×2 (10:58→17:52)
[2021-04-08] MEDS: SODIUM CHLORIDE IV SCH (12:38)
[2021-04-08] MEDS: NOREPINEPHRINE BITARTRATE IV SCH (12:38)
[2021-04-08] MEDS ORDERED: EPOETIN ALFA-EPBX 10,000 UNIT/ML VIAL SQ ONE (17:30)
[2021-04-08] MEDS: INSULIN (LEVEMIR) 100 UNITS/ML UNITS SQ SCH (21:39)
[2021-04-09] MEDS ORDERED: MEROPENEM 500 MG VIAL (RESTRICTED TO ID) IVPB ONE ×3 (01:09→18:21)
[2021-04-09] MEDS ORDERED: DEXTROSE 5%-WATER 100 ML IVPB ONE ×3 (01:09→18:21)
[2021-04-09] MEDS: MEROPENEM 500 MG in DEXTROSE 5%-WATER 100 ML IVPB SCH ×3 (01:23→18:17)
[2021-04-09] MEDS: HYDROCORTISONE SOD SUCCINATE 100 MG/2 ML VIAL IVPUSH SCH ×3 (01:23→18:17)
[2021-04-09] MEDS: BANATROL PLUS POWDER PACKET PO SCH ×3 (06:08→22:37)
[2021-04-09] MEDS: INSULIN SLIDING SCALE (NOVOLOG) 1 VIAL SQ SCH ×4 (06:08→22:38)
[2021-04-09 08:03] LABS: HEMATOCRIT 24.3 % (35.4-49); HEMOGLOBIN 7.6 GM/dL (11.7-16.9); MCH 27.3 pg (25.7-33.7); MCHC 31.4 g/dl (32.0-35.9); MEAN CELL VOLUME 86.8 fl (80-96); MEAN PLT VOLUME 7.9 fl (7.5-11.1); PLATELET COUNT 151 10^3/uL (134-434); RDW 23.3 % (11.9-15.9); WHITE BLOOD COUNT 21.4 K/mm3 (4.0-10.0)
[2021-04-09 08:10] LABS: CALCIUM 8.6 mg/dL (8.5-10.1)
[2021-04-09 08:15] LABS: CREATININE 3.2 mg/dL (0.55-1.3)
[2021-04-09] MEDS: AMINO ACIDS/PROTEIN HYDROLYS 30 ML LIQUID.PKT PO SCH ×3 (09:00→18:17)
[2021-04-09] MEDS: KCL 10 MEQ IVPB 10 MEQ/100 ML INFUS.BAG IVPB SCH ×2 (09:30→09:40)
[2021-04-09] MEDS: FAMOTIDINE 20 MG/50 ML IVPB 20 MG/50 ML MG IVPB SCH ×2 (09:31→22:39)
[2021-04-09] MEDS: levETIRAcetam 500 MG/5 ML INJECTION VIAL IVPB SCH (09:31)
[2021-04-09] MEDS: OCULAR LUBRICANT OPHTHALMIC OINTMENT 7 GM TUBE OU SCH ×2 (09:31→22:37)
[2021-04-09] MEDS: MIDODRINE HCL 5 MG TABLET PO SCH ×3 (09:31→18:17)
[2021-04-09] MEDS ORDERED: POTASSIUM CHLORIDE ORAL LIQUID 20 MEQ/15 ML GT ONE (11:15)
[2021-04-09] MEDS ORDERED: VANCOMYCIN/WATER BAGS 1,250 MG/250 ML BAG IVPB ONE (19:00)
[2021-04-09] MEDS: INSULIN (LEVEMIR) 100 UNITS/ML UNITS SQ SCH (22:38)
[2021-04-10] MEDS ORDERED: DEXTROSE 5%-WATER 100 ML IVPB ONE ×3 (01:30→17:46)
[2021-04-10] MEDS ORDERED: MEROPENEM 500 MG VIAL (RESTRICTED TO ID) IVPB ONE ×3 (01:30→17:46)
[2021-04-10] MEDS: MEROPENEM 500 MG in DEXTROSE 5%-WATER 100 ML IVPB SCH ×3 (01:31→17:51)
[2021-04-10] MEDS: HYDROCORTISONE SOD SUCCINATE 100 MG/2 ML VIAL IVPUSH SCH ×3 (01:31→17:51)
[2021-04-10] MEDS: SODIUM CHLORIDE IV SCH (06:06)
[2021-04-10] MEDS: BANATROL PLUS POWDER PACKET PO SCH ×3 (06:06→21:39)
[2021-04-10] MEDS: NOREPINEPHRINE BITARTRATE IV SCH (06:06)
[2021-04-10] MEDS: INSULIN SLIDING SCALE (NOVOLOG) 1 VIAL SQ SCH ×4 (06:06→21:41)
[2021-04-10 07:08] LABS: HEMATOCRIT 21.8 % (35.4-49); MCH 27.4 pg (25.7-33.7); MCHC 31.8 g/dl (32.0-35.9); MEAN CELL VOLUME 86.2 fl (80-96); MEAN PLT VOLUME 8.1 fl (7.5-11.1); PLATELET COUNT 128 10^3/uL (134-434); RBC 2.53 M/mm3 (4.00-5.60); RDW 23.7 % (11.9-15.9); WHITE BLOOD COUNT 21.1 K/mm3 (4.0-10.0)
[2021-04-10 07:29] LABS: CALCIUM 8.2 mg/dL (8.5-10.1)
[2021-04-10 07:33] LABS: CREATININE 3.8 mg/dL (0.55-1.3); PHOSPHOROUS 1.9 mg/dL (2.5-4.9)
[2021-04-10 07:42] LABS: HEMOGLOBIN 6.9 GM/dL (11.7-16.9)
[2021-04-10] MEDS: AMINO ACIDS/PROTEIN HYDROLYS 30 ML LIQUID.PKT PO SCH ×3 (08:34→16:42)
[2021-04-10] MEDS: levETIRAcetam 500 MG/5 ML INJECTION VIAL IVPB SCH (10:02)
[2021-04-10] MEDS: OCULAR LUBRICANT OPHTHALMIC OINTMENT 7 GM TUBE OU SCH ×2 (10:02→21:41)
[2021-04-10] MEDS: FAMOTIDINE 20 MG/50 ML IVPB 20 MG/50 ML MG IVPB SCH ×2 (10:03→21:39)
[2021-04-10] MEDS: MIDODRINE HCL 5 MG TABLET PO SCH ×3 (10:03→17:51)
[2021-04-10] MEDS ORDERED: ALBUTEROL SO4 2.5/IPRATROPIUM 0.5 INH SOL 3 ML VIAL.NEB. NEB PRN (10:08)
[2021-04-10 10:29] LABS: MACROCYTOSIS 1+; PLATELET ESTIMATE DECREASED
[2021-04-10] MEDS ORDERED: ALBUTEROL SO4 0.5 % INH SOLN 2.5 MG/0.5 ML VIAL.NEB. NEB ONE (10:55)
[2021-04-10] MEDS ORDERED: ACETYLCYSTEINE 20% 200MG/ML 4 ML VIAL *FOR ORAL / INH USE ONLY ONE (10:55)
[2021-04-10] MEDS: ACETYLCYSTEINE 20% 200MG/ML 4 ML VIAL *FOR ORAL / INH USE ONLY NEB SCH ×3 (11:30→20:10)
[2021-04-10] MEDS: ALBUTEROL SO4 0.083% IH SOL 2.5 MG/3 ML VIAL.NEB. NEB SCH ×3 (11:30→20:10)
[2021-04-10] MEDS ORDERED: POTASSIUM CHLORIDE ORAL LIQUID 20 MEQ/15 ML PO ONE (15:25)
[2021-04-10 16:51] LABS: HEMATOCRIT 25.9 % (35.4-49); HEMOGLOBIN 8.4 GM/dL (11.7-16.9); MCH 28.1 pg (25.7-33.7); MCHC 32.3 g/dl (32.0-35.9); MEAN CELL VOLUME 86.9 fl (80-96); PLATELET COUNT 101 10^3/uL (134-434); RBC 2.98 M/mm3 (4.00-5.60); RDW 21.6 % (11.9-15.9); WHITE BLOOD COUNT 16.8 K/mm3 (4.0-10.0)
[2021-04-10] MEDS: INSULIN (LEVEMIR) 100 UNITS/ML UNITS SQ SCH (21:39)
[2021-04-11] MEDS: HYDROCORTISONE SOD SUCCINATE 100 MG/2 ML VIAL IVPUSH SCH ×3 (02:45→17:12)
[2021-04-11] MEDS: MEROPENEM 500 MG in DEXTROSE 5%-WATER 100 ML IVPB SCH ×3 (02:45→17:11)
[2021-04-11] MEDS ORDERED: MEROPENEM 500 MG VIAL (RESTRICTED TO ID) IVPB ONE ×3 (03:03→13:58)
[2021-04-11] MEDS ORDERED: DEXTROSE 5%-WATER 100 ML IVPB ONE ×3 (03:03→13:58)
[2021-04-11] MEDS: SODIUM CHLORIDE IV SCH (05:58)
[2021-04-11] MEDS: NOREPINEPHRINE BITARTRATE IV SCH (05:58)
[2021-04-11] MEDS: BANATROL PLUS POWDER PACKET PO SCH ×3 (05:58→23:13)
[2021-04-11] MEDS: INSULIN SLIDING SCALE (NOVOLOG) 1 VIAL SQ SCH ×4 (06:04→23:14)
[2021-04-11 07:18] LABS: HEMATOCRIT 25.2 % (35.4-49); HEMOGLOBIN 8.1 GM/dL (11.7-16.9); MCH 27.6 pg (25.7-33.7); MCHC 32.1 g/dl (32.0-35.9); MEAN PLT VOLUME 8.3 fl (7.5-11.1); PLATELET COUNT 71 10^3/uL (134-434); RBC 2.93 M/mm3 (4.00-5.60); RDW 21.5 % (11.9-15.9); WHITE BLOOD COUNT 23.9 K/mm3 (4.0-10.0)
[2021-04-11 07:35] LABS: CHLORIDE 113 mmol/L (98-107); SODIUM 148 mmol/L (136-145)
[2021-04-11 07:37] LABS: BLOOD UREA NITROGEN 72.2 mg/dL (7-18); CALCIUM 8.7 mg/dL (8.5-10.1); CO2 25 mmol/L (21-32); GLUCOSE,RANDOM 109 mg/dL (74-106)
[2021-04-11 07:41] LABS: CREATININE 4.2 mg/dL (0.55-1.3)
[2021-04-11 07:47] LABS: ANION GAP 10 MMOL/L (8-16)
[2021-04-11] MEDS: ACETYLCYSTEINE 20% 200MG/ML 4 ML VIAL *FOR ORAL / INH USE ONLY NEB SCH ×4 (08:35→20:38)
[2021-04-11] MEDS: ALBUTEROL SO4 0.083% IH SOL 2.5 MG/3 ML VIAL.NEB. NEB SCH ×4 (08:35→20:38)
[2021-04-11] MEDS: KCL 10 MEQ IVPB 10 MEQ/100 ML INFUS.BAG IVPB SCH ×3 (08:53→11:20)
[2021-04-11] MEDS: AMINO ACIDS/PROTEIN HYDROLYS 30 ML LIQUID.PKT PO SCH ×3 (08:56→17:10)
[2021-04-11 09:42] LABS: ANISOCYTOSIS 3+; MACROCYTOSIS 2+; PLATELET ESTIMATE DECREASED
[2021-04-11] MEDS: levETIRAcetam 500 MG/5 ML INJECTION VIAL IVPB SCH (10:30)
[2021-04-11] MEDS: OCULAR LUBRICANT OPHTHALMIC OINTMENT 7 GM TUBE OU SCH ×2 (10:32→23:13)
[2021-04-11] MEDS: MIDODRINE HCL 5 MG TABLET PO SCH ×3 (10:33→17:11)
[2021-04-11] MEDS: FAMOTIDINE 20 MG/50 ML IVPB 20 MG/50 ML MG IVPB SCH ×2 (10:33→23:13)
[2021-04-11] MEDS ORDERED: EPOETIN ALFA-EPBX 20,000 UNIT/ML VIAL IVPUSH ONE (12:00)
[2021-04-11] MEDS ORDERED: SODIUM CHLORIDE 250 ML IV PRN (12:00)
[2021-04-11] MEDS: ALBUMIN HUMAN 25% 12.5 GM/50 ML VIAL IV SCH ×3 (13:45→14:10)
[2021-04-11] MEDS: POTASSIUM CHLORIDE ORAL LIQUID 20 MEQ/15 ML NGT SCH ×2 (14:00→23:13)
[2021-04-11] MEDS ORDERED: POTASSIUM CHLORIDE ORAL LIQUID 20 MEQ/15 ML PO SCH (14:00)
[2021-04-11 22:48] LABS: CHLORIDE 109 mmol/L (98-107); SODIUM 145 mmol/L (136-145)
[2021-04-11 22:49] LABS: CALCIUM 8.5 mg/dL (8.5-10.1)
[2021-04-11 22:50] LABS: BLOOD UREA NITROGEN 49.9 mg/dL (7-18); CO2 28 mmol/L (21-32); GLUCOSE,RANDOM 145 mg/dL (74-106)
[2021-04-11 22:59] LABS: ANION GAP 7 MMOL/L (8-16)
[2021-04-11] MEDS: INSULIN (LEVEMIR) 100 UNITS/ML UNITS SQ SCH (23:14)
[2021-04-12] MEDS: POTASSIUM CHLORIDE 20 MEQ PREMIX IVPB 100 ML IVPB SCH ×3 (01:00→04:25)
[2021-04-12] MEDS ORDERED: MEROPENEM 500 MG VIAL (RESTRICTED TO ID) IVPB ONE ×3 (01:09→16:36)
[2021-04-12] MEDS ORDERED: DEXTROSE 5%-WATER 100 ML IVPB ONE ×3 (01:09→16:36)
[2021-04-12] MEDS: NOREPINEPHRINE BITARTRATE IV SCH ×4 (01:38→21:30)
[2021-04-12] MEDS: SODIUM CHLORIDE IV SCH ×4 (01:38→21:30)
[2021-04-12] MEDS: HYDROCORTISONE SOD SUCCINATE 100 MG/2 ML VIAL IVPUSH SCH ×3 (01:39→17:01)
[2021-04-12] MEDS: MEROPENEM 500 MG in DEXTROSE 5%-WATER 100 ML IVPB SCH ×3 (01:41→17:01)
[2021-04-12] MEDS: POTASSIUM CHLORIDE ORAL LIQUID 20 MEQ/15 ML NGT SCH (06:28)
[2021-04-12] MEDS: BANATROL PLUS POWDER PACKET PO SCH ×3 (06:28→22:47)
[2021-04-12] MEDS: INSULIN SLIDING SCALE (NOVOLOG) 1 VIAL SQ SCH ×4 (06:29→22:17)
[2021-04-12 07:18] LABS: HEMATOCRIT 25.2 % (35.4-49); MCH 27.5 pg (25.7-33.7); MCHC 31.9 g/dl (32.0-35.9); MEAN CELL VOLUME 86.2 fl (80-96); MEAN PLT VOLUME 8.9 fl (7.5-11.1); RBC 2.93 M/mm3 (4.00-5.60); RDW 22.4 % (11.9-15.9); WHITE BLOOD COUNT 28.6 K/mm3 (4.0-10.0)
[2021-04-12 07:20] LABS: PLATELET COUNT 36 10^3/uL (134-434)
[2021-04-12 07:48] LABS: BLOOD UREA NITROGEN 52.3 mg/dL (7-18); CALCIUM 8.2 mg/dL (8.5-10.1)
[2021-04-12 07:51] LABS: PHOSPHOROUS 1.8 mg/dL (2.5-4.9)
[2021-04-12 07:52] LABS: CREATININE 3.3 mg/dL (0.55-1.3)
[2021-04-12] MEDS: ALBUTEROL SO4 0.083% IH SOL 2.5 MG/3 ML VIAL.NEB. NEB SCH ×4 (08:10→20:00)
[2021-04-12] MEDS: ACETYLCYSTEINE 20% 200MG/ML 4 ML VIAL *FOR ORAL / INH USE ONLY NEB SCH ×4 (08:10→20:00)
[2021-04-12] MEDS: AMINO ACIDS/PROTEIN HYDROLYS 30 ML LIQUID.PKT PO SCH ×3 (08:59→16:48)
[2021-04-12] MEDS: levETIRAcetam 500 MG/5 ML INJECTION VIAL IVPB SCH (09:00)
[2021-04-12] MEDS: FAMOTIDINE 20 MG/50 ML IVPB 20 MG/50 ML MG IVPB SCH ×2 (09:00→22:16)
[2021-04-12] MEDS: OCULAR LUBRICANT OPHTHALMIC OINTMENT 7 GM TUBE OU SCH ×2 (09:40→22:48)
[2021-04-12] MEDS: MIDODRINE HCL 5 MG TABLET PO SCH ×3 (09:41→17:05)
[2021-04-12 09:59] LABS: ANISOCYTOSIS 1+; MACROCYTOSIS 0; TARGET CELLS 1+
[2021-04-12] MEDS ORDERED: TIGECYCLINE 100 MG in DEXTROSE 5%-WATER - 100 ML IVPB ONE (12:00)
[2021-04-12 12:12] LABS: INR 1.31 (0.83-1.09); PROTHROMBIN TIME (PATIENT) 15.1 SEC (9.7-13.0)
[2021-04-12 12:15] LABS: ACTIVATED PTT 37.2 SECONDS (25.2-36.5)
[2021-04-12] MEDS: ACETAMINOPHEN 325 MG TABLET (FP) PO PRN ×2 (14:49→22:15)
[2021-04-12] MEDS: TIGECYCLINE 50 MG in DEXTROSE 5%-WATER - 100 ML IVPB SCH (22:16)
[2021-04-12] MEDS: VASOPRESSIN 40 UNITS/100 ML BAG IV SCH (22:47)
[2021-04-12] MEDS: INSULIN (LEVEMIR) 100 UNITS/ML UNITS SQ SCH (22:48)
[2021-04-13] MEDS: NOREPINEPHRINE BITARTRATE IV SCH ×4 (00:15→20:15)
[2021-04-13] MEDS: SODIUM CHLORIDE IV SCH ×4 (00:15→20:15)
[2021-04-13] MEDS: HYDROCORTISONE SOD SUCCINATE 100 MG/2 ML VIAL IVPUSH SCH ×3 (01:40→18:01)
[2021-04-13] MEDS: MEROPENEM 500 MG in DEXTROSE 5%-WATER 100 ML IVPB SCH ×3 (01:40→18:00)
[2021-04-13] MEDS: ACETAMINOPHEN 325 MG TABLET (FP) PO PRN ×2 (05:26→18:09)
[2021-04-13] MEDS: BANATROL PLUS POWDER PACKET PO SCH ×3 (05:26→21:24)
[2021-04-13] MEDS: INSULIN SLIDING SCALE (NOVOLOG) 1 VIAL SQ SCH ×4 (06:04→21:22)
[2021-04-13] MEDS ORDERED: SODIUM CHLORIDE 250 ML IV PRN (07:34)
[2021-04-13 07:36] LABS: CALCIUM 8.4 mg/dL (8.5-10.1); MAGNESIUM 2.1 mg/dL (1.8-2.4)
[2021-04-13 07:39] LABS: PHOSPHOROUS 3.3 mg/dL (2.5-4.9)
[2021-04-13 07:40] LABS: CREATININE 3.8 mg/dL (0.55-1.3)
[2021-04-13] MEDS: ACETYLCYSTEINE 20% 200MG/ML 4 ML VIAL *FOR ORAL / INH USE ONLY NEB SCH ×4 (07:40→20:24)
[2021-04-13] MEDS: ALBUTEROL SO4 0.083% IH SOL 2.5 MG/3 ML VIAL.NEB. NEB SCH ×4 (07:40→20:23)
[2021-04-13 07:41] LABS: BLOOD UREA NITROGEN 85.8 mg/dL (7-18)
[2021-04-13] MEDS ORDERED: EPOETIN ALFA-EPBX 20,000 UNIT/ML VIAL IVPUSH ONE (07:45)
[2021-04-13 09:31] LABS: HEMATOCRIT 23.4 % (35.4-49); HEMOGLOBIN 7.7 GM/dL (11.7-16.9); MCH 27.9 pg (25.7-33.7); MCHC 32.9 g/dl (32.0-35.9); MEAN CELL VOLUME 84.9 fl (80-96); MEAN PLT VOLUME 9.5 fl (7.5-11.1); PLATELET COUNT 95 10^3/uL (134-434); RBC 2.76 M/mm3 (4.00-5.60); RDW 21.9 % (11.9-15.9); WHITE BLOOD COUNT 24.7 K/mm3 (4.0-10.0)
[2021-04-13] MEDS ORDERED: MEROPENEM 500 MG VIAL (RESTRICTED TO ID) IVPB ONE ×2 (09:37→18:14)
[2021-04-13] MEDS ORDERED: DEXTROSE 5%-WATER 100 ML IVPB ONE ×2 (09:37→18:14)
[2021-04-13] MEDS: AMINO ACIDS/PROTEIN HYDROLYS 30 ML LIQUID.PKT PO SCH ×3 (09:40→18:00)
[2021-04-13] MEDS: OCULAR LUBRICANT OPHTHALMIC OINTMENT 7 GM TUBE OU SCH ×2 (09:40→21:24)
[2021-04-13] MEDS: levETIRAcetam 500 MG/5 ML INJECTION VIAL IVPB SCH (09:40)
[2021-04-13] MEDS: FAMOTIDINE 20 MG/50 ML IVPB 20 MG/50 ML MG IVPB SCH ×2 (09:41→21:22)
[2021-04-13] MEDS: MIDODRINE HCL 5 MG TABLET PO SCH ×3 (09:41→18:01)
[2021-04-13] MEDS: TIGECYCLINE 50 MG in DEXTROSE 5%-WATER - 100 ML IVPB SCH ×2 (09:41→21:24)
[2021-04-13] MEDS ORDERED: TIGECYCLINE 50 MG in DEXTROSE 5%-WATER - 100 ML IVPB SCH (10:00)
[2021-04-13 12:08] LABS: ANISOCYTOSIS 2+; MACROCYTOSIS 0; OVALOCYTE 1+; TARGET CELLS 1+; TEAR DROP CELLS 1+; TOXIC GRANULATION 2+
[2021-04-13] MEDS: VASOPRESSIN 40 UNITS/100 ML BAG IV SCH (12:11)
[2021-04-13] MEDS: INSULIN (LEVEMIR) 100 UNITS/ML UNITS SQ SCH (21:23)
[2021-04-14] MEDS ORDERED: DEXTROSE 5%-WATER 100 ML IVPB ONE ×3 (01:08→16:33)
[2021-04-14] MEDS ORDERED: MEROPENEM 500 MG VIAL (RESTRICTED TO ID) IVPB ONE ×3 (01:08→16:33)
[2021-04-14] MEDS: MEROPENEM 500 MG in DEXTROSE 5%-WATER 100 ML IVPB SCH ×3 (01:18→17:34)
[2021-04-14] MEDS: HYDROCORTISONE SOD SUCCINATE 100 MG/2 ML VIAL IVPUSH SCH ×3 (01:18→17:33)
[2021-04-14] MEDS: BANATROL PLUS POWDER PACKET PO SCH ×3 (05:42→21:50)
[2021-04-14] MEDS: INSULIN SLIDING SCALE (NOVOLOG) 1 VIAL SQ SCH ×4 (06:37→21:50)
[2021-04-14 07:41] LABS: CALCIUM 8.3 mg/dL (8.5-10.1)
[2021-04-14 07:42] LABS: BLOOD UREA NITROGEN 66.5 mg/dL (7-18); MAGNESIUM 1.9 mg/dL (1.8-2.4)
[2021-04-14 07:45] LABS: CREATININE 2.8 mg/dL (0.55-1.3); PHOSPHOROUS 3.2 mg/dL (2.5-4.9)
[2021-04-14] MEDS: ACETYLCYSTEINE 20% 200MG/ML 4 ML VIAL *FOR ORAL / INH USE ONLY NEB SCH ×4 (08:00→20:11)
[2021-04-14] MEDS: ALBUTEROL SO4 0.083% IH SOL 2.5 MG/3 ML VIAL.NEB. NEB SCH ×4 (08:00→20:11)
[2021-04-14] MEDS: MIDODRINE HCL 5 MG TABLET PO SCH ×3 (09:29→17:33)
[2021-04-14] MEDS: AMINO ACIDS/PROTEIN HYDROLYS 30 ML LIQUID.PKT PO SCH ×3 (09:29→16:35)
[2021-04-14] MEDS: FAMOTIDINE 20 MG/50 ML IVPB 20 MG/50 ML MG IVPB SCH ×2 (09:29→21:51)
[2021-04-14] MEDS: levETIRAcetam 500 MG/5 ML INJECTION VIAL IVPB SCH (09:29)
[2021-04-14] MEDS: OCULAR LUBRICANT OPHTHALMIC OINTMENT 7 GM TUBE OU SCH ×2 (09:31→21:50)
[2021-04-14] MEDS: TIGECYCLINE 50 MG in DEXTROSE 5%-WATER - 100 ML IVPB SCH ×2 (09:31→21:51)
[2021-04-14] MEDS: VASOPRESSIN 40 UNITS/100 ML BAG IV SCH (20:57)
[2021-04-14] MEDS: INSULIN (LEVEMIR) 100 UNITS/ML UNITS SQ SCH (21:50)
[2021-04-14 21:58] LABS: BASO % 0.1 % (0-2.0); HEMATOCRIT 20.6 % (35.4-49); LYMPH % 12.7 % (8-40); MCH 27.2 pg (25.7-33.7); MCHC 31.7 g/dl (32.0-35.9); MEAN CELL VOLUME 85.9 fl (80-96); MEAN PLT VOLUME 10.1 fl (7.5-11.1); MONO % 6.1 % (3.8-10.2); NEUT % 81.1 % (42.8-82.8); PLATELET COUNT 79 10^3/uL (134-434); RBC 2.39 M/mm3 (4.00-5.60); RDW 21.5 % (11.9-15.9); WHITE BLOOD COUNT 27.2 K/mm3 (4.0-10.0)
[2021-04-14 22:01] LABS: HEMOGLOBIN 6.5 GM/dL (11.7-16.9)
[2021-04-14 22:07] LABS: INR 1.26 (0.83-1.09); PROTHROMBIN TIME (PATIENT) 14.5 SEC (9.7-13.0)
[2021-04-14 22:10] LABS: ACTIVATED PTT 33.3 SECONDS (25.2-36.5)
[2021-04-14 22:47] LABS: ANISOCYTOSIS 2+; MACROCYTOSIS 1+; OVALOCYTE 1+; PLATELET ESTIMATE DECREASED; TARGET CELLS 1+; TEAR DROP CELLS 1+
[2021-04-14] MEDS ORDERED: AMIODARONE IN DEXTROSE,ISO-OSM 360 MG/200 ML BAG ONE (23:14)
[2021-04-15] MEDS: HYDROCORTISONE SOD SUCCINATE 100 MG/2 ML VIAL IVPUSH SCH ×4 (03:34→21:14)
[2021-04-15] MEDS: BANATROL PLUS POWDER PACKET PO SCH ×3 (05:00→21:13)
[2021-04-15] MEDS ORDERED: SODIUM CHLORIDE 250 ML IV PRN (06:37)
[2021-04-15] MEDS ORDERED: EPOETIN ALFA-EPBX 20,000 UNIT/ML VIAL SQ ONE (07:00)
[2021-04-15] MEDS: INSULIN SLIDING SCALE (NOVOLOG) 1 VIAL SQ SCH ×4 (07:17→21:14)
[2021-04-15] MEDS ORDERED: AMIODARONE IN DEXTROSE,ISO-OSM 150 MG/100 ML BAG IVPB ONE (08:15)
[2021-04-15] MEDS: AMINO ACIDS/PROTEIN HYDROLYS 30 ML LIQUID.PKT PO SCH ×3 (08:17→16:37)
[2021-04-15] MEDS ORDERED: AMIODARONE IN DEXTROSE,ISO-OSM 360 MG/200 ML BAG IVPB ONE (08:25)
[2021-04-15] MEDS: PHENYLEPHRINE NS PREMIX 50,000 MCG/500 ML BAG IVPB SCH (08:42)
[2021-04-15] MEDS: ALBUTEROL SO4 0.083% IH SOL 2.5 MG/3 ML VIAL.NEB. NEB SCH ×4 (09:00→20:10)
[2021-04-15] MEDS: ACETYLCYSTEINE 20% 200MG/ML 4 ML VIAL *FOR ORAL / INH USE ONLY NEB SCH ×4 (09:00→20:10)
[2021-04-15] MEDS: levETIRAcetam 500 MG/5 ML INJECTION VIAL IVPB SCH (09:01)
[2021-04-15] MEDS: FAMOTIDINE 20 MG/50 ML IVPB 20 MG/50 ML MG IVPB SCH ×2 (09:01→21:14)
[2021-04-15] MEDS: MIDODRINE HCL 5 MG TABLET PO SCH ×3 (09:01→17:17)
[2021-04-15] MEDS: VASOPRESSIN 40 UNITS/100 ML BAG IV SCH (09:02)
[2021-04-15] MEDS: OCULAR LUBRICANT OPHTHALMIC OINTMENT 7 GM TUBE OU SCH ×2 (09:02→21:13)
[2021-04-15] MEDS: TIGECYCLINE 50 MG in DEXTROSE 5%-WATER - 100 ML IVPB SCH ×2 (09:04→21:14)
[2021-04-15 10:16] LABS: HEMATOCRIT 27.1 % (35.4-49); HEMOGLOBIN 8.6 GM/dL (11.7-16.9); MCH 27.5 pg (25.7-33.7); MCHC 31.8 g/dl (32.0-35.9); MEAN CELL VOLUME 86.7 fl (80-96); MEAN PLT VOLUME 10.7 fl (7.5-11.1); PLATELET COUNT 97 10^3/uL (134-434); RBC 3.12 M/mm3 (4.00-5.60); RDW 20.2 % (11.9-15.9)
[2021-04-15 10:25] LABS: CALCIUM 8.4 mg/dL (8.5-10.1)
[2021-04-15 10:26] LABS: MAGNESIUM 2.2 mg/dL (1.8-2.4)
[2021-04-15 10:28] LABS: INR 1.24 (0.83-1.09); PROTHROMBIN TIME (PATIENT) 14.3 SEC (9.7-13.0)
[2021-04-15 10:29] LABS: CREATININE 3.6 mg/dL (0.55-1.3); PHOSPHOROUS 5.7 mg/dL (2.5-4.9)
[2021-04-15 10:31] LABS: ACTIVATED PTT 32.5 SECONDS (25.2-36.5); WHITE BLOOD COUNT 41.2 K/mm3 (4.0-10.0)
[2021-04-15 10:35] LABS: BLOOD UREA NITROGEN 101.9 mg/dL (7-18)
[2021-04-15] MEDS: ALBUMIN HUMAN 25% 12.5 GM/50 ML VIAL IV SCH ×3 (12:45→14:02)
[2021-04-15] MEDS: AMIODARONE IN DEXTROSE,ISO-OSM 360 MG/200 ML BAG IVPB SCH (13:32)
[2021-04-15] MEDS: INSULIN (LEVEMIR) 100 UNITS/ML UNITS SQ SCH (21:13)
[2021-04-16] MEDS: HYDROCORTISONE SOD SUCCINATE 100 MG/2 ML VIAL IVPUSH SCH ×3 (05:45→21:27)
[2021-04-16] MEDS: BANATROL PLUS POWDER PACKET PO SCH ×3 (05:45→21:28)
[2021-04-16 07:06] LABS: HEMATOCRIT 25.1 % (35.4-49); HEMOGLOBIN 8.2 GM/dL (11.7-16.9); MCH 28.3 pg (25.7-33.7); MCHC 32.9 g/dl (32.0-35.9); MEAN CELL VOLUME 86.2 fl (80-96); MEAN PLT VOLUME 10.4 fl (7.5-11.1); PLATELET COUNT 116 10^3/uL (134-434); RBC 2.91 M/mm3 (4.00-5.60)
[2021-04-16 07:12] LABS: WHITE BLOOD COUNT 40.6 K/mm3 (4.0-10.0)
[2021-04-16] MEDS: INSULIN SLIDING SCALE (NOVOLOG) 1 VIAL SQ SCH ×4 (07:15→21:23)
[2021-04-16 07:17] LABS: INR 1.25 (0.83-1.09); PROTHROMBIN TIME (PATIENT) 14.4 SEC (9.7-13.0)
[2021-04-16 08:03] LABS: MAGNESIUM 1.8 mg/dL (1.8-2.4)
[2021-04-16 08:06] LABS: PHOSPHOROUS 5.3 mg/dL (2.5-4.9)
[2021-04-16] MEDS: PHENYLEPHRINE NS PREMIX 50,000 MCG/500 ML BAG IVPB SCH (08:26)
[2021-04-16] MEDS: VASOPRESSIN 40 UNITS/100 ML BAG IV SCH (08:27)
[2021-04-16] MEDS: ACETYLCYSTEINE 20% 200MG/ML 4 ML VIAL *FOR ORAL / INH USE ONLY NEB SCH ×4 (08:28→20:04)
[2021-04-16] MEDS: ALBUTEROL SO4 0.083% IH SOL 2.5 MG/3 ML VIAL.NEB. NEB SCH ×4 (08:28→20:04)
[2021-04-16] MEDS: MIDODRINE HCL 5 MG TABLET PO SCH ×4 (10:26→21:24)
[2021-04-16] MEDS: AMINO ACIDS/PROTEIN HYDROLYS 30 ML LIQUID.PKT PO SCH ×3 (10:26→16:47)
[2021-04-16] MEDS: FAMOTIDINE 20 MG/50 ML IVPB 20 MG/50 ML MG IVPB SCH ×2 (10:30→21:27)
[2021-04-16] MEDS: levETIRAcetam 500 MG/5 ML INJECTION VIAL IVPB SCH (10:30)
[2021-04-16] MEDS: TIGECYCLINE 50 MG in DEXTROSE 5%-WATER - 100 ML IVPB SCH ×2 (10:31→21:27)
[2021-04-16] MEDS: OCULAR LUBRICANT OPHTHALMIC OINTMENT 7 GM TUBE OU SCH ×2 (10:33→21:24)
[2021-04-16] MEDS: AMIODARONE IN DEXTROSE,ISO-OSM 360 MG/200 ML BAG IVPB SCH (16:10)
[2021-04-16] MEDS: INSULIN (LEVEMIR) 100 UNITS/ML UNITS SQ SCH (21:23)
[2021-04-17] MEDS: MIDODRINE HCL 5 MG TABLET PO SCH ×4 (01:03→21:17)
[2021-04-17] MEDS: BANATROL PLUS POWDER PACKET PO SCH ×3 (06:26→21:17)
[2021-04-17] MEDS: INSULIN SLIDING SCALE (NOVOLOG) 1 VIAL SQ SCH ×4 (06:26→21:17)
[2021-04-17 07:13] LABS: HEMATOCRIT 24.2 % (35.4-49); HEMOGLOBIN 7.5 GM/dL (11.7-16.9); MCH 27.2 pg (25.7-33.7); MEAN CELL VOLUME 87.8 fl (80-96); MEAN PLT VOLUME 10.8 fl (7.5-11.1); PLATELET COUNT 147 10^3/uL (134-434); RBC 2.76 M/mm3 (4.00-5.60); RDW 19.3 % (11.9-15.9)
[2021-04-17 07:35] LABS: INR 1.24 (0.83-1.09); PROTHROMBIN TIME (PATIENT) 14.3 SEC (9.7-13.0)
[2021-04-17 07:37] LABS: ACTIVATED PTT 30.5 SECONDS (25.2-36.5)
[2021-04-17 07:38] LABS: PHOSPHOROUS 6.1 mg/dL (2.5-4.9); WHITE BLOOD COUNT 34.9 K/mm3 (4.0-10.0)
[2021-04-17] MEDS: ALBUTEROL SO4 0.083% IH SOL 2.5 MG/3 ML VIAL.NEB. NEB SCH ×4 (07:40→20:44)
[2021-04-17] MEDS: ACETYLCYSTEINE 20% 200MG/ML 4 ML VIAL *FOR ORAL / INH USE ONLY NEB SCH ×4 (07:40→20:44)
[2021-04-17] MEDS: PHENYLEPHRINE NS PREMIX 50,000 MCG/500 ML BAG IVPB SCH (08:59)
[2021-04-17] MEDS: AMINO ACIDS/PROTEIN HYDROLYS 30 ML LIQUID.PKT PO SCH ×3 (08:59→16:33)
[2021-04-17] MEDS: levETIRAcetam 500 MG/5 ML INJECTION VIAL IVPB SCH (10:00)
[2021-04-17] MEDS: VASOPRESSIN 40 UNITS/100 ML BAG IV SCH (10:00)
[2021-04-17] MEDS: TIGECYCLINE 50 MG in DEXTROSE 5%-WATER - 100 ML IVPB SCH ×2 (10:14→21:17)
[2021-04-17] MEDS: HYDROCORTISONE SOD SUCCINATE 100 MG/2 ML VIAL IVPUSH SCH ×2 (10:14→21:17)
[2021-04-17] MEDS: FAMOTIDINE 20 MG/50 ML IVPB 20 MG/50 ML MG IVPB SCH ×2 (10:15→21:17)
[2021-04-17] MEDS: OCULAR LUBRICANT OPHTHALMIC OINTMENT 7 GM TUBE OU SCH ×2 (10:24→21:18)
[2021-04-17] MEDS: COLLAGENASE CLOSTRIDIUM HIST. 30 GRAMS TUBE TP SCH (12:05)
[2021-04-17 12:18] LABS: ANISOCYTOSIS 1+; CORRECTED WBC 31.16 K/mm3; MACROCYTOSIS 0
[2021-04-17] MEDS: AMIODARONE IN DEXTROSE,ISO-OSM 360 MG/200 ML BAG IVPB SCH (15:54)
[2021-04-17] MEDS: INSULIN (LEVEMIR) 100 UNITS/ML UNITS SQ SCH (21:18)
[2021-04-18] MEDS: MIDODRINE HCL 5 MG TABLET PO SCH ×4 (01:01→20:05)
[2021-04-18] MEDS: BANATROL PLUS POWDER PACKET PO SCH ×3 (06:25→21:01)
[2021-04-18] MEDS: INSULIN SLIDING SCALE (NOVOLOG) 1 VIAL SQ SCH ×4 (06:25→21:03)
[2021-04-18] MEDS ORDERED: SODIUM CHLORIDE 250 ML IV PRN (07:00)
[2021-04-18] MEDS ORDERED: EPOETIN ALFA-EPBX 20,000 UNIT/ML VIAL IVPUSH ONE (07:00)
[2021-04-18] MEDS: ALBUMIN HUMAN 25% 12.5 GM/50 ML VIAL IV SCH ×4 (07:15→09:56)
[2021-04-18 07:26] LABS: HEMATOCRIT 25.2 % (35.4-49); HEMOGLOBIN 7.9 GM/dL (11.7-16.9); MCH 27.9 pg (25.7-33.7); MCHC 31.3 g/dl (32.0-35.9); MEAN CELL VOLUME 89.3 fl (80-96); MEAN PLT VOLUME 11.1 fl (7.5-11.1); PLATELET COUNT 161 10^3/uL (134-434); RBC 2.82 M/mm3 (4.00-5.60); RDW 19.4 % (11.9-15.9)
[2021-04-18 07:30] LABS: INR 1.25 (0.83-1.09); PROTHROMBIN TIME (PATIENT) 14.4 SEC (9.7-13.0)
[2021-04-18 07:33] LABS: ACTIVATED PTT 34.8 SECONDS (25.2-36.5)
[2021-04-18] MEDS: AMINO ACIDS/PROTEIN HYDROLYS 30 ML LIQUID.PKT PO SCH ×3 (07:47→16:46)
[2021-04-18 08:00] LABS: CHLORIDE 103 mmol/L (98-107); SODIUM 140 mmol/L (136-145)
[2021-04-18] MEDS: PHENYLEPHRINE NS PREMIX 50,000 MCG/500 ML BAG IVPB SCH (08:07)
[2021-04-18 08:09] LABS: ANION GAP 16 MMOL/L (8-16); CO2 21 mmol/L (21-32); GLUCOSE,RANDOM 143 mg/dL (74-106)
[2021-04-18 08:12] LABS: CREATININE 3.7 mg/dL (0.55-1.3)
[2021-04-18 08:15] LABS: WHITE BLOOD COUNT 29.8 K/mm3 (4.0-10.0)
[2021-04-18 08:16] LABS: BLOOD UREA NITROGEN 127.8 mg/dL (7-18); CALCIUM 6.9 mg/dL (8.5-10.1)
[2021-04-18] MEDS: VASOPRESSIN 40 UNITS/100 ML BAG IV SCH (08:30)
[2021-04-18] MEDS: ACETYLCYSTEINE 20% 200MG/ML 4 ML VIAL *FOR ORAL / INH USE ONLY NEB SCH ×4 (09:21→20:16)
[2021-04-18] MEDS: ALBUTEROL SO4 0.083% IH SOL 2.5 MG/3 ML VIAL.NEB. NEB SCH ×4 (09:22→20:16)
[2021-04-18] MEDS: OCULAR LUBRICANT OPHTHALMIC OINTMENT 7 GM TUBE OU SCH ×2 (09:37→21:01)
[2021-04-18] MEDS: FAMOTIDINE 20 MG/50 ML IVPB 20 MG/50 ML MG IVPB SCH ×2 (09:37→21:03)
[2021-04-18] MEDS: HYDROCORTISONE SOD SUCCINATE 100 MG/2 ML VIAL IVPUSH SCH ×2 (09:38→21:03)
[2021-04-18] MEDS: levETIRAcetam 500 MG/5 ML INJECTION VIAL IVPB SCH (09:38)
[2021-04-18] MEDS: COLLAGENASE CLOSTRIDIUM HIST. 30 GRAMS TUBE TP SCH (09:39)
[2021-04-18] MEDS: TIGECYCLINE 50 MG in DEXTROSE 5%-WATER - 100 ML IVPB SCH ×2 (09:39→21:03)
[2021-04-18] MEDS: AMIODARONE IN DEXTROSE,ISO-OSM 360 MG/200 ML BAG IVPB SCH (15:00)
[2021-04-18] MEDS: INSULIN (LEVEMIR) 100 UNITS/ML UNITS SQ SCH (21:02)
[2021-04-19] MEDS: MIDODRINE HCL 5 MG TABLET PO SCH ×4 (01:11→20:14)
[2021-04-19] MEDS: BANATROL PLUS POWDER PACKET PO SCH ×3 (05:57→21:37)
[2021-04-19] MEDS: INSULIN SLIDING SCALE (NOVOLOG) 1 VIAL SQ SCH ×4 (07:00→21:39)
[2021-04-19] MEDS: ALBUTEROL SO4 0.083% IH SOL 2.5 MG/3 ML VIAL.NEB. NEB SCH ×4 (08:00→20:35)
[2021-04-19] MEDS: ACETYLCYSTEINE 20% 200MG/ML 4 ML VIAL *FOR ORAL / INH USE ONLY NEB SCH ×4 (08:00→20:35)
[2021-04-19] MEDS: VASOPRESSIN 40 UNITS/100 ML BAG IV SCH (09:00)
[2021-04-19] MEDS: COLLAGENASE CLOSTRIDIUM HIST. 30 GRAMS TUBE TP SCH (09:02)
[2021-04-19] MEDS: AMINO ACIDS/PROTEIN HYDROLYS 30 ML LIQUID.PKT PO SCH ×3 (10:18→16:40)
[2021-04-19] MEDS: FAMOTIDINE 20 MG/50 ML IVPB 20 MG/50 ML MG IVPB SCH ×2 (10:18→21:40)
[2021-04-19] MEDS: HYDROCORTISONE SOD SUCCINATE 100 MG/2 ML VIAL IVPUSH SCH ×2 (10:19→21:41)
[2021-04-19] MEDS: levETIRAcetam 500 MG/5 ML INJECTION VIAL IVPB SCH (10:20)
[2021-04-19] MEDS: OCULAR LUBRICANT OPHTHALMIC OINTMENT 7 GM TUBE OU SCH ×2 (10:21→21:38)
[2021-04-19] MEDS: TIGECYCLINE 50 MG in DEXTROSE 5%-WATER - 100 ML IVPB SCH (10:38)
[2021-04-19] MEDS: AMIODARONE IN DEXTROSE,ISO-OSM 360 MG/200 ML BAG IVPB SCH (14:30)
[2021-04-19] MEDS: PHENYLEPHRINE NS PREMIX 50,000 MCG/500 ML BAG IVPB SCH (16:39)
[2021-04-19] MEDS: INSULIN (LEVEMIR) 100 UNITS/ML UNITS SQ SCH (21:38)
[2021-04-20] MEDS: MIDODRINE HCL 5 MG TABLET PO SCH ×2 (01:07→09:10)
[2021-04-20] MEDS: BANATROL PLUS POWDER PACKET PO SCH (05:46)
[2021-04-20] MEDS: INSULIN SLIDING SCALE (NOVOLOG) 1 VIAL SQ SCH ×2 (06:05→12:20)
[2021-04-20 06:39] LABS: HEMATOCRIT 27.1 % (35.4-49); HEMOGLOBIN 8.5 GM/dL (11.7-16.9); MCHC 31.4 g/dl (32.0-35.9); MEAN CELL VOLUME 89.2 fl (80-96); MEAN PLT VOLUME 11.1 fl (7.5-11.1); PLATELET COUNT 191 10^3/uL (134-434); RBC 3.04 M/mm3 (4.00-5.60); RDW 19.5 % (11.9-15.9)
[2021-04-20 06:47] LABS: WHITE BLOOD COUNT 30.5 K/mm3 (4.0-10.0)
[2021-04-20 06:51] LABS: CHLORIDE 107 mmol/L (98-107); SODIUM 142 mmol/L (136-145)
[2021-04-20 06:53] LABS: CALCIUM 7.8 mg/dL (8.5-10.1)
[2021-04-20 06:54] LABS: ANION GAP 16 MMOL/L (8-16); CO2 19 mmol/L (21-32); GLUCOSE,RANDOM 171 mg/dL (74-106)
[2021-04-20 06:57] LABS: CREATININE 3.2 mg/dL (0.55-1.3)
[2021-04-20] MEDS ORDERED: EPOETIN ALFA-EPBX 20,000 UNIT/ML VIAL SQ ONE (07:00)
[2021-04-20] MEDS ORDERED: SODIUM CHLORIDE 250 ML IV PRN (07:00)
[2021-04-20 07:04] LABS: BLOOD UREA NITROGEN 122.4 mg/dL (7-18)
[2021-04-20] MEDS: ALBUTEROL SO4 0.083% IH SOL 2.5 MG/3 ML VIAL.NEB. NEB SCH ×2 (07:30→11:09)
[2021-04-20] MEDS: ACETYLCYSTEINE 20% 200MG/ML 4 ML VIAL *FOR ORAL / INH USE ONLY NEB SCH ×2 (07:30→11:07)
[2021-04-20] MEDS: AMINO ACIDS/PROTEIN HYDROLYS 30 ML LIQUID.PKT PO SCH ×2 (09:10→12:21)
[2021-04-20] MEDS: VASOPRESSIN 40 UNITS/100 ML BAG IV SCH (09:10)
[2021-04-20] MEDS: FAMOTIDINE 20 MG/50 ML IVPB 20 MG/50 ML MG IVPB SCH (09:11)
[2021-04-20] MEDS: levETIRAcetam 500 MG/5 ML INJECTION VIAL IVPB SCH (09:11)
[2021-04-20] MEDS: HYDROCORTISONE SOD SUCCINATE 100 MG/2 ML VIAL IVPUSH SCH (09:11)
[2021-04-20] MEDS: PHENYLEPHRINE NS PREMIX 50,000 MCG/500 ML BAG IVPB SCH (09:16)
[2021-04-20] MEDS: ALBUMIN HUMAN 25% 12.5 GM/50 ML VIAL IV SCH (09:30)
[2021-04-20] MEDS: COLLAGENASE CLOSTRIDIUM HIST. 30 GRAMS TUBE TP SCH (09:31)
[2021-04-20] MEDS: OCULAR LUBRICANT OPHTHALMIC OINTMENT 7 GM TUBE OU SCH (09:31)
[2021-04-20 10:19] VITALS: BP 87/63; TEMP 97.4
[2021-04-20] MEDS ORDERED: MORPHINE SULFATE/0.9% NACL/PF 100 MG/100 ML BAG IVPB SCH (12:45)
[2021-04-21 18:02] VITALS: PULSE 59
== END 2021-04-22 01:41 | disposition expired | DRG 4 ==
LOC: JER 00:36 → JERBED 08:44 → J7W 13:26 → JICU 02-27 20:17 → J8W 02-28 18:13 → J6S 03-02 05:57 → JICU 03-09 10:15
PROVIDERS: ADMIT Internal Medicine; ATTEND Internal Medicine
PROC: 0D9670Z Drainage of Stomach with Drainage Device, Via Natural or Artificial Opening (ICD-10-PCS; 2021-02-24)
PROC: 5A1D70Z Performance of Urinary Filtration, Intermittent, Less than 6 Hours Per Day (ICD-10-PCS; 2021-02-24)
PROC: 0W9G0ZZ Drainage of Peritoneal Cavity, Open Approach (ICD-10-PCS; 2021-02-27)
PROC: 0DT80ZZ Resection of Small Intestine, Open Approach (ICD-10-PCS; principal; 2021-02-27 13:00)
PROC: 0DNW0ZZ Release Peritoneum, Open Approach (ICD-10-PCS; 2021-02-27 13:00)
PROC: 30233N1 Transfusion of Nonautologous Red Blood Cells into Peripheral Vein, Percutaneous Approach (ICD-10-PCS; 2021-03-07)
PROC: 30233R1 Transfusion of Nonautologous Platelets into Peripheral Vein, Percutaneous Approach (ICD-10-PCS; 2021-03-08)
PROC: 05HN33Z Insertion of Infusion Device into Left Internal Jugular Vein, Percutaneous Approach (ICD-10-PCS; 2021-03-09)
PROC: B544ZZA Ultrasonography of Left Jugular Veins, Guidance (ICD-10-PCS; 2021-03-09)
PROC: 5A1955Z Respiratory Ventilation, Greater than 96 Consecutive Hours (ICD-10-PCS; 2021-03-09)
PROC: 0BH17EZ Insertion of Endotracheal Airway into Trachea, Via Natural or Artificial Opening (ICD-10-PCS; 2021-03-09)
PROC: 02HV33Z Insertion of Infusion Device into Superior Vena Cava, Percutaneous Approach (ICD-10-PCS; 2021-03-16)
PROC: B548ZZA Ultrasonography of Superior Vena Cava, Guidance (ICD-10-PCS; 2021-03-16)
PROC: 0BH17EZ Insertion of Endotracheal Airway into Trachea, Via Natural or Artificial Opening (ICD-10-PCS; 2021-03-19)
PROC: 4A10X4Z Monitoring of Central Nervous Electrical Activity, External Approach (ICD-10-PCS; 2021-03-22)
PROC: 02HV33Z Insertion of Infusion Device into Superior Vena Cava, Percutaneous Approach (ICD-10-PCS; 2021-03-28)
PROC: B548ZZA Ultrasonography of Superior Vena Cava, Guidance (ICD-10-PCS; 2021-03-28)
PROC: 0B113F4 Bypass Trachea to Cutaneous with Tracheostomy Device, Percutaneous Approach (ICD-10-PCS; 2021-04-04)
PROC: 0BJ08ZZ Inspection of Tracheobronchial Tree, Via Natural or Artificial Opening Endoscopic (ICD-10-PCS; 2021-04-04)
PROC: 02HV33Z Insertion of Infusion Device into Superior Vena Cava, Percutaneous Approach (ICD-10-PCS; 2021-04-05)
PROC: B548ZZA Ultrasonography of Superior Vena Cava, Guidance (ICD-10-PCS; 2021-04-05)
PROC: 02HV33Z Insertion of Infusion Device into Superior Vena Cava, Percutaneous Approach (ICD-10-PCS; 2021-04-11)
PROC: B548ZZA Ultrasonography of Superior Vena Cava, Guidance (ICD-10-PCS; 2021-04-11)
DX: A41.9 Sepsis, unspecified organism (principal); N18.6 End stage renal disease; G93.41 Metabolic encephalopathy; E87.2 Acidosis; K92.0 Hematemesis; K56.51 Intestinal adhesions [bands], with partial obstruction; J95.821 Acute postprocedural respiratory failure; M79.7 Fibromyalgia; E11.22 Type 2 diabetes mellitus with diabetic chronic kidney disease; I42.0 Dilated cardiomyopathy; R65.21 Severe sepsis with septic shock; K65.1 Peritoneal abscess; Z99.2 Dependence on renal dialysis; G93.1 Anoxic brain damage, not elsewhere classified; I25.10 Atherosclerotic heart disease of native coronary artery without angina pectoris; K91.89 Other postprocedural complications and disorders of digestive system; K56.7 Ileus, unspecified; E87.6 Hypokalemia; E66.9 Obesity, unspecified; Z68.31 Body mass index [BMI] 31.0-31.9, adult; I13.2 Hypertensive heart and chronic kidney disease with heart failure and with stage 5 chronic kidney disease, or end stage renal disease; J69.0 Pneumonitis due to inhalation of food and vomit; I50.9 Heart failure, unspecified; D63.1 Anemia in chronic kidney disease; K66.1 Hemoperitoneum; D62 Acute posthemorrhagic anemia; R06.6 Hiccough; E11.43 Type 2 diabetes mellitus with diabetic autonomic (poly)neuropathy; K31.84 Gastroparesis; L89.159 Pressure ulcer of sacral region, unspecified stage; E87.8 Other disorders of electrolyte and fluid balance, not elsewhere classified; T18.3XXA Foreign body in small intestine, initial encounter; S36.438A Laceration of other part of small intestine, initial encounter; Y83.8 Other surgical procedures as the cause of abnormal reaction of the patient, or of later complication, without mention of misadventure at the time of the procedure; F50.89 Other specified eating disorder; T81.31XA Disruption of external operation (surgical) wound, not elsewhere classified, initial encounter; E27.9 Disorder of adrenal gland, unspecified; F43.10 Post-traumatic stress disorder, unspecified; Z53.31 Laparoscopic surgical procedure converted to open procedure; K76.0 Fatty (change of) liver, not elsewhere classified; X58.XXXA Exposure to other specified factors, initial encounter; Y93.89 Activity, other specified; Y92.89 Other specified places as the place of occurrence of the external cause; Y99.8 Other external cause status; E87.1 Hypo-osmolality and hyponatremia; D61.818 Other pancytopenia; Z86.16 Personal history of COVID-19; Z66 Do not resuscitate
CPT/HCPCS: 31500; 36415; 36430; 36511; 36600; 70450-TC; 71045-TC-FY; 71250-TC; 74018-TC-FY; 74019-TC-FY; 74174-TC; 74176-TC; 74177-TC; 74250-TC-FY; 76705-TC; 80048; 80053; 81003; 82140; 82248; 82272; 82438; 82542; 82550; 82595; 82710; 82728; 82803; 82962; 83010; 83036; 83540; 83550; 83605; 83615; 83735; 83883; 84100; 84155; 84165; 84302; 84443; 84484; 84999; 85025; 85027; 85045; 85379; 85384; 85610; 85651; 85730; 86022; 86078; 86140; 86157; 86803; 86850; 86880; 86900; 86901; 86922; 87040; 87070; 87077; 87086; 87186; 87205; 87324; 87340; 87449; 87804; 88300-TC; 88307-TC; 93005; 93010; 93970-TC; 94002; 94640; 94660; 94760; 95816; 97116-GP; 97162-GP; 99285-25; C9803; G0480; J0282; J0878; J1644; J2597; J3243; J3490; P9034; P9038; P9047; P9058; Q5106; Q9967; U0003; U0005